=== PATIENT | male | born 1940 | race Caucasian/White ===

== ENCOUNTER → 2017-11-05 | Outpatient (CLI) | payer MEDICARE ==
--- NOTE | 2017-11-05 15:38 | US ---
EXAMINATION TYPE: US kidneys/renal and bladder DATE OF EXAM: 11/05/2017 COMPARISON: NONE CLINICAL HISTORY: R79.9Abnormal finding of blood chemistry R79.89. EXAM MEASUREMENTS: Right Kidney: 9.7 x 5.4 x 5.0 cm Left Kidney: 10.9 x 5.5 x 5.7 cm Right Kidney: cyst lower/lateral measures 1.7 x 1.6 x 1.3 cm. Left Kidney: No hydronephrosis or masses seen Bladder: not well distended Bilateral Jets seen: no There is no evidence for hydronephrosis at this point in time. No nephrolithiasis is seen. No worri some solid or cystic masses are identified. Technologist marked simple appearing 1.7 cm cyst lower p ole level right kidney. The urinary bladder is not greatly distended. Bilateral ureteral jets are no t seen. IMPRESSION: No hydronephrosis is evident bilaterally.
[2017-11-05 15:53] LABS: Potassium 4.2 mmol/L (3.5-5.1)
== END | disposition home or self-care (01) ==
LOC: RADUSWWP 15:00
PROVIDERS: ATTEND Family Medicine
DX: R79.89 Other specified abnormal findings of blood chemistry (principal); R79.9 Abnormal finding of blood chemistry, unspecified
CPT/HCPCS: 36415; 76770; 80051; 82565; 84520

== ENCOUNTER → 2018-04-08 | Outpatient (CLI) | payer OTHER | END | disposition home or self-care (01) | LOC: LABWHC1 11:25 | PROVIDERS: ATTEND Radiology Radiation Oncology | DX: C61 Malignant neoplasm of prostate (principal); F17.210 Nicotine dependence, cigarettes, uncomplicated | CPT/HCPCS: 36415; 84153 ==

== ENCOUNTER → 2018-10-08 | Outpatient (CLI) | payer MEDICARE | END | disposition home or self-care (01) | LOC: LABWHC1 14:27 | PROVIDERS: ATTEND Radiology Radiation Oncology | DX: C61 Malignant neoplasm of prostate (principal); F17.210 Nicotine dependence, cigarettes, uncomplicated; Z92.3 Personal history of irradiation | CPT/HCPCS: 36415; 84153 ==

== ENCOUNTER → 2019-04-01 | Outpatient (CLI) | payer OTHER | END | disposition home or self-care (01) | LOC: LABWHC1 13:38 | PROVIDERS: ATTEND Radiology Radiation Oncology | DX: C61 Malignant neoplasm of prostate (principal); F17.210 Nicotine dependence, cigarettes, uncomplicated; Z92.3 Personal history of irradiation | CPT/HCPCS: 36415; 84153 ==

== ENCOUNTER 2021-03-10 10:48 | Emergency (ER) | payer OTHER, MEDICARE ==
[2021-03-10 11:20] VITALS: RESP 18
[2021-03-10] MEDS ORDERED: SODIUM CHLORIDE 0.9% 50 ML IVPB ONE (12:00)
--- NOTE | 2021-03-10 12:19 | XR ---
EXAMINATION TYPE: XR chest 1V portable DATE OF EXAM: 03/10/2021 Comparison: None Clinical History: 80-year-old male covid positive x 1 wk, cough Findings: Median sternotomy wires and post-CABG clips in the mediastinum. Heart borderline in size. Mild inters titial prominence and chronic appearance. No focal infiltrate seen. No pleural effusion. Impression: Cardiomegaly. Post-CABG changes. There are chronic appearing changes. No definite focal infiltrate.
[2021-03-10] MEDS ORDERED: BAMLANIVIMAB (EUA) 700 MG, ETESEVIMAB (EUA) 1,400 MG in SODIUM CHLORIDE 0.9% 50 ML IVPB ONE (12:30)
[2021-03-10 12:59] VITALS: BP 133/76; PULSE 68; TEMP 99.4
--- NOTE | 2021-03-10 13:01 | ED ---
URI HPI - General Chief Complaint: Upper Respiratory Infection Stated Complaint: Covid +, needs antibodies Time Seen by Provider: 03/10/21 11:27 Source: patient, family, RN notes reviewed Mode of arrival: ambulatory Limitations: no limitations - History of Present Illness Initial Comments: Patient is a 80-year-old male with history of heart disease, diabetes, dementia, presenting to the emergency department requesting monoclonal antibodies. Patient tested positive for Covid about 4 days ago, symptoms began about 2 days prior to that. He has been having coughing, congestion, body aches. He said no fevers, no chest pain or shortness of breath. He does admit to some mild nausea but no vomiting, he had one day of diarrhea but that is since cleared. He still drinking fluids and eating some food. There are no further complaints at this time. Upon arrival to the ER, his vital signs are stable. - Related Data Home Medications Medication Instructions Recorded Confirmed Aspirin [Adult Low Dose Aspirin EC] 81 mg PO DAILY 02/05/18 Enalapril [Vasotec] 20 mg PO DAILY 02/05/18 Famotidine [Pepcid] 20 mg PO DAILY 02/05/18 Hydrochlorothiazide 12.5 mg PO DAILY 02/05/18 [hydroCHLOROthiazide] Levothyroxine Sodium [Synthroid] 75 mcg PO DAILY 02/05/18 Metoprolol Tartrate [Lopressor] 50 mg PO DAILY 02/05/18 Simvastatin 40 mg PO DAILY 02/05/18 amLODIPine [Norvasc] 5 mg PO DAILY 02/05/18 metFORMIN HCL [Glucophage] 1,000 mg PO BID 02/05/18 Previous Rx's Medication Instructions Recorded Dexamethasone [Decadron] 6 mg PO DAILY 5 Days #5 tablet 03/10/21 Allergies Allergy/AdvReac Type Severity Reaction Status Date / Time No Known Allergies Allergy Verified 03/10/21 11:20 Review of Systems ROS Statement: Those systems with pertinent positive or pertinent negative responses have been documented in the HPI. ROS Other: All systems not noted in ROS Statement are negative. Past Medical History Past Medical History: Coronary Artery Disease (CAD), Dementia, Diabetes Mellitus, Hyperlipidemia, Hypertension, Osteoarthritis (OA) Additional Past Medical History / Comment(s): PROSTATE CA HX History of Any Multi-Drug Resistant Organisms: None Reported Past Surgical History: Adenoidectomy, Coronary Bypass/CABG, Tonsillectomy Past Psychological History: No Psychological Hx Reported Smoking Status: Current every day smoker Past Alcohol Use History: None Reported Past Drug Use History: None Reported General Exam - General Exam Comments Initial Comments: GENERAL: Patient is well-developed and well-nourished. Patient is nontoxic and in no acute distress. HEAD: Atraumatic, normocephalic. EYES: Pupils equal round and reactive to light, extraocular movements intact, sclera anicteric, conjunctiva are normal. Eyelids were unremarkable. ENT: Oropharynx clear without exudates. Moist mucous membranes. NECK: Normal range of motion, supple without lymphadenopathy or JVD. LUNGS: Unlabored respirations. Breath sounds clear to auscultation bilaterally and equal. No wheezes rales or rhonchi. HEART: Regular rate and rhythm without murmurs, rubs or gallops. ABDOMEN: Soft, nontender, normoactive bowel sounds. No guarding, no rebound. No masses appreciated. MUSCULOSKELETAL: Normal extremities with adequate strength and normal range of motion, no pitting or edema. No clubbing or cyanosis. NEUROLOGICAL: Patient is alert and oriented x 3. SKIN: Warm, Dry, normal turgor, no rashes or lesions noted. Limitations: physical limitation Course Vital Signs 03/10/21 03/10/21 03/10/21 11:16 11:27 12:58 Temperature 98.9 F 99.4 F Pulse Rate 74 68 Respiratory 18 18 18 Rate Blood Pressure 144/75 133/76 O2 Sat by Pulse 97 97 Oximetry Medical Decision Making - Medical Decision Making Patient is a 80-year-old male here requesting monoclonal antibodies. He tested positive for Covid 4 days ago, symptoms began 2 days prior to that. His vitals are stable here, exam was no acute findings. Patient does qualify for monoclonal antibodies, received these without adverse side effects. A chest x- ray shows no acute infiltrates. His vitals remained stable. Patient will be placed on steroids for his cough. He is stable for discharge. He can follow up with his primary care. Disposition Clinical Impression: COVID-19 Disposition: HOME SELF-CARE Condition: Stable Instructions (If sedation given, give patient instructions): Coronavirus Disease 2019 (COVID-19) Additional Instructions: Please return to the Emergency Department if symptoms worsen or any other concerns. Take steroids as prescribed. Continue to increase fluids and increase diet as tolerated. Follow-up with your primary care. Prescriptions: Dexamethasone [Decadron] 6 mg PO DAILY 5 Days #5 tablet Is patient prescribed a controlled substance at d/c from ED?: No Referrals: [facility],Clinic [Primary Care Provider] - 1-2 days Time of Disposition: 14:14
== END 2021-03-10 14:37 | disposition home or self-care (01) ==
LOC: EC 10:48
DX: U07.1 COVID-19 (principal); I11.9 Hypertensive heart disease without heart failure; I25.10 Atherosclerotic heart disease of native coronary artery without angina pectoris; F03.90 Unspecified dementia, unspecified severity, without behavioral disturbance, psychotic disturbance, mood disturbance, and anxiety; E11.9 Type 2 diabetes mellitus without complications; E78.5 Hyperlipidemia, unspecified; M19.90 Unspecified osteoarthritis, unspecified site; F17.200 Nicotine dependence, unspecified, uncomplicated; Z85.46 Personal history of malignant neoplasm of prostate; Z90.89 Acquired absence of other organs; Z95.5 Presence of coronary angioplasty implant and graft
CPT/HCPCS: 99283; 96365; 71045; J3490

== ENCOUNTER 2021-10-17 08:54 | Inpatient (IN) | payer OTHER, MEDICARE ==
[2021-10-17 09:27] LABS: Basophils # (A) 0.1 k/uL (0-0.2); Basophils % (A) 1 %; Eosinophils # (A) 0.2 k/uL (0-0.7); Eosinophils % (A) 3 %; HCT 47.8 % (39.0-53.0); Lymphocytes # (A) 0.9 k/uL (1.0-4.8); Lymphocytes % (A) 13 %; MCH 32.8 pg (25.0-35.0); MCHC 33.5 g/dL (31.0-37.0); MCV 97.9 fL (80.0-100.0); Mean Platelet Volume 9.5; Monocytes # (A) 0.6 k/uL (0-1.0); Monocytes % (A) 9 %; Neutrophils # (A) 4.8 k/uL (1.3-7.7); Neutrophils % (A) 71 %; Platelet Count 151 k/uL (150-450); RBC 4.89 m/uL (4.30-5.90); RDW 14.3 % (11.5-15.5); WBC 6.8 k/uL (3.8-10.6)
[2021-10-17 09:45] LABS: Glucose,Whole Blood 138 mg/dL (70-110)
--- NOTE | 2021-10-17 09:55 | CT ---
EXAMINATION TYPE: CT brain wo con for TPA DATE OF EXAM: 10/17/2021 COMPARISON: None available HISTORY: Acute neurological deficit, stroke suspected CT DLP: 1561.9 mGycm, including the CT angiogram Automated exposure control for dose reduction was used. TECHNIQUE: CT scan of the brain is performed without IV contrast administration. FINDINGS: Brain volume loss changes, likely age-related. Left medial occipital cortical and subcortical chronic infarct. Scattered arterial atherosclerotic calcifications. No acute intracranial hemorrhage. No gross acute cortical infarct. No midline shift or herniation. Un remarkable basal cisterns, sella and CP angles. No gross space-occupying lesion, vasogenic edema or m ass effect. Thickened extraocular muscles, please correlate for thyroid orbitopathy. Mucosal thickening right max illary sinus. Opacified mastoid air cells. No gross aggressive bone lesion. IMPRESSION: No acute intracranial hemorrhage or gross acute cortical infarct. Left medial occipital chronic infar ct and other findings as described above.
--- NOTE | 2021-10-17 10:21 | CT ---
EXAMINATION TYPE: CT angio head neck DATE OF EXAM: 10/17/2021 HISTORY: Neuro deficit COMPARISON: None available CT DLP: 485.1 mGycm. Automated Exposure Control for Dose Reduction was Utilized. TECHNIQUE: CTA scan of the head and neck is performed with IV Contrast, patient injected with 65 mL of Isovue 370, axial images are obtained, coronal and sagittal reformatted images are reviewed. 3D re constructed images are created on an independent workstation and reviewed. FINDINGS: Carotid/Vascular Structures: 8 mm focal nipple-like projection is seen at the anterior aspect of the ascending aorta, possibly representing a small focal aneurysm. The ascending aorta measures 3.6 cm. R ecommend cardiovascular surgery consultation. Scattered arterial atherosclerotic calcification and to rtuosity. Moderate stenosis of the origin of the right vertebral artery. Dominant right vertebral art juan francisco. Severe stenosis of the origin of the left vertebral artery. Severe stenosis (95%) of the proxima l portion of the left internal carotid artery by a partially calcified atheromatous plaque and extend ing for about 4 mm. About 80% stenosis of the proximal portion of the right external carotid artery. Mild stenosis of the origin of the right internal carotid artery. Severe stenosis of the cavernous po rtion of the left internal carotid artery. Motion artifacts involving the intracranial arteries. [place] severe stenosis of the P2 segments of the human resources talent manager versus artifact. Patent major intracranial venous sinuses. Other: No intracranial abnormal enhancement. Slightly thickened nasopharyngeal soft tissue with opaci fied mastoid air cells, underlying lesion cannot be excluded. Further elective ENT consultation can b e considered. Small heterogeneous thyroid gland. Recommend correlation with thyroid function tests. T hickening of the extraocular muscles, recommend further workup for thyroid orbitopathy if not already known. Degenerative changes of the cervical spine. 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 Focal nipple-like projection of the anterior aspect of the ascending aorta a s described above, for cardiothoracic surgery consultation. Other arterial atherosclerotic changes an d segments of arterial stenosis as detailed above. Other incidental findings and recommendations as detailed above.
[2021-10-17] MEDS ORDERED: MORPHINE SULFATE 4 MG/ML SYRINGE IVP STA (10:37)
--- NOTE | 2021-10-17 11:02 | ED ---
Neuro HPI - General Chief Complaint: Neuro Symptoms/Deficit Stated Complaint: stroke symptoms Time Seen by Provider: 10/17/21 09:17 Source: patient, family Mode of arrival: wheelchair Limitations: no limitations - History of Present Illness Is the patient presenting with stroke symptoms?: Yes Last Known Well Date: 10/16/21 Last Known Well Time: 21:00 Initial Comments: 80-year-old male with past medical history of coronary artery disease, dementia, diabetes presents to the emergency Department with slurred speech and right upper and lower extremity weakness. Went to bed around 8:30 last night. The states that he was extremely restless and was moving around all night. The patient awoke around 6 AM and was attempting to ambulate around the bedroom. The could tell that he was having difficulty walking however she thought it was due to ambulating in the dark. The patient was dragging his right leg. The awoke around 7:30 8:00. She attempted to speak with him and he was having difficulties with his speech. This is what alerted her to bring him into the emergency department. Onset of symptoms is extremely unclear at this time. Patient is on a blood thinners. He denies any recent head trauma. No chest pain. Does complain of some right shoulder pain. No other alleviating, precipitating modifying factors - Related Data Home Medications: Home Medications Medication Instructions Recorded Confirmed Aspirin [Adult Low Dose Aspirin EC] 81 mg PO DAILY 02/05/18 10/17/21 Enalapril [Vasotec] 20 mg PO BID 02/05/18 10/17/21 Simvastatin 40 mg PO DAILY 02/05/18 10/17/21 amLODIPine [Norvasc] 5 mg PO DAILY 02/05/18 10/17/21 hydroCHLOROthiazide 12.5 mg PO DAILY 02/05/18 10/17/21 Levothyroxine Sodium [Synthroid] 125 mcg PO DAILY 10/17/21 10/17/21 Omeprazole 20 mg PO BID 10/17/21 10/17/21 Previous Rx's Medication Instructions Recorded Linagliptin [Tradjenta] 5 mg PO DAILY #30 tab 10/19/21 Metoprolol Tartrate [Lopressor] 12.5 mg PO BID #60 tab 10/19/21 Ticagrelor [Brilinta] 90 mg PO BID #60 tab 10/19/21 Allergies/Adverse Reactions: Allergies Allergy/AdvReac Type Severity Reaction Status Date / Time No Known Allergies Allergy Verified 10/17/21 11:55 Review of Systems ROS Statement: Those systems with pertinent positive or pertinent negative responses have been documented in the HPI. ROS Other: All systems not noted in ROS Statement are negative. General Exam Limitations: no limitations General appearance: alert, in no apparent distress Head exam: Present: atraumatic, normocephalic, normal inspection Eye exam: Present: normal appearance, PERRL, EOMI. Absent: scleral icterus, conjunctival injection, periorbital swelling ENT exam: Present: normal exam, mucous membranes moist Neck exam: Present: normal inspection. Absent: tenderness, meningismus, lymphadenopathy Respiratory exam: Present: normal lung sounds bilaterally. Absent: respiratory distress, wheezes, rales, rhonchi, stridor Cardiovascular Exam: Present: regular rate, normal rhythm, normal heart sounds. Absent: systolic murmur, diastolic murmur, rubs, gallop, clicks GI/Abdominal exam: Present: soft, normal bowel sounds. Absent: distended, tenderness, guarding, rebound, rigid Extremities exam: Present: normal capillary refill, other (4/5 strength right upper and right lower extremity). Absent: tenderness, pedal edema, joint swelling, calf tenderness Back exam: Present: normal inspection Neurological exam: Present: alert, oriented X3, other (moderate dysarthria with mild expressive aphasia) Psychiatric exam: Present: normal affect, normal mood Skin exam: Present: warm, dry, intact, normal color. Absent: rash Stroke MDM - Lab Data Result diagrams: 10/17/21 09:20 10/17/21 11:10 Lab Results 10/17/21 10/17/21 Range/Units 09:20 09:42 WBC 6.8 (3.8-10.6) k/uL RBC 4.89 (4.30-5.90) m/uL Hgb 16.0 (13.0-17.5) gm/dL Hct 47.8 (39.0-53.0) % MCV 97.9 (80.0-100.0) fL MCH 32.8 (25.0-35.0) pg MCHC 33.5 (31.0-37.0) g/dL RDW 14.3 (11.5-15.5) % Plt Count 151 (150-450) k/uL MPV 9.5 Neutrophils % 71 % Lymphocytes % 13 % Monocytes % 9 % Eosinophils % 3 % Basophils % 1 % Neutrophils # 4.8 (1.3-7.7) k/uL Lymphocytes # 0.9 L (1.0-4.8) k/uL Monocytes # 0.6 (0-1.0) k/uL Eosinophils # 0.2 (0-0.7) k/uL Basophils # 0.1 (0-0.2) k/uL POC Glucose (mg/dL) 138 H (70-110) mg/dL POC Glu Offal Trimmer ID Domenica Eden - Medical Decision Making Upon arrival patient was placed into room 5. A thorough history and physical exam was performed. Patient originally told triage that his symptom onset was 4 AM. He then told me that symptom onset was 6 AM. As he does arrive around 9 AM he is within the foreign half hour TPA window and therefore called alteplase as activated. Upon further discussion with the patient's the patient's woke up with these symptoms and therefore onset is pushed back to his bedtime at 8:30. Laboratory studies were conducted and the patient goes for a CT of his head as well as CT angiography. History was conveyed to Dr. Brown. As onset of timing is questionable, TPA is not indicated. CT demonstrates no acute cranial hemorrhage or gross cortical infarct. Left medial occipital chronic infarct. CT angiography demonstrates severe stenosis of the proximal in the cavernous portions of the left internal carotid artery. Focal nipple like projection of the anterior aspect of the ascending aorta. I discussed this with the patient. Will be given aspirin and statin. He will be admitted to Dr. Ding who accepts admission. Vascular, neurology and cardiothoracic surgery will be consulted. Patient agreed to this and was admitted in stable condition EKG demonstrates sinus bradycardia with a rate of 58. MO interval 178. QRS 106. QTC of 446. No acute ST segment elevations. Mild ST depression 2, 3, aVF as well as V5 and V6 10/17/21 13:01 Past Medical History Past Medical History: Coronary Artery Disease (CAD), Dementia, Diabetes Mellitus, Hyperlipidemia, Hypertension, Osteoarthritis (OA) Additional Past Medical History / Comment(s): PROSTATE CA HX History of Any Multi-Drug Resistant Organisms: None Reported Past Surgical History: Adenoidectomy, Coronary Bypass/CABG, Tonsillectomy Past Psychological History: No Psychological Hx Reported Smoking Status: Current every day smoker Past Alcohol Use History: None Reported Past Drug Use History: None Reported - Past Family History Mother Family Medical History: Unable to Obtain Father Family Medical History: Unable to Obtain Brother(s) Family Medical History: No Reported History Sister(s) Family Medical History: No Reported History Course Vital Signs 10/17/21 10/17/21 10/17/21 08:56 09:15 09:30 Temperature 98.0 F 98.1 F Pulse Rate 61 58 L 56 L Respiratory 18 16 18 Rate Blood Pressure 171/82 192/90 171/74 O2 Sat by Pulse 98 100 100 Oximetry 10/17/21 10/17/21 09:45 13:02 Temperature 98.1 F Pulse Rate 49 L Respiratory 16 18 Rate Blood Pressure 144/86 O2 Sat by Pulse 100 98 Oximetry Critical Care Time Critical Care Time: Yes Critical Care Time: 32 minutes Disposition Clinical Impression: Cerebrovascular accident (CVA), Right sided weakness, Dysarthria, Carotid disease, bilateral Disposition: ADMITTED IP TO THIS [facility] Condition: Serious Is patient prescribed a controlled substance at d/c from ED?: No Time of Disposition: 10:55 Decision to Admit Reason: Admit from EC Decision Date: 10/17/21 Decision Time: 10:55
[2021-10-17] MEDS ORDERED: ASPIRIN 325 MG TAB PO STA (11:19)
[2021-10-17] MEDS ORDERED: ATORVASTATIN 40 MG TAB PO SCH (11:30)
--- NOTE | 2021-10-17 11:32 | XR ---
EXAMINATION TYPE: XR chest 2V DATE OF EXAM: 10/17/2021 COMPARISON: NONE TECHNIQUE: PA and lateral views submitted. HISTORY: Altered mental status. FINDINGS: The lungs are clear and there is no pneumothorax, pleural effusion, or focal pneumonia. Postsurgica l changes are seen in the suggestion of an epicardial lead. Hypertrophic and degenerative change of t he spine. Heart size stable with no overt failure. Arthropathy of the shoulders. Atherosclerotic oden ge aorta. IMPRESSION: 1. No acute process.
--- NOTE | 2021-10-17 11:44 | XR ---
EXAMINATION TYPE: XR shoulder complete RT DATE OF EXAM: 10/17/2021 COMPARISON: NONE HISTORY: Pain TECHNIQUE: Three views are submitted. FINDINGS: The osseous structures are intact. There is no acute fracture or dislocation. AC joint arthropathy n oted. Postsurgical changes involving the mediastinum.. IMPRESSION: 1. AC joint arthropathy. If concern for rotator cuff disease correlate with MRI..
[2021-10-17 11:46] LABS: INR 0.9 (<1.2); Partial Thromboplastin Time 22.4 sec (22.0-30.0); Prothrombin Time 9.9 sec (9.0-12.0)
[2021-10-17 11:59] LABS: Calcium 8.9 mg/dL (8.4-10.2); Total Bilirubin 0.6 mg/dL (0.2-1.3); Total Protein 6.5 g/dL (6.3-8.2)
[2021-10-17 12:06] LABS: Potassium 4.4 mmol/L (3.5-5.1)
--- NOTE | 2021-10-17 14:09 | P.GSCN ---
History of Present Illness Consult date: 10/17/21 Reason for Consult: Carotid stenosis, CVA Requesting physician: Gabriella Bravo History of present illness: This is s a pleasant 80-year-old male with a past medical history of coronary artery disease status post CABG, hypertension, diabetes, and dementia who presented to the emergency department this morning with complaints of slurred speech and right-sided weakness. Patient also a current smoker. Most of the history is being obtained from the chart as the patient is poor historian and seems slightly confused. Apparently the patient went to bed last evening around 8:30 at night, his reportedly stated he was restless throughout the night. He got up around 6 AM and seemed as though he was having some difficulty with ambulating in the room, however the thought it was just due to the darkness. When she awoke around 7:30 8:00 the patient was dragging his leg and having difficulty with his speech. At that time patient was brought to the emergency department. Patient states he believes he had known carotid disease. 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 Lozada. He is unsure if he is on any anticoagulation. He is currently denying any abdominal pain, chest pain, shortness of breath, fevers, chills nausea or vomiting. Seems confused when asked if he is right or left handed. Also seems confused regarding if I ask if he has weakness of the upper and lower extremities. Is displaying slurred speech. Brain CT showed no acute intracranial hemorrhage or gross acute cortical artifact. Left medial occipital chronic infarct and other findings as described above. CT angiogram head and neck reports severe stenosis 95% of the proximal portion of the left internal carotid artery by partially calcified atheromatous plaque and extending about 4 mm. About 80% stenosis of the proximal portion of the right external carotid artery. Mild stenosis of the origin of the right internal carotid artery. A focal nipple-like projection of the anterior aspect of the ascending aorta, possibly representing a small focal aneurysm. Ascending aorta measures 3.6 cm. Review of Systems A 14 point review systems was completed all pertinent positives and negatives as stated in the HPI. Past Medical History Past Medical History: Coronary Artery Disease (CAD), Dementia, Diabetes Mellitus, Hyperlipidemia, Hypertension, Osteoarthritis (OA) Additional Past Medical History / Comment(s): PROSTATE CA HX History of Any Multi-Drug Resistant Organisms: None Reported Past Surgical History: Adenoidectomy, Coronary Bypass/CABG, Tonsillectomy Past Psychological History: No Psychological Hx Reported Smoking Status: Current every day smoker Past Alcohol Use History: None Reported Past Drug Use History: None Reported - Past Family History Mother Family Medical History: Unable to Obtain Father Family Medical History: Unable to Obtain Brother(s) Family Medical History: No Reported History Sister(s) Family Medical History: No Reported History Medications and Allergies Home Medications Medication Instructions Recorded Confirmed Type Aspirin [Adult Low Dose Aspirin EC] 81 mg PO DAILY 02/05/18 10/17/21 History Enalapril [Vasotec] 20 mg PO BID 02/05/18 10/17/21 History Metoprolol Tartrate [Lopressor] 50 mg PO DAILY 02/05/18 10/17/21 History Simvastatin 40 mg PO DAILY 02/05/18 10/17/21 History amLODIPine [Norvasc] 5 mg PO DAILY 02/05/18 10/17/21 History hydroCHLOROthiazide 12.5 mg PO DAILY 02/05/18 10/17/21 History Levothyroxine Sodium [Synthroid] 125 mcg PO DAILY 10/17/21 10/17/21 History Omeprazole 20 mg PO BID 10/17/21 10/17/21 History Allergies Allergy/AdvReac Type Severity Reaction Status Date / Time No Known Allergies Allergy Verified 10/17/21 11:55 Surgical - Exam Vital Signs Temp Pulse Resp BP Pulse Ox 98.0 F 61 18 171/82 98 10/17/21 08:56 10/17/21 08:56 10/17/21 08:56 10/17/21 08:56 10/17/21 08:56 General appearance: The patient is alert, oriented, appears in no acute distress. HET: Head is normocephalic and atraumatic. Pupils are equal and reactive. Neck: Supple without lymphadenopathy. Trachea midline. No audible carotid bruit. Heart: S1 S2. Regular rate and rhythm. Lungs: Clear to auscultation bilaterally. Abdomen: Soft, nontender, nondistended. Extremities: Normal skin color and turgor. No cyanosis, rash, ulceration, clubbing, or edema. Neurological: Patient seems slightly confused. He does have slurred speech. Tongue protrudes midline. Seems to answer most questions appropriately, however confused at times. Does display a right upper extremity weakness 3/5 compared to left 5/5. Right lower extremity seems not minimally weak compared to the left. Results - Labs 10/17/21 09:20 10/17/21 11:10 Abnormal Lab Results - Last 24 Hours (Table) 10/17/21 10/17/21 10/17/21 Range/Units 09:20 09:42 11:10 Lymphocytes # 0.9 L (1.0-4.8) k/uL BUN 26 H (9-20) mg/dL Glucose 132 H (74-99) mg/dL POC Glucose (mg/dL) 138 H (70-110) mg/dL Diabetes panel 10/17/21 Range/Units 11:10 Sodium 137 (137-145) mmol/L Potassium 4.4 (3.5-5.1) mmol/L Chloride 107 (98-107) mmol/L Carbon Dioxide 24 (22-30) mmol/L BUN 26 H (9-20) mg/dL Creatinine 1.03 (0.66-1.25) mg/dL Glucose 132 H (74-99) mg/dL Calcium 8.9 (8.4-10.2) mg/dL AST 21 (17-59) U/L ALT 17 (4-49) U/L Alkaline Phosphatase 47 (38-126) U/L Total Protein 6.5 (6.3-8.2) g/dL Albumin 4.0 (3.5-5.0) g/dL Calcium panel 10/17/21 Range/Units 11:10 Calcium 8.9 (8.4-10.2) mg/dL Albumin 4.0 (3.5-5.0) g/dL Pituitary panel 10/17/21 Range/Units 11:10 Sodium 137 (137-145) mmol/L Potassium 4.4 (3.5-5.1) mmol/L Chloride 107 (98-107) mmol/L Carbon Dioxide 24 (22-30) mmol/L BUN 26 H (9-20) mg/dL Creatinine 1.03 (0.66-1.25) mg/dL Glucose 132 H (74-99) mg/dL Calcium 8.9 (8.4-10.2) mg/dL Adrenal panel 10/17/21 Range/Units 11:10 Sodium 137 (137-145) mmol/L Potassium 4.4 (3.5-5.1) mmol/L Chloride 107 (98-107) mmol/L Carbon Dioxide 24 (22-30) mmol/L BUN 26 H (9-20) mg/dL Creatinine 1.03 (0.66-1.25) mg/dL Glucose 132 H (74-99) mg/dL Calcium 8.9 (8.4-10.2) mg/dL Total Bilirubin 0.6 (0.2-1.3) mg/dL AST 21 (17-59) U/L ALT 17 (4-49) U/L Alkaline Phosphatase 47 (38-126) U/L Total Protein 6.5 (6.3-8.2) g/dL Albumin 4.0 (3.5-5.0) g/dL - Imaging Comments: CT angiogram head and neck reviewed as stated previously CT brain reviewed as stated previously Assessment and Plan Assessment: 1. Left ICA stenosis, 95% per CT angiogram 2. Right-sided weakness and aphasia 3. History of coronary artery disease 4. History of dementia 5. Hypertension Plan: 1. Carotid duplex ordered 2. Await recommendations from neurology 3. Recommend aspirin, statin, Plavix if cleared by neurology 4. Further recommendations forthcoming per vascular surgeon 5. Please obtain disc of CT angiogram head and neck and put in patient's chart 6. Recommend PT/OT, speech therapy 7. Smoking cessation Thank you for this consultation, we will continue to follow. The impression and plan of care has been dictated as directed. Dr. Ruffin I performed a history and examination of this patient, discussed the same with the dictator. I agree with the dictator's note ,documented as a scribe. Any additional findings or plans will be noted.
--- NOTE | 2021-10-17 14:35 | US ---
EXAMINATION TYPE: US carotid duplex BILAT DATE OF EXAM: 10/17/2021 COMPARISON: CTA CLINICAL HISTORY: right sided weakness, CVA. Abnormal speech, CVA EXAM MEASUREMENTS: RIGHT: Peak Systolic Velocity (PSV) cm/sec ----- Right CCA: 67.7 ----- Right ICA: 123 ----- Right ECA: 511 ICA/CCA ratio: 1.8 RIGHT: End Diastole cm/sec ----- Right CCA: 14.3 ----- Right ICA: 37.5 ----- Right ECA: 43.6 LEFT: Peak Systolic Velocity (PSV) cm/sec ----- Left CCA: 95.2 ----- Left ICA: 241 ----- Left ECA: 128 ICA/CCA ratio: 2.5 LEFT: End Diastole cm/sec ----- Left CCA: 10.3 ----- Left ICA: 61.6 ----- Left ECA: 1.3 VERTEBRALS (direction of flow): Right Vertebral: Antegrade Left Vertebral: Unable to visualize Rhythm: Arrhythmia Heterogeneous plaque bilaterally with elevated velocities bilaterally/ Left vertebral artery unable to be visualized IMPRESSION: 1. Heterogeneous plaque bilaterally with findings suggestive of a 50-69% stenosis of the proximal lef t ICA. 2. Cardiac dysrhythmia. 3. Nonvisualization of the left vertebral artery could be congenital correlate clinically. Criteria for Assigning % of Stenosis / Diameter reduction (Estimation based on the indirect measurements of the internal carotid artery velocities (ICA PSV). 1. Normal (no stenosis)=ICA PSV < 125 cm/s: ratio < 2.0: ICA EDV<40 cm/s. 2. Less than 50% stenosis=ICA PSV < 125 cm/s: ratio < 2.0: ICA EDV<40 cm/s. 3. 50 to 69% stenosis=ICA PSV of 125 to 230 cm/s: ration 2.0 ? 4.0: ICA EDV 40-100 cm/s. 4. Greater than 70% stenosis to near occlusion= ICA PSV > 230 cm/s: ratio > 4.0: ICA EDV > 100 cm/s. 5. Near occlusion= ICA PSV velocities may be low or undetectable: variable ratio and ICA EDV. 6. Total occlusion=unable to detect flow.
--- NOTE | 2021-10-17 14:57 | P.HPIM ---
History of Present Illness H&P Date: 10/17/21 HISTORY OF PRESENT ILLNESS This is a 80-year-old male patient of Dr. Rojas with past medical history of coronary artery disease status post CABG many years ago, dementia, possible diabetes, hypertension, hyperlipidemia, history of prostate cancer, obstructive sleep apnea. Patient went to bed last evening at 8:30 and awoke this morning at 6 was attempting to ambulate he is having difficulty walking but he was dragging his right leg. Patient's woke at 7:30 or 8 and try to speak with them but he was having difficulty with speech. Patient was brought into [facility] emergency center for evaluation. He was found to be afebrile, heart rate 61, blood pressure 171/82, pulse ox 90% on room air. EKG sinus bradycardia with no acute ST changes. CBC was unremarkable. INR 0.9. Electrolytes normal. BUN 26 creatinine 1.03. Blood sugar 132. Liver function tests normal. Troponin negative. CT angiogram of the head and neck revealed severe stenosis of the proximal and cavernous portions of the left internal carotid artery. Focal nipple-like projections of the anterior aspect of the ascending aorta. Other arterial atherosclerotic changes and segments of arterial stenosis. CAT scan of the brain revealed no acute intracranial hemorrhage or gross acute cortical infarct. Left medial occipital chronic infarct. Chest x-ray reveals no acute process. Right shoulder x-ray revealed before meals joint arthropathy. If concern for rotator cuff disease correlate with MRI. Ultrasound carotid arteries revealed 50-69% stenosis of the proximal left ICA. Cardiac dysrhythmia. Nonvisualization of the left vertebral artery could be congenital. Patient is seen today in the emergency center waiting for a bed on the cardiac stepdown unit, vascular, neurology and cardiothoracic surgery consult in place REVIEW OF SYSTEMS Constitutional: No fever, no chills, no night sweats. No weight change. No weakness, fatigue or lethargy. No daytime sleepiness. EENT: No headache. No blurred vision or double vision, no loss of vision. No loss of Hearing, no ringing in the ears, no dizziness. No nasal drainage or congestion. No epistaxis. No sore throat. Lungs: No shortness of breath, cough, no sputum production. No wheezing. Cardiovascular: No chest pain, no lower extremity edema. No palpitations. No paroxysmal nocturnal dyspnea. No orthopnea. No lightheadedness or dizziness. No syncopal episodes. Abdominal: No abdominal pain. No nausea, vomiting. No diarrhea. No constipation. No bloody or tarry stools. No loss of appetite. Genitourinary: No dysuria, increased frequency, urgency. No urinary retention. Musculoskeletal: No myalgias. No muscle weakness, no gait dysfunction, no frequent falls. No back pain. No neck pain. Integumentary: No wounds, no lesions. No rash or pruritus. No unusual bruising. No change in hair or nails. Neurologic: Slurred speech. Right-sided facial droop. No change in mentation. No head injury. No headache. No paralysis. Right-sided weakness more so to the right upper extremity. Psychiatric: No depression. No anxiety. No mood swings. Endocrine: No abnormal blood sugars. No weight change. No excessive sweating or thirst. No cold intolerance. MEDICAL HISTORY Coronary artery disease status post CABG Dementia Diabetes mellitus type 2 Hypertension Hyperlipidemia History of prostate cancer Obstructive sleep apnea SURGICAL HISTORY CABG Adenoidectomy and tonsillectomy SOCIAL HISTORY Patient is a smoker of one pack per day since he was 18 years of age. He denies any alcohol use, marijuana or illicit drug use. He will lives at home with his . He does not use a cane or walker for ambulation. He has a CPAP at home. No oxygen and no nebulizer at home. FAMILY HISTORY Mother and father both in their late 60s and patient does not recall their medical history. Patient has 2 brothers and 2 sisters and as far as he knows no medical problems. Patient is one son and one daughter with no major medical problems. PHYSICAL EXAMINATION Gen: This is a 80-year-old male. He is resting on ER stretcher and appears to be comfortable at rest. HEENT: Head is atraumatic, normocephalic. Pupils equal, round. Sclerae is anicteric. Extraocular motion intact. NECK: Supple. No JVD. No lymphadenopathy. No thyromegaly. LUNGS: Clear to auscultation. No wheezes or rhonchi. No intercostal retractions. HEART: Regular rate and rhythm. No murmur. ABDOMEN: Soft. Bowel sounds are present. No masses. No tenderness. EXTREMITIES: No pedal edema. No calf tenderness. NEUROLOGICAL: Patient is awake, alert and oriented person and place. Slurred speech, right facial droop. Lower extremity strength 5/5 on the left, 4/5 on the right. Upper extremity strength 5/5 on the left and 3/5 on the right, 5/5. Cranial nerves II through XII grossly intact. ASSESSMENT AND PLAN 1. Acute ischemic CVA. Patient has been started on aspirin 325 mg daily, Lipitor 40 mg daily, neurology consult, continue neuro checks, PT, OT, speech therapy consults, lipid panel. 2. Left carotid artery stenosis. Vascular surgery consult appreciated. Continue as in #1. 3. Focal nipple-like projections of the anterior aspect of the ascending aorta. Other arterial atherosclerotic changes and segments of arterial stenosis. Consult with cardiothoracic surgery appreciated. No intervention at this time. 4. Hypertension. Continue amlodipine 5 mg daily, hydrochlorothiazide 12.5 mg daily, lisinopril 40 mg twice daily. Lopressor on hold for now due to bradycardia. 5. Hyperlipidemia. Continue statin. 6. Dementia. 7. Diabetes mellitus type 2. No patient is not on medication. A1c 8.0, continue NovoLog scale.. 8. Obstructive sleep apnea. Family may bring in CPAP. 9. History of prostate cancer. 10. GI prophylaxis. Protonix. 11. DVT prophylaxis. Heparin subcu. Patient will be admitted to the hospital for a minimum of 2 night stay. DISCHARGE PLAN Most likely subacute rehab. Impression and plan of care have been directed as dictated by the signing physician. Steph Garcia nurse practitioner acting as scribe for signing physician. Past Medical History Past Medical History: Coronary Artery Disease (CAD), Dementia, Diabetes Mellitus, Hyperlipidemia, Hypertension, Osteoarthritis (OA) Additional Past Medical History / Comment(s): PROSTATE CA HX History of Any Multi-Drug Resistant Organisms: None Reported Past Surgical History: Adenoidectomy, Coronary Bypass/CABG, Tonsillectomy Past Psychological History: No Psychological Hx Reported Smoking Status: Current every day smoker Past Alcohol Use History: None Reported Past Drug Use History: None Reported - Past Family History Mother Family Medical History: Unable to Obtain Father Family Medical History: Unable to Obtain Brother(s) Family Medical History: No Reported History Sister(s) Family Medical History: No Reported History Medications and Allergies Home Medications Medication Instructions Recorded Confirmed Type Aspirin [Adult Low Dose Aspirin EC] 81 mg PO DAILY 02/05/18 10/17/21 History Enalapril [Vasotec] 20 mg PO BID 02/05/18 10/17/21 History Metoprolol Tartrate [Lopressor] 50 mg PO DAILY 02/05/18 10/17/21 History Simvastatin 40 mg PO DAILY 02/05/18 10/17/21 History amLODIPine [Norvasc] 5 mg PO DAILY 02/05/18 10/17/21 History hydroCHLOROthiazide 12.5 mg PO DAILY 02/05/18 10/17/21 History Levothyroxine Sodium [Synthroid] 125 mcg PO DAILY 10/17/21 10/17/21 History Omeprazole 20 mg PO BID 10/17/21 10/17/21 History Allergies Allergy/AdvReac Type Severity Reaction Status Date / Time No Known Allergies Allergy Verified 10/17/21 11:55 Physical Exam Vitals: Vital Signs Temp Pulse Resp BP Pulse Ox 10/17/21 13:02 49 L 18 144/86 98 10/17/21 09:45 98.1 F 16 100 10/17/21 09:30 98.1 F 56 L 18 171/74 100 10/17/21 09:15 58 L 16 192/90 100 10/17/21 08:56 98.0 F 61 18 171/82 98 Intake and Output 10/16/21 10/17/21 10/17/21 22:59 06:59 14:59 Other: Weight 63.503 kg Results CBC & Chem 7: 10/17/21 09:20 10/17/21 11:10 Labs: Abnormal Lab Results - Last 24 Hours (Table) 10/17/21 10/17/21 10/17/21 Range/Units 09:20 09:42 11:10 Lymphocytes # 0.9 L (1.0-4.8) k/uL BUN 26 H (9-20) mg/dL Glucose 132 H (74-99) mg/dL POC Glucose (mg/dL) 138 H (70-110) mg/dL
[2021-10-17] MEDS ORDERED: TICAGRELOR 90 MG TAB PO STA (15:23)
--- NOTE | 2021-10-17 16:10 | P.GSCN ---
History of Present Illness Consult date: 10/17/21 Reason for Consult: Questionable aneurysm on CT Requesting physician: Gabriella Bravo History of present illness: This is a 80-year-old gentleman who follows on an outpatient basis with Dr. Rojas for primary care. He has a previous medical history of coronary artery disease status post CABG, hypertension, hyperlipidemia, diabetes mellitus, prostate cancer, obstructive sleep apnea, dementia, and current tobacco dependence. Apparently he woke up last night was having difficulty speaking as well as walking with dragging of his right leg. He was brought to [facility] emergency room for evaluation. Multiple studies were completed and patient was diagnosed with acute CVA, to be admitted for evaluation and treatment with consultations placed to neurology and vascular surgery. As part of his workup a CTA of the head and neck was completed which showed an 8 mm focal nipple-like projection at the anterior aspect of the ascending aorta, possibly representing a small focal aneurysm. Due to this finding consultation was placed to Dr. Duncan from cardiothoracic surgery for recommendations. Review of Systems Review of systems was completed and was negative except as noted. Of note, when asking the patient what brought him to the hospital he stated "my made me come". - Musculoskeletal Musculoskeleta Comment(s): Right-sided weakness - Neurological Reports as per HPI, Reports aphasia, Reports gait dysfunction, Reports lack of coordination Past Medical History Past Medical History: Coronary Artery Disease (CAD), Dementia, Diabetes Mellitus, Hyperlipidemia, Hypertension, Osteoarthritis (OA), Sleep Apnea/CPAP/BIPAP Additional Past Medical History / Comment(s): PROSTATE CA HX History of Any Multi-Drug Resistant Organisms: None Reported Past Surgical History: Adenoidectomy, Coronary Bypass/CABG, Tonsillectomy Past Psychological History: No Psychological Hx Reported Smoking Status: Current every day smoker Past Alcohol Use History: None Reported Past Drug Use History: None Reported Additional History: Admits to 1 pack per day of cigarettes for greater than 50 years - Past Family History Mother Family Medical History: Unable to Obtain Father Family Medical History: Unable to Obtain Brother(s) Family Medical History: No Reported History Sister(s) Family Medical History: No Reported History Medications and Allergies Home Medications Medication Instructions Recorded Confirmed Type Aspirin [Adult Low Dose Aspirin EC] 81 mg PO DAILY 02/05/18 10/17/21 History Enalapril [Vasotec] 20 mg PO BID 02/05/18 10/17/21 History Metoprolol Tartrate [Lopressor] 50 mg PO DAILY 02/05/18 10/17/21 History Simvastatin 40 mg PO DAILY 02/05/18 10/17/21 History amLODIPine [Norvasc] 5 mg PO DAILY 02/05/18 10/17/21 History hydroCHLOROthiazide 12.5 mg PO DAILY 02/05/18 10/17/21 History Levothyroxine Sodium [Synthroid] 125 mcg PO DAILY 10/17/21 10/17/21 History Omeprazole 20 mg PO BID 10/17/21 10/17/21 History Allergies Allergy/AdvReac Type Severity Reaction Status Date / Time No Known Allergies Allergy Verified 10/17/21 11:55 Surgical - Exam Vital Signs Temp Pulse Resp BP Pulse Ox 98.0 F 61 18 171/82 98 10/17/21 08:56 10/17/21 08:56 10/17/21 08:56 10/17/21 08:56 10/17/21 08:56 CONSTITUTIONAL: Awake and alert, appears comfortable, cooperative, well- developed, well-nourished, no pain, no acute distress EYES: Pupils equal, round, reactive to light, normal ocular movement ENT: Moist mucous membranes without oral lesions present NECK: No masses, no bruits, trachea midline RESPIRATORY: Lungs sounds clear to auscultation bilaterally. Respirations even, nonlabored. Currently on room air with oxygen saturation 97%. Strong cou gh. CARDIOVASCULAR: S1, S2 present. Regular rate and rhythm, sinus rhythm on telemetry. Palpable peripheral pulses bilaterally. No edema present. No calf pain or tenderness noted. GASTROINTESTINAL: Abdomen soft, nontender, nondistended without masses or organomegaly noted. There is no rebound or guarding present. Active bowel sounds present 4 quadrants. GENITOURINARY: Deferred INTEGUMENTARY: Skin is warm and dry with evidence of good perfusion. NEUROLOGIC: Slurred speech present, tongue protrudes midline, patient able to pop out both cheeks MUSKULOSKELETAL: Able to move all extremities, 3/5 strength to right arm, 4/5 strength to right leg, 5/5 strength to left arm and leg PSYCHIATRIC: Alert and oriented to person place and time Results - Labs 10/17/21 09:20 10/17/21 11:10 Abnormal Lab Results - Last 24 Hours (Table) 10/17/21 10/17/21 10/17/21 Range/Units 09:20 09:42 11:10 Lymphocytes # 0.9 L (1.0-4.8) k/uL BUN 26 H (9-20) mg/dL Glucose 132 H (74-99) mg/dL POC Glucose (mg/dL) 138 H (70-110) mg/dL Diabetes panel 10/17/21 Range/Units 11:10 Sodium 137 (137-145) mmol/L Potassium 4.4 (3.5-5.1) mmol/L Chloride 107 (98-107) mmol/L Carbon Dioxide 24 (22-30) mmol/L BUN 26 H (9-20) mg/dL Creatinine 1.03 (0.66-1.25) mg/dL Glucose 132 H (74-99) mg/dL Calcium 8.9 (8.4-10.2) mg/dL AST 21 (17-59) U/L ALT 17 (4-49) U/L Alkaline Phosphatase 47 (38-126) U/L Total Protein 6.5 (6.3-8.2) g/dL Albumin 4.0 (3.5-5.0) g/dL Calcium panel 10/17/21 Range/Units 11:10 Calcium 8.9 (8.4-10.2) mg/dL Albumin 4.0 (3.5-5.0) g/dL Pituitary panel 10/17/21 Range/Units 11:10 Sodium 137 (137-145) mmol/L Potassium 4.4 (3.5-5.1) mmol/L Chloride 107 (98-107) mmol/L Carbon Dioxide 24 (22-30) mmol/L BUN 26 H (9-20) mg/dL Creatinine 1.03 (0.66-1.25) mg/dL Glucose 132 H (74-99) mg/dL Calcium 8.9 (8.4-10.2) mg/dL Adrenal panel 10/17/21 Range/Units 11:10 Sodium 137 (137-145) mmol/L Potassium 4.4 (3.5-5.1) mmol/L Chloride 107 (98-107) mmol/L Carbon Dioxide 24 (22-30) mmol/L BUN 26 H (9-20) mg/dL Creatinine 1.03 (0.66-1.25) mg/dL Glucose 132 H (74-99) mg/dL Calcium 8.9 (8.4-10.2) mg/dL Total Bilirubin 0.6 (0.2-1.3) mg/dL AST 21 (17-59) U/L ALT 17 (4-49) U/L Alkaline Phosphatase 47 (38-126) U/L Total Protein 6.5 (6.3-8.2) g/dL Albumin 4.0 (3.5-5.0) g/dL - Imaging Additional studies: CTA of the head and neck reviewed Assessment and Plan Assessment: 1. 8 mm focal nipple-like projection at the anterior aspect of the ascending aorta, possibly representing small focal aneurysm with ascending aorta measuring 3.6 cm 2. Acute right-sided weakness and aphasia 3. Left internal carotid artery stenosis 95% per CTA 4. History of coronary artery disease status post CABG 5. Hypertension 6. Hyperlipidemia 7. Diabetes mellitus 8. Prostate cancer 9. Obstructive sleep apnea with home CPAP use 10. Dementia 11. Current tobacco dependence Plan: The patient was seen and examined at the bedside on the cardiac stepdown unit ambulating in his room with an unsteady gait but in no acute distress. Denies any pain or shortness of breath. Chart/diagnostics were reviewed. The case was discussed with Dr. Duncan. No surgical intervention is warranted. We recommend better blood pressure control, would prefer beta carolann therapy however given bradycardia appropriate to hold beta carolann for now. Patient was counseled regarding smoking cessation although he admits to no intention of quitting smoking. Recommend PT/OT. Appreciate neurology recommendations. Medical management for the comorbidities per primary care service. Thank you for this consult. Please call us with any further questions. I have personally seen and examined the patient, performed the documentation and the assessment and plan as written. Number of minutes spent on the visit: 30. YOGESH Barriga
[2021-10-17] MEDS: hydroCHLOROthiazide 12.5 MG CAP PO SCH (16:53)
[2021-10-17] MEDS: amLODIPine 5 MG TAB PO SCH (16:53)
--- NOTE | 2021-10-17 17:23 | CA ---
Transthoracic Echo Report Name: Arslan Valladares Age: 80 Gender: M : 1940 Exam Date: 10/17/2021 15:43 Exam Location: [facility] Ht (in): 64 Wt (lb): 140 Ordering Physician: Ruiz Man MD Attending/Referring Phys: Conference Specialist Cristina Singh RDCS Procedure CPT: Indications: acute stroke Cardiac Hx: Technical Quality: Fair Contrast 1: Agitated Saline Total Dose (mL): 2 Contrast 2: Total Dose (mL): MEASUREMENTS (Male / Female) Normal Values 2D ECHO LV Diastolic Diameter PLAX 5.5 cm 4.2 - 5.9 / 3.9 - 5.3 cm LV Systolic Diameter PLAX 3.8 cm IVS Diastolic Thickness 0.9 cm 0.6 - 1.0 / 0.6 - 0.9 cm LVPW Diastolic Thickness 1.1 cm 0.6 - 1.0 / 0.6 - 0.9 cm LV Relative Wall Thickness 0.4 RV Internal Dim ED PLAX 2.5 cm M-MODE Aortic Root Diameter MM 3.0 cm LA Systolic Diameter MM 3.5 cm LA Ao Ratio MM 1.2 MV E Point Septal Separation 2.3 cm AV Cusp Separation MM 1.4 cm DOPPLER AV Peak Velocity 137.9 cm/s AV Peak Gradient 7.6 mmHg MV Area PHT 2.5 cm??? MR Peak Velocity 104.2 cm/s MR Peak Gradient 4.3 mmHg Mitral E Point Velocity 93.3 cm/s Mitral A Point Velocity 119.2 cm/s Mitral E to A Ratio 0.8 MV Deceleration Time 309.4 ms TR Peak Velocity 131.3 cm/s TR Peak Gradient 6.9 mmHg Right Ventricular Systolic Press 11.3 mmHg FINDINGS Left Ventricle Left ventricular ejection fraction is estimated at 50-55_ %. Left ventricular cavity size normal. Normal left ventricular wall motion.left ventricular wall thickness normal. Right Ventricle The right ventricle is normal in size and function. Right Atrium The right atrium is normal in size. Negative agitated saline bubble study for right to left shunt. No PFO Left Atrium The left atrium is normal in size. Mitral Valve Structurally normal mitral valve without significant stenosis or prolapse. There is no mitral regurgitation. Aortic Valve Structurally normal aortic valve without significant sclerosis or stenosis. There is no aortic regurgitation. Tricuspid Valve Structurally normal tricuspid valve without significant stenosis. Pulmonary artery systolic pressure is normal. Pulmonic Valve Structurally normal pulmonic valve without significant stenosis. There is no pulmonic regurgitation. Pericardium Normal pericardium without effusion. Aorta Normal aortic root dimension. CONCLUSIONS Normal LV systolic function No [id number] shunt with agitated saline contrast study Previewed by: Dr. Zbigniew Bain MD (Electronically Signed) Final Date: 17 October 2021 17:22
--- NOTE | 2021-10-17 18:32 | P.CNNES ---
History of Present Illness Consult date: 10/17/21 Requesting physician: Gabriella Bravo Reason for Consult: right sided weakness, suspected stroke History of Present Illness: Patient is a 80-year-old ambidextrous male (writes with left hand), came to the hospital today at 8:44 AM for evaluation of an acute stroke. Patient apparently woke up this morning and noticed difficulty with talking. He noticed slurred speech. Denies any symptoms related to the arms or legs. Patient denies any headache, visual problems. Vital signs on arrival but pressure 171/82 pulse ra te [address] head showed left medial occipital chronic infarct. I personally reviewed CT head and agree with the findings. On my review, there is also significant opacification of the right maxillary sinus. CTA report reviewed. EKG shows sinus bradycardia, left atrial enlargement. Chest x-ray showed no acute process. Shoulder x-ray revealed before AC joint arthropathy. Patient denies any history of strokes or TIA in the past. He does have hypertension, also diabetes for a few years. He does smoke 1 pack per day for last 15 years. He did not smoke prior to that. Denies any alcohol or marijuana use. Patient says that he has been taking aspirin 81 mg daily for a very long time. Review of Systems As mentioned above in HPI. All other 14 points a few some reviewed and unremarkable. Past Medical History Past Medical History: Coronary Artery Disease (CAD), Dementia, Diabetes Mellitus, Hyperlipidemia, Hypertension, Osteoarthritis (OA) Additional Past Medical History / Comment(s): PROSTATE CA HX History of Any Multi-Drug Resistant Organisms: None Reported Past Surgical History: Adenoidectomy, Coronary Bypass/CABG, Tonsillectomy Past Psychological History: No Psychological Hx Reported Smoking Status: Current every day smoker Past Alcohol Use History: None Reported Past Drug Use History: None Reported - Past Family History Mother Family Medical History: Unable to Obtain Father Family Medical History: Unable to Obtain Brother(s) Family Medical History: No Reported History Sister(s) Family Medical History: No Reported History Medications and Allergies Home Medications Medication Instructions Recorded Confirmed Type Aspirin [Adult Low Dose Aspirin EC] 81 mg PO DAILY 02/05/18 10/17/21 History Enalapril [Vasotec] 20 mg PO BID 02/05/18 10/17/21 History Metoprolol Tartrate [Lopressor] 50 mg PO DAILY 02/05/18 10/17/21 History Simvastatin 40 mg PO DAILY 02/05/18 10/17/21 History amLODIPine [Norvasc] 5 mg PO DAILY 02/05/18 10/17/21 History hydroCHLOROthiazide 12.5 mg PO DAILY 02/05/18 10/17/21 History Levothyroxine Sodium [Synthroid] 125 mcg PO DAILY 10/17/21 10/17/21 History Omeprazole 20 mg PO BID 10/17/21 10/17/21 History Allergies Allergy/AdvReac Type Severity Reaction Status Date / Time No Known Allergies Allergy Verified 10/17/21 11:55 Physical Examination - Vital Signs Vital Signs: Vital Signs Temp Pulse Resp BP Pulse Ox 10/17/21 13:02 49 L 18 144/86 98 10/17/21 09:45 98.1 F 16 100 10/17/21 09:30 98.1 F 56 L 18 171/74 100 10/17/21 09:15 58 L 16 192/90 100 10/17/21 08:56 98.0 F 61 18 171/82 98 Intake and Output 10/16/21 10/17/21 10/17/21 22:59 06:59 14:59 Other: Weight 63.503 kg Patient is an elderly male, in no acute distress. Patient is alert awake oriented to time place and person. Speech is moderately dysarthric and language functions are normal. Patient can name and repeat very well. Attention, concentration and fund of knowledge is adequate. On cranial examination, pupils are equal, round and reacting to light, visual do are full on confrontation, with no neglect on double simultaneous stimulation. His extraocular muscles are intact with no nystagmus. Face has right-sided asymmetry, central type, tongue protrudes to the midline. Palatal elevation and sensation normal, hearing and facial sensation normal. Shoulder shrug decreased on the right side. On muscle strength testing, there is a right pronator drift, and the arm drifts down to 45. 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 Hip flexion 4-/5, ankle dorsiflexion 5/5. and the strength is normal in arms and legs distally and proximally. Deep tendon reflexes are (right/left) biceps trace/2, brachioradialis trace/2 kneel 2+/2+, ankles 1/4 and plantar is up on the right down left. Sensory to touch is equal with no neglect on double simultaneous stimulation. Cerebellar function showed moderate ataxia for [id number] testing on the right. Mild ataxia for [id number] testing on the right. No ataxia on the left side. Tone and bulk of muscles normal. Gait deferred. On general examination, there is no carotid bruit or murmur, S1-S2 audible. Abdomen is soft nontender. No organomegaly, bowel sounds present. Chest is c lear. Peripheral pulses are present. No edema. Patient's NIH stroke scale is 6 (0, 0, 0, 0, 0, 1, 0, 1, 0, 1, 2, 0, 0, 1, 0,) Results - Laboratory Findings CBC and BMP: 10/17/21 09:20 10/17/21 11:10 Abnormal Lab Findings: Abnormal Labs 10/17/21 10/17/21 10/17/21 09:20 09:42 11:10 Lymphocytes # 0.9 L BUN 26 H Glucose 132 H POC Glucose (mg/dL) 138 H Assessment and Plan Assessment: * Acute ischemic stroke, with dysarthria and right ataxic hemiparesis. Patient's NIH stroke scale is 6. * Left ICA stenosis, severe degree, per CTA report. CTA also showed involvement of severe stenosis of bilateral vertebrals. * Hypertension * Diabetes * Hyperlipidemia * Tobacco use Plan: * Patient will undergo MRI of the brain to evaluate for an acute stroke. Also to assess mechanism of the stroke (Small vessel type versus embolic) * Patient's current NIH stroke scale is 6. Patient will be loaded with Brilinta 180 mg stat, followed by 90 mg twice a day. Continue aspirin 81 mg daily. After 30 days, may switch Brilinta to Plavix. * CTA of head and neck revealed severe stenosis (95%) of the proximal and the cavernous portion of the left ICA by a partially calcified atheromatous plaque and extending for about 4 mm. Mild stenosis of the origin of right ICA.. Focal nipple like projection of the anterior aspect of the ascending aorta. Cardiothoracic surgery onboard. CTA also showed Moderate stenosis of the origin of right vertebral artery. Severe stenosis of the origin of the left vertebral artery. Severe stenosis of the P2 segment of the [employer]'s versus artifact. * 2-D echo revealed normal left-ventricular systolic function 50-55%. No [id number] shunt with agitated saline contrast study. No significant aortic or mitral valve stenosis. Left atrium normal size. * Carotid Doppler revealed heterogeneous plaque bilaterally with findings suggestive of a 50-69% stenosis of the proximal left ICA. Cardiac dysrhythmia. Nonvisualization of the left vertebral artery could be congenital. * Appreciate less neurosurgery input. * Hemoglobin A1c 8.0. Suggest optimizing control of diabetes to target A1c <7.0 * Lipid panel * PT OT, speech therapy * Permissive hypertension for 24-48 hours. Avoid hypotension. * DVT prophylaxis: Patient on pneumatic compression sleeve device. * Recommend complete tobacco cessation. * Neurology will follow. Thank you for the consult.
[2021-10-17 20:07] LABS: Glucose,Whole Blood 133 mg/dL (70-110)
[2021-10-17] MEDS: TICAGRELOR 90 MG TAB PO SCH (20:46)
[2021-10-17] MEDS: lisinopriL 20 MG TAB PO SCH (20:46)
[2021-10-17] MEDS: INSULIN ASPART (NovoLOG) 100 UNIT/ML VIAL SQ SCH (20:46)
[2021-10-18 06:01] LABS: Glucose,Whole Blood 122 mg/dL (70-110)
[2021-10-18] MEDS: INSULIN ASPART (NovoLOG) 100 UNIT/ML VIAL SQ SCH ×4 (06:07→19:59)
[2021-10-18] MEDS ORDERED: METOPROLOL TARTRATE 50 MG TAB PO SCH (09:00)
[2021-10-18] MEDS ORDERED: ATORVASTATIN 20 MG TAB PO SCH (09:00)
[2021-10-18] MEDS ORDERED: ASPIRIN 81 MG PO SCH (09:00)
[2021-10-18] MEDS ORDERED: ASPIRIN 325 MG TAB PO SCH (09:00)
[2021-10-18] MEDS: hydroCHLOROthiazide 12.5 MG CAP PO SCH (09:37)
[2021-10-18] MEDS: TICAGRELOR 90 MG TAB PO SCH ×2 (09:37→19:59)
[2021-10-18] MEDS: amLODIPine 5 MG TAB PO SCH ×2 (09:37→19:59)
[2021-10-18] MEDS: lisinopriL 20 MG TAB PO SCH ×2 (09:37→19:59)
[2021-10-18] MEDS: ASPIRIN 81 MG PO SCH (09:37)
[2021-10-18] MEDS: LEVOTHYROXINE 125 MCG TAB PO SCH (09:37)
[2021-10-18] MEDS: PANTOPRAZOLE 40 MG TABLET PO SCH (09:37)
--- NOTE | 2021-10-18 10:09 | P.PN ---
Subjective Progress Note Date: 10/18/21 Principal diagnosis: Carotid stenosis, CVA Patient seen and examined this follow-up for internal carotid artery stenosis. Patient presented to the emergency department with difficulty with walking, weakness in the right upper and lower extremity and slurred speech. Neurology h as evaluated patient started him on Brilinta, aspirin and Plavix. Patient scheduled to undergo MRI today. Carotid Doppler shows right ICA PSV 123 ICA/CCA ratio 1.8, left ICA PSV 241, ICA/CCA ratio 2.5 reporting heterogeneous plaque bilaterally with findings suggestive of 50-69% stenosis of the proximal left ICA. Cardiac dysrhythmia also noted on carotid duplex. Patient states side no acute changes through the night. He states he is left- handed. He is still having weakness in the right upper extremity and difficulty with his speech. He denies any difficulty with swallowing. No visual changes. Objective - Vital Signs Vital signs: Vital Signs Temp 97.8 F 10/18/21 03:15 Pulse 62 10/18/21 03:15 Resp 16 10/18/21 03:15 BP 156/79 10/18/21 03:15 Pulse Ox 98 10/18/21 03:15 FiO2 Intake & Output 10/17/21 10/18/21 10/18/21 18:59 06:59 18:59 Intake Total 200 240 Balance 200 240 Weight 63.503 kg Intake: Oral 200 240 Other: Voiding Method Urinal Toilet # Voids 1 - Exam General appearance: The patient is alert, oriented, appears in no acute distress. HET: Head is normocephalic and atraumatic. Pupils are equal and reactive. Neck: Supple without lymphadenopathy. Trachea midline. No audible carotid bruit. Heart: S1 S2. Regular rate and rhythm. Lungs: Clear to auscultation bilaterally. Abdomen: Soft, nontender, nondistended. Extremities: Normal skin color and turgor. No cyanosis, rash, ulceration, clubbing, or edema. Neurological: Patient alert and oriented. He does have slurred speech. Tongue protrudes midline. Does have slight right facial droop with smile. Patient is following commands and answering questions appropriately. Does display a right upper extremity weakness 3/5 compared to left 5/5. Right lower extremity seems not minimally weak compared to the left. - Labs CBC & Chem 7: 10/17/21 09:20 10/17/21 11:10 Labs: Abnormal Lab Results - Last 24 Hours (Table) 10/17/21 10/17/21 10/17/21 Range/Units 09:20 09:42 11:10 Lymphocytes # 0.9 L (1.0-4.8) k/uL BUN 26 H (9-20) mg/dL Glucose 132 H (74-99) mg/dL POC Glucose (mg/dL) 138 H (70-110) mg/dL Hemoglobin A1c (0.0-6.0) % 10/17/21 10/17/21 10/18/21 Range/Units 15:02 20:06 05:59 Lymphocytes # (1.0-4.8) k/uL BUN (9-20) mg/dL Glucose (74-99) mg/dL POC Glucose (mg/dL) 133 H 122 H (70-110) mg/dL Hemoglobin A1c 8.0 H (0.0-6.0) % Assessment and Plan Assessment: 1. Left ICA stenosis, 95% per CT angiogram 2. Right-sided weakness and aphasia 3. Cardiac arrythmia 4. History of coronary artery disease 5. History of dementia 6. Hypertension Plan: 1. Carotid duplex ordered 2. Await recommendations from neurology 3. Continue aspirin, atorvastatin, and Brilinta 4. Please obtain disc of CT angiogram head and neck and put in patient's chart 5. Recommend PT/OT, speech therapy 6. Complete tobacco abstinence 7. Cardiology consult per clearance for left trans-carotid arterial revascularization or carotid endarterectomy 8. Plan for possible T car versus carotid endarterectomy, favoring trans-car otid artery arterial revascularization in the near future Thank you for this consultation, we will continue to follow. The impression and plan of care has been dictated as directed. Dr. Ruffin I performed a history and examination of this patient, discussed the same with the dictator. I agree with the dictator's note ,documented as a scribe. Any additional findings or plans will be noted.
[2021-10-18 12:01] LABS: Glucose,Whole Blood 148 mg/dL (70-110)
--- NOTE | 2021-10-18 15:34 | P.CRDCN ---
History of Present Illness History of present illness: HISTORY OF PRESENTING ILLNESS This is a pleasant 80-year-old male past medical history significant for coronary artery disease status post 4 vessel CABG in , PCI to left cirumclex in 1998, hypertension, dyslipidemia, diabetes obstructive sleep apnea, chronic nicotine dependence, hypothyroidism. He used to see Dr. Lozada in the office, last seen in 2019. We have been asked to see in consultation for cardiac clearance. Patient presented to the ER with difficulty speaking and s lurred speech and right-sided lower extremity weakness. Patient admitted to the hospital for neurology workup. CT head showed left medial occipital chronic infarct. CT angiogram of head and neck revealed severe stenosis 95% proximal portion of the left internal carotid artery, 80% stenosis of the proximal portion of the right external carotid artery. 8 mm nipple projection is seen at the anterior aspect of the ascending aorta, possibly vasovagal small focal aneurysm. Patient seen and examined at bedside, no acute distress. He denies any chest pain, lightheadedness, dizziness, syncope or near-syncope. He denies any shortness of breath, orthopnea or PND. Prior to this patient was relatively active at home, he currently continues to smoke. He denies alcohol use. DIAGNOSTICS EKG reveals sinus bradycardia, heart rate 58, T wave inversions in inferior leads. No acute ischemia noted. Echocardiogram from arrhythmia 5055 percent, no PFO Telemetry tracings indicate sinus bradycardia, no arrhythmia noted. Lexiscan stress test in the office in 2019 revealed no evidence of reversible ischemia. Laboratory reviewed, troponin negative, TSH within normal limits, sodium 137, potassium 4.4, BUN 26, serum creatinine 1.0, hemoglobin A1c 8.0 Current home cardiac medications include hydrocodone thiazide 25 mg daily, amlodipine 5 mg daily, simvastatin 40 mg daily, metoprolol tartrate 50 mg daily, enalapril 20 mg twice a day, aspirin 80 mg daily, Synthroid REVIEW OF SYSTEMS At the time of my exam: CONSTITUTIONAL: Denies fever or chills. CARDIOVASCULAR: Denies chest pain, shortness of breath, orthopnea, PND or palpitations. RESPIRATORY: Denies cough. GASTROINTESTINAL: Denies abdominal pain, diarrhea, constipation, nausea or vomiting. MUSCULOSKELETAL: Denies myalgias. NEUROLOGIC: +slurred speech + speech changes Denies numbness, tingling, headacbe or weakness. ENDOCRINE: Denies fatigue, weight change, polydipsia or polyurina. GENITOURINARY: Denies burning, hematuria or urgency with micturation. HEMATOLOGIC: Denies history of anemia or bleeding. PHYSICAL EXAMINATION Vitals reviewed CONSTITUTIONAL: No apparent distress. HEENT: Head is normocephalic. Pupils are equal, round. Sclerae anicteric. Mucous membranes of the mouth are moist. No JVD. +carotid bruit. CHEST EXAMINATION: Lungs are clear to auscultation. No chest wall tenderness is noted on palpation or with deep breathing. HEART EXAMINATION: Regular rate and rhythm. S1, S2 heard systolic ejection murmur ABDOMEN: Soft, nontender. Positive bowel sounds. EXTREMITIES: 2+ peripheral pulses, no lower extremity edema and no calf tenderness. NEUROLOGIC EXAMINATION: Patient is awake, alert and oriented x3. ASSESSMENT Right sided weakness Dysarthria Left ICA stenosis, severe Left medial occipital chronic infarct noted on CT brain Coronary artery disease status post 4 vessel CABG in , PCI to left cirumclex in 1998 Hypertension Dyslipidemia Type 2 diabetes Obstructive sleep apnea Chronic nicotine dependence Hypothyroidism PLAN From a cardiology perspective, there is no absolute contraindicatinos to undergo surgery. Patient is at moderate risk. Prior to this patient was able to perform >4 METs levels of activity, however cannot at this time. He does not have any acute cardiac conditions. Increase atorvastatin to 40mg daily Continue aspirin Increase Hctz to 25mg daily Lisinopril 20mg BID, max dose is 40mg daily Change metoprolol tartrate to 25mg BID Nurse practitioner note has been reviewed by physician. Signing provider agrees with the documented findings, assessment, and plan of care. Past Medical History Past Medical History: Coronary Artery Disease (CAD), Dementia, Diabetes Mellitus, Hyperlipidemia, Hypertension, Osteoarthritis (OA) Additional Past Medical History / Comment(s): PROSTATE CA HX History of Any Multi-Drug Resistant Organisms: None Reported Past Surgical History: Adenoidectomy, Coronary Bypass/CABG, Tonsillectomy Past Psychological History: No Psychological Hx Reported Smoking Status: Current every day smoker Past Alcohol Use History: None Reported Past Drug Use History: None Reported - Past Family History Mother Family Medical History: Unable to Obtain Father Family Medical History: Unable to Obtain Brother(s) Family Medical History: No Reported History Sister(s) Family Medical History: No Reported History Medications and Allergies Home Medications Medication Instructions Recorded Confirmed Type Aspirin [Adult Low Dose Aspirin EC] 81 mg PO DAILY 02/05/18 10/17/21 History Enalapril [Vasotec] 20 mg PO BID 02/05/18 10/17/21 History Metoprolol Tartrate [Lopressor] 50 mg PO DAILY 02/05/18 10/17/21 History Simvastatin 40 mg PO DAILY 02/05/18 10/17/21 History amLODIPine [Norvasc] 5 mg PO DAILY 02/05/18 10/17/21 History hydroCHLOROthiazide 12.5 mg PO DAILY 02/05/18 10/17/21 History Levothyroxine Sodium [Synthroid] 125 mcg PO DAILY 10/17/21 10/17/21 History Omeprazole 20 mg PO BID 10/17/21 10/17/21 History Allergies Allergy/AdvReac Type Severity Reaction Status Date / Time No Known Allergies Allergy Verified 10/17/21 11:55 Physical Exam Vitals: Vital Signs Temp Pulse Resp BP Pulse Ox 10/18/21 12:00 98.3 F 51 L 16 150/79 96 10/18/21 09:28 98.3 F 64 16 167/70 99 10/18/21 03:15 97.8 F 62 16 156/79 98 10/17/21 23:18 97.8 F 58 L 16 165/78 99 10/17/21 20:00 97.4 F L 66 18 142/66 98 10/17/21 16:28 99 10/17/21 16:15 144/77 10/17/21 15:35 98.0 F 54 L 18 160/63 97 10/17/21 15:22 54 L 18 Intake and Output 10/17/21 10/18/21 10/18/21 22:59 06:59 14:59 Intake Total 440 600 Balance 440 600 Intake: Oral 440 600 Other: Voiding Method Toilet Toilet Urinal # Voids 1 1 Weight 63.503 kg Results 10/17/21 09:20 10/17/21 11:10 Current Medications Generic Name Dose Route Start Last Admin Trade Name Freq PRN Reason Stop Dose Admin Amlodipine Besylate 5 mg 10/17/21 13:30 10/18/21 09:37 Amlodipine 5 Mg Tab PO 5 mg DAILY BREANA Administration Aspirin 81 mg 10/18/21 09:00 10/18/21 09:37 Aspirin 81 Mg PO 81 mg DAILY BREANA Administration Aspirin 81 mg 10/18/21 09:00 10/18/21 09:37 Aspirin 81 Mg PO Not Given DAILY [facility] Atorvastatin Calcium 20 mg 10/18/21 09:00 10/18/21 09:37 Atorvastatin 20 Mg Tab PO 20 mg DAILY BREANA Administration Hydrochlorothiazide 12.5 mg 10/17/21 13:30 10/18/21 09:37 Hydrochlorothiazide 12.5 Mg Cap PO 12.5 mg DAILY BREANA Administration Insulin Aspart 0 unit 10/17/21 21:00 10/18/21 12:41 Insulin Aspart (Novolog) 100 Unit/Ml Vial SQ 1 unit ACHS [facility] Administration Protocol Levothyroxine Sodium 125 mcg 10/18/21 09:00 10/18/21 09:37 Levothyroxine 125 Mcg Tab PO 125 mcg DAILY BREANA Administration Lisinopril 40 mg 10/17/21 21:00 10/18/21 09:37 Lisinopril 20 Mg Tab PO 40 mg BID BREANA Administration Metoprolol Tartrate 50 mg 10/18/21 09:00 10/18/21 09:37 Metoprolol Tartrate 50 Mg Tab PO 50 mg DAILY BREANA Administration Pantoprazole Sodium 40 mg 10/18/21 09:00 10/18/21 09:37 Pantoprazole 40 Mg Tablet PO 40 mg DAILY BREANA Administration Ticagrelor 90 mg 10/17/21 21:00 10/18/21 09:37 Ticagrelor 90 Mg Tab PO 11/16/21 21:01 90 mg BID BREANA Administration Intake and Output 10/17/21 10/18/21 10/18/21 22:59 06:59 14:59 Intake Total 440 600 Balance 440 600 Intake: Oral 440 600 Other: Voiding Method Toilet Toilet Urinal # Voids 1 1 Weight 63.503 kg 10/17/21 09:20 10/17/21 11:10
[2021-10-18 15:42] LABS: LDL Cholesterol,Calculated 101.8 mg/dL (0.0-131.0)
[2021-10-18 16:37] LABS: Glucose,Whole Blood 93 mg/dL (70-110)
[2021-10-18 19:54] LABS: Glucose,Whole Blood 133 mg/dL (70-110)
[2021-10-18] MEDS ORDERED: METOPROLOL TARTRATE 25 MG TAB PO SCH (21:00)
[2021-10-19 06:02] LABS: Glucose,Whole Blood 109 mg/dL (70-110)
[2021-10-19] MEDS: INSULIN ASPART (NovoLOG) 100 UNIT/ML VIAL SQ SCH ×3 (06:08→17:52)
[2021-10-19] MEDS: PANTOPRAZOLE 40 MG TABLET PO SCH (08:46)
[2021-10-19] MEDS: ATORVASTATIN 40 MG TAB PO SCH (08:46)
[2021-10-19] MEDS: ASPIRIN 81 MG PO SCH (08:46)
[2021-10-19] MEDS: hydroCHLOROthiazide 25 MG TAB PO SCH (08:47)
[2021-10-19] MEDS: TICAGRELOR 90 MG TAB PO SCH ×2 (08:47→20:52)
[2021-10-19] MEDS: amLODIPine 5 MG TAB PO SCH ×2 (08:47→20:52)
[2021-10-19] MEDS: lisinopriL 20 MG TAB PO SCH ×2 (08:47→20:51)
[2021-10-19] MEDS: LEVOTHYROXINE 125 MCG TAB PO SCH (08:47)
[2021-10-19] MEDS: METOPROLOL TARTRATE 12.5 MG TAB PO SCH ×2 (08:49→20:51)
--- NOTE | 2021-10-19 10:56 | CONS ---
CONSULTATION DATE OF SERVICE: 10/17/21 I have seen, examined, and agree with the midlevel's findings. I met with this patient for 45 minutes during this consultation. EDUARDO / NOÉ: [id number] / -03
--- NOTE | 2021-10-19 11:08 | P.PN ---
Subjective This is a pleasant 80-year-old male past medical history significant for coronary artery disease status post 4 vessel CABG in , PCI to left ciru mclex in 1998, hypertension, dyslipidemia, diabetes obstructive sleep apnea, chronic nicotine dependence, hypothyroidism. He used to see Dr. Lozada in the office, last seen in 2019. We have been asked to see in consultation for cardiac clearance. Patient presented to the ER with difficulty speaking and slurred speech and right-sided lower extremity weakness. Patient admitted to the hospital for neurology workup. CT head showed left medial occipital chronic infarct. CT angiogram of head and neck revealed severe stenosis 95% proximal portion of the left internal carotid artery, 80% stenosis of the proximal portion of the right external carotid artery. 8 mm nipple projection is seen at the anterior aspect of the ascending aorta, possibly vasovagal small focal aneurysm. 10/19/2021 Patient seen and examined at bedside, no acute distress. Telemetry reviewed, sinus bradycardia with heart rate 4850s. Possible vascular surgery inpatient vs outpatient. He denies any chest pain, lightheadedness, dizziness, syncope or near-syncope. He denies any shortness of breath, orthopnea or PND. Echocardiogram revealed arrhythmia 5055 percent, no PFO PHYSICAL EXAMINATION Vitals reviewed CONSTITUTIONAL: No apparent distress. HEENT: Neck Supple. No JVD. +carotid bruit. CHEST EXAMINATION: Lungs are clear to auscultation. No chest wall tenderness is noted on palpation or with deep breathing. HEART EXAMINATION: Regular rate and rhythm. S1, S2 heard systolic ejection murmur ABDOMEN: Soft, nontender. Positive bowel sounds. EXTREMITIES: 2+ peripheral pulses, no lower extremity edema and no calf tenderness. NEUROLOGIC EXAMINATION: Patient is awake, alert and oriented x3. ASSESSMENT Right sided weakness Dysarthria Left ICA stenosis, severe Left medial occipital chronic infarct noted on CT brain Coronary artery disease status post 4 vessel CABG in , PCI to left cirumclex in 1998 Hypertension Dyslipidemia Type 2 diabetes Obstructive sleep apnea Chronic nicotine dependence Hypothyroidism Sinus bradycardia, asymptomatic PLAN Continue atorvastatin to 40mg daily Continue aspirin Decrease metoprolol to 12.5mg BID Continue Hctz to 25mg daily, Lisinopril 20mg BID Surgery date has not yet been determined Plan for MRI brain today Further recommendations based on clinical course Nurse practitioner note has been reviewed by physician. Signing provider agrees with the documented findings, assessment, and plan of care. Objective - Vital Signs Vital signs: Vital Signs Temp 98 F 10/19/21 08:39 Pulse 69 10/19/21 08:39 Resp 16 10/19/21 08:39 BP 132/79 10/19/21 08:39 Pulse Ox 100 10/19/21 08:39 FiO2 Intake & Output 10/18/21 10/19/21 10/19/21 18:59 06:59 18:59 Intake Total 860 240 280 Balance 860 240 280 Intake: IV 20 Invasive Line 1 10 Invasive Line 2 10 Oral 860 240 260 Other: Voiding Method Toilet Toilet # Voids 2 1 # Bowel Movements 1 - Labs CBC & Chem 7: 10/17/21 09:20 10/17/21 11:10 Labs: Abnormal Lab Results - Last 24 Hours (Table) 10/18/21 10/18/21 Range/Units 11:59 19:50 POC Glucose (mg/dL) 148 H 133 H (70-110) mg/dL
--- NOTE | 2021-10-19 11:10 | P.PN ---
Subjective Progress Note Date: 10/18/21 HISTORY OF PRESENT ILLNESS This is a 80-year-old male patient of Dr. Rojas with past medical history of coronary artery disease status post CABG many years ago, dementia, possible pancho betes, hypertension, hyperlipidemia, history of prostate cancer, obstructive sleep apnea. Patient went to bed last evening at 8:30 and awoke this morning at 6 was attempting to ambulate he is having difficulty walking but he was dragging his right leg. Patient's woke at 7:30 or 8 and try to speak with them but he was having difficulty with speech. Patient was brought into [facility] emergency center for evaluation. He was found to be afebrile, heart rate 61, blood pressure 171/82, pulse ox 90% on room air. EKG sinus bradycardia with no acute ST changes. CBC was unremarkable. INR 0.9. Electrolytes normal. BUN 26 creatinine 1.03. Blood sugar 132. Liver function tests normal. Troponin negative. CT angiogram of the head and neck revealed severe stenosis of the proximal and cavernous portions of the left internal carotid artery. Focal nipple-like projections of the anterior aspect of the ascending aorta. Other arterial atherosclerotic changes and segments of arterial stenosis. CAT scan of the brain revealed no acute intracranial hemorrhage or gross acute c ortical infarct. Left medial occipital chronic infarct. Chest x-ray reveals no acute process. Right shoulder x-ray revealed before meals joint arthropathy. If concern for rotator cuff disease correlate with MRI. Ultrasound carotid arteries revealed 50-69% stenosis of the proximal left ICA. Cardiac dysrhythmia. Nonvisualization of the left vertebral artery could be congenital. Patient is seen today in the emergency center waiting for a bed on the cardiac stepdown unit, vascular, neurology and cardiothoracic surgery consult in place 10/18: Patient has been seen by neurology and scheduled for MRI of the brain today. Patient has been seen by cardiothoracic surgery with no plan for surgical intervention, recommend blood pressure control. Patient has been seen by vascular surgery with plan for possible T car versus carotid endarterectomy, favoring trans-carotid artery arterial revascularization in the near future and cardiology consult was added for clearance. PT and OT to evaluate patient. manager gaming following for discharge plan. Echocardiogram reveals EF of 50-55%, no no right to left shunt with agitated saline contrast study. REVIEW OF SYSTEMS Constitutional: No fever, no chills, no night sweats. No weight change. No weakness, fatigue or lethargy. No daytime sleepiness. EENT: No headache. No blurred vision or double vision, no loss of vision. No loss of Hearing, no ringing in the ears, no dizziness. No nasal drainage or congestion. No epistaxis. No sore throat. Lungs: No shortness of breath, cough, no sputum production. No wheezing. Cardiovascular: No chest pain, no lower extremity edema. No palpitations. No paroxysmal nocturnal dyspnea. No orthopnea. No lightheadedness or dizziness. No syncopal episodes. Abdominal: No abdominal pain. No nausea, vomiting. No diarrhea. No constipation. No bloody or tarry stools. No loss of appetite. Genitourinary: No dysuria, increased frequency, urgency. No urinary retention. Musculoskeletal: No myalgias. No muscle weakness, expected gait dysfunction, no frequent falls. No back pain. No neck pain. Integumentary: No wounds, no lesions. No rash or pruritus. No unusual brui sing. Neurologic: Slurred speech. Right-sided facial droop. No change in mentation. No head injury. No headache. No paralysis. Right-sided weakness more so to the right upper extremity. Psychiatric: No depression. No anxiety. No mood swings. Endocrine: No abnormal blood sugars. No weight change. No excessive sweating or thirst. No cold intolerance. PHYSICAL EXAMINATION Gen: This is a 80-year-old male. He is resting in bed and appears to be comfortable at rest. HEENT: Head is atraumatic, normocephalic. Pupils equal, round. Sclerae is anicteric. Extraocular motion intact. NECK: Supple. No JVD. No lymphadenopathy. No thyromegaly. LUNGS: Clear to auscultation. No wheezes or rhonchi. No intercostal retractions. HEART: Regular rate and rhythm. No murmur. ABDOMEN: Soft. Bowel sounds are present. No masses. No tenderness. EXTREMITIES: No pedal edema. No calf tenderness. NEUROLOGICAL: Patient is awake, alert and oriented person and place. Slurred speech, right facial droop. Lower extremity strength 5/5 on the left, 4/5 on the right. Upper extremity strength 5/5 on the left and 3/5 on the right, 5/5. Cranial nerves II through XII grossly intact. ASSESSMENT AND PLAN 1. Acute ischemic CVA. Patient has been started on aspirin 325 mg daily, Lipitor 40 mg daily, neurology consult, continue neuro checks, PT, OT, speech therapy consults, lipid panel. Patient scheduled for MRI of the brain. 2. Left carotid artery stenosis. Vascular surgery consult appreciated. Continue as in #1. 3. Focal nipple-like projections of the anterior aspect of the ascending aorta. Other arterial atherosclerotic changes and segments of arterial stenosis. Consult with cardiothoracic surgery appreciated. No intervention at this time. 4. Hypertension. Continue amlodipine 5 mg daily, hydrochlorothiazide 12.5 mg daily, lisinopril 40 mg twice daily. Lopressor on hold for now due to bradycardia. 5. Hyperlipidemia. Continue statin. 6. Dementia. 7. Diabetes mellitus type 2. No patient is not on medication. A1c ordered. 8. Obstructive sleep apnea. Family may bring in CPAP. 9. History of prostate cancer. 10. GI prophylaxis. Protonix. 11. DVT prophylaxis. Heparin subcu. DISCHARGE PLAN Most likely subacute rehab. Impression and plan of care have been directed as dictated by the signing physician. Steph Garcia nurse practitioner acting as scribe for signing physici an. Objective - Vital Signs Vital signs: Vital Signs Temp 97.8 F 10/18/21 03:15 Pulse 62 10/18/21 03:15 Resp 16 10/18/21 03:15 BP 156/79 10/18/21 03:15 Pulse Ox 98 10/18/21 03:15 FiO2 Intake & Output 10/17/21 10/18/21 10/18/21 18:59 06:59 18:59 Intake Total 200 240 Balance 200 240 Weight 63.503 kg Intake: Oral 200 240 Other: Voiding Method Urinal Toilet # Voids 1 - Labs CBC & Chem 7: 10/17/21 09:20 10/17/21 11:10 Labs: Abnormal Lab Results - Last 24 Hours (Table) 10/17/21 10/17/21 10/17/21 Range/Units 09:20 09:42 11:10 Lymphocytes # 0.9 L (1.0-4.8) k/uL BUN 26 H (9-20) mg/dL Glucose 132 H (74-99) mg/dL POC Glucose (mg/dL) 138 H (70-110) mg/dL Hemoglobin A1c (0.0-6.0) % 10/17/21 10/17/21 10/18/21 Range/Units 15:02 20:06 05:59 Lymphocytes # (1.0-4.8) k/uL BUN (9-20) mg/dL Glucose (74-99) mg/dL POC Glucose (mg/dL) 133 H 122 H (70-110) mg/dL Hemoglobin A1c 8.0 H (0.0-6.0) %
--- NOTE | 2021-10-19 11:21 | P.DS ---
Providers Date of admission: 10/17/21 11:10 Expected date of discharge: 10/20/21 Attending physician: Rolando Ding Consults: 10/17/21 11:02 Consult Physician Urgent Consulting Provider: Ruiz Man Consult Reason/Comments: right sided weakness, suspected stroke Do you want consulting provider notified?: Yes 10/17/21 11:03 Consult Physician Urgent Consulting Provider: Bogdan Hoffman Consult Reason/Comments: carotid disease, suspected cva Do you want consulting provider notified?: Yes Consult Physician Urgent Consulting Provider: Kwaku Duncan Consult Reason/Comments: questionable anerysm on ct Do you want consulting provider notified?: Yes 10/18/21 13:11 Consult Physician Routine Consulting Provider: Gabriela Restrepo Consult Reason/Comments: cardiac clerance for TCAR/carotid endartectomy Do you want consulting provider notified?: Yes Primary care physician: Terry Rojas [facility] Course: HISTORY OF PRESENT ILLNESS This is a 80-year-old male patient of Dr. Rojas with past medical history of coronary artery disease status post CABG many years ago, dementia, possible diabetes, hypertension, hyperlipidemia, history of prostate cancer, obstructive sleep apnea. Patient went to bed last evening at 8:30 and awoke this morning at 6 was attempting to ambulate he is having difficulty walking but he was dragging his right leg. Patient's woke at 7:30 or 8 and try to speak with them but he was having difficulty with speech. Patient was brought into [facility] emergency center for evaluation. He was found to be afebrile, heart rate 61, blood pressure 171/82, pulse ox 90% on room air. EKG sinus bradycardia with no acute ST changes. CBC was unremarkable. INR 0.9. Electrolytes normal. BUN 26 creatinine 1.03. Blood sugar 132. Liver function tests normal. Troponin negative. CT angiogram of the head and neck revealed severe stenosis of the proximal and cavernous portions of the left internal carotid artery. Focal nipple-like projections of the anterior aspect of the ascending aorta. Other arterial atherosclerotic changes and segments of arterial stenosis. CAT scan of the brain revealed no acute intracranial hemorrhage or gross acute cortical infarct. Left medial occipital chronic infarct. Chest x-ray reveals no acute process. Right shoulder x-ray revealed before meals joint arthropathy. If concern for rotator cuff disease correlate with MRI. Ultrasound carotid arteries revealed 50-69% stenosis of the proximal left ICA. Cardiac dysrhythmia. Nonvisualization of the left vertebral artery could be congenital. Patient is seen today in the emergency center waiting for a bed on the cardiac stepdown unit, vascular, neurology and cardiothoracic surgery consult in place 10/18: Patient has been seen by neurology and scheduled for MRI of the brain today. Patient has been seen by cardiothoracic surgery with no plan for surgical intervention, recommend blood pressure control. Patient has been seen by vascular surgery with plan for possible T car versus carotid endarterectomy, favoring trans-carotid artery arterial revascularization in the near future and cardiology consult was added for clearance. PT and OT to evaluate patient. manager of regulatory affairs following for discharge plan. Echocardiogram reveals EF of 50-55%, no no right to left shunt with agitated saline contrast study. 10/19: Patient has been seen by cardiology and resumed on lower dose of Lopressor. MRI of the brain remains pending. Neurology is recommended Brilinta 90 mg twice daily for 30 days, aspirin 81 mg daily. After 30 days, Brilinta to be transitioned to Plavix. A1c came back at 8.0 and patient started on Tradjenta. Triglycerides 104, cholesterol 176, LDL 101, HDL 53. TSH 2.91. Regarding discharge planning, patient and his wanted him to return home. However, therapy is recommending's inpatient or subacute rehab. Consult placed to Dr. Zhu for evaluation and [place] is back up plan. MRI remains pending. 10/20: MRI of the brain revealed acute/subacute CVA involving the left stephania. Encephalomalacia of the left occipital lobe prior injury. Nonspecific white matter changes likely secondary to small vessel ischemic change. Patient has been seen by Dr. Zhu and appears to be a good candidate for inpatient rehab. Pain continues for outpatient follow-up with vascular surgery regarding carotid artery surgery. No new concerns from the patient. Patient will be discharged to inpatient rehab/subacute rehab in stable condition. DISCHARGE DIAGNOSES 1. Acute ischemic CVA. 2. Left carotid artery stenosis. 3. Focal nipple-like projections of the anterior aspect of the ascending aorta. 4. Hypertension. 5. Hyperlipidemia. 6. Dementia. 7. Diabetes mellitus type 2. 8. Obstructive sleep apnea. 9. History of prostate cancer. DISCHARGE PLAN IP rehab at [facility] Greater than 35 minutes was utilized and coordinating patient's discharge. Impression and plan of care have been directed as dictated by the signing physician. Steph Garcia nurse practitioner acting as scribe for signing physician. Patient Condition at Discharge: Serious Plan - Discharge Summary Discharge Rx Participant: No New Discharge Prescriptions: New Ticagrelor [Brilinta] 90 mg PO BID #60 tab Linagliptin [Tradjenta] 5 mg PO DAILY #30 tab Metoprolol Tartrate [Lopressor] 12.5 mg PO BID #60 tab Continue amLODIPine [Norvasc] 5 mg PO DAILY Enalapril [Vasotec] 20 mg PO BID Simvastatin 40 mg PO DAILY hydroCHLOROthiazide 12.5 mg PO DAILY Aspirin [Adult Low Dose Aspirin EC] 81 mg PO DAILY Levothyroxine Sodium [Synthroid] 125 mcg PO DAILY Omeprazole 20 mg PO BID Discontinued Metoprolol Tartrate [Lopressor] 50 mg PO DAILY Discharge Medication List Aspirin [Adult Low Dose Aspirin EC] 81 mg PO DAILY 02/05/18 [History] Enalapril [Vasotec] 20 mg PO BID 02/05/18 [History] Simvastatin 40 mg PO DAILY 02/05/18 [History] amLODIPine [Norvasc] 5 mg PO DAILY 02/05/18 [History] hydroCHLOROthiazide 12.5 mg PO DAILY 02/05/18 [History] Levothyroxine Sodium [Synthroid] 125 mcg PO DAILY 10/17/21 [History] Omeprazole 20 mg PO BID 10/17/21 [History] Linagliptin [Tradjenta] 5 mg PO DAILY #30 tab 10/19/21 [Rx] Metoprolol Tartrate [Lopressor] 12.5 mg PO BID #60 tab 10/19/21 [Rx] Ticagrelor [Brilinta] 90 mg PO BID #60 tab 10/19/21 [Rx] Follow up Appointment(s)/Referral(s): Gabriela Restrepo MD [STAFF PHYSICIAN] - 2 Weeks [facility] [NON-STAFF] - Ngoc Ruffin DO [STAFF PHYSICIAN] - 11/01/21 11:15 am Terry Rojas MD [Primary Care Provider] - 1 Week Patient Instructions/Handouts: Stroke (DC) Discharge Disposition: OTHER INSTITUTION NOT DEFINED
--- NOTE | 2021-10-19 11:22 | P.PN ---
Subjective Progress Note Date: 10/19/21 Principal diagnosis: Carotid stenosis, CVA Patient seen and examined this follow-up for internal carotid artery stenosis. Patient presented to the emergency department with difficulty with walking, weakness in the right upper and lower extremity and slurred speech. Neurology h as evaluated patient started him on Brilinta, aspirin and Plavix. Patient scheduled to undergo MRI today. Carotid Doppler shows right ICA PSV 123 ICA/CCA ratio 1.8, left ICA PSV 241, ICA/CCA ratio 2.5 reporting heterogeneous plaque bilaterally with findings suggestive of 50-69% stenosis of the proximal left ICA. Cardiac dysrhythmia also noted on carotid duplex. Patient states side no acute changes through the night. He denies any new focal deficits. Still having weakness in the right upper extremity. No difficulty with swallowing. No visual changes. Awaiting MRI of the brain. Objective - Vital Signs Vital signs: Vital Signs Temp 98 F 10/19/21 03:38 Pulse 52 L 10/19/21 03:38 Resp 16 10/19/21 03:38 BP 162/75 10/19/21 03:38 Pulse Ox 99 10/19/21 03:38 FiO2 Intake & Output 10/18/21 10/19/21 10/19/21 18:59 06:59 18:59 Intake Total 860 240 20 Balance 860 240 20 Intake: IV 20 Invasive Line 1 10 Invasive Line 2 10 Oral 860 240 Other: Voiding Method Toilet # Voids 2 1 # Bowel Movements 1 - Exam General appearance: The patient is alert, oriented, appears in no acute distress. HET: Head is normocephalic and atraumatic. Pupils are equal and reactive. Neck: Supple without lymphadenopathy. Trachea midline. No audible carotid bruit. Heart: S1 S2. Regular rate and rhythm. Lungs: Clear to auscultation bilaterally. Abdomen: Soft, nontender, nondistended. Extremities: Normal skin color and turgor. No cyanosis, rash, ulceration, clubbing, or edema. Neurological: Patient alert and oriented. He does have slurred speech. Tongue protrudes midline. Does have slight right facial droop with smile. Patient is following commands and answering questions appropriately. Does display a right upper extremity weakness 3/5 compared to left 5/5. Right lower extremity seems not minimally weak compared to the left. - Labs CBC & Chem 7: 10/17/21 09:20 10/17/21 11:10 Labs: Abnormal Lab Results - Last 24 Hours (Table) 10/18/21 10/18/21 Range/Units 11:59 19:50 POC Glucose (mg/dL) 148 H 133 H (70-110) mg/dL Assessment and Plan Assessment: 1. Left ICA stenosis, 95% per CT angiogram 2. Acute ischemic stroke, with right-sided hemiparesis and dysarthia 3. Cardiac arrythmia 4. History of coronary artery disease 5. History of dementia 6. Hypertension Plan: 1. Await recommendations from neurology 2. Continue aspirin, atorvastatin, and Brilinta 3. Continue PT/OT, speech therapy 4. Complete tobacco abstinence 5. Cardiology consult per clearance for left trans-carotid arterial revascularization or carotid endarterectomy 8. Plan for possible TCAR versus carotid endarterectomy, favoring trans-carotid artery arterial revascularization, this may be done as an outpatient within the next 2 weeks. Thank you for this consultation, the patient is cleared from vascular surgery. Follow-up within 1-[address] Ruffin. The impression and plan of care has been dictated as directed. Dr. Ruffin I performed a history and examination of this patient, discussed the same with the dictator. I agree with the dictator's note ,documented as a scribe. Any additional findings or plans will be noted.
[2021-10-19 11:29] LABS: Glucose,Whole Blood 144 mg/dL (70-110)
--- NOTE | 2021-10-19 14:42 | P.PN ---
Subjective Progress Note Date: 10/19/21 HISTORY OF PRESENT ILLNESS This is a 80-year-old male patient of Dr. Rojas with past medical history of coronary artery disease status post CABG many years ago, dementia, possible pan[place] betes, hypertension, hyperlipidemia, history of prostate cancer, obstructive sleep apnea. Patient went to bed last evening at 8:30 and awoke this morning at 6 was attempting to ambulate he is having difficulty walking but he was dragging his right leg. Patient's woke at 7:30 or 8 and try to speak with them but he was having difficulty with speech. Patient was brought into [facility] emergency center for evaluation. He was found to be afebrile, heart rate 61, blood pressure 171/82, pulse ox 90% on room air. EKG sinus bradycardia with no acute ST changes. CBC was unremarkable. INR 0.9. Electrolytes normal. BUN 26 creatinine 1.03. Blood sugar 132. Liver function tests normal. Troponin negative. CT angiogram of the head and neck revealed severe stenosis of the proximal and cavernous portions of the left internal carotid artery. Focal nipple-like projections of the anterior aspect of the ascending aorta. Other arterial atherosclerotic changes and segments of arterial stenosis. CAT scan of the brain revealed no acute intracranial hemorrhage or gross acute c ortical infarct. Left medial occipital chronic infarct. Chest x-ray reveals no acute process. Right shoulder x-ray revealed before meals joint arthropathy. If concern for rotator cuff disease correlate with MRI. Ultrasound carotid arteries revealed 50-69% stenosis of the proximal left ICA. Cardiac dysrhythmia. Nonvisualization of the left vertebral artery could be congenital. Patient is seen today in the emergency center waiting for a bed on the cardiac stepdown unit, vascular, neurology and cardiothoracic surgery consult in place 10/18: Patient has been seen by neurology and scheduled for MRI of the brain today. Patient has been seen by cardiothoracic surgery with no plan for surgical intervention, recommend blood pressure control. Patient has been seen by vascular surgery with plan for possible T car versus carotid endarterectomy, favoring trans-carotid artery arterial revascularization in the near future and cardiology consult was added for clearance. PT and OT to evaluate patient. associate account manager following for discharge plan. Echocardiogram reveals EF of 50-55%, no no right to left shunt with agitated saline contrast study. 10/19: Patient has been seen by cardiology and resumed on lower dose of Lopressor. MRI of the brain remains pending. Neurology is recommended Brilinta 90 mg twice daily for 30 days, aspirin 81 mg daily. After 30 days, Brilinta to be transitioned to Plavix. A1c came back at 8.0 and patient started on Tradjenta. Triglycerides 104, cholesterol 176, LDL 101, HDL 53. TSH 2.91. Regarding discharge planning, patient and his wanted him to return home. However, therapy is recommending's inpatient or subacute rehab. Consult placed to Dr. Zhu for evaluation and [facility] is back up plan. MRI remains pending. REVIEW OF SYSTEMS Constitutional: No fever, no chills, no night sweats. No weight change. No weakness, fatigue or lethargy. No daytime sleepiness. EENT: No headache. No blurred vision or double vision, no loss of vision. No loss of Hearing, no ringing in the ears, no dizziness. No nasal drainage or congestion. No epistaxis. No sore throat. Lungs: No shortness of breath, cough, no sputum production. No wheezing. Cardiovascular: No chest pain, no lower extremity edema. No palpitations. No paroxysmal nocturnal dyspnea. No orthopnea. No lightheadedness or dizziness. No syncopal episodes. Abdominal: No abdominal pain. No nausea, vomiting. No diarrhea. No constipation. No bloody or tarry stools. No loss of appetite. Genitourinary: No dysuria, increased frequency, urgency. No urinary retention. Musculoskeletal: No myalgias. No muscle weakness, expected gait dysfunction, no frequent falls. No back pain. No neck pain. Integumentary: No wounds, no lesions. No rash or pruritus. No unusual bruising. Neurologic: Slurred speech. Right-sided facial droop. No change in mentation. No head injury. No headache. No paralysis. Right-sided weakness more so to the right upper extremity. Psychiatric: No depression. No anxiety. No mood swings. Endocrine: No abnormal blood sugars. No weight change. No excessive sweating or thirst. No cold intolerance. PHYSICAL EXAMINATION Gen: This is a 80-year-old male. He is resting in bed and appears to be comfortable at rest. HEENT: Head is atraumatic, normocephalic. Pupils equal, round. Sclerae is anicteric. Extraocular motion intact. NECK: Supple. No JVD. No lymphadenopathy. No thyromegaly. LUNGS: Clear to auscultation. No wheezes or rhonchi. No intercostal retractions. HEART: Regular rate and rhythm. No murmur. ABDOMEN: Soft. Bowel sounds are present. No masses. No tenderness. EXTREMITIES: No pedal edema. No calf tenderness. NEUROLOGICAL: Patient is awake, alert and oriented person and place. Slurred speech, right facial droop. Lower extremity strength 5/5 on the left, 4/5 on the right. Upper extremity strength 5/5 on the left and 3/5 on the right, 5/5. Cranial nerves II through XII grossly intact. ASSESSMENT AND PLAN 1. Acute ischemic CVA. Patient has been started on aspirin 81 mg daily, Brilinta 90 mg twice daily for 30 days and then patient be transitioned to Plavix. Continue Lipitor 40 mg daily. Consult with nephrology appreciated. Continue PT, OT, speech therapies. Patient scheduled for MRI of the brain. 2. Left carotid artery stenosis. Vascular surgery consult appreciated plan for outpatient surgery. Continue as in #1. 3. Focal nipple-like projections of the anterior aspect of the ascending aorta. Other arterial atherosclerotic changes and segments of arterial stenosis. Consult with cardiothoracic surgery appreciated. No intervention at this time. 4. Hypertension. Continue amlodipine 5 mg daily, hydrochlorothiazide 12.5 mg daily, lisinopril 40 mg twice daily. Lopressor on hold for now due to bradyca rdia. 5. Hyperlipidemia. Continue statin. 6. Dementia. 7. Diabetes mellitus type 2. A1c 8.0. Patient started on Tradjenta, continue NovoLog scale. 8. Obstructive sleep apnea. Family may bring in CPAP. 9. History of prostate cancer. 10. GI prophylaxis. Protonix. 11. DVT prophylaxis. Heparin subcu. DISCHARGE PLAN Inpatient rehab or subacute rehab. Consult with Dr. Zhu.. Impression and plan of care have been directed as dictated by the signing philip jansen. Steph Garcia nurse practitioner acting as scribe for signing physician. Objective - Vital Signs Vital signs: Vital Signs Temp 98 F 10/19/21 08:39 Pulse 69 10/19/21 08:39 Resp 16 10/19/21 08:39 BP 132/79 10/19/21 08:39 Pulse Ox 100 10/19/21 08:39 FiO2 Intake & Output 10/18/21 10/19/21 10/19/21 18:59 06:59 18:59 Intake Total 860 240 280 Balance 860 240 280 Intake: IV 20 Invasive Line 1 10 Invasive Line 2 10 Oral 860 240 260 Other: Voiding Method Toilet Toilet # Voids 2 1 # Bowel Movements 1 - Labs CBC & Chem 7: 10/17/21 09:20 10/17/21 11:10 Labs: Abnormal Lab Results - Last 24 Hours (Table) 10/18/21 10/18/21 Range/Units 11:59 19:50 POC Glucose (mg/dL) 148 H 133 H (70-110) mg/dL
[2021-10-19 16:07] LABS: Glucose,Whole Blood 138 mg/dL (70-110)
--- NOTE | 2021-10-19 16:49 | MR ---
EXAMINATION TYPE: MR brain wo con DATE OF EXAM: 10/19/2021 2:46 PM COMPARISON: CT brain 10/09/2021. CTA brain 10/17/2021. CLINICAL INDICATION:Male, 80 years old with history of Acute CVA; TECHNIQUE: Multi planar, multi sequence imaging was performed through the brain including: T1, T2, In version recovery, Diffusion weighted imaging, and gradient echo imaging. No gadolinium was given. FINDINGS: Restricted diffusion is seen within the left stephania anteriorly that extends towards the center of the p ons. Encephalomalacia from prior injury of the left occipital lobe. The ventricular system, and ciste rns appear unremarkable. Scattered foci of high T2 signal intensity are seen within the periventricu lar white matter. Midline structures show no abnormality. The bone marrow signal is within normal do its. The paranasal sinuses demonstrate complete opacification with high T2 signal mucosal thickening of the right maxillary sinus. Scattered mucosal thickening of the ethmoid air cells and right frontal sinus. Bilateral aphakia IMPRESSION: 1. Acute/subacute CVA involving the left stephania. 2. Encephalomalacia Of the left occipital lobe prior injury. 3. Nonspecific white matter changes, likely secondary to small vessel ischemic disease.
[2021-10-19] MEDS: LINAGLIPTIN 5 MG TABLET PO SCH (17:52)
[2021-10-19 20:33] LABS: Glucose,Whole Blood 132 mg/dL (70-110)
--- NOTE | 2021-10-20 05:23 | P.CONS ---
History of Present Illness - Chief Complaint Gait disturbance, right hemiparesthesias - History of Present Illness I had the opportunity to see patient for inpatient rehab consultation with regard to gait disturbance. Patient admitted to [facility] October 09 acute onset right-sided weakness, to Dr. Ding. Seen by neurology, Dr. Claire Saleh diagnosis stroke. Seen by vascular surgery, Dr. Ruffin, note left ICA occlusion and recommend conservative treatment. Note thoracic aortic aneurysm 8 mm. Also seen by cardiology. Workup includes head CT which demonstrated age-related change and chronic left occipital infarct. Angiogram CT with left internal carotid stenosis. Chest x-ray negative. Right shoulder x-ray with before meals arthropathy and possible rotator cuff. Carotid Doppler done. Brain MRI done. Started therapy. PT reports total assist for bed mobility, transfer, gait total 200 feet roller walker. OT reports supervision for feeding, grooming, upper dressing, bathing, toileting. Minimal assistance for lower dressing and for functional mobility transfers. Speech therapy notes mild confusion. Diet assessing regular and thin liquids. Previous functional history as elicited from patient: 80-year-old left-handed white male who is lives in one form with . does generally the cooking laundry and driving. Patient dependent and can't drive and independent with standing shower. Denies assistive device for gait. PCP Dr. Rojas. States smokes a pack per day and denies alcohol. Review of Systems Review of systems: ENT: Denies sneezes or discharge. Eyes: Denies discharge or photophobia. Cardiac: Denies chest pain or palpitation. Pulmonary: Denies cough or shortness of breath. Gastrointestinal: Denies nausea, emesis, constipation, diarrhea. Genitourinary: Denies discharge or frequency. Musculoskeletal: Denies muscle or bone aches. Neurologic: Right-sided weakness and numbness. Endocrine: Denies shakes or sweats. Oncology: Denies cancers. Dermatologic: Denies rash, itching, pruritus. ALLERGY/immunology: Denies sneezes, rashes. Past Medical History Past Medical History: Coronary Artery Disease (CAD), Dementia, Diabetes Mellitus, Hyperlipidemia, Hypertension, Osteoarthritis (OA) Additional Past Medical History / Comment(s): PROSTATE CA HX History of Any Multi-Drug Resistant Organisms: None Reported Past Surgical History: Adenoidectomy, Coronary Bypass/CABG, Tonsillectomy Past Psychological History: No Psychological Hx Reported Smoking Status: Current every day smoker Past Alcohol Use History: None Reported Past Drug Use History: None Reported - Past Family History Mother Family Medical History: Unable to Obtain Father Family Medical History: Unable to Obtain Brother(s) Family Medical History: No Reported History Sister(s) Family Medical History: No Reported History Medications and Allergies Home Medications Medication Instructions Recorded Confirmed Type Aspirin [Adult Low Dose Aspirin EC] 81 mg PO DAILY 02/05/18 10/17/21 History Enalapril [Vasotec] 20 mg PO BID 02/05/18 10/17/21 History Simvastatin 40 mg PO DAILY 02/05/18 10/17/21 History amLODIPine [Norvasc] 5 mg PO DAILY 02/05/18 10/17/21 History hydroCHLOROthiazide 12.5 mg PO DAILY 02/05/18 10/17/21 History Levothyroxine Sodium [Synthroid] 125 mcg PO DAILY 10/17/21 10/17/21 History Omeprazole 20 mg PO BID 10/17/21 10/17/21 History Linagliptin [Tradjenta] 5 mg PO DAILY #30 tab 10/19/21 Rx Metoprolol Tartrate [Lopressor] 12.5 mg PO BID #60 tab 10/19/21 Rx Ticagrelor [Brilinta] 90 mg PO BID #60 tab 10/19/21 Rx Allergies Allergy/AdvReac Type Severity Reaction Status Date / Time No Known Allergies Allergy Verified 10/17/21 11:55 Physical Exam Vitals: Vital Signs Temp Pulse Resp BP Pulse Ox 10/20/21 04:00 97.8 F 66 16 117/68 96 10/19/21 23:28 98 F 64 16 127/68 96 10/19/21 20:00 97.9 F 64 16 145/78 98 10/19/21 15:54 98.1 F 62 16 154/51 99 10/19/21 11:57 98.3 F 53 L 16 155/71 98 10/19/21 08:39 98 F 69 16 132/79 100 Intake and Output 10/19/21 10/19/21 10/20/21 14:59 22:59 06:59 Intake Total 390 280 Balance 390 280 Intake: IV 40 20 Invasive Line 1 20 10 Invasive Line 2 20 10 Oral 350 260 Other: Voiding Method Toilet Toilet # Voids 1 3 1 Skin: Atrophic, intact. General: Medium build and comfortable appearance. Head: Normocephalic, atraumatic. Eyes: Symmetric. Pupils equal round. Ears: Symmetric. Hearing within normal limits. Mouth: Clear. Neck: Supple. Carotid without bruit. Cardiac: Regular rate and rhythm. Lungs: Clear anteriorly and posteriorly. Abdomen: Soft active nontender. Extremities: Normal tone. Thin limbs. Neurological: Mental status: Alert, cooperative, pleasant. Cranial nerves: Symmetric facial tone and trapezius. Motor: Normal strength and isolation left side. Right-sided weakness throughout but at least antigravity. Sensation: Intact left side and slightly diminished right side. DTRs: Symmetric and equal throughout. Mobility: Requires physical assist for bed mobility. Results CBC & Chem 7: 10/17/21 09:20 10/17/21 11:10 Labs: Abnormal Lab Results - Last 24 Hours (Table) 10/19/21 10/19/21 10/19/21 Range/Units 11:27 16:05 20:31 POC Glucose (mg/dL) 144 H 138 H 132 H (70-110) mg/dL Assessment and Plan (1) Carotid disease, bilateral Current Visit: Yes Status: Acute Code(s): I77.9 - DISORDER OF ARTERIES AND ARTERIOLES, UNSPECIFIED SNOMED Code(s): 620015802 (2) Cerebrovascular accident (CVA) Current Visit: Yes Status: Acute Code(s): I63.9 - CEREBRAL INFARCTION, UNSPECIFIED SNOMED Code(s): 646738835 (3) Dysarthria Current Visit: Yes Status: Acute Code(s): R47.1 - DYSARTHRIA AND ANARTHRIA SNOMED Code(s): 2654287 (4) Right sided weakness Current Visit: Yes Status: Acute Code(s): R53.1 - WEAKNESS SNOMED Code(s): 045709273 Plan: Comments and plan: At this time safety concerns noted patient is on straight ability tolerate and benefit from therapies. Patient is anticipating return home to .'s currently is safety concerns and recommend inpatient rehab pending goals.
[2021-10-20 06:04] LABS: Glucose,Whole Blood 120 mg/dL (70-110)
[2021-10-20] MEDS: INSULIN ASPART (NovoLOG) 100 UNIT/ML VIAL SQ SCH ×5 (07:06→20:57)
--- NOTE | 2021-10-20 08:07 | P.PN ---
Subjective Progress Note Date: 10/18/21 Patient was seen for a follow-up. Patient states he is feeling little better. Denies any headache. No dizziness. Still weak. No change. Objective - Vital Signs Vital signs: Vital Signs Temp 98.3 F 10/18/21 12:00 Pulse 51 L 10/18/21 12:00 Resp 16 10/18/21 12:00 BP 150/79 10/18/21 12:00 Pulse Ox 96 10/18/21 12:00 FiO2 Intake & Output 10/17/21 10/18/21 10/18/21 18:59 06:59 18:59 Intake Total 200 240 600 Balance 200 240 600 Weight 63.503 kg Intake: Oral 200 240 600 Other: Voiding Method Urinal Toilet # Voids 1 - Exam Patient is alert and awake. Speech is moderately dysarthric. No aphasia. Can name and repeat. Cranial nerves significant for right facial weakness. Visual do are full. On muscle strength testing patient has right pronator drift, and droops down 60. Overall strength is (right/left) deltoid 4/5, biceps 5-4+/5, triceps 5/5, map and chart mounter 4/5, hip flexion 3+/5, ankle dorsiflexion 5/5 Deep tendon reflexes are (right/left) assess for 1/2, brachioradialis 1/2, plantar is up on the right, downgoing left. Sensations are equal bilaterally. Patient has moderate ataxia for dhtrox-os-xmon testing on the right. Abdomen is soft and nontender. Chest is clear. - Labs CBC & Chem 7: 10/17/21 09:20 10/17/21 11:10 Labs: Abnormal Lab Results - Last 24 Hours (Table) 10/17/21 10/17/21 10/18/21 Range/Units 15:02 20:06 05:59 POC Glucose (mg/dL) 133 H 122 H (70-110) mg/dL Hemoglobin A1c 8.0 H (0.0-6.0) % 10/18/21 Range/Units 11:59 POC Glucose (mg/dL) 148 H (70-110) mg/dL Hemoglobin A1c (0.0-6.0) % Assessment and Plan Assessment: * Acute ischemic stroke, with dysarthria and right ataxic hemiparesis. Patient's NIH stroke scale is 6. * Left ICA stenosis, severe degree, per CTA report. CTA also showed involvement of severe stenosis of bilateral vertebrals. * Hypertension * Diabetes * Hyperlipidemia * Tobacco use Plan: * Await MRI of the brain to evaluate for an acute stroke. Also to assess mechanism of the stroke (Small vessel type versus embolic) * Patient's current NIH stroke scale is still at 6. Continue Brilinta [address] at, followed by 90 mg twice a day. Continue aspirin 81 mg daily. After 30 days, may switch Brilinta to Plavix. * CTA of head and neck revealed severe stenosis (95%) of the proximal and the cavernous portion of the left ICA by a partially calcified atheromatous plaque and extending for about 4 mm. Mild stenosis of the origin of right ICA.. Focal nipple like projection of the anterior aspect of the ascending aorta. Cardiothoracic surgery onboard. CTA also showed Moderate stenosis of the origin of right vertebral artery. Severe stenosis of the origin of the left vertebral artery. Severe stenosis of the P2 segment of the WEL[employer] SHIFT's versus artifact. * 2-D echo revealed normal left-ventricular systolic function 50-55%. No uwowi-lz-uwlj shunt with agitated saline contrast study. No significant aortic or mitral valve stenosis. Left atrium normal size. * Carotid Doppler revealed heterogeneous plaque bilaterally with findings suggestive of a 50-69% stenosis of the proximal left ICA. Cardiac dysrhythmia. Nonvisualization of the left vertebral artery could be congenital. * Appreciate vascular surgery input. * Hemoglobin A1c 8.0. Suggest optimizing control of diabetes to target A1c <7.0 * Lipid panel with cholesterol 176, LDL 101, HDL 53 and triglycerides 104. Continue Lipitor 40 mg daily. * PT OT, speech therapy * Permissive hypertension for 24-48 hours. Avoid hypotension. * DVT prophylaxis: Patient on pneumatic compression sleeve device. * Recommend complete tobacco cessation.
--- NOTE | 2021-10-20 08:27 | P.PN ---
Subjective Progress Note Date: 10/19/21 Patient was seen for a follow-up. Patient was asleep, but I woke him up. Patient is laying comfortably in the bed. Patient states he is feeling little better. Denies any headache. No dizziness. Still weak on the right side. Objective - Vital Signs Vital signs: Vital Signs Temp 97.9 F 10/19/21 20:00 Pulse 69 10/19/21 20:00 Resp 16 10/19/21 20:00 BP 145/78 10/19/21 20:00 Pulse Ox 98 10/19/21 20:00 FiO2 Intake & Output 10/19/21 10/19/21 10/20/21 06:59 18:59 06:59 Intake Total 240 650 Balance 240 650 Intake: IV 40 Invasive Line 1 20 Invasive Line 2 20 Oral 240 610 Other: Voiding Method Toilet Toilet # Voids 1 3 - Exam Patient is alert and awake. Speech is moderately dysarthric. No aphasia. Can name and repeat. Cranial nerves significant for right facial weakness. Visual do are full. On muscle strength testing patient has right pronator drift, and droops down 60. Overall strength is (right/left) deltoid 3+/5, biceps 4+/5, triceps 5-/5, credit historian 4-/5, hip flexion 3+4-/5, ankle dorsiflexion 5-/5 Deep tendon reflexes are (right/left) assess for 1/2, brachioradialis 1/2, plantar is up on the right, downgoing left. Sensations are equal bilaterally. Patient has moderate ataxia for finger -to-nose testing on the right. No ataxia for owfi-yh-ttux testing on the right. Abdomen is soft and nontender. Chest is clear. - Labs CBC & Chem 7: 10/17/21 09:20 10/17/21 11:10 Labs: Abnormal Lab Results - Last 24 Hours (Table) 10/19/21 10/19/21 Range/Units 11:27 16:05 POC Glucose (mg/dL) 144 H 138 H (70-110) mg/dL Assessment and Plan Assessment: * Acute left pontine ischemic stroke, with dysarthria and right ataxic hemiparesis. Patient's NIH stroke scale is 5. * Left ICA stenosis, severe degree, per CTA report. CTA also showed severe stenosis of left vertebral and moderate stenosis of the origin of right vertebral artery * Possible 8mm small nipple like focal aortic aneurysm noted on CTA. * Hypertension * Diabetes * Hyperlipidemia * Tobacco use Plan: * MRI of the brain confirmed an acute/subacute CVA involving the left stephania. I personally reviewed MRI and agree with the findings. * Patient's right side appears to be slightly weaker, but the NIH stroke continues to be at 6. Continue Brilinta 90 mg twice a day. Continue aspirin 81 mg daily. After 30 days, may switch Brilinta to Plavix. Recommend long- term management with dual antiplatelet medication, due to significant vasculopathy. * CTA of head and neck revealed severe stenosis (95%) of the proximal and the cavernous portion of the left ICA by a partially calcified atheromatous plaque and extending for about 4 mm. Mild stenosis of the origin of right ICA.. Focal nipple like projection of the anterior aspect of the ascending aorta. Cardiothoracic surgery onboard. CTA also showed Moderate stenosis of the [place] gin of right vertebral artery. Severe stenosis of the origin of the left vertebral artery. Severe stenosis of the P2 segment of the [employer]'s versus artifact. * Cardiothoracic surgeon saw the patient for possible focal aortic aneurysm, recommending better blood pressure control, tobacco cessation, no surgical intervention at this time. * 2-D echo revealed normal left-ventricular systolic function 50-55%. No wfyrt-zv-aamk shunt with agitated saline contrast study. No significant aortic or mitral valve stenosis. Left atrium normal size. * Carotid Doppler revealed heterogeneous plaque bilaterally with findings suggestive of a 50-69% stenosis of the proximal left ICA. Cardiac dysrhythmia. Nonvisualization of the left vertebral artery could be congenital. * Appreciate vascular surgery input. Agree with pursuing left CEA, although would prefer in the next 4-6 weeks, as the left ICA at present is asymptomatic, (CVA in stephania and in the posterior circulation). * Hemoglobin A1c 8.0. Suggest optimizing control of diabetes to target A1c <7.0 * Lipid panel with cholesterol 176, LDL 101, HDL 53 and triglycerides 104. Continue Lipitor 40 mg daily. * PT OT, speech therapy. Agree with rehab consultation. * DVT prophylaxis: Patient on pneumatic compression sleeve device. * Recommend complete tobacco cessation.
--- NOTE | 2021-10-20 08:57 | P.PN ---
Subjective Progress Note Date: 10/20/21 Principal diagnosis: Carotid stenosis, CVA Patient seen and examined this follow-up for internal carotid artery stenosis. Patient presented to the emergency department with difficulty with walking, weakness in the right upper and lower extremity and slurred speech. Neurology h as evaluated patient started him on Brilinta, aspirin and Plavix. Patient scheduled to undergo MRI today. Carotid Doppler shows right ICA PSV 123 ICA/CCA ratio 1.8, left ICA PSV 241, ICA/CCA ratio 2.5 reporting heterogeneous plaque bilaterally with findings suggestive of 50-69% stenosis of the proximal left ICA. Cardiac dysrhythmia also noted on carotid duplex. Yesterday he underwent MRI of the brain that showed acute to subacute CVA of the left stephania. Patient was evaluated by Dr. Zhu for inpatient rehab. No acute changes through the night. Continuing to work with PT and OT. Objective - Vital Signs Vital signs: Vital Signs Temp 97.5 F L 10/20/21 08:12 Pulse 74 10/20/21 08:12 Resp 18 10/20/21 08:12 BP 126/58 10/20/21 08:12 Pulse Ox 98 10/20/21 08:12 FiO2 Intake & Output 10/19/21 10/20/21 10/20/21 18:59 06:59 18:59 Intake Total 650 40 118 Balance 650 40 118 Intake: IV 40 40 Invasive Line 1 20 20 Invasive Line 2 20 20 Oral 610 118 Other: Voiding Method Toilet Toilet # Voids 3 1 - Exam General appearance: The patient is alert, oriented, appears in no acute distress. HET: Head is normocephalic and atraumatic. Pupils are equal and reactive. Neck: Supple without lymphadenopathy. Trachea midline. No audible carotid bruit. Heart: S1 S2. Regular rate and rhythm. Lungs: Clear to auscultation bilaterally. Abdomen: Soft, nontender, nondistended. Extremities: Normal skin color and turgor. No cyanosis, rash, ulceration, clubbing, or edema. Neurological: Patient alert and oriented. He does have slurred speech. Tongue protrudes midline. Does have slight right facial droop with smile. Patient is following commands and answering questions appropriately. Does display a right upper extremity weakness 3/5 compared to left 5/5. Right lower extremity seems not minimally weak compared to the left. - Labs CBC & Chem 7: 06/28/22 09:20 10/17/21 11:10 Labs: Abnormal Lab Results - Last 24 Hours (Table) 10/19/21 10/19/21 10/19/21 Range/Units 11:27 16:05 20:31 POC Glucose (mg/dL) 144 H 138 H 132 H (70-110) mg/dL 10/20/21 Range/Units 06:02 POC Glucose (mg/dL) 120 H (70-110) mg/dL Assessment and Plan Assessment: 1. Left ICA stenosis, 95% per CT angiogram 2. Acute/subacute stroke involving the left stephania with right-sided hemiparesis a nd dysarthia 3. Cardiac arrythmia prior carotid ultrasound 4. History of coronary artery disease 5. History of dementia 6. Hypertension Plan: 1. Continue with recommendations from neurology 2. Continue aspirin, atorvastatin, and Brilinta 3. Continue PT/OT, speech therapy 4. Complete tobacco abstinence 5. Cardiology consulted, patient is cleared with moderate risk to proceed with carotid intervention 8. Plan for possible TCAR versus carotid endarterectomy, favoring trans-carotid artery arterial revascularization, this may be done as an outpatient within the next 2 weeks. Thank you for this consultation, the patient is cleared from vascular surgery. Follow-up within 1-[address] Ruffin. We will sign off at this time. The impression and plan of care has been dictated as directed. Dr. Ruffin I performed a history and examination of this patient, discussed the same with the dictator. I agree with the dictator's note ,documented as a scribe. Any additional findings or plans will be noted.
[2021-10-20] MEDS: lisinopriL 20 MG TAB PO SCH ×2 (09:05→20:57)
[2021-10-20] MEDS: ATORVASTATIN 40 MG TAB PO SCH (09:05)
[2021-10-20] MEDS: PANTOPRAZOLE 40 MG TABLET PO SCH (09:05)
[2021-10-20] MEDS: METOPROLOL TARTRATE 12.5 MG TAB PO SCH ×2 (09:05→20:57)
[2021-10-20] MEDS: ASPIRIN 81 MG PO SCH (09:05)
[2021-10-20] MEDS: amLODIPine 5 MG TAB PO SCH ×2 (09:06→20:57)
[2021-10-20] MEDS: LEVOTHYROXINE 125 MCG TAB PO SCH (09:06)
[2021-10-20] MEDS: LINAGLIPTIN 5 MG TABLET PO SCH (09:06)
[2021-10-20] MEDS: TICAGRELOR 90 MG TAB PO SCH ×2 (09:06→20:57)
[2021-10-20] MEDS: hydroCHLOROthiazide 25 MG TAB PO SCH (09:06)
--- NOTE | 2021-10-20 10:46 | P.PN ---
Subjective Progress Note Date: 10/20/21 HISTORY OF PRESENT ILLNESS This is a 80-year-old male patient of Dr. Rojas with past medical history of coronary artery disease status post CABG many years ago, dementia, possible pancho betes, hypertension, hyperlipidemia, history of prostate cancer, obstructive sleep apnea. Patient went to bed last evening at 8:30 and awoke this morning at 6 was attempting to ambulate he is having difficulty walking but he was dragging his right leg. Patient's woke at 7:30 or 8 and try to speak with them but he was having difficulty with speech. Patient was brought into [facility] emergency center for evaluation. He was found to be afebrile, heart rate 61, blood pressure 171/82, pulse ox 90% on room air. EKG sinus bradycardia with no acute ST changes. CBC was unremarkable. INR 0.9. Electrolytes normal. BUN 26 creatinine 1.03. Blood sugar 132. Liver function tests normal. Troponin negative. CT angiogram of the head and neck revealed severe stenosis of the proximal and cavernous portions of the left internal carotid artery. Focal nipple-like projections of the anterior aspect of the ascending aorta. Other arterial atherosclerotic changes and segments of arterial stenosis. CAT scan of the brain revealed no acute intracranial hemorrhage or gross acute c ortical infarct. Left medial occipital chronic infarct. Chest x-ray reveals no acute process. Right shoulder x-ray revealed before meals joint arthropathy. If concern for rotator cuff disease correlate with MRI. Ultrasound carotid arteries revealed 50-69% stenosis of the proximal left ICA. Cardiac dysrhythmia. Nonvisualization of the left vertebral artery could be congenital. Patient is seen today in the emergency center waiting for a bed on the cardiac stepdown unit, vascular, neurology and cardiothoracic surgery consult in place 10/18: Patient has been seen by neurology and scheduled for MRI of the brain today. Patient has been seen by cardiothoracic surgery with no plan for surgical intervention, recommend blood pressure control. Patient has been seen by vascular surgery with plan for possible T car versus carotid endarterectomy, favoring trans-carotid artery arterial revascularization in the near future and cardiology consult was added for clearance. PT and OT to evaluate patient. assistant general manager following for discharge plan. Echocardiogram reveals EF of 50-55%, no no right to left shunt with agitated saline contrast study. 10/19: Patient has been seen by cardiology and resumed on lower dose of Lopressor. MRI of the brain remains pending. Neurology is recommended Brilinta 90 mg twice daily for 30 days, aspirin 81 mg daily. After 30 days, Brilinta to be transitioned to Plavix. A1c came back at 8.0 and patient started on Tradjenta. Triglycerides 104, cholesterol 176, LDL 101, HDL 53. TSH 2.91. Regarding discharge planning, patient and his wanted him to return home. However, therapy is recommending's inpatient or subacute rehab. Consult placed to Dr. Zhu for evaluation and [facility] is back up plan. MRI remains pending. 10/20: MRI of the brain revealed acute/subacute CVA involving the left stephania. Encephalomalacia of the left occipital lobe prior injury. Nonspecific white matter changes likely secondary to small vessel ischemic change. Patient has been seen by Dr. Zhu and appears to be a good candidate for inpatient rehab. Pain continues for outpatient follow-up with vascular surgery regarding carotid artery surgery. No new concerns from the patient. Patient requires insurance authorization for inpatient rehab. If this is obtained today, patient will be discharged to inpatient rehab at [facility], [place]. However, anticipate that insurance authorization will not be obtained until next week. REVIEW OF SYSTEMS Constitutional: No fever, no chills, no night sweats. No weight change. No weakness, fatigue or lethargy. No daytime sleepiness. EENT: No headache. No blurred vision or double vision, no loss of vision. No loss of Hearing, no ringing in the ears, no dizziness. No nasal drainage or congestion. No epistaxis. No sore throat. Lungs: No shortness of breath, cough, no sputum production. No wheezing. Cardiovascular: No chest pain, no lower extremity edema. No palpitations. No paroxysmal nocturnal dyspnea. No orthopnea. No lightheadedness or dizziness. No syncopal episodes. Abdominal: No abdominal pain. No nausea, vomiting. No diarrhea. No constipation. No bloody or tarry stools. No loss of appetite. Genitourinary: No dysuria, increased frequency, urgency. No urinary retention. Musculoskeletal: No myalgias. No muscle weakness, expected gait dysfunction, no frequent falls. No back pain. No neck pain. Integumentary: No wounds, no lesions. No rash or pruritus. No unusual bruising. Neurologic: Slurred speech. Right-sided facial droop. No change in mentation. No head injury. No headache. No paralysis. Right-sided weakness more so to the right upper extremity. Psychiatric: No depression. No anxiety. No mood swings. Endocrine: No abnormal blood sugars. No weight change. No excessive sweating or thirst. No cold intolerance. PHYSICAL EXAMINATION Gen: This is a 80-year-old male. He is resting in bed and appears to be comfortable at rest. HEENT: Head is atraumatic, normocephalic. Pupils equal, round. Sclerae is anicteric. Extraocular motion intact. NECK: Supple. No JVD. No lymphadenopathy. No thyromegaly. LUNGS: Clear to auscultation. No wheezes or rhonchi. No intercostal retractions. HEART: Regular rate and rhythm. No murmur. ABDOMEN: Soft. Bowel sounds are present. No masses. No tenderness. EXTREMITIES: No pedal edema. No calf tenderness. NEUROLOGICAL: Patient is awake, alert and oriented person and place. Slurred speech, right facial droop. Lower extremity strength 5/5 on the left, 4/5 on the right. Upper extremity strength 5/5 on the left and 3/5 on the right, 5/5. Cranial nerves II through XII grossly intact. ASSESSMENT AND PLAN 1. Acute ischemic CVA. Patient has been started on aspirin 81 mg daily, Brilinta 90 mg twice daily for 30 days and then patient be transitioned to Plavix. Continue Lipitor 40 mg daily. Consult with nephrology appreciated. Continue PT, OT, speech therapies. Patient scheduled for MRI of the brain. 2. Left carotid artery stenosis. Vascular surgery consult appreciated plan for outpatient surgery. Continue as in #1. 3. Focal nipple-like projections of the anterior aspect of the ascending aorta. Other arterial atherosclerotic changes and segments of arterial stenosis. Consult with cardiothoracic surgery appreciated. No intervention at this time. 4. Hypertension. Continue amlodipine 5 mg daily, hydrochlorothiazide 12.5 mg daily, lisinopril 40 mg twice daily. Lopressor on hold for now due to bradycard ia. 5. Hyperlipidemia. Continue statin. 6. Dementia. 7. Diabetes mellitus type 2. A1c 8.0. Patient started on Tradjenta, continue NovoLog scale. 8. Obstructive sleep apnea. Family may bring in CPAP. 9. History of prostate cancer. 10. GI prophylaxis. Protonix. 11. DVT prophylaxis. Heparin subcu. DISCHARGE PLAN Inpatient rehab at [facility], [place] Impression and plan of care have been directed as dictated by the signing physician. Steph Garcia nurse practitioner acting as scribe for signing physician. Objective - Vital Signs Vital signs: Vital Signs Temp 97.9 F 10/20/21 08:56 Pulse 66 10/20/21 08:58 Resp 18 10/20/21 08:58 BP 109/64 10/20/21 08:56 Pulse Ox 98 10/20/21 08:56 FiO2 Intake & Output 10/19/21 10/20/21 10/20/21 18:59 06:59 18:59 Intake Total 650 40 138 Balance 650 40 138 Intake: IV 40 40 20 Invasive Line 1 20 20 10 Invasive Line 2 20 20 10 Oral [id number] Other: Voiding Method Toilet Toilet Toilet # Voids 3 1 - Labs CBC & Chem 7: 10/17/21 09:20 10/17/21 11:10 Labs: Abnormal Lab Results - Last 24 Hours (Table) 10/19/21 10/19/21 10/19/21 Range/Units 11:27 16:05 20:31 POC Glucose (mg/dL) 144 H 138 H 132 H (70-110) mg/dL 10/20/21 Range/Units 06:02 POC Glucose (mg/dL) 120 H (70-110) mg/dL
[2021-10-20 11:32] LABS: Glucose,Whole Blood 162 mg/dL (70-110)
--- NOTE | 2021-10-20 13:23 | P.PN ---
Subjective This is a pleasant 80-year-old male past medical history significant for coronary artery disease status post 4 vessel CABG in , PCI to left ciru mclex in 1998, hypertension, dyslipidemia, diabetes obstructive sleep apnea, chronic nicotine dependence, hypothyroidism. He used to see Dr. Lozada in the office, last seen in 2019. We have been asked to see in consultation for cardiac clearance. Patient presented to the ER with difficulty speaking and slurred speech and right-sided lower extremity weakness. Patient admitted to the hospital for neurology workup. CT head showed left medial occipital chronic infarct. CT angiogram of head and neck revealed severe stenosis 95% proximal portion of the left internal carotid artery, 80% stenosis of the proximal portion of the right external carotid artery. 8 mm nipple projection is seen at the anterior aspect of the ascending aorta, possibly vasovagal small focal aneurysm. 10/20/2021 Patient seen and examined at bedside, no acute distress. Telemetry reviewed, sinus rhythm HR 50s-70s. Possible vascular surgery inpatient vs outpatient. He denies any chest pain, lightheadedness, dizziness, syncope or near-syncope. He denies any shortness of breath, orthopnea or PND. Echocardiogram revealed EF 50-55%, no PFO. MRI of the brain report revealed acute/subacute CVA involving left stephania, Salmonella CT of the left occipital lobe prior injury. Nonspecific white matter changes secondary to small vessel ischemic disease PHYSICAL EXAMINATION Vitals reviewed CONSTITUTIONAL: No apparent distress. HEENT: Neck Supple. No JVD. +carotid bruit. CHEST EXAMINATION: Lungs are clear to auscultation. No chest wall tenderness is noted on palpation or with deep breathing. HEART EXAMINATION: Regular rate and rhythm. S1, S2 heard systolic ejection murmur ABDOMEN: Soft, nontender. Positive bowel sounds. EXTREMITIES: 2+ peripheral pulses, no lower extremity edema and no calf tenderness. NEUROLOGIC EXAMINATION: Patient is awake, alert and oriented x3. ASSESSMENT Right sided weakness Dysarthria Left ICA stenosis, severe Left medial occipital chronic infarct noted on CT brain Coronary artery disease status post 4 vessel CABG in , PCI to left cirumclex in 1998 Hypertension Dyslipidemia Type 2 diabetes Obstructive sleep apnea Chronic nicotine dependence Hypothyroidism Sinus bradycardia, asymptomatic PLAN Continue atorvastatin to 40mg daily Continue aspirin Continue metoprolol 12.5mg BID Continue Hctz to 25mg daily, Lisinopril 20mg BID Surgery date has not yet been determined No further changes from a cardiology perspective, follow up outpatient with Dr. Restrepo Nurse practitioner note has been reviewed by physician. Signing provider agrees with the documented findings, assessment, and plan of care. Objective - Vital Signs Vital signs: Vital Signs Temp 97.9 F 10/20/21 08:56 Pulse 66 10/20/21 08:58 Resp 18 10/20/21 08:58 BP 109/64 10/20/21 08:56 Pulse Ox 98 10/20/21 08:56 FiO2 Intake & Output 10/19/21 10/20/21 10/20/21 18:59 06:59 18:59 Intake Total 650 40 138 Balance 650 40 138 Intake: IV 40 40 20 Invasive Line 1 20 20 10 Invasive Line 2 20 20 10 Oral [id number] Other: Voiding Method Toilet Toilet Toilet # Voids 3 1 - Labs CBC & Chem 7: 10/17/21 09:20 10/17/21 11:10 Labs: Abnormal Lab Results - Last 24 Hours (Table) 10/19/21 10/19/21 10/19/21 Range/Units 11:27 16:05 20:31 POC Glucose (mg/dL) 144 H 138 H 132 H (70-110) mg/dL 10/20/21 Range/Units 06:02 POC Glucose (mg/dL) 120 H (70-110) mg/dL
[2021-10-20 16:53] LABS: Glucose,Whole Blood 130 mg/dL (70-110)
[2021-10-20 19:28] LABS: Glucose,Whole Blood 199 mg/dL (70-110)
[2021-10-21 06:12] LABS: Glucose,Whole Blood 142 mg/dL (70-110)
[2021-10-21] MEDS: INSULIN ASPART (NovoLOG) 100 UNIT/ML VIAL SQ SCH ×4 (06:27→20:52)
[2021-10-21] MEDS: ATORVASTATIN 40 MG TAB PO SCH (09:20)
[2021-10-21] MEDS: LINAGLIPTIN 5 MG TABLET PO SCH (09:20)
[2021-10-21] MEDS: TICAGRELOR 90 MG TAB PO SCH ×2 (09:20→21:41)
[2021-10-21] MEDS: METOPROLOL TARTRATE 12.5 MG TAB PO SCH ×2 (09:20→21:02)
[2021-10-21] MEDS: lisinopriL 20 MG TAB PO SCH ×2 (09:20→21:02)
[2021-10-21] MEDS: LEVOTHYROXINE 125 MCG TAB PO SCH (09:20)
[2021-10-21] MEDS: hydroCHLOROthiazide 25 MG TAB PO SCH (09:20)
[2021-10-21] MEDS: PANTOPRAZOLE 40 MG TABLET PO SCH (09:20)
[2021-10-21] MEDS: ASPIRIN 81 MG PO SCH (09:20)
[2021-10-21] MEDS: amLODIPine 5 MG TAB PO SCH ×2 (09:20→21:02)
--- NOTE | 2021-10-21 10:21 | P.PN ---
Subjective Progress Note Date: 10/21/21 I am seeing the patient for the first time during this admission. Please refer to Dr. Man's notes for further details. It seems the patient has acute left pontine ischemic stroke. Patient has left ICA stenosis and vascular surgery team is considering CEA as outpatient within 2 weeks. Per nurse, no further events and pending insurance approval for inpatient rehab. Objective - Vital Signs Vital signs: Vital Signs Temp 97.7 F 10/21/21 08:00 Pulse 58 L 10/21/21 08:00 Resp 16 10/21/21 08:00 BP 127/77 10/21/21 08:00 Pulse Ox 100 10/21/21 08:00 FiO2 Intake & Output 10/20/21 10/21/21 10/21/21 18:59 06:59 18:59 Intake Total 546 10 Balance 546 10 Intake: IV 50 10 Invasive Line 1 20 Invasive Line 2 20 Invasive Line 3 10 10 Oral 496 Other: Voiding Method Toilet Toilet # Voids 2 1 # Bowel Movements 1 - Exam GENERAL: The patient is lying in bed and is not in acute distress. NEUROLOGICAL: Higher mental function: The patient is awake, alert, oriented to self and place. He stated the month is September. Patient is following simple commands. No aphasia and no neglect. Cranial nerves: Visual do are full to confrontation throughout. Mild to moderate right facial weakness. Has moderate dysarthria. Motor: The strength is right upper extremity is 4 to 4+ and right hand medical practitioners is 4. Left upper is 5/5. Lowers (right/left): sdeltoid 3+/5, biceps 4+/5, triceps 5-/5, medical practitioners 4-/5, hip flexion 3+4-/5, ankle dorsiflexion 5-/5 Cerebellum: Has ataxia with finger to nose on right. - Labs CBC & Chem 7: 10/17/21 09:20 10/17/21 11:10 Labs: Abnormal Lab Results - Last 24 Hours (Table) 10/20/21 10/20/21 10/20/21 Range/Units 11:29 16:47 19:26 POC Glucose (mg/dL) 162 H 130 H 199 H (70-110) mg/dL 10/21/21 Range/Units 06:10 POC Glucose (mg/dL) 142 H (70-110) mg/dL Assessment and Plan Assessment: * Acute left pontine ischemic stroke, with dysarthria and right ataxic hemiparesis. Patient's NIH stroke scale is 5. * Left ICA stenosis, severe degree, per CTA report. CTA also showed severe stenosis of left vertebral and moderate stenosis of the origin of right vertebral artery. On carotid duplex suggestive of 50-69% over proximal left ICA. * Possible 8mm small nipple like focal aortic aneurysm noted on CTA. * Hypertension * Diabetes * Hyperlipidemia * Tobacco use Plan: * MRI of the brain confirmed an acute/subacute CVA involving the left stephania. I personally reviewed MRI and agree with the findings. * PContinue Brilinta 90 mg twice a day. Continue aspirin 81 mg daily. After 30 days, may switch Brilinta to Plavix. Recommend long-term management with dual antiplatelet medication, due to significant vasculopathy. * CTA of head and neck revealed severe stenosis (95%) of the proximal and the cavernous portion of the left ICA by a partially calcified atheromatous plaque and extending for about 4 mm. Mild stenosis of the origin of right ICA.. Focal nipple like projection of the anterior aspect of the ascending aorta. Cardiothoracic surgery onboard. CTA also showed Moderate stenosis of the origin of right vertebral artery. Severe stenosis of the origin of the left vertebral artery. Severe stenosis of the P2 segment of the MEDICAL MANAGER's versus artifact. * Cardiothoracic surgeon saw the patient for possible focal aortic aneurysm, recommending better blood pressure control, tobacco cessation, no surgical intervention at this time. * 2-D echo revealed normal left-ventricular systolic function 50-55%. No [id number] shunt with agitated saline contrast study. No significant ao rtic or mitral valve stenosis. Left atrium normal size. * Carotid Doppler revealed heterogeneous plaque bilaterally with findings suggestive of a 50-69% stenosis of the proximal left ICA. Cardiac dysrhythmia. Nonvisualization of the left vertebral artery could be congenita l. * vascular surgery team in on board and they recommended possible TCAR Vs CEA within 2 weeks as outpatient. * Hemoglobin A1c 8.0. Suggest optimizing control of diabetes to target A1c <7.0 * Lipid panel with cholesterol 176, LDL 101, HDL 53 and triglycerides 104. Continue Lipitor 40 mg daily. * PT OT, speech therapy. Agree with rehab consultation. * DVT prophylaxis: I started the patient on subq heparin 5000U every 12 hours. * Recommend the patient to follow-up with neurologist within 1-2 weeks as outpatient. Pending if he qualifies for inpatient rehab which I feel he would benefit from. The plan is discussed with his nurse. Otherwise no additional neurological work-up. Please notify neurology team if any further concerns. Sonny Elam M.D. Neurology Time with Patient: Less than 30
[2021-10-21 11:41] LABS: Glucose,Whole Blood 179 mg/dL (70-110)
--- NOTE | 2021-10-21 12:58 | P.PN ---
Subjective Progress Note Date: 10/20/21 Patient was seen for a follow-up. Patient is slightly somnolent. Patient is laying comfortably in the bed. Patient states he is feeling little better. Denies any headache. No dizziness. Still moderately dysarthric and weak on the right side. Patient's telemetry monitoring showing sinus rhythm, with a heart rate in around 69. Objective - Vital Signs Vital signs: Vital Signs Temp 97.2 F L 10/20/21 16:17 Pulse 57 L 10/20/21 16:17 Resp 18 10/20/21 16:17 BP 101/59 10/20/21 16:17 Pulse Ox 97 10/20/21 16:17 FiO2 Intake & Output 10/19/21 10/20/21 10/20/21 18:59 06:59 18:59 Intake Total 650 40 546 Balance 650 40 546 Intake: IV 40 40 50 Invasive Line 1 20 20 20 Invasive Line 2 20 20 20 Invasive Line 3 10 Oral [id number] Other: Voiding Method Toilet Toilet Toilet # Voids 3 1 2 - Exam Patient is alert and awake. Speech is moderately dysarthric. No aphasia. Can name and repeat. Cranial nerves significant for right facial weakness. Visual do are full. On muscle strength testing patient has right pronator drift, and droops down 60. Overall strength is (right/left) deltoid 3-/5, biceps 4+/5, triceps 5-/5, middle school assistant principal 3+4-/5, hip flexion 3+4-/5, ankle dorsiflexion 5/5 Deep tendon reflexes are (right/left) assess for 1/2, brachioradialis 1/2, plantar is up on the right, downgoing left. Sensations are equal bilaterally. Patient has moderate ataxia for [id number] testing on the right. Also has moderate ataxia for [id number] testing on the right. Abdomen is soft and nontender. Chest is clear. - Labs CBC & Chem 7: 10/17/21 09:20 10/17/21 11:10 Labs: Abnormal Lab Results - Last 24 Hours (Table) 10/19/21 10/20/21 10/20/21 Range/Units 20:31 06:02 11:29 POC Glucose (mg/dL) 132 H 120 H 162 H (70-110) mg/dL 10/20/21 Range/Units 16:47 POC Glucose (mg/dL) 130 H (70-110) mg/dL Assessment and Plan Assessment: * Acute left pontine ischemic stroke, with dysarthria and right ataxic hemiparesis. Patient's NIH stroke scale is 6. * Left ICA stenosis, severe degree, per CTA report. CTA also showed severe stenosis of left vertebral and moderate stenosis of the origin of right vertebral artery * Possible 8mm small nipple like focal aortic aneurysm noted on CTA. * Hypertension * Diabetes * Hyperlipidemia * Tobacco use Plan: * Patient's symptoms are fluctuating. Continue current medications. * MRI of the brain confirmed an acute/subacute CVA involving the left stephania. I personally reviewed MRI and agree with the findings. * Patient's right side appears to be slightly weaker, but the NIH stroke contin ues to be at 6. Continue Brilinta 90 mg twice a day. Continue aspirin 81 mg daily. After 30 days, may switch Brilinta to Plavix. Recommend long-term management with dual antiplatelet medication, due to significant vasculopathy. * CTA of head and neck revealed severe stenosis (95%) of the proximal and the cavernous portion of the left ICA by a partially calcified atheromatous plaque and extending for about 4 mm. Mild stenosis of the origin of right ICA.. Focal nipple like projection of the anterior aspect of the ascending aorta. Cardiothoracic surgery onboard. CTA also showed Moderate stenosis of the origin of right vertebral artery. Severe stenosis of the origin of the left vertebral artery. Severe stenosis of the P2 segment of the ORIENTAL MEDICINE PRACTITIONER's versus artifact. * Cardiothoracic surgeon saw the patient for possible focal aortic aneurysm, recommending better blood pressure control, tobacco cessation, no surgical intervention at this time. * 2-D echo revealed normal left-ventricular systolic function 50-55%. No [id number] shunt with agitated saline contrast study. No significant aortic or mitral valve stenosis. Left atrium normal size. * Carotid Doppler revealed heterogeneous plaque bilaterally with findings suggestive of a 50-69% stenosis of the proximal left ICA. Cardiac dysrhythmia. Nonvisualization of the left vertebral artery could be congenital. * Appreciate vascular surgery input. Agree with pursuing left CEA, although would prefer in the next 4-6 weeks, as the left ICA at present is asymptomatic, (CVA in stephania and in the posterior circulation). * Hemoglobin A1c 8.0. Suggest optimizing control of diabetes to target A1c <7.0 * Lipid panel with cholesterol 176, LDL 101, HDL 53 and triglycerides 104. Continue Lipitor 40 mg daily. * PT OT, speech therapy. Agree with rehab consultation. * DVT prophylaxis: Patient on pneumatic compression sleeve device. * Recommend complete tobacco cessation. * Dr. Sonny Elam Will resume neurology service in the morning.
--- NOTE | 2021-10-21 15:23 | P.PN ---
Subjective Progress Note Date: 10/21/21 HISTORY OF PRESENT ILLNESS This is a 80-year-old male patient of Dr. Rojas with past medical history of coronary artery disease status post CABG many years ago, dementia, possible di abetes, hypertension, hyperlipidemia, history of prostate cancer, obstructive sleep apnea. Patient went to bed last evening at 8:30 and awoke this morning at 6 was attempting to ambulate he is having difficulty walking but he was dragging his right leg. Patient's woke at 7:30 or 8 and try to speak with them but he was having difficulty with speech. Patient was brought into [facility] emergency center for evaluation. He was found to be afebrile, heart rate 61, blood pressure 171/82, pulse ox 90% on room air. EKG sinus bradycardia with no acute ST changes. CBC was unremarkable. INR 0.9. Electrolytes normal. BUN 26 creatinine 1.03. Blood sugar 132. Liver function tests normal. Troponin negative. CT angiogram of the head and neck revealed severe stenosis of the proximal and cavernous portions of the left internal carotid artery. Focal nipple-like projections of the anterior aspect of the ascending aorta. Other arterial atherosclerotic changes and segments of arterial stenosis. CAT scan of the brain revealed no acute intracranial hemorrhage or gross acute cortical infarct. Left medial occipital chronic infarct. Chest x-ray reveals no acute process. Right shoulder x-ray revealed before meals joint arthropathy. If concern for rotator cuff disease correlate with MRI. Ultrasound carotid arteries revealed 50-69% stenosis of the proximal left ICA. Cardiac dysrhythmia. Nonvisualization of the left vertebral artery could be congenital. Patient is seen today in the emergency center waiting for a bed on the cardiac stepdown unit, vascular, neurology and cardiothoracic surgery consult in place 10/18: Patient has been seen by neurology and scheduled for MRI of the brain today. Patient has been seen by cardiothoracic surgery with no plan for surgical intervention, recommend blood pressure control. Patient has been seen by vascular surgery with plan for possible T car versus carotid endarterectomy, favoring trans-carotid artery arterial revascularization in the near future and cardiology consult was added for clearance. PT and OT to evaluate patient. manager of clinical following for discharge plan. Echocardiogram reveals EF of 50-55%, no no right to left shunt with agitated saline contrast study. 10/19: Patient has been seen by cardiology and resumed on lower dose of Lopressor. MRI of the brain remains pending. Neurology is recommended Brilinta 90 mg twice daily for 30 days, aspirin 81 mg daily. After 30 days, Brilinta to be transitioned to Plavix. A1c came back at 8.0 and patient started on Tradjenta. Triglycerides 104, cholesterol 176, LDL 101, HDL 53. TSH 2.91. Regarding discharge planning, patient and his wanted him to return home. However, therapy is recommending's inpatient or subacute rehab. Consult placed to Dr. Zhu for evaluation and [facility] is back up plan. MRI remains pending. 10/20: MRI of the brain revealed acute/subacute CVA involving the left stephania. Encephalomalacia of the left occipital lobe prior injury. Nonspecific white matter changes likely secondary to small vessel ischemic change. Patient has been seen by Dr. Zhu and appears to be a good candidate for inpatient rehab. Pain continues for outpatient follow-up with vascular surgery regarding carotid artery surgery. No new concerns from the patient. Patient requires insurance authorization for inpatient rehab. If this is obtained today, patient will be discharged to inpatient rehab at [facility]. However, anticipate that insurance authorization will not be obtained until next week. 10/21, patient is doing okay, has right upper right lower extremity weakness and upper extremity, 3+, lower extremity 3 minus, anticipating rehab at [facility], once inpatient bed is approved by insurance company no medication changes at this time vital signs, 123/70, heart rate 59, T-max 97.8, on room air 97% no new labs for review, this is day #4 of admission. Labs will be checked in 24 hours to include B12 and hemoglobin A1c B12 REVIEW OF SYSTEMS Constitutional: No fever, no chills, no night sweats. No weight change. No weakness, fatigue or lethargy. No daytime sleepiness. EENT: No headache. No blurred vision or double vision, no loss of vision. No loss of Hearing, no ringing in the ears, no dizziness. No nasal drainage or congestion. No epistaxis. No sore throat. Lungs: No shortness of breath, cough, no sputum production. No wheezing. Cardiovascular: No chest pain, no lower extremity edema. No palpitations. No paroxysmal nocturnal dyspnea. No orthopnea. No lightheadedness or dizziness. No syncopal episodes. Abdominal: No abdominal pain. No nausea, vomiting. No diarrhea. No constipation. No bloody or tarry stools. No loss of appetite. Genitourinary: No dysuria, increased frequency, urgency. No urinary retention. Musculoskeletal: No myalgias. No muscle weakness, expected gait dysfunction, no frequent falls. No back pain. No neck pain. Integumentary: No wounds, no lesions. No rash or pruritus. No unusual bruising. Neurologic: Slurred speech. Right-sided facial droop. No change in mentation. No head injury. No headache. No paralysis. Right-sided weakness more so to the right upper extremity. Psychiatric: No depression. No anxiety. No mood swings. Endocrine: No abnormal blood sugars. No weight change. No excessive sweating or thirst. No cold intolerance. PHYSICAL EXAMINATION Gen: This is a 80-year-old male. He is resting in bed and appears to be comfortable at rest. HEENT: Head is atraumatic, normocephalic. Pupils equal, round. Sclerae is anicteric. Extraocular motion intact. NECK: Supple. No JVD. No lymphadenopathy. No thyromegaly. LUNGS: Clear to auscultation. No wheezes or rhonchi. No intercostal retractions. HEART: Regular rate and rhythm. No murmur. ABDOMEN: Soft. Bowel sounds are present. No masses. No tenderness. EXTREMITIES: No pedal edema. No calf tenderness. NEUROLOGICAL: Patient is awake, alert and oriented person and place. Slurred speech, right facial droop. Lower extremity strength 5/5 on the left, 4/5 on the right. Upper extremity strength 5/5 on the left and 3/5 on the right, 5/5. Cranial nerves II through XII grossly intact. ASSESSMENT AND PLAN 1. Acute ischemic CVA. Patient has been started on aspirin 81 mg daily, Brilinta 90 mg twice daily for 30 days and then patient be transitioned to Plavix. Continue Lipitor 40 mg daily. Consult with nephrology appreciated. Continue PT, OT, speech therapies. Patient scheduled for MRI of the brain. 2. Left carotid artery stenosis. Vascular surgery consult appreciated plan for outpatient surgery. Continue as in #1. 3. Focal nipple-like projections of the anterior aspect of the ascending aorta. Other arterial atherosclerotic changes and segments of arterial stenosis. Consult with cardiothoracic surgery appreciated. No intervention at this time. 4. Hypertension. Continue amlodipine 5 mg daily, hydrochlorothiazide 12.5 mg daily, lisinopril 40 mg twice daily. Lopressor on hold for now due to bradycardia. 5. Hyperlipidemia. Continue statin. 6. Dementia. 7. Diabetes mellitus type 2. A1c 8.0. Patient started on Tradjenta, continue NovoLog scale. 8. Obstructive sleep apnea. Family may bring in CPAP. 9. History of prostate cancer. 10. GI prophylaxis. Protonix. 11. DVT prophylaxis. Heparin subcu. DISCHARGE PLAN Inpatient rehab at [facility] Vital Signs - 24 hr 10/20/21 10/20/21 10/21/21 16:17 20:00 00:00 Temperature 97.2 F L 98.8 F 98.7 F Pulse Rate [ 57 L Produce Clerk ] Pulse Rate [ 66 55 L Pulse Oximetery ] Respiratory 18 18 18 Rate Blood Pressure 101/59 124/60 140/63 [Right Arm] O2 Sat by Pulse 97 98 98 Oximetry 10/21/21 10/21/21 10/21/21 04:00 08:00 12:00 Temperature 97.8 F 97.7 F 97.2 F L Pulse Rate [ Produce Clerk ] Pulse Rate [ 59 L 58 L 55 L Pulse Oximetery ] Respiratory 18 16 16 Rate Blood Pressure 124/68 127/77 123/70 [Right Arm] O2 Sat by Pulse 97 100 97 Oximetry Laboratory Results - Last 24 Hours 10/20/21 10/20/21 10/21/21 16:47 19:26 06:10 POC Glucose (mg/dL) 130 H 199 H 142 H POC Glu Wooden Box Maker ID Kellee Grant Jasmine Garcia, Jasmine 10/21/21 11:39 POC Glucose (mg/dL) 179 H POC Glu Wooden Box Maker ID Ivette Go Active Medications Amlodipine Besylate (Amlodipine 5 Mg Tab) 5 mg PO BID [facility] Last Admin: 10/21/21 09:20 Dose: 5 mg Aspirin (Aspirin 81 Mg) 81 mg PO DAILY [facility] Last Admin: 10/21/21 09:20 Dose: 81 mg Atorvastatin Calcium (Atorvastatin 40 Mg Tab) 40 mg PO DAILY [facility] Last Admin: 10/21/21 09:20 Dose: 40 mg Heparin Sodium (Porcine) (Heparin Sodium,Porcine/Pf 5,000 Unit/0.5 Ml Syringe) 5,000 unit SQ Q12HR [facility] Hydrochlorothiazide (Hydrochlorothiazide 25 Mg Tab) 25 mg PO DAILY [facility] Last Admin: 10/21/21 09:20 Dose: 25 mg Insulin Aspart (Insulin Aspart (Novolog) 100 Unit/Ml Vial) 0 unit SQ ACHS [facility]; Protocol Last Admin: 10/21/21 12:28 Dose: 2 unit Levothyroxine Sodium (Levothyroxine 125 Mcg Tab) 125 mcg PO DAILY [facility] Last Admin: 10/21/21 09:20 Dose: 125 mcg Linagliptin (Linagliptin 5 Mg Tablet) 5 mg PO DAILY [facility] Last Admin: 10/21/21 09:20 Dose: 5 mg Lisinopril (Lisinopril 20 Mg Tab) 20 mg PO BID [facility] Last Admin: 10/21/21 09:20 Dose: 20 mg Metoprolol Tartrate (Metoprolol Tartrate 12.5 Mg Tab) 12.5 mg PO BID [facility] Last Admin: 10/21/21 09:20 Dose: 12.5 mg Pantoprazole Sodium (Pantoprazole 40 Mg Tablet) 40 mg PO DAILY [facility] Last Admin: 10/21/21 09:20 Dose: 40 mg Ticagrelor (Ticagrelor 90 Mg Tab) 90 mg PO BID [facility] Stop: 11/16/21 21:01 Last Admin: 10/21/21 09:20 Dose: 90 mg Objective - Vital Signs Vital signs: Vital Signs Temp 97.2 F L 10/21/21 12:00 Pulse 55 L 10/21/21 12:00 Resp 16 10/21/21 12:00 BP 123/70 10/21/21 12:00 Pulse Ox 97 10/21/21 12:00 FiO2 Intake & Output 10/20/21 10/21/21 10/21/21 18:59 06:59 18:59 Intake Total 546 20 Balance 546 20 Intake: IV 50 20 Invasive Line 1 20 Invasive Line 2 20 Invasive Line 3 10 20 Oral 496 Other: Voiding Method Toilet Toilet # Voids 2 1 # Bowel Movements 1 - Labs CBC & Chem 7: 10/17/21 09:20 10/17/21 11:10 Labs: Abnormal Lab Results - Last 24 Hours (Table) 10/20/21 10/20/21 10/21/21 Range/Units 16:47 19:26 06:10 POC Glucose (mg/dL) 130 H 199 H 142 H (70-110) mg/dL 10/21/21 Range/Units 11:39 POC Glucose (mg/dL) 179 H (70-110) mg/dL
[2021-10-21 16:47] LABS: Glucose,Whole Blood 134 mg/dL (70-110)
[2021-10-21 20:32] LABS: Glucose,Whole Blood 127 mg/dL (70-110)
[2021-10-21] MEDS: HEPARIN SODIUM,PORCINE/PF 5,000 UNIT/0.5 ML SYRINGE SQ SCH (21:02)
[2021-10-22 07:11] LABS: Glucose,Whole Blood 124 mg/dL (70-110)
[2021-10-22] MEDS: INSULIN ASPART (NovoLOG) 100 UNIT/ML VIAL SQ SCH ×4 (07:48→20:24)
[2021-10-22] MEDS: LEVOTHYROXINE 125 MCG TAB PO SCH (08:28)
[2021-10-22] MEDS: HEPARIN SODIUM,PORCINE/PF 5,000 UNIT/0.5 ML SYRINGE SQ SCH ×2 (08:28→20:24)
[2021-10-22] MEDS: lisinopriL 20 MG TAB PO SCH ×2 (08:29→20:24)
[2021-10-22] MEDS: ASPIRIN 81 MG PO SCH (08:29)
[2021-10-22] MEDS: LINAGLIPTIN 5 MG TABLET PO SCH (08:29)
[2021-10-22] MEDS: amLODIPine 5 MG TAB PO SCH ×2 (08:29→20:24)
[2021-10-22] MEDS: ATORVASTATIN 40 MG TAB PO SCH (08:29)
[2021-10-22] MEDS: PANTOPRAZOLE 40 MG TABLET PO SCH (08:29)
[2021-10-22] MEDS: METOPROLOL TARTRATE 12.5 MG TAB PO SCH ×2 (08:29→20:24)
[2021-10-22] MEDS: hydroCHLOROthiazide 25 MG TAB PO SCH (08:29)
[2021-10-22] MEDS: TICAGRELOR 90 MG TAB PO SCH ×2 (09:40→20:24)
--- NOTE | 2021-10-22 11:51 | P.PN ---
Subjective Progress Note Date: 10/22/21 HISTORY OF PRESENT ILLNESS This is a 80-year-old male patient of Dr. Rojas with past medical history of coronary artery disease status post CABG many years ago, dementia, possible di abetes, hypertension, hyperlipidemia, history of prostate cancer, obstructive sleep apnea. Patient went to bed last evening at 8:30 and awoke this morning at 6 was attempting to ambulate he is having difficulty walking but he was dragging his right leg. Patient's woke at 7:30 or 8 and try to speak with them but he was having difficulty with speech. Patient was brought into [facility] emergency center for evaluation. He was found to be afebrile, heart rate 61, blood pressure 171/82, pulse ox 90% on room air. EKG sinus bradycardia with no acute ST changes. CBC was unremarkable. INR 0.9. Electrolytes normal. BUN 26 creatinine 1.03. Blood sugar 132. Liver function tests normal. Troponin negative. CT angiogram of the head and neck revealed severe stenosis of the proximal and cavernous portions of the left internal carotid artery. Focal nipple-like projections of the anterior aspect of the ascending aorta. Other arterial atherosclerotic changes and segments of arterial stenosis. CAT scan of the brain revealed no acute intracranial hemorrhage or gross acute cortical infarct. Left medial occipital chronic infarct. Chest x-ray reveals no acute process. Right shoulder x-ray revealed before meals joint arthropathy. If concern for rotator cuff disease correlate with MRI. Ultrasound carotid arteries revealed 50-69% stenosis of the proximal left ICA. Cardiac dysrhythmia. Nonvisualization of the left vertebral artery could be congenital. Patient is seen today in the emergency center waiting for a bed on the cardiac stepdown unit, vascular, neurology and cardiothoracic surgery consult in place 10/18: Patient has been seen by neurology and scheduled for MRI of the brain today. Patient has been seen by cardiothoracic surgery with no plan for surgical intervention, recommend blood pressure control. Patient has been seen by vascular surgery with plan for possible T car versus carotid endarterectomy, favoring trans-carotid artery arterial revascularization in the near future and cardiology consult was added for clearance. PT and OT to evaluate patient. rehab therapy manager following for discharge plan. Echocardiogram reveals EF of 50-55%, no no right to left shunt with agitated saline contrast study. 10/19: Patient has been seen by cardiology and resumed on lower dose of Lopressor. MRI of the brain remains pending. Neurology is recommended Brilinta 90 mg twice daily for 30 days, aspirin 81 mg daily. After 30 days, Brilinta to be transitioned to Plavix. A1c came back at 8.0 and patient started on Tradjenta. Triglycerides 104, cholesterol 176, LDL 101, HDL 53. TSH 2.91. Regarding discharge planning, patient and his wanted him to return home. However, therapy is recommending's inpatient or subacute rehab. Consult placed to Dr. Zhu for evaluation and [facility] is back up plan. MRI remains pending. 10/20: MRI of the brain revealed acute/subacute CVA involving the left stephania. Encephalomalacia of the left occipital lobe prior injury. Nonspecific white matter changes likely secondary to small vessel ischemic change. Patient has been seen by Dr. Zhu and appears to be a good candidate for inpatient rehab. Pain continues for outpatient follow-up with vascular surgery regarding carotid artery surgery. No new concerns from the patient. Patient requires insurance authorization for inpatient rehab. If this is obtained today, patient will be discharged to inpatient rehab at [facility]. However, anticipate that insurance authorization will not be obtained until next week. 10/21, patient is doing okay, has right upper right lower extremity weakness and upper extremity, 3+, lower extremity 3 minus, anticipating rehab at [facility], once inpatient bed is approved by insurance company no medication changes at this time vital signs, 123/70, heart rate 59, T-max 97.8, on room air 97% no new labs for review, this is day #4 of admission. Labs will be checked in 24 hours to include B12 and hemoglobin A1c B12 10/22: Patient is doing okay, no aspirate these events, no headache, weakness and upper extremity lower extremity seems to improve somehow, there is still drift on the right upper extremity, patient can't lift the leg against gravity for at least 10 seconds, no nausea no vomiting, no aspiration, discharge planning still is in progress, for inpatient rehab at [facility]. REVIEW OF SYSTEMS Constitutional: No fever, no chills, no night sweats. No weight change. No weakness, fatigue or lethargy. No daytime sleepiness. EENT: No headache. No blurred vision or double vision, no loss of vision. No loss of Hearing, no ringing in the ears, no dizziness. No nasal drainage or congestion. No epistaxis. No sore throat. Lungs: No shortness of breath, cough, no sputum production. No wheezing. Cardiovascular: No chest pain, no lower extremity edema. No palpitations. No paroxysmal nocturnal dyspnea. No orthopnea. No lightheadedness or dizziness. No syncopal episodes. Abdominal: No abdominal pain. No nausea, vomiting. No diarrhea. No cons tipation. No bloody or tarry stools. No loss of appetite. Genitourinary: No dysuria, increased frequency, urgency. No urinary retention. Musculoskeletal: No myalgias. No muscle weakness, expected gait dysfunction, no frequent falls. No back pain. No neck pain. Integumentary: No wounds, no lesions. No rash or pruritus. No unusual bruising. Neurologic: Slurred speech. Right-sided facial droop. No change in mentation. No head injury. No headache. No paralysis. Right-sided weakness more so to the right upper extremity. Psychiatric: No depression. No anxiety. No mood swings. Endocrine: No abnormal blood sugars. No weight change. No excessive sweating or thirst. No cold intolerance. PHYSICAL EXAMINATION Gen: This is a 80-year-old male. He is resting in bed and appears to be comfortable at rest. HEENT: Head is atraumatic, normocephalic. Pupils equal, round. Sclerae is anicteric. Extraocular motion intact. NECK: Supple. No JVD. No lymphadenopathy. No thyromegaly. LUNGS: Clear to auscultation. No wheezes or rhonchi. No intercostal retr actions. HEART: Regular rate and rhythm. No murmur. ABDOMEN: Soft. Bowel sounds are present. No masses. No tenderness. EXTREMITIES: No pedal edema. No calf tenderness. NEUROLOGICAL: Patient is awake, alert and oriented person and place. Slurred speech, right facial droop. Lower extremity strength 5/5 on the left, 4/5 on the right. Upper extremity strength 5/5 on the left and 3/5 on the right, 5/5. Cranial nerves II through XII grossly intact. ASSESSMENT AND PLAN 1. Acute ischemic CVA. Patient has been started on aspirin 81 mg daily, Brilinta 90 mg twice daily for 30 days and then patient be transitioned to Plavix. Continue Lipitor 40 mg daily. Consult with nephrology appreciated. Continue PT, OT, speech therapies. Patient scheduled for MRI of the brain. 2. Left carotid artery stenosis. Vascular surgery consult appreciated plan for outpatient surgery. Continue as in #1. 3. Focal nipple-like projections of the anterior aspect of the ascending aorta. Other arterial atherosclerotic changes and segments of arterial stenosis. Consult with cardiothoracic surgery appreciated. No intervention at this time. 4. Hypertension. Continue amlodipine 5 mg daily, hydrochlorothiazide 12.5 mg daily, lisinopril 40 mg twice daily. Lopressor on hold for now due to bradycardia. 5. Hyperlipidemia. Continue statin. 6. Dementia. 7. Diabetes mellitus type 2. A1c 8.0. Patient started on Tradjenta, continue NovoLog scale. 8. Obstructive sleep apnea. Family may bring in CPAP. 9. History of prostate cancer. 10. GI prophylaxis. Protonix. 11. DVT prophylaxis. Heparin subcu. DISCHARGE PLAN Inpatient rehab at [facility] Vital Signs - 24 hr 10/21/21 10/21/21 10/21/21 12:00 17:36 19:41 Temperature 97.2 F L 98.1 F 98.1 F Pulse Rate [ 55 L 60 55 L Pulse Oximetery ] Respiratory 16 16 18 Rate Blood Pressure 123/70 141/90 138/74 [Right Arm] O2 Sat by Pulse 97 100 99 Oximetry 10/21/21 10/22/21 10/22/21 20:00 01:07 07:41 Temperature 98.3 F 97.6 F Pulse Rate [ 55 L 68 65 Pulse Oximetery ] Respiratory 18 18 20 Rate Blood Pressure 106/67 124/69 [Right Arm] O2 Sat by Pulse 99 97 Oximetry Current Medications Amlodipine Besylate (Amlodipine 5 Mg Tab) 5 mg PO BID [facility] Last Admin: 10/22/21 08:29 Dose: 5 mg Aspirin (Aspirin 81 Mg) 81 mg PO DAILY [facility] Last Admin: 10/22/21 08:29 Dose: 81 mg Atorvastatin Calcium (Atorvastatin 40 Mg Tab) 40 mg PO DAILY [facility] Last Admin: 10/22/21 08:29 Dose: 40 mg Heparin Sodium (Porcine) (Heparin Sodium,Porcine/Pf 5,000 Unit/0.5 Ml Syringe) 5,000 unit SQ Q12HR [facility] Last Admin: 10/22/21 08:28 Dose: 5,000 unit Hydrochlorothiazide (Hydrochlorothiazide 25 Mg Tab) 25 mg PO DAILY [facility] Last Admin: 10/22/21 08:29 Dose: 25 mg Insulin Aspart (Insulin Aspart (Novolog) 100 Unit/Ml Vial) 0 unit SQ ACHS [facility]; Protocol Last Admin: 10/22/21 07:48 Dose: Not Given Levothyroxine Sodium (Levothyroxine 125 Mcg Tab) 125 mcg PO DAILY [facility] Last Admin: 10/22/21 08:28 Dose: 125 mcg Linagliptin (Linagliptin 5 Mg Tablet) 5 mg PO DAILY [facility] Last Admin: 10/22/21 08:29 Dose: 5 mg Lisinopril (Lisinopril 20 Mg Tab) 20 mg PO BID [facility] Last Admin: 10/22/21 08:29 Dose: 20 mg Metoprolol Tartrate (Metoprolol Tartrate 12.5 Mg Tab) 12.5 mg PO BID [facility] Last Admin: 10/22/21 08:29 Dose: 12.5 mg Pantoprazole Sodium (Pantoprazole 40 Mg Tablet) 40 mg PO DAILY [facility] Last Admin: 10/22/21 08:29 Dose: 40 mg Ticagrelor (Ticagrelor 90 Mg Tab) 90 mg PO BID [facility] Stop: 11/16/21 21:01 Last Admin: 10/22/21 09:40 Dose: 90 mg Laboratory Results - Last 24 Hours 10/21/21 10/21/21 10/22/21 16:45 20:31 07:09 POC Glucose (mg/dL) 134 H 127 H 124 H POC Glu Grape Picker Ivette Rodriguez Heather Murdick, Paige Objective - Vital Signs Vital signs: Vital Signs Temp 97.6 F 10/22/21 07:41 Pulse 65 10/22/21 07:41 Resp 20 10/22/21 07:41 BP 124/69 10/22/21 07:41 Pulse Ox 97 10/22/21 07:41 FiO2 Intake & Output 10/21/21 10/22/21 10/22/21 18:59 06:59 18:59 Intake Total 620 Balance 620 Intake: IV 20 Invasive Line 3 20 Oral 600 Other: Voiding Method Toilet # Voids 2 3 # Bowel Movements 1 - Labs CBC & Chem 7: 10/17/21 09:20 10/17/21 11:10 Labs: Abnormal Lab Results - Last 24 Hours (Table) 10/21/21 10/21/21 10/22/21 Range/Units 16:45 20:31 07:09 POC Glucose (mg/dL) 134 H 127 H 124 H (70-110) mg/dL
[2021-10-22 11:54] LABS: Glucose,Whole Blood 161 mg/dL (70-110)
[2021-10-22 11:58] LABS: Basophils # (A) 0.05 X 10*3/uL (0.00-0.10); Basophils % (A) 0.6 %; Eosinophils % (A) 2.5 %; HGB 15.8 g/dL (13.0-17.0); Immature Grans, Automated 0.4 %; Lymphocytes # (A) 0.68 X 10*3/uL (0.90-5.00); Lymphocytes % (A) 8.5 %; MCH 30.3 pg (27.0-32.0); MCHC 32.9 g/dL (32.0-37.0); Monocytes # (A) 1.01 X 10*3/uL (0.20-1.00); Monocytes % (A) 12.6 %; NRBC Per 100 WBC 0 /100 WBCS (0.0-0.0); Neutrophils # (A) 6.04 X 10*3/uL (1.80-7.70); Neutrophils % (A) 75.4 %; Platelet Count 199 X 10*3/uL (140-440); RBC 5.22 X 10*6/uL (4.40-5.60); RDW 13.9 % (11.5-14.5); WBC 8.01 X 10*3/uL (4.50-10.00)
[2021-10-22 12:22] LABS: African American GFR (CKD) 51.4 (60.0-200.0); Albumin 4.2 g/dL (3.8-4.9); Albumin/Globulin Ratio 1.95 (1.60-3.17); BUN/Creat Ratio 28.18 Ratio (12.00-20.00); Blood Urea Nitrogen 41.7 mg/dL (9.0-27.0); Calcium 9.5 mg/dL (8.7-10.3); Carbon Dioxide 23.2 mmol/L (20.0-27.5); Globulin 2.1 g/dL (1.6-3.3); Non-African American GFR(CKD) 44.4 (60.0-200.0); Potassium 3.8 mmol/L (3.5-5.5); Total Bilirubin 0.9 mg/dL (0.30-1.20); Total Protein 6.3 g/dL (6.2-8.2)
[2021-10-22 16:35] LABS: Glucose,Whole Blood 121 mg/dL (70-110)
[2021-10-22 20:17] LABS: Glucose,Whole Blood 198 mg/dL (70-110)
[2021-10-23] MEDS: TICAGRELOR 90 MG TAB PO SCH (05:22)
[2021-10-23 06:53] LABS: Glucose,Whole Blood 119 mg/dL (70-110)
[2021-10-23] MEDS: INSULIN ASPART (NovoLOG) 100 UNIT/ML VIAL SQ SCH ×4 (07:07→20:30)
[2021-10-23] MEDS: HEPARIN SODIUM,PORCINE/PF 5,000 UNIT/0.5 ML SYRINGE SQ SCH ×2 (07:17→20:48)
[2021-10-23] MEDS: ATORVASTATIN 40 MG TAB PO SCH (07:28)
[2021-10-23] MEDS: PANTOPRAZOLE 40 MG TABLET PO SCH (07:28)
[2021-10-23] MEDS: METOPROLOL TARTRATE 12.5 MG TAB PO SCH ×2 (07:28→20:48)
[2021-10-23] MEDS: amLODIPine 5 MG TAB PO SCH ×2 (07:28→20:47)
[2021-10-23] MEDS: LEVOTHYROXINE 125 MCG TAB PO SCH (07:28)
[2021-10-23] MEDS: LINAGLIPTIN 5 MG TABLET PO SCH (07:28)
[2021-10-23] MEDS: lisinopriL 20 MG TAB PO SCH ×2 (07:28→20:47)
[2021-10-23] MEDS: hydroCHLOROthiazide 25 MG TAB PO SCH (07:28)
[2021-10-23 08:00] LABS: Basophils # (A) 0.1 k/uL (0-0.2); Basophils % (A) 1 %; Eosinophils # (A) 0.2 k/uL (0-0.7); Eosinophils % (A) 2 %; HGB 16.8 gm/dL (13.0-17.5); Lymphocytes # (A) 0.9 k/uL (1.0-4.8); Lymphocytes % (A) 9 %; MCH 32.2 pg (25.0-35.0); MCHC 33.5 g/dL (31.0-37.0); Mean Platelet Volume 9.3; Monocytes # (A) 1.1 k/uL (0-1.0); Monocytes % (A) 11 %; Neutrophils # (A) 7.5 k/uL (1.3-7.7); Neutrophils % (A) 75 %; Platelet Count 202 k/uL (150-450); RBC 5.21 m/uL (4.30-5.90); RDW 13.7 % (11.5-15.5)
[2021-10-23 10:31] LABS: Glucose,Whole Blood 161 mg/dL (70-110)
[2021-10-23 12:04] LABS: Basophils # (A) 0.1 k/uL (0-0.2); Basophils % (A) 1 %; Eosinophils # (A) 0.2 k/uL (0-0.7); Eosinophils % (A) 2 %; HCT 49.7 % (39.0-53.0); HGB 16.7 gm/dL (13.0-17.5); Lymphocytes # (A) 0.6 k/uL (1.0-4.8); Lymphocytes % (A) 8 %; MCH 32.9 pg (25.0-35.0); MCHC 33.7 g/dL (31.0-37.0); MCV 97.5 fL (80.0-100.0); Mean Platelet Volume 9.6; Monocytes # (A) 0.7 k/uL (0-1.0); Monocytes % (A) 10 %; Neutrophils # (A) 5.8 k/uL (1.3-7.7); Neutrophils % (A) 76 %; Platelet Count 203 k/uL (150-450); RDW 14.2 % (11.5-15.5); WBC 7.6 k/uL (3.8-10.6)
[2021-10-23 12:08] LABS: Prothrombin Time 10.8 sec (9.0-12.0)
[2021-10-23 12:17] LABS: Calcium 9.3 mg/dL (8.4-10.2); Potassium 3.9 mmol/L (3.5-5.1)
--- NOTE | 2021-10-23 13:12 | P.CNPUL ---
History of Present Illness Consult date: 10/23/21 History of present illness: This is a 80-year-old male patient of Dr. Rojas with past medical history of coronary artery disease status post CABG many years ago, dementia, possible diabetes, hypertension, hyperlipidemia, history of prostate cancer, obstructive sleep apnea. Patient went to bed last evening at 8:30 and awoke this morning at 6 was attempting to ambulate he is having difficulty walking but he was dragging his right leg. Patient's woke at 7:30 or 8 and try to speak with them but he was having difficulty with speech. Patient was brought into [facility] emergency center for evaluation. Further evaluation revealed that the patient sustained acute left pontine ischemic stroke, with dysarthria and right ataxic hemiparesis. Patient's NIH stroke scale is 5. Left ICA stenosis, severe degree, per CTA report. CTA also showed severe stenosis of left vertebral and moderate stenosis of the origin of right vertebral artery. On carotid duplex suggestive of 50-69% over proximal left ICA. Possible 8mm small nipple like focal aortic aneurysm noted on CTA. Echocardiogram reveals EF of 50-55%, no no right to left shunt with agitated saline contrast study. Patient has been seen by cardiology and resumed on lower dose of Lopressor. MRI of the brain remains pending. Neurology is recommended Brilinta 90 mg twice daily for 30 days, aspirin 81 mg daily. After 30 days, Brilinta to be transitioned to Plavix. A1c came back at 8.0 and patient started on Tradjenta. MRI of the brain revealed acute/subacute CVA involving the left stephania. Encephalomalacia of the left occipital lobe prior injury. Nonspecific white matter changes likely secondary to small vessel ischemic change. Patient has been seen by Dr. Zhu and appears to be a good candidate for inpatient rehab. The patient was doing well on the medical floor and this morning the patient had 2 episodes of bright red blood per rectum along with clots. No abdominal pain. No nausea or emesis. Note that the patient was taken a combination of aspirin and Brilinta. No other anticoagulants. The patient accordingly to chest with an intensive care unit. No dizziness. No significant drop in hemoglobin and most recent hemoglobin level is at 16.7. No previous history of GI bleed. A much of the patient has undergone previous EGD or colonoscopy. The patient has underlying dementia and is a poor historian. He is known to have CAD with previous bypass surgery, diabetes mellitus, hypertension, hyperlipidemia and a previous smoker. Review of Systems Constitutional: No fever, no chills, no night sweats. No weight change. No wea kness, fatigue or lethargy. No daytime sleepiness. EENT: No headache. No blurred vision or double vision, no loss of vision. No loss of Hearing, no ringing in the ears, no dizziness. No nasal drainage or congestion. No epistaxis. No sore throat. Lungs: No shortness of breath, cough, no sputum production. No wheezing. Cardiovascular: No chest pain, no lower extremity edema. No palpitations. No paroxysmal nocturnal dyspnea. No orthopnea. No lightheadedness or dizziness. No syncopal episodes. Abdominal: No abdominal pain. No nausea, vomiting. No diarrhea. No constipation. The patient is currently having bright red blood per rectum Genitourinary: No dysuria, increased frequency, urgency. No urinary retention. Musculoskeletal: No myalgias. No muscle weakness, expected gait dysfunction, no frequent falls. No back pain. No neck pain. Integumentary: No wounds, no lesions. No rash or pruritus. No unusual bruising. Neurologic: Slurred speech. Right-sided facial droop. No change in mentation. No head injury. No headache. No paralysis. Right-sided weakness more so to the right upper extremity. Neurologic function improved since the patient got admitted to the hospital Psychiatric: No depression. No anxiety. No mood swings. Endocrine: No abnormal blood sugars. No weight change. No excessive sweating or thirst. No cold intolerance. Past Medical History Past Medical History: Coronary Artery Disease (CAD), Dementia, Diabetes Mellitus, Hyperlipidemia, Hypertension, Osteoarthritis (OA) Additional Past Medical History / Comment(s): PROSTATE CA HX History of Any Multi-Drug Resistant Organisms: None Reported Past Surgical History: Adenoidectomy, Coronary Bypass/CABG, Tonsillectomy Past Psychological History: No Psychological Hx Reported Smoking Status: Current every day smoker Past Alcohol Use History: None Reported Past Drug Use History: None Reported - Past Family History Mother Family Medical History: Unable to Obtain Father Family Medical History: Unable to Obtain Brother(s) Family Medical History: No Reported History Sister(s) Family Medical History: No Reported History Medications and Allergies Home Medications Medication Instructions Recorded Confirmed Type Aspirin [Adult Low Dose Aspirin EC] 81 mg PO DAILY 02/05/18 10/17/21 History Enalapril [Vasotec] 20 mg PO BID 02/05/18 10/17/21 History Simvastatin 40 mg PO DAILY 02/05/18 10/17/21 History amLODIPine [Norvasc] 5 mg PO DAILY 02/05/18 10/17/21 History hydroCHLOROthiazide 12.5 mg PO DAILY 02/05/18 10/17/21 History Levothyroxine Sodium [Synthroid] 125 mcg PO DAILY 10/17/21 10/17/21 History Omeprazole 20 mg PO BID 10/17/21 10/17/21 History Linagliptin [Tradjenta] 5 mg PO DAILY #30 tab 10/19/21 Rx Metoprolol Tartrate [Lopressor] 12.5 mg PO BID #60 tab 10/19/21 Rx Ticagrelor [Brilinta] 90 mg PO BID #60 tab 10/19/21 Rx Allergies Allergy/AdvReac Type Severity Reaction Status Date / Time No Known Allergies Allergy Verified 10/17/21 11:55 Physical Exam Vitals: Vital Signs Temp Pulse Resp BP Pulse Ox 10/23/21 08:00 97.8 F 55 L 117/72 98 10/23/21 05:06 63 16 111/63 99 10/23/21 02:00 97.4 F L 62 18 110/55 98 10/22/21 19:00 97.6 F 58 L 16 137/71 99 10/22/21 14:00 97.5 F L 61 20 119/76 99 Intake and Output 10/22/21 10/23/21 10/23/21 22:59 06:59 14:59 Other: Voiding Method Toilet # Voids 2 2 # Bowel Movements 1 Gen: This is a 80-year-old male. He is resting in bed and appears to be comfortable at rest. Breathing is nonlabored and the patient is currently calm and comfortable on room air oxygen Head exam was generally normal. There was no scleral icterus or corneal arcus. Mucous membranes were moist. HEENT: Head is atraumatic, normocephalic. Pupils equal, round. Sclerae is anicteric. Extraocular motion intact. NECK: Supple. No JVD. No lymphadenopathy. No thyromegaly. LUNGS: Clear to auscultation. No wheezes or rhonchi. No intercostal retractions. Cardiac exam revealed the PMI to be normally situated and sized. The rhythm was regular and no extrasystoles were noted during several minutes of auscultation. The first and second heart sounds were normal and physiologic splitting of the second heart sound was noted. There were no murmurs, rubs, clicks, or gallops. Abdominal exam revealed normal bowel sounds. The abdomen was soft, non-tender, and without masses, organomegaly, or appreciable enlargement of the abdominal aorta. EXTREMITIES: No pedal edema. No calf tenderness. NEUROLOGICAL: Patient is awake, alert and oriented person and place. Slurred speech, right facial droop. Lower extremity strength 5/5 on the left, 4/5 on the right. Upper extremity strength 5/5 on the left and 3/5 on the right, 5/5. Cranial nerves II through XII grossly intact. Examination of the skin revealed no evidence of significant rashes, suspicious appearing nevi or other concerning lesions. Results - Laboratory Findings CBC and BMP: 10/23/21 11:15 10/23/21 11:15 PT/INR, D-dimer PT 9.9 sec (9.0-12.0) 10/17/21 11:10 INR 0.9 (<1.2) 10/17/21 11:10 Abnormal lab findings: Abnormal Labs 10/17/21 10/17/21 10/17/21 09:20 09:42 11:10 Lymphocytes # 0.9 L Monocytes # BUN 26 H Est GFR (CKD-EPI)AfAm Est GFR (CKD-EPI)NonAf BUN/Creatinine Ratio Glucose 132 H POC Glucose (mg/dL) 138 H Hemoglobin A1c 10/17/21 10/17/21 10/18/21 15:02 20:06 05:59 Lymphocytes # Monocytes # BUN Est GFR (CKD-EPI)AfAm Est GFR (CKD-EPI)NonAf BUN/Creatinine Ratio Glucose POC Glucose (mg/dL) 133 H 122 H Hemoglobin A1c 8.0 H 10/18/21 10/18/21 10/19/21 11:59 19:50 11:27 Lymphocytes # Monocytes # BUN Est GFR (CKD-EPI)AfAm Est GFR (CKD-EPI)NonAf BUN/Creatinine Ratio Glucose POC Glucose (mg/dL) 148 H 133 H 144 H Hemoglobin A1c 10/19/21 10/19/21 10/20/21 16:05 20:31 06:02 Lymphocytes # Monocytes # BUN Est GFR (CKD-EPI)AfAm Est GFR (CKD-EPI)NonAf BUN/Creatinine Ratio Glucose POC Glucose (mg/dL) 138 H 132 H 120 H Hemoglobin A1c 10/20/21 10/20/21 10/20/21 11:29 16:47 19:26 Lymphocytes # Monocytes # BUN Est GFR (CKD-EPI)AfAm Est GFR (CKD-EPI)NonAf BUN/Creatinine Ratio Glucose POC Glucose (mg/dL) 162 H 130 H 199 H Hemoglobin A1c 10/21/21 10/21/21 10/21/21 06:10 11:39 16:45 Lymphocytes # Monocytes # BUN Est GFR (CKD-EPI)AfAm Est GFR (CKD-EPI)NonAf BUN/Creatinine Ratio Glucose POC Glucose (mg/dL) 142 H 179 H 134 H Hemoglobin A1c 10/21/21 10/22/21 10/22/21 20:31 07:09 07:21 Lymphocytes # Monocytes # BUN Est GFR (CKD-EPI)AfAm Est GFR (CKD-EPI)NonAf BUN/Creatinine Ratio Glucose POC Glucose (mg/dL) 127 H 124 H Hemoglobin A1c 7.7 H 10/22/21 10/22/21 10/22/21 07:21 07:21 11:53 Lymphocytes # 0.68 L Monocytes # 1.01 H BUN 41.7 H Est GFR (CKD-EPI)AfAm 51.4 L Est GFR (CKD-EPI)NonAf 44.4 L BUN/Creatinine Ratio 28.18 H Glucose 135 H POC Glucose (mg/dL) 161 H Hemoglobin A1c 10/22/21 10/22/21 10/23/21 16:33 20:15 06:51 Lymphocytes # Monocytes # BUN Est GFR (CKD-EPI)AfAm Est GFR (CKD-EPI)NonAf BUN/Creatinine Ratio Glucose POC Glucose (mg/dL) 121 H 198 H 119 H Hemoglobin A1c 10/23/21 10/23/21 07:39 10:28 Lymphocytes # 0.9 L Monocytes # 1.1 H BUN Est GFR (CKD-EPI)AfAm Est GFR (CKD-EPI)NonAf BUN/Creatinine Ratio Glucose POC Glucose (mg/dL) 161 H Hemoglobin A1c - Diagnostic Findings Chest x-ray: image reviewed Assessment and Plan Plan: Acute GIB, likely lower, patient is currently in the intensive care unit for monitoring. Note that the patient was taken a combination of aspirin and Brilinta regarding his recent CVA. No evidence of any hemodynamic instability and the patient is currently stable for now. Patient was started on IV Protonix. Surgical consultation was obtained. Acute ischemic CVA. Patient has been started on aspirin 81 mg daily, Brilinta 90 mg twice daily for 30 days and then patient be transitioned to Plavix. Left carotid artery stenosis. Vascular surgery consult appreciated plan for outpatient surgery. . Focal nipple-like projections of the anterior aspect of the ascending aorta. Other arterial atherosclerotic changes and segments of arterial stenosis. CAD and a previous CABG Hypertension. Hyperlipidemia Hypothyroid Dementia. Diabetes mellitus type 2. A1c 8.0. Patient started on Tradjenta, continue NovoLog scale. Obstructive sleep apnea. Family may bring in CPAP. History of prostate cancer. Plan Keep the patient nothing by mouth for now No gastroenterology services to cover this weekend. We'll consult general surgery We'll put the patient IV Protonix Stop aspirin and Brilinta for now We'll need an EGD We'll keep the patient ICU, monitor hemoglobin, monitor hemodynamics IV fluids with normal saline at the rate of 75 to now we'll continue following up this patient along with aggressive the consultants.
--- NOTE | 2021-10-23 13:28 | P.PN ---
Subjective Progress Note Date: 10/23/21 HISTORY OF PRESENT ILLNESS This is a 80-year-old male patient of Dr. Rojas with past medical history of coronary artery disease status post CABG many years ago, dementia, possible di abetes, hypertension, hyperlipidemia, history of prostate cancer, obstructive sleep apnea. Patient went to bed last evening at 8:30 and awoke this morning at 6 was attempting to ambulate he is having difficulty walking but he was dragging his right leg. Patient's woke at 7:30 or 8 and try to speak with them but he was having difficulty with speech. Patient was brought into [facility] emergency center for evaluation. He was found to be afebrile, heart rate 61, blood pressure 171/82, pulse ox 90% on room air. EKG sinus bradycardia with no acute ST changes. CBC was unremarkable. INR 0.9. Electrolytes normal. BUN 26 creatinine 1.03. Blood sugar 132. Liver function tests normal. Troponin negative. CT angiogram of the head and neck revealed severe stenosis of the proximal and cavernous portions of the left internal carotid artery. Focal nipple-like projections of the anterior aspect of the ascending aorta. Other arterial atherosclerotic changes and segments of arterial stenosis. CAT scan of the brain revealed no acute intracranial hemorrhage or gross acute cortical infarct. Left medial occipital chronic infarct. Chest x-ray reveals no acute process. Right shoulder x-ray revealed before meals joint arthropathy. If concern for rotator cuff disease correlate with MRI. Ultrasound carotid arteries revealed 50-69% stenosis of the proximal left ICA. Cardiac dysrhythmia. Nonvisualization of the left vertebral artery could be congenital. Patient is seen today in the emergency center waiting for a bed on the cardiac stepdown unit, vascular, neurology and cardiothoracic surgery consult in place 10/18: Patient has been seen by neurology and scheduled for MRI of the brain today. Patient has been seen by cardiothoracic surgery with no plan for surgical intervention, recommend blood pressure control. Patient has been seen by vascular surgery with plan for possible T car versus carotid endarterectomy, favoring trans-carotid artery arterial revascularization in the near future and cardiology consult was added for clearance. PT and OT to evaluate patient. ocean export account manager following for discharge plan. Echocardiogram reveals EF of 50-55%, no no right to left shunt with agitated saline contrast study. 10/19: Patient has been seen by cardiology and resumed on lower dose of Lopressor. MRI of the brain remains pending. Neurology is recommended Brilinta 90 mg twice daily for 30 days, aspirin 81 mg daily. After 30 days, Brilinta to be transitioned to Plavix. A1c came back at 8.0 and patient started on Tradjenta. Triglycerides 104, cholesterol 176, LDL 101, HDL 53. TSH 2.91. Regarding discharge planning, patient and his wanted him to return home. However, therapy is recommending's inpatient or subacute rehab. Consult placed to Dr. Zhu for evaluation and [facility] is back up plan. MRI remains pending. 10/20: MRI of the brain revealed acute/subacute CVA involving the left stephania. Encephalomalacia of the left occipital lobe prior injury. Nonspecific white matter changes likely secondary to small vessel ischemic change. Patient has been seen by Dr. Zhu and appears to be a good candidate for inpatient rehab. Pain continues for outpatient follow-up with vascular surgery regarding carotid artery surgery. No new concerns from the patient. Patient requires insurance authorization for inpatient rehab. If this is obtained today, patient will be discharged to inpatient rehab at [facility]. However, anticipate that insurance authorization will not be obtained until next week. 10/21, patient is doing okay, has right upper right lower extremity weakness and upper extremity, 3+, lower extremity 3 minus, anticipating rehab at [facility], once inpatient bed is approved by insurance company no medication changes at this time vital signs, 123/70, heart rate 59, T-max 97.8, on room air 97% no new labs for review, this is day #4 of admission. Labs will be checked in 24 hours to include B12 and hemoglobin A1c B12 10/22: Patient is doing okay, no aspirate these events, no headache, weakness and upper extremity lower extremity seems to improve somehow, there is still drift on the right upper extremity, patient can't lift the leg against gravity for at least 10 seconds, no nausea no vomiting, no aspiration, discharge planning still is in progress, for inpatient rehab at [facility]. 10/23, I was notified by the nurse last night, as the patient has one bloody bowel movement, without any abdominal pain, again on this morning, another bloody stools,the entire and aspirin has been held, secondary to GI bleed,I requested the nurse to notify neurology care regarding this change in treatment plan, we transferred him to ICU, would consult with Dr. Meraz critical care medicine, with monitoring of H&H, hemoglobin of 16.8, consult with Dr. Muhammad, general surgery, for the gross lower GI bleeding. Discussed with the , and his son, patient might need to be transferred to a tertiary facility, [facility], or [place] REVIEW OF SYSTEMS Constitutional: No fever, no chills, no night sweats. No weight change. No weakness, fatigue or lethargy. No daytime sleepiness. EENT: No headache. No blurred vision or double vision, no loss of vision. No loss of Hearing, no ringing in the ears, no dizziness. No nasal drainage or congestion. No epistaxis. No sore throat. Lungs: No shortness of breath, cough, no sputum production. No wheezing. Cardiovascular: No chest pain, no lower extremity edema. No palpitations. No paroxysmal nocturnal dyspnea. No orthopnea. No lightheadedness or dizziness. No syncopal episodes. Abdominal: No abdominal pain. No nausea, vomiting. No diarrhea. No constipation. No bloody or tarry stools. No loss of appetite. Genitourinary: No dysuria, increased frequency, urgency. No urinary retention. Musculoskeletal: No myalgias. No muscle weakness, expected gait dysfunction, no frequent falls. No back pain. No neck pain. Integumentary: No wounds, no lesions. No rash or pruritus. No unusual bruising. Neurologic: Slurred speech. Right-sided facial droop. No change in mentation. No head injury. No headache. No paralysis. Right-sided weakness more so to the right upper extremity. Psychiatric: No depression. No anxiety. No mood swings. Endocrine: No abnormal blood sugars. No weight change. No excessive sweating or thirst. No cold intolerance. PHYSICAL EXAMINATION Gen: This is a 80-year-old male. He is resting in bed and appears to be comfortable at rest. HEENT: Head is atraumatic, normocephalic. Pupils equal, round. Sclerae is anicteric. Extraocular motion intact. NECK: Supple. No JVD. No lymphadenopathy. No thyromegaly. LUNGS: Clear to auscultation. No wheezes or rhonchi. No intercostal retractions. HEART: Regular rate and rhythm. No murmur. ABDOMEN: Soft. Bowel sounds are present. No masses. No tenderness. EXTREMITIES: No pedal edema. No calf tenderness. NEUROLOGICAL: Patient is awake, alert and oriented person and place. Slurred speech, right facial droop. Lower extremity strength 5/5 on the left, 4/5 on the right. Upper extremity strength 5/5 on the left and 3/5 on the right, 5/5. Cranial nerves II through XII grossly intact. ASSESSMENT AND PLAN 1. Acute ischemic CVA. Patient has been started on aspirin 81 mg daily, Brilinta 90 mg twice daily for 30 days and then patient be transitioned to Plavix. Continue Lipitor 40 mg daily. Consult with nephrology appreciated. Continue PT, OT, speech therapies. Patient scheduled for MRI of the brain. 2. Acute lower GI bleed, 2 episodes since October 22 midnight, with cross clots, aspirin and bilirubin to has been held, with notification to general surgery, the family has agreed on blood transfusion as needed, hemoglobin is 16.8 currently, we'll transfuse under 8 2. Left carotid artery stenosis. Vascular surgery consult appreciated plan for outpatient surgery4-6 weeks, from the event of stroke per recommendation. Continue as in #1. 3. Focal nipple-like projections of the anterior aspect of the ascending aorta. Other arterial atherosclerotic changes and segments of arterial stenosis. Consult with cardiothoracic surgery appreciated. No intervention at this time. 4. Hypertension. Continue amlodipine 5 mg daily, hydrochlorothiazide 12.5 mg daily, lisinopril 40 mg twice daily. Lopressor on hold for now due to bradycardia. 5. Hyperlipidemia. Continue statin. 6. Dementia. 7. Diabetes mellitus type 2. A1c 8.0. Patient started on Tradjenta, continue NovoLog scale. 8. Obstructive sleep apnea. Family may bring in CPAP. 9. History of prostate cancer. 10. GI prophylaxis. Protonix. 11. DVT prophylaxis. Heparin subcu. DISCHARGE PLAN Inpatient rehab at [facility] . need to be cleared, regarding the lower GI bleed that was noted as a complication, Current Medications Amlodipine Besylate (Amlodipine 5 Mg Tab) 5 mg PO BID [facility] Last Admin: 10/23/21 07:28 Dose: 5 mg Atorvastatin Calcium (Atorvastatin 40 Mg Tab) 40 mg PO DAILY [facility] Last Admin: 10/23/21 07:28 Dose: 40 mg Heparin Sodium (Porcine) (Heparin Sodium,Porcine/Pf 5,000 Unit/0.5 Ml Syringe) 5,000 unit SQ Q12HR [facility] Last Admin: 10/23/21 07:17 Dose: Not Given Hydrochlorothiazide (Hydrochlorothiazide 25 Mg Tab) 25 mg PO DAILY [facility] Last Admin: 10/23/21 07:28 Dose: 25 mg Insulin Aspart (Insulin Aspart (Novolog) 100 Unit/Ml Vial) 0 unit SQ [facility]; Protocol Last Admin: 10/23/21 07:07 Dose: Not Given Levothyroxine Sodium (Levothyroxine 125 Mcg Tab) 125 mcg PO DAILY [facility] Last Admin: 10/23/21 07:28 Dose: 125 mcg Linagliptin (Linagliptin 5 Mg Tablet) 5 mg PO DAILY [facility] Last Admin: 10/23/21 07:28 Dose: 5 mg Lisinopril (Lisinopril 20 Mg Tab) 20 mg PO BID [facility] Last Admin: 10/23/21 07:28 Dose: 20 mg Metoprolol Tartrate (Metoprolol Tartrate 12.5 Mg Tab) 12.5 mg PO BID [facility] Last Admin: 10/23/21 07:28 Dose: 12.5 mg Pantoprazole Sodium (Pantoprazole 40 Mg Tablet) 40 mg PO DAILY [facility] Last Admin: 10/23/21 07:28 Dose: 40 mg Ticagrelor (Ticagrelor 90 Mg Tab) 90 mg PO BID [facility] Stop: 11/16/21 21:01 Last Admin: 10/23/21 05:22 Dose: Not Given Laboratory Results - Last 24 Hours 10/22/21 10/22/21 10/23/21 16:33 20:15 06:51 WBC RBC Hgb Hct MCV MCH MCHC RDW Plt Count MPV Neutrophils % Lymphocytes % Monocytes % Eosinophils % Basophils % Neutrophils # Lymphocytes # Monocytes # Eosinophils # Basophils # PT INR Sodium Potassium Chloride Carbon Dioxide Anion Gap BUN Creatinine Est GFR (CKD-EPI)AfAm Est GFR (CKD-EPI)NonAf Glucose POC Glucose (mg/dL) 121 H 198 H 119 H POC Glu [employer] Phoebe Blum Heather Laritz, Joanne Calcium 10/23/21 10/23/21 10/23/21 07:39 10:28 11:15 WBC 10.0 RBC 5.21 Hgb 16.8 Hct 50.0 MCV 96.0 MCH 32.2 MCHC 33.5 RDW 13.7 Plt Count 202 MPV 9.3 Neutrophils % 75 Lymphocytes % 9 Monocytes % 11 Eosinophils % 2 Basophils % 1 Neutrophils # 7.5 Lymphocytes # 0.9 L Monocytes # 1.1 H Eosinophils # 0.2 Basophils # 0.1 PT 10.8 INR 1.0 Sodium Potassium Chloride Carbon Dioxide Anion Gap BUN Creatinine Est GFR (CKD-EPI)AfAm Est GFR (CKD-EPI)NonAf Glucose POC Glucose (mg/dL) 161 H POC Glu [employer] ID Teresa Duffy T Calcium 10/23/21 10/23/21 11:15 11:15 WBC 7.6 RBC 5.10 Hgb 16.7 Hct 49.7 MCV 97.5 MCH 32.9 MCHC 33.7 RDW 14.2 Plt Count 203 MPV 9.6 Neutrophils % 76 Lymphocytes % 8 Monocytes % 10 Eosinophils % 2 Basophils % 1 Neutrophils # 5.8 Lymphocytes # 0.6 L Monocytes # 0.7 Eosinophils # 0.2 Basophils # 0.1 PT INR Sodium 137 Potassium 3.9 Chloride 101 Carbon Dioxide 25 Anion Gap 11 BUN 51 H Creatinine 1.67 H Est GFR (CKD-EPI)AfAm 44 Est GFR (CKD-EPI)NonAf 38 Glucose 168 H POC Glucose (mg/dL) POC Glu [employer] ID Calcium 9.3 10/22/21 10/22/21 10/22/21 11:53 16:33 20:15 WBC RBC Hgb Hct MCV MCH MCHC RDW Plt Count MPV Immature Gran % (Auto) Absolute Nucleated RBC Neutrophils % Lymphocytes % Monocytes % Eosinophils % Basophils % Immature Gran # Neutrophils # Lymphocytes # Monocytes # Eosinophils # Basophils # NRBC/100 WBC Diff Sodium Potassium Chloride Carbon Dioxide Anion Gap BUN Creatinine Est GFR (CKD-EPI)AfAm Est GFR (CKD-EPI)NonAf BUN/Creatinine Ratio Glucose POC Glucose (mg/dL) 161 H 121 H 198 H POC Glu [employer] ID Phoebe Moreno Paige Travis, Heather Estimated Ave Glu mg/dL Hemoglobin A1c Calcium Total Bilirubin AST ALT Alkaline Phosphatase Total Protein Albumin Globulin Albumin/Globulin Ratio Vitamin B12 10/23/21 10/23/21 10/23/21 06:51 07:39 10:28 WBC 10.0 RBC 5.21 Hgb 16.8 Hct 50.0 MCV 96.0 MCH 32.2 MCHC 33.5 RDW 13.7 Plt Count 202 MPV 9.3 Immature Gran % (Auto) Absolute Nucleated RBC Neutrophils % 75 Lymphocytes % 9 Monocytes % 11 Eosinophils % 2 Basophils % 1 Immature Gran # Neutrophils # 7.5 Lymphocytes # 0.9 L Monocytes # 1.1 H Eosinophils # 0.2 Basophils # 0.1 NRBC/100 WBC Diff Sodium Potassium Chloride Carbon Dioxide Anion Gap BUN Creatinine Est GFR (CKD-EPI)AfAm Est GFR (CKD-EPI)NonAf BUN/Creatinine Ratio Glucose POC Glucose (mg/dL) 119 H 161 H POC Glu [employer] ID Maris Faust Viola, T [address]imated [address] Glu mg/dL Hemoglobin A1c Calcium Total Bilirubin AST ALT Alkaline Phosphatase Total Protein Albumin Globulin Albumin/Globulin Ratio Vitamin B12 Vital Signs - 24 hr 10/22/21 10/22/21 10/23/21 14:00 19:00 02:00 Temperature 97.5 F L 97.6 F 97.4 F L Pulse Rate [ 61 58 L 62 Pulse Oximetery ] Respiratory 20 16 18 Rate Blood Pressure 119/76 137/71 110/55 [Right Arm] O2 Sat by Pulse 99 99 98 Oximetry 10/23/21 10/23/21 05:06 08:00 Temperature 97.8 F Pulse Rate [ 63 55 L Pulse Oximetery ] Respiratory 16 Rate Blood Pressure 111/63 117/72 [Right Arm] O2 Sat by Pulse 99 98 Oximetry Objective - Vital Signs Vital signs: Vital Signs Temp 97.8 F 10/23/21 08:00 Pulse 55 L 10/23/21 08:00 Resp 16 10/23/21 05:06 BP 117/72 10/23/21 08:00 Pulse Ox 98 10/23/21 08:00 FiO2 Intake & Output 10/22/21 10/23/21 10/23/21 18:59 06:59 18:59 Other: Voiding Method Toilet Toilet # Voids 2 2 # Bowel Movements 1 - Labs CBC & Chem 7: 10/23/21 11:15 10/23/21 11:15 Labs: Abnormal Lab Results - Last 24 Hours (Table) 10/22/21 10/22/21 10/22/21 Range/Units 07:21 07:21 07:21 Lymphocytes # 0.68 L (0.90-5.00) X 10*3/uL Monocytes # 1.01 H (0.20-1.00) X 10*3/uL BUN 41.7 H (9.0-27.0) mg/dL Est GFR (CKD-EPI)AfAm 51.4 L (60.0-200.0) Est GFR (CKD-EPI)NonAf 44.4 L (60.0-200.0) BUN/Creatinine Ratio 28.18 H (12.00-20.00) Ratio Glucose 135 H (70-110) mg/dL POC Glucose (mg/dL) (70-110) mg/dL Hemoglobin A1c 7.7 H (0.0-6.0) % 10/22/21 10/22/21 10/22/21 Range/Units 11:53 16:33 20:15 Lymphocytes # (0.90-5.00) X 10*3/uL Monocytes # (0.20-1.00) X 10*3/uL BUN (9.0-27.0) mg/dL Est GFR (CKD-EPI)AfAm (60.0-200.0) Est GFR (CKD-EPI)NonAf (60.0-200.0) BUN/Creatinine Ratio (12.00-20.00) Ratio Glucose (70-110) mg/dL POC Glucose (mg/dL) 161 H 121 H 198 H (70-110) mg/dL Hemoglobin A1c (0.0-6.0) % 10/23/21 10/23/21 10/23/21 Range/Units 06:51 07:39 10:28 Lymphocytes # 0.9 L (0.90-5.00) X 10*3/uL Monocytes # 1.1 H (0.20-1.00) X 10*3/uL BUN (9.0-27.0) mg/dL Est GFR (CKD-EPI)AfAm (60.0-200.0) Est GFR (CKD-EPI)NonAf (60.0-200.0) BUN/Creatinine Ratio (12.00-20.00) Ratio Glucose (70-110) mg/dL POC Glucose (mg/dL) 119 H 161 H (70-110) mg/dL Hemoglobin A1c (0.0-6.0) %
[2021-10-23 16:34] LABS: Glucose,Whole Blood 116 mg/dL (70-110)
[2021-10-23 18:36] LABS: Basophils # (A) 0.1 k/uL (0-0.2); Basophils % (A) 1 %; Eosinophils # (A) 0.2 k/uL (0-0.7); Eosinophils % (A) 2 %; HCT 46.6 % (39.0-53.0); HGB 15.5 gm/dL (13.0-17.5); Lymphocytes # (A) 1.1 k/uL (1.0-4.8); Lymphocytes % (A) 12 %; MCHC 33.3 g/dL (31.0-37.0); MCV 96.1 fL (80.0-100.0); Mean Platelet Volume 9.3; Monocytes % (A) 12 %; Neutrophils % (A) 70 %; Platelet Count 191 k/uL (150-450); RBC 4.85 m/uL (4.30-5.90); RDW 13.7 % (11.5-15.5); WBC 8.6 k/uL (3.8-10.6)
[2021-10-23 20:31] LABS: Glucose,Whole Blood 123 mg/dL (70-110)
[2021-10-24 00:20] LABS: Basophils # (A) 0.1 k/uL (0-0.2); Basophils % (A) 1 %; Eosinophils # (A) 0.2 k/uL (0-0.7); Eosinophils % (A) 2 %; HCT 48.7 % (39.0-53.0); HGB 16.1 gm/dL (13.0-17.5); Lymphocytes % (A) 13 %; MCH 32.3 pg (25.0-35.0); MCHC 33.1 g/dL (31.0-37.0); MCV 97.6 fL (80.0-100.0); Mean Platelet Volume 9.4; Monocytes # (A) 0.9 k/uL (0-1.0); Monocytes % (A) 11 %; Neutrophils # (A) 5.3 k/uL (1.3-7.7); Neutrophils % (A) 69 %; Platelet Count 188 k/uL (150-450); RBC 4.99 m/uL (4.30-5.90); RDW 14.2 % (11.5-15.5); WBC 7.7 k/uL (3.8-10.6)
[2021-10-24 06:39] LABS: Glucose,Whole Blood 111 mg/dL (70-110)
[2021-10-24] MEDS: INSULIN ASPART (NovoLOG) 100 UNIT/ML VIAL SQ SCH ×4 (06:51→22:08)
[2021-10-24 06:52] LABS: Glucose,Whole Blood 109 mg/dL (70-110)
[2021-10-24 07:48] LABS: Basophils # (A) 0.1 k/uL (0-0.2); Basophils % (A) 1 %; Eosinophils # (A) 0.2 k/uL (0-0.7); Eosinophils % (A) 2 %; HCT 49.3 % (39.0-53.0); HGB 16.4 gm/dL (13.0-17.5); Lymphocytes # (A) 0.8 k/uL (1.0-4.8); Lymphocytes % (A) 10 %; MCH 32.2 pg (25.0-35.0); MCHC 33.4 g/dL (31.0-37.0); MCV 96.6 fL (80.0-100.0); Mean Platelet Volume 8.9; Monocytes # (A) 0.9 k/uL (0-1.0); Monocytes % (A) 11 %; Neutrophils # (A) 6.2 k/uL (1.3-7.7); Neutrophils % (A) 74 %; Platelet Count 195 k/uL (150-450); RDW 13.7 % (11.5-15.5); WBC 8.4 k/uL (3.8-10.6)
[2021-10-24 08:14] LABS: Calcium 9.1 mg/dL (8.4-10.2); Potassium 3.9 mmol/L (3.5-5.1)
[2021-10-24] MEDS: hydroCHLOROthiazide 25 MG TAB PO SCH (09:03)
[2021-10-24] MEDS: METOPROLOL TARTRATE 12.5 MG TAB PO SCH ×2 (09:03→21:19)
[2021-10-24] MEDS: LEVOTHYROXINE 125 MCG TAB PO SCH (09:03)
[2021-10-24] MEDS: HEPARIN SODIUM,PORCINE/PF 5,000 UNIT/0.5 ML SYRINGE SQ SCH ×2 (09:03→21:19)
[2021-10-24] MEDS: amLODIPine 5 MG TAB PO SCH ×2 (09:03→21:19)
[2021-10-24] MEDS: lisinopriL 20 MG TAB PO SCH ×2 (09:03→21:19)
[2021-10-24] MEDS: LINAGLIPTIN 5 MG TABLET PO SCH (09:03)
[2021-10-24] MEDS: PANTOPRAZOLE 40 MG TABLET PO SCH (09:03)
[2021-10-24] MEDS: ATORVASTATIN 40 MG TAB PO SCH (09:03)
--- NOTE | 2021-10-24 09:24 | P.DS ---
Providers Date of admission: 10/17/21 11:10 Expected date of discharge: 10/24/21 Attending physician: Rolando Ding Consults: 10/17/21 11:02 Consult Physician Urgent Consulting Provider: Ruiz Man Consult Reason/Comments: right sided weakness, suspected stroke Do you want consulting provider notified?: Yes 10/17/21 11:03 Consult Physician Urgent Consulting Provider: Kwaku Duncan Consult Reason/Comments: questionable anerysm on ct Do you want consulting provider notified?: Yes 10/18/21 13:11 Consult Physician Routine Consulting Provider: Gabriela Restrepo Consult Reason/Comments: cardiac clerance for TCAR/carotid endartectomy Do you want consulting provider notified?: Yes 10/19/21 13:07 Consult Physician Routine Consulting Provider: Kurt Zhu Consult Reason/Comments: eval for ipr Do you want consulting provider notified?: Yes 10/23/21 05:14 Consult Physician Routine Consulting Provider: Ivette Muhammad Consult Reason/Comments: Bloody stool Do you want consulting provider notified?: Yes, Notify in am 10/23/21 10:32 Consult Physician Stat Consulting Provider: Juan Meraz Consult Reason/Comments: icu management Do you want consulting provider notified?: Yes Primary care physician: Terry Rojas [facility] Course: HISTORY OF PRESENT ILLNESS This is a 80-year-old male patient of Dr. Rojas with past medical history of coronary artery disease status post CABG many years ago, dementia, possible diabetes, hypertension, hyperlipidemia, history of prostate cancer, obstructive sleep apnea. Patient went to bed last evening at 8:30 and awoke this morning at 6 was attempting to ambulate he is having difficulty walking but he was dragging his right leg. Patient's woke at 7:30 or 8 and try to speak with them but he was having difficulty with speech. Patient was brought into [facility] emergency center for evaluation. He was found to be afebrile, heart rate 61, blood pressure 171/82, pulse ox 90% on room air. EKG sinus bradycardia with no acute ST changes. CBC was unremarkable. INR 0.9. Electrolytes normal. BUN 26 creatinine 1.03. Blood sugar 132. Liver function tests normal. Troponin negative. CT angiogram of the head and neck revealed severe stenosis of the proximal and cavernous portions of the left internal carotid artery. Focal nipple-like projections of the anterior aspect of the ascending aorta. Other arterial atherosclerotic changes and segments of arterial stenosis. CAT scan of the brain revealed no acute intracranial hemorrhage or gross acute cortical infarct. Left medial occipital chronic infarct. Chest x-ray reveals no acute process. Right shoulder x-ray revealed before meals joint arthropathy. If concern for rotator cuff disease correlate with MRI. Ultrasound carotid arteries revealed 50-69% stenosis of the proximal left ICA. Cardiac dysrhythmia. Nonvisualization of the left vertebral artery could be congenital. Patient is seen today in the emergency center waiting for a bed on the cardiac stepdown unit, vascular, neurology and cardiothoracic surgery consult in place 10/18: Patient has been seen by neurology and scheduled for MRI of the brain today. Patient has been seen by cardiothoracic surgery with no plan for surgical intervention, recommend blood pressure control. Patient has been seen by vascular surgery with plan for possible T car versus carotid endarterectomy, favoring trans-carotid artery arterial revascularization in the near future and cardiology consult was added for clearance. PT and OT to evaluate patient. gas well drilling manager following for discharge plan. Echocardiogram reveals EF of 50-55%, no no right to left shunt with agitated saline contrast study. 10/19: Patient has been seen by cardiology and resumed on lower dose of Lopressor. MRI of the brain remains pending. Neurology is recommended Brilinta 90 mg twice daily for 30 days, aspirin 81 mg daily. After 30 days, Brilinta to be transitioned to Plavix. A1c came back at 8.0 and patient started on Tradjenta. Triglycerides 104, cholesterol 176, LDL 101, HDL 53. TSH 2.91. Regarding discharge planning, patient and his wanted him to return home. However, therapy is recommending's inpatient or subacute rehab. Consult placed to Dr. Zhu for evaluation and [facility] is back up plan. MRI remains pending. 10/20: MRI of the brain revealed acute/subacute CVA involving the left stephania. Encephalomalacia of the left occipital lobe prior injury. Nonspecific white matter changes likely secondary to small vessel ischemic change. Patient has been seen by Dr. Zhu and appears to be a good candidate for inpatient rehab. Pain continues for outpatient follow-up with vascular surgery regarding carotid artery surgery. No new concerns from the patient. Patient requires insurance authorization for inpatient rehab. If this is obtained today, patient will be discharged to inpatient rehab at [facility]. However, anticipate that insurance authorization will not be obtained until next week. 10/21, patient is doing okay, has right upper right lower extremity weakness and upper extremity, 3+, lower extremity 3 minus, anticipating rehab at [facility], once inpatient bed is approved by insurance company no medication changes at this time vital signs, 123/70, heart rate 59, T-max 97.8, on room air 97% no new labs for review, this is day #4 of admission. Labs will be checked in 24 hours to include B12 and hemoglobin A1c B12 10/22: Patient is doing okay, no aspirate these events, no headache, weakness and upper extremity lower extremity seems to improve somehow, there is still drift on the right upper extremity, patient can't lift the leg against gravity for at least 10 seconds, no nausea no vomiting, no aspiration, discharge planning still is in progress, for inpatient rehab at [facility]. 10/23, I was notified by the nurse last night, as the patient has one bloody bowel movement, without any abdominal pain, again on this morning, another bloody stools,the entire and aspirin has been held, secondary to GI bleed,I requested the nurse to notify neurology care regarding this change in treatment plan, we transferred him to ICU, would consult with Dr. Meraz critical care medicine, with monitoring of H&H, hemoglobin of 16.8, consult with Dr. Muhammad, general surgery, for the gross lower GI bleeding. Discussed with the , and his son, patient might need to be transferred to a tertiary facility, [facility], or [place] 10/24: She is seen today in the intensive care unit. Patient was transferred into the intensive care unit apparently due to bloody bowel movement. Patient has since had a soft brown stool while in the intensive care unit. No signs of bleeding. Rectal exam was performed and no blood noted. Normal stool brown c olor. No bleeding hemorrhoids noted. Hemoglobin is at 16.4. BUN 49 creatinine 1.43. Patient will be transferred to [facility] for now until discharge plan can be confirmed. Insurance company has denied inpatient rehab and back up plan is [facility] for subacute rehab. Patient will be discharged today in stable condition. DISCHARGE DIAGOSES 1. Acute ischemic CVA. 2. Left carotid artery stenosis. 3. Focal nipple-like projections of the anterior aspect of the ascending aorta. Consult with cardiothoracic surgery appreciated. No intervention at this time. 4. Hypertension. 5. Hyperlipidemia. 6. Dementia. 7. Diabetes mellitus type 2. A1c 8.0. 8. Obstructive sleep apnea. 9. History of prostate cancer. 10. Minimal rectal bleeding, resolved DISCHARGE PLAN Subacute rehab at [facility] Greater than 35 minutes was utilized and coordinating patient's discharge. Impression and plan of care have been directed as dictated by the signing physician. Steph Garcia nurse practitioner acting as scribe for signing physician. Patient Condition at Discharge: Good Plan - Discharge Summary Discharge Rx Participant: No New Discharge Prescriptions: New Ticagrelor [Brilinta] 90 mg PO BID #60 tab Linagliptin [Tradjenta] 5 mg PO DAILY #30 tab Metoprolol Tartrate [Lopressor] 12.5 mg PO BID #60 tab hydroCHLOROthiazide [Hydrodiuril] 25 mg PO DAILY #30 tab amLODIPine [Norvasc] 5 mg PO BID #60 tab Continue Enalapril [Vasotec] 20 mg PO BID Simvastatin 40 mg PO DAILY hydroCHLOROthiazide 12.5 mg PO DAILY Aspirin [Adult Low Dose Aspirin EC] 81 mg PO DAILY Levothyroxine Sodium [Synthroid] 125 mcg PO DAILY Omeprazole 20 mg PO BID Discontinued amLODIPine [Norvasc] 5 mg PO DAILY Metoprolol Tartrate [Lopressor] 50 mg PO DAILY Discharge Medication List Aspirin [Adult Low Dose Aspirin EC] 81 mg PO DAILY 02/05/18 [History] Enalapril [Vasotec] 20 mg PO BID 02/05/18 [History] Simvastatin 40 mg PO DAILY 02/05/18 [History] hydroCHLOROthiazide 12.5 mg PO DAILY 02/05/18 [History] Levothyroxine Sodium [Synthroid] 125 mcg PO DAILY 10/17/21 [History] Omeprazole 20 mg PO BID 10/17/21 [History] Linagliptin [Tradjenta] 5 mg PO DAILY #30 tab 10/19/21 [Rx] Metoprolol Tartrate [Lopressor] 12.5 mg PO BID #60 tab 10/19/21 [Rx] Ticagrelor [Brilinta] 90 mg PO BID #60 tab 10/19/21 [Rx] amLODIPine [Norvasc] 5 mg PO BID #60 tab 10/24/21 [Rx] hydroCHLOROthiazide [Hydrodiuril] 25 mg PO DAILY #30 tab 10/24/21 [Rx] Follow up Appointment(s)/Referral(s): Gabriela Restrepo MD [STAFF PHYSICIAN] - 2 Weeks [facility] [NON-STAFF] - Ngoc Ruffin DO [STAFF PHYSICIAN] - 11/01/21 11:15 am Terry Rojas MD [Primary Care Provider] - 1 Week (After discharge from rehab) Patient Instructions/Handouts: Stroke (DC) Activity/Diet/Wound Care/Special Instructions: Continue Brilinta 90 mg twice daily and aspirin 81 mg daily. After 30 days, switch Brilinta to Plavix. Plan on long-term dual antiplatelet medication. Discharge Disposition: OTHER INSTITUTION NOT DEFINED
[2021-10-24] MEDS ORDERED: TICAGRELOR 90 MG TAB PO ONE (09:45)
[2021-10-24 11:02] VITALS: BMI 25.8
--- NOTE | 2021-10-24 11:52 | P.PN ---
Subjective Progress Note Date: 10/24/21 HISTORY OF PRESENT ILLNESS This is a 80-year-old male patient of Dr. Rojas with past medical history of coronary artery disease status post CABG many years ago, dementia, possible di abetes, hypertension, hyperlipidemia, history of prostate cancer, obstructive sleep apnea. Patient went to bed last evening at 8:30 and awoke this morning at 6 was attempting to ambulate he is having difficulty walking but he was dragging his right leg. Patient's woke at 7:30 or 8 and try to speak with them but he was having difficulty with speech. Patient was brought into [facility] emergency center for evaluation. He was found to be afebrile, heart rate 61, blood pressure 171/82, pulse ox 90% on room air. EKG sinus bradycardia with no acute ST changes. CBC was unremarkable. INR 0.9. Electrolytes normal. BUN 26 creatinine 1.03. Blood sugar 132. Liver function tests normal. Troponin negative. CT angiogram of the head and neck revealed severe stenosis of the proximal and cavernous portions of the left internal carotid artery. Focal nipple-like projections of the anterior aspect of the ascending aorta. Other arterial atherosclerotic changes and segments of arterial stenosis. CAT scan of the brain revealed no acute intracranial hemorrhage or gross acute cortical infarct. Left medial occipital chronic infarct. Chest x-ray reveals no acute process. Right shoulder x-ray revealed before meals joint arthropathy. If concern for rotator cuff disease correlate with MRI. Ultrasound carotid arteries revealed 50-69% stenosis of the proximal left ICA. Cardiac dysrhythmia. Nonvisualization of the left vertebral artery could be congenital. Patient is seen today in the emergency center waiting for a bed on the cardiac stepdown unit, vascular, neurology and cardiothoracic surgery consult in place 10/18: Patient has been seen by neurology and scheduled for MRI of the brain today. Patient has been seen by cardiothoracic surgery with no plan for surgical intervention, recommend blood pressure control. Patient has been seen by vascular surgery with plan for possible T car versus carotid endarterectomy, favoring trans-carotid artery arterial revascularization in the near future and cardiology consult was added for clearance. PT and OT to evaluate patient. manager wound following for discharge plan. Echocardiogram reveals EF of 50-55%, no no right to left shunt with agitated saline contrast study. 10/19: Patient has been seen by cardiology and resumed on lower dose of Lopressor. MRI of the brain remains pending. Neurology is recommended Brilinta 90 mg twice daily for 30 days, aspirin 81 mg daily. After 30 days, Brilinta to be transitioned to Plavix. A1c came back at 8.0 and patient started on Tradjenta. Triglycerides 104, cholesterol 176, LDL 101, HDL 53. TSH 2.91. Regarding discharge planning, patient and his wanted him to return home. However, therapy is recommending's inpatient or subacute rehab. Consult placed to Dr. Zhu for evaluation and [facility] is back up plan. MRI remains pending. 10/20: MRI of the brain revealed acute/subacute CVA involving the left stephania. Encephalomalacia of the left occipital lobe prior injury. Nonspecific white matter changes likely secondary to small vessel ischemic change. Patient has been seen by Dr. Zhu and appears to be a good candidate for inpatient rehab. Pain continues for outpatient follow-up with vascular surgery regarding carotid artery surgery. No new concerns from the patient. Patient requires insurance authorization for inpatient rehab. If this is obtained today, patient will be discharged to inpatient rehab at [facility]. However, anticipate that insurance authorization will not be obtained until next week. 10/21, patient is doing okay, has right upper right lower extremity weakness and upper extremity, 3+, lower extremity 3 minus, anticipating rehab at [facility], once inpatient bed is approved by insurance company no medication changes at this time vital signs, 123/70, heart rate 59, T-max 97.8, on room air 97% no new labs for review, this is day #4 of admission. Labs will be checked in 24 hours to include B12 and hemoglobin A1c B12 10/22: Patient is doing okay, no aspirate these events, no headache, weakness and upper extremity lower extremity seems to improve somehow, there is still drift on the right upper extremity, patient can't lift the leg against gravity for at least 10 seconds, no nausea no vomiting, no aspiration, discharge planning still is in progress, for inpatient rehab at [facility]. 10/23, I was notified by the nurse last night, as the patient has one bloody bowel movement, without any abdominal pain, again on this morning, another bloody stools,the entire and aspirin has been held, secondary to GI bleed,I requested the nurse to notify neurology care regarding this change in treatment plan, we transferred him to ICU, would consult with Dr. Meraz critical care medicine, with monitoring of H&H, hemoglobin of 16.8, consult with Dr. Muhammad, general surgery, for the gross lower GI bleeding. Discussed with the , and his son, patient might need to be transferred to a tertiary facility, [facility] 10/24: She is seen today in the intensive care unit. Patient was transferred into the intensive care unit apparently due to bloody bowel movement. Patient has since had a soft brown stool while in the intensive care unit. No signs of bleeding. Rectal exam was performed and no blood noted. Normal stool brown color. No bleeding hemorrhoids noted. Hemoglobin is at 16.4. BUN 49 creatinine 1.43. Patient will be transferred to [facility] for now until discharge plan can be confirmed. Insurance [email or web address] has denied inpatient rehab and back up plan is [facility] for subacute rehab but [facility] is out of network. [facility] is evaluating patient for possible acceptance for rehab. REVIEW OF SYSTEMS Constitutional: No fever, no chills, no night sweats. No weight change. No weakness, fatigue or lethargy. No daytime sleepiness. EENT: No headache. No blurred vision or double vision, no loss of vision. No loss of Hearing, no ringing in the ears, no dizziness. No nasal drainage or congestion. No epistaxis. No sore throat. Lungs: No shortness of breath, cough, no sputum production. No wheezing. Cardiovascular: No chest pain, no lower extremity edema. No palpitations. No paroxysmal nocturnal dyspnea. No orthopnea. No lightheadedness or dizziness. No syncopal episodes. Abdominal: No abdominal pain. No nausea, vomiting. No diarrhea. No constipation. No bloody or tarry stools. No loss of appetite. Genitourinary: No dysuria, increased frequency, urgency. No urinary retention. Musculoskeletal: No myalgias. No muscle weakness, expected gait dysfunction, no frequent falls. No back pain. No neck pain. Integumentary: No wounds, no lesions. No rash or pruritus. No unusual bruising. Neurologic: Slurred speech. Right-sided facial droop. No change in mentation. No head injury. No headache. No paralysis. Right-sided weakness more so to the right upper extremityall symptoms improved. Psychiatric: No depression. No anxiety. No mood swings. Endocrine: No abnormal blood sugars. No weight change. No excessive sweating or thirst. No cold intolerance. PHYSICAL EXAMINATION Gen: This is a 80-year-old male. He is resting in ICU bed and appears to be comfortable at rest. HEENT: Head is atraumatic, normocephalic. Pupils equal, round. Sclerae is anicteric. Extraocular motion intact. NECK: Supple. No JVD. No lymphadenopathy. No thyromegaly. LUNGS: Clear to auscultation. No wheezes or rhonchi. No intercostal retractions. HEART: Regular rate and rhythm. No murmur. ABDOMEN: Soft. Bowel sounds are present. No masses. No tenderness. EXTREMITIES: No pedal edema. No calf tenderness. NEUROLOGICAL: Patient is awake, alert and oriented person and place. Slurred s peech, right facial droop. Lower extremity strength 5/5 on the left, 4/5 on the right. Upper extremity strength 5/5 on the left and 3/5 on the right, 5/5. Cranial nerves II through XII grossly intact. ASSESSMENT AND PLAN 1. Acute ischemic CVA. Patient has been started on aspirin 81 mg daily, Brilinta 90 mg twice daily for 30 days and then patient be transitioned to Plavix, plan to continue dual antiplatelet therapy. Continue Lipitor 40 mg daily. Consult with nephrology appreciated. Continue PT, OT, speech therapies. 2. Acute lower GI bleed, 2 episodes since October 3 midnight, with cross clots, aspirin and bilirubin to has been held, with notification to general surgery, the family has agreed on blood transfusion as needed, hemoglobin is 16.8 currently, we'll transfuse under 8 2. Left carotid artery stenosis. Vascular surgery consult appreciated plan for outpatient surgery4-6 weeks, from the event of stroke per recommendation. Continue as in #1. 3. Focal nipple-like projections of the anterior aspect of the ascending aorta. Other arterial atherosclerotic changes and segments of arterial stenosis. Consult with cardiothoracic surgery appreciated. No intervention at this time. 4. Hypertension. Continue amlodipine 5 mg daily, hydrochlorothiazide 12.5 mg daily, lisinopril 40 mg twice daily. Lopressor on hold for now due to bradycardia. 5. Hyperlipidemia. Continue statin. 6. Dementia. 7. Diabetes mellitus type 2. A1c 8.0. Patient started on Tradjenta, continue NovoLog scale. 8. Obstructive sleep apnea. Family may bring in CPAP. 9. History of prostate cancer. 10. GI prophylaxis. Protonix. 11. DVT prophylaxis. Heparin subcu. DISCHARGE PLAN Subacute rehab. Possibly [facility]. Impression and plan of care have been directed as dictated by the signing physician. Steph Garcia nurse practitioner acting as scribe for signing physician. Objective - Vital Signs Vital signs: Vital Signs Temp 98 F 10/24/21 08:00 Pulse 56 L 10/24/21 09:00 Resp 12 10/24/21 09:00 BP 119/65 10/24/21 09:00 Pulse Ox 98 10/24/21 09:00 FiO2 Intake & Output 10/23/21 10/24/21 10/24/21 18:59 06:59 18:59 Intake Total 150 330 90 Output Total 500 250 200 Balance -350 80 -110 Weight 68.2 kg 68.2 kg Intake: IV 150 330 90 NS 150 330 90 Output: Urine 500 250 200 Other: Voiding Method Toilet Toilet Toilet # Voids 1 # Bowel Movements 1 - Labs CBC & Chem 7: 10/24/21 07:24 10/24/21 07:24 Labs: Abnormal Lab Results - Last 24 Hours (Table) 10/23/21 10/23/21 10/23/21 Range/Units 11:15 11:15 16:33 Lymphocytes # 0.6 L (1.0-4.8) k/uL BUN 51 H (9-20) mg/dL Creatinine 1.67 H (0.66-1.25) mg/dL Glucose 168 H (74-99) mg/dL POC Glucose (mg/dL) 116 H (70-110) mg/dL 10/23/21 10/24/21 10/24/21 Range/Units 20:29 06:37 07:24 Lymphocytes # (1.0-4.8) k/uL BUN 49 H (9-20) mg/dL Creatinine 1.43 H (0.66-1.25) mg/dL Glucose 121 H (74-99) mg/dL POC Glucose (mg/dL) 123 H 111 H (70-110) mg/dL 10/24/21 Range/Units 07:24 Lymphocytes # 0.8 L (1.0-4.8) k/uL BUN (9-20) mg/dL Creatinine (0.66-1.25) mg/dL Glucose (74-99) mg/dL POC Glucose (mg/dL) (70-110) mg/dL
[2021-10-24 11:54] LABS: Glucose,Whole Blood 141 mg/dL (70-110)
--- NOTE | 2021-10-24 13:04 | P.PN ---
Subjective Progress Note Date: 10/24/21 Principal diagnosis: Acute GI bleed This is a 80-year-old male patient of Dr. Rojas with past medical history of coronary artery disease status post CABG many years ago, dementia, possible diabetes, hypertension, hyperlipidemia, history of prostate cancer, obstructive sleep apnea. Patient went to bed last evening at 8:30 and awoke this morning at 6 was attempting to ambulate he is having difficulty walking but he was dragging his right leg. Patient's woke at 7:30 or 8 and try to speak with them but he was having difficulty with speech. Patient was brought into [facility] emergency center for evaluation. Further evaluation revealed that the patient sustained acute left pontine ischemic stroke, with dysarthria and right ataxic hemiparesis. Patient's NIH stroke scale is 5. Left ICA stenosis, severe degree, per CTA report. CTA also showed severe stenosis of left vertebral and moderate stenosis of the origin of right vertebral artery. On carotid duplex suggestive of 50-69% over proximal left ICA. Possible 8mm small nipple like focal aortic aneurysm noted on CTA. Echocardiogram reveals EF of 50-55%, no no right to left shunt with agitated saline contrast study. Patient has been seen by cardiology and resumed on lower dose of Lopressor. MRI of the brain remains pending. Neurology is recommended Brilinta 90 mg twice daily for 30 days, aspirin 81 mg daily. After 30 days, Brilinta to be transitioned to Plavix. A1c came back at 8.0 and patient started on Tradjenta. MRI of the brain revealed acute/subacute CVA involving the left stephania. Encephalomalacia of the left occipital lobe prior injury. Nonspecific white matter changes likely secondary to small vessel ischemic change. Patient has been seen by Dr. Zhu and appears to be a good candidate for inpatient rehab. The patient was doing well on the medical floor and this morning the patient had 2 episodes of bright red blood per rectum along with clots. No abdominal pain. No nausea or emesis. Note that the patient was taken a combination of aspirin and Brilinta. No other anticoagulants. The patient accordingly to chest with an intensive care unit. No dizziness. No significant drop in hemoglobin and most recent hemoglobin level is at 16.7. No previous history of GI bleed. A much of the patient has undergone previous EGD or colonoscopy. The patient has underlying dementia and is a poor historian. He is known to have CAD with previous bypass surgery, diabetes mellitus, hypertension, hyperlipidemia and a previous smoker. On 10/24/2021 patient seen in follow-up in intensive care unit. He is awake and alert, in no acute distress, denies any specific complaints, no difficulty breathing, no chest pain, no abdominal pain, denies any blood in the stool. Vital signs have been stable, room air pulse ox is 99%, blood pressure stable, he is in sinus mechanism, he is afebrile. Breathing is nonlabored. Patient has had no signs of active bleeding. Today's labs have been reviewed, hemoglobin is 16.4, white blood cell count is 8.4, electrolytes are unremarkable, renal profile is improving and BUN is down to 49 and creatinine is 1.43. Patient is able to answer basic questions, and he is oriented to self, place and time. Patient has some mild weakness in the right upper and lower extremity. Patient has underlying history of dementia, he has intermittent periods of confusion, but able to reorient easily. Objective - Vital Signs Vital signs: Vital Signs Temp 97.9 F 10/24/21 11:35 Pulse 56 L 10/24/21 11:35 Resp 14 10/24/21 11:35 BP 132/65 10/24/21 11:35 Pulse Ox 99 10/24/21 11:35 FiO2 Intake & Output 10/23/21 10/24/21 10/24/21 18:59 06:59 18:59 Intake Total 150 330 90 Output Total 500 250 200 Balance -350 80 -110 Weight 68.2 kg 68.2 kg Intake: IV 150 330 90 NS 150 330 90 Output: Urine 500 250 200 Other: Voiding Method Toilet Toilet Toilet # Voids 1 # Bowel Movements 1 - Exam GENERAL EXAM: Alert, very pleasant, cooperative, 80-year-old white male, on room air with pulse ox of 99%, comfortable in no apparent distress. HEAD: Normocephalic/atraumatic. EYES: Normal reaction of pupils, equal size. Conjunctiva pink, sclera white. NOSE: Clear with pink turbinates. THROAT: No erythema or exudates. NECK: No masses, no JVD, no thyroid enlargement, no adenopathy. CHEST: No chest wall deformity. Symmetrical expansion. LUNGS: Equal air entry with no crackles, wheeze, rhonchi or dullness. CVS: Regular rate and rhythm, normal S1 and S2, no gallops, no murmurs, no rubs ABDOMEN: Soft, nontender. No hepatosplenomegaly, normal bowel sounds, no guarding or rigidity. EXTREMITIES: No clubbing, no edema, no cyanosis, 2+ pulses and upper and lower extremities. MUSCULOSKELETAL: Muscle strength and tone normal. SPINE: No scoliosis or deformity SKIN: No rashes CENTRAL NERVOUS SYSTEM: Alert and oriented -3. Slight weakness in the right upper and lower extremity PSYCHIATRIC: Alert and oriented -3. Appropriate affect. Intact judgment and insight. - Labs CBC & Chem 7: 10/24/21 07:24 10/24/21 07:24 Labs: Abnormal Lab Results - Last 24 Hours (Table) 10/23/21 10/23/21 10/24/21 Range/Units 16:33 20:29 06:37 Lymphocytes # (1.0-4.8) k/uL BUN (9-20) mg/dL Creatinine (0.66-1.25) mg/dL Glucose (74-99) mg/dL POC Glucose (mg/dL) 116 H 123 H 111 H (70-110) mg/dL 10/24/21 10/24/21 10/24/21 Range/Units 07:24 07:24 11:52 Lymphocytes # 0.8 L (1.0-4.8) k/uL BUN 49 H (9-20) mg/dL Creatinine 1.43 H (0.66-1.25) mg/dL Glucose 121 H (74-99) mg/dL POC Glucose (mg/dL) 141 H (70-110) mg/dL Assessment and Plan Plan: Acute GIB, likely lower, patient is currently in the intensive care unit for monitoring. Note that the patient was taken a combination of aspirin and Brilinta regarding his recent CVA. No evidence of any hemodynamic instability and the patient is currently stable for now. Patient was started on IV Protonix. Surgical consultation was obtained. Acute ischemic CVA. Patient has been started on aspirin 81 mg daily, Brilinta 90 mg twice daily for 30 days and then patient be transitioned to Plavix. Left carotid artery stenosis. Vascular surgery consult appreciated plan for outpatient surgery. . Focal nipple-like projections of the anterior aspect of the ascending aorta. Other arterial atherosclerotic changes and segments of arterial stenosis. CAD and a previous CABG Hypertension. Hyperlipidemia Hypothyroid Dementia. Diabetes mellitus type 2. A1c 8.0. Patient started on Tradjenta, continue NovoLog scale. Obstructive sleep apnea. Family may bring in CPAP. History of prostate cancer. Plan: Hemodynamically stable Vital signs have been stable No signs of any active bleeding Patient can be considered for transfer out of intensive care unit today Continue Protonix Blood pressure medications and antiplatelet medications per cardiology and neurology Continue to follow I have personally seen and examined the patient, performed the documentation and the assessment and plan as written. Number of minutes spent on the visit: [10] Time with Patient: Less than 30
--- NOTE | 2021-10-24 13:25 | P.GSCN ---
History of Present Illness Consult date: 10/24/21 History of present illness: This is a 80-year-old male who is in the hospital with multiple comorbidities and recent CVA with cardiovascular disease. Patient was on anticoagulation and it was reported he had a large bloody bowel movement. There's been no active bleeding reported bloody bowel movement since. He remained hemodynamically stable hemoglobin remained normal. Past Medical History Past Medical History: Coronary Artery Disease (CAD), Dementia, Diabetes Mellitus, Hyperlipidemia, Hypertension, Osteoarthritis (OA) Additional Past Medical History / Comment(s): PROSTATE CA HX History of Any Multi-Drug Resistant Organisms: None Reported Past Surgical History: Adenoidectomy, Coronary Bypass/CABG, Tonsillectomy Past Psychological History: No Psychological Hx Reported Smoking Status: Current every day smoker Past Alcohol Use History: None Reported Past Drug Use History: None Reported - Past Family History Mother Family Medical History: Unable to Obtain Father Family Medical History: Unable to Obtain Brother(s) Family Medical History: No Reported History Sister(s) Family Medical History: No Reported History Medications and Allergies Home Medications Medication Instructions Recorded Confirmed Type Aspirin [Adult Low Dose Aspirin EC] 81 mg PO DAILY 02/05/18 10/17/21 History Enalapril [Vasotec] 20 mg PO BID 02/05/18 10/17/21 History Simvastatin 40 mg PO DAILY 02/05/18 10/17/21 History hydroCHLOROthiazide 12.5 mg PO DAILY 02/05/18 10/17/21 History Levothyroxine Sodium [Synthroid] 125 mcg PO DAILY 10/17/21 10/17/21 History Omeprazole 20 mg PO BID 10/17/21 10/17/21 History Linagliptin [Tradjenta] 5 mg PO DAILY #30 tab 10/19/21 Rx Metoprolol Tartrate [Lopressor] 12.5 mg PO BID #60 tab 10/19/21 Rx Ticagrelor [Brilinta] 90 mg PO BID #60 tab 10/19/21 Rx amLODIPine [Norvasc] 5 mg PO BID #60 tab 10/24/21 Rx hydroCHLOROthiazide [Hydrodiuril] 25 mg PO DAILY #30 tab 10/24/21 Rx Allergies Allergy/AdvReac Type Severity Reaction Status Date / Time No Known Allergies Allergy Verified 10/17/21 11:55 Surgical - Exam Osteopathic Statement: *. No significant issues noted on an osteopathic structural exam other than those noted in the History and Physical/Consult. Vital Signs Temp Pulse Resp BP Pulse Ox 98.0 F 61 18 171/82 98 10/17/21 08:56 10/17/21 08:56 10/17/21 08:56 10/17/21 08:56 10/17/21 08:56 - General no distress, chronically ill - Respiratory normal respiratory effort - Abdomen Abdomen: soft, non tender Results - Labs 10/24/21 07:24 10/24/21 07:24 Abnormal Lab Results - Last 24 Hours (Table) 10/23/21 10/23/21 10/24/21 Range/Units 16:33 20:29 06:37 Lymphocytes # (1.0-4.8) k/uL BUN (9-20) mg/dL Creatinine (0.66-1.25) mg/dL Glucose (74-99) mg/dL POC Glucose (mg/dL) 116 H 123 H 111 H (70-110) mg/dL 10/24/21 10/24/21 10/24/21 Range/Units 07:24 07:24 11:52 Lymphocytes # 0.8 L (1.0-4.8) k/uL BUN 49 H (9-20) mg/dL Creatinine 1.43 H (0.66-1.25) mg/dL Glucose 121 H (74-99) mg/dL POC Glucose (mg/dL) 141 H (70-110) mg/dL Diabetes panel 10/24/21 Range/Units 07:24 Sodium 139 (137-145) mmol/L Potassium 3.9 (3.5-5.1) mmol/L Chloride 105 (98-107) mmol/L Carbon Dioxide 23 (22-30) mmol/L BUN 49 H (9-20) mg/dL Creatinine 1.43 H (0.66-1.25) mg/dL Glucose 121 H (74-99) mg/dL Calcium 9.1 (8.4-10.2) mg/dL Calcium panel 10/24/21 Range/Units 07:24 Calcium 9.1 (8.4-10.2) mg/dL Pituitary panel 10/24/21 Range/Units 07:24 Sodium 139 (137-145) mmol/L Potassium 3.9 (3.5-5.1) mmol/L Chloride 105 (98-107) mmol/L Carbon Dioxide 23 (22-30) mmol/L BUN 49 H (9-20) mg/dL Creatinine 1.43 H (0.66-1.25) mg/dL Glucose 121 H (74-99) mg/dL Calcium 9.1 (8.4-10.2) mg/dL Adrenal panel 10/24/21 Range/Units 07:24 Sodium 139 (137-145) mmol/L Potassium 3.9 (3.5-5.1) mmol/L Chloride 105 (98-107) mmol/L Carbon Dioxide 23 (22-30) mmol/L BUN 49 H (9-20) mg/dL Creatinine 1.43 H (0.66-1.25) mg/dL Glucose 121 H (74-99) mg/dL Calcium 9.1 (8.4-10.2) mg/dL Assessment and Plan Assessment: Report of GI bleed Plan: Patient does not appear to be acutely bleeding. If he does continue to bleed I would recommend GI consultation evaluation and treatment prior to any surgical consideration.. No plans for any surgical intervention. Patient can follow-up with Dr. Muhammad as an outpatient.
--- NOTE | 2021-10-24 16:57 | P.PN ---
Subjective Progress Note Date: 10/24/21 The patient is seen at bedside and it seems yesterday patient had two large bowel movement and result his ASA 81mg and Brilinta were held and he was transferred to ICU. His vitals were stable and then he was transferred to floor since was stable. He denies of any new neurological issues. Objective - Vital Signs Vital signs: Vital Signs Temp 97.9 F 10/24/21 11:35 Pulse 56 L 10/24/21 11:35 Resp 14 10/24/21 11:35 BP 132/65 10/24/21 11:35 Pulse Ox 99 10/24/21 11:35 FiO2 Intake & Output 10/23/21 10/24/21 10/24/21 18:59 06:59 18:59 Intake Total 150 330 90 Output Total 500 250 200 Balance -350 80 -110 Weight 68.2 kg 68.2 kg Intake: IV 150 330 90 NS 150 330 90 Output: Urine 500 250 200 Other: Voiding Method Toilet Toilet Toilet # Voids 1 # Bowel Movements 1 - Exam GENERAL: The patient is lying in bed and is not in acute distress. NEUROLOGICAL: Higher mental function: The patient is awake, alert, oriented to self and place. He stated the month is September. Patient is following simple commands. No aphasia and no neglect. Cranial nerves: Visual do are full to confrontation throughout. Mild to moderate right facial weakness. Has moderate dysarthria. Motor: The strength is right upper extremity is 4 to 4+ and right hand anvil worker is 4. Left upper is 5/5. Lowers (right/left): sdeltoid 3+/5, biceps 4+/5, triceps 5-/5, anvil worker 4-/5, hip flexion 3+4-/5, ankle dorsiflexion 5-/5 Cerebellum: Has ataxia with finger to nose on right. - Labs CBC & Chem 7: 10/24/21 07:24 10/24/21 07:24 Labs: Abnormal Lab Results - Last 24 Hours (Table) 10/23/21 10/24/21 10/24/21 Range/Units 20:29 06:37 07:24 Lymphocytes # (1.0-4.8) k/uL BUN 49 H (9-20) mg/dL Creatinine 1.43 H (0.66-1.25) mg/dL Glucose 121 H (74-99) mg/dL POC Glucose (mg/dL) 123 H 111 H (70-110) mg/dL 10/24/21 10/24/21 Range/Units 07:24 11:52 Lymphocytes # 0.8 L (1.0-4.8) k/uL BUN (9-20) mg/dL Creatinine (0.66-1.25) mg/dL Glucose (74-99) mg/dL POC Glucose (mg/dL) 141 H (70-110) mg/dL Assessment and Plan Assessment: * Acute GI Bleed (was on ASA and Brilinta) * Acute left pontine ischemic stroke, with dysarthria and right ataxic hemiparesis. Patient's NIH stroke scale is 5. * Left ICA stenosis, severe degree, per CTA report. CTA also showed severe stenosis of left vertebral and moderate stenosis of the origin of right vertebral artery. On carotid duplex suggestive of 50-69% over proximal left ICA. * Possible 8mm small nipple like focal aortic aneurysm noted on CTA. * Hypertension * Diabetes * Hyperlipidemia * Tobacco use Plan: * Because of his acute GI Bleed. ASA 81mg daily and Brilinita 60mg bid were held. Recommend once safe then can be on ASA 81mg or Brilinta but not dual because of risk of bleed (patient and his do not want to proceed with dual antiplatelets because of bleeding issues). * Currenly he is on Protonix 40mg and surgical team is consulted for GI bleed. * MRI of the brain confirmed an acute/subacute CVA involving the left stephania. I personally reviewed MRI and agree with the findings. * CTA of head and neck revealed severe stenosis (95%) of the proximal and the cavernous portion of the left ICA by a partially calcified atheromatous plaque and extending for about 4 mm. Mild stenosis of the origin of right ICA.. Focal nipple like projection of the anterior aspect of the ascending aorta. Cardiothoracic surgery onboard. CTA also showed Moderate stenosis of the origin of right vertebral artery. Severe stenosis of the origin of the left vertebral artery. Severe stenosis of the P2 segment of the PEWTER CASTER's versus artifact. * Cardiothoracic surgeon saw the patient for possible focal aortic aneurysm, recommending better blood pressure control, tobacco cessation, no surgical intervention at this time. * 2-D echo revealed normal left-ventricular systolic function 50-55%. No [id number] shunt with agitated saline contrast study. No significant aortic or mitral valve stenosis. Left atrium normal size. * Carotid Doppler revealed heterogeneous plaque bilaterally with findings suggestive of a 50-69% stenosis of the proximal left ICA. Cardiac dysrhythmia. Nonvisualization of the left vertebral artery could be congen ital. * vascular surgery team in on board and they recommended possible TCAR Vs CEA within 2 weeks as outpatient. * Hemoglobin A1c 8.0. Suggest optimizing control of diabetes to target A1c <7.0 * Lipid panel with cholesterol 176, LDL 101, HDL 53 and triglycerides 104. Continue Lipitor 40 mg daily. * PT OT, speech therapy. Agree with rehab consultation. * DVT prophylaxis: On subq heparin 5000U every 12 hours. * Recommend the patient to follow-up with neurologist within 1-2 weeks as outpatient. The plan is discussed with patient and his (who is at bedside). Sonny Elam M.D. Neurology Time with Patient: Less than 30
[2021-10-24 16:59] LABS: Glucose,Whole Blood 176 mg/dL (70-110)
[2021-10-24 20:26] LABS: Glucose,Whole Blood 98 mg/dL (70-110)
[2021-10-24] MEDS: TICAGRELOR 90 MG TAB PO SCH (21:19)
[2021-10-25 06:55] LABS: Glucose,Whole Blood 109 mg/dL (70-110)
[2021-10-25] MEDS: INSULIN ASPART (NovoLOG) 100 UNIT/ML VIAL SQ SCH ×4 (07:20→21:46)
[2021-10-25] MEDS: PANTOPRAZOLE 40 MG TABLET PO SCH (08:17)
[2021-10-25] MEDS: hydroCHLOROthiazide 25 MG TAB PO SCH (08:17)
[2021-10-25] MEDS: METOPROLOL TARTRATE 12.5 MG TAB PO SCH ×2 (08:17→21:46)
[2021-10-25] MEDS: amLODIPine 5 MG TAB PO SCH ×2 (08:17→21:46)
[2021-10-25] MEDS: ATORVASTATIN 40 MG TAB PO SCH (08:17)
[2021-10-25] MEDS: lisinopriL 20 MG TAB PO SCH ×2 (08:17→21:46)
[2021-10-25] MEDS: TICAGRELOR 90 MG TAB PO SCH ×2 (08:17→21:46)
[2021-10-25] MEDS: HEPARIN SODIUM,PORCINE/PF 5,000 UNIT/0.5 ML SYRINGE SQ SCH ×2 (08:17→21:46)
[2021-10-25] MEDS: LINAGLIPTIN 5 MG TABLET PO SCH (08:17)
[2021-10-25] MEDS: LEVOTHYROXINE 125 MCG TAB PO SCH (08:17)
[2021-10-25 11:33] LABS: Glucose,Whole Blood 122 mg/dL (70-110)
--- NOTE | 2021-10-25 14:19 | P.PN ---
Subjective Progress Note Date: 10/25/21 The patient is seen at bedside and feels about the same. Denies of any new neurological issues. Objective - Vital Signs Vital signs: Vital Signs Temp 98 F 10/25/21 05:35 Pulse 61 10/25/21 08:18 Resp 16 10/25/21 08:15 BP 146/70 10/25/21 08:18 Pulse Ox 98 10/25/21 05:35 FiO2 Intake & Output 10/24/21 10/25/21 10/25/21 18:59 06:59 18:59 Intake Total 90 Output Total 200 Balance -110 Weight 68.2 kg Intake: IV 90 NS 90 Output: Urine 200 Other: Voiding Method Toilet Toilet # Voids 2 2 # Bowel Movements 1 1 - Exam GENERAL: The patient is lying in bed and is not in acute distress. NEUROLOGICAL: Higher mental function: The patient is awake, alert, oriented to self and place. He stated the month is September. Patient is following simple commands. No aphasia and no neglect. Cranial nerves: Visual do are full to confrontation throughout. Mild to moderate right facial weakness. Has moderate dysarthria. Motor: The strength is right upper extremity is 4 to 4+ and right hand production painter is 4. Left upper is 5/5. Lowers (right/left): sdeltoid 3+/5, biceps 4+/5, triceps 5-/5, production painter 4-/5, hip flexion 3+4-/5, ankle dorsiflexion 5-/5 Cerebellum: Has ataxia with finger to nose on right. - Labs CBC & Chem 7: 10/24/21 07:24 10/24/21 07:24 Labs: Abnormal Lab Results - Last 24 Hours (Table) 10/24/21 10/25/21 Range/Units 16:58 11:23 POC Glucose (mg/dL) 176 H 122 H (70-110) mg/dL Assessment and Plan Assessment: * Acute GI Bleed (was on ASA and Brilinta)--stable * Acute left pontine ischemic stroke, with dysarthria and right ataxic hemiparesis. Patient's NIH stroke scale is 5. * Left ICA stenosis, severe degree, per CTA report. CTA also showed severe stenosis of left vertebral and moderate stenosis of the origin of right vertebral artery. On carotid duplex suggestive of 50-69% over proximal left ICA. * Possible 8mm small nipple like focal aortic aneurysm noted on CTA. * Hypertension * Diabetes * Hyperlipidemia * Tobacco use Plan: * Because of his acute GI Bleed. ASA 81mg daily and Brilinita 90mg bid were held. Recommend once safe then can be on ASA 81mg or Brilinta but not dual because of risk of bleed (patient and his do not want to proceed with dual antiplatelets because of bleeding issues). It seems he will continue to be on Brilinta. * Currenly he is on Protonix 40mg and surgical team is consulted for GI bleed. * MRI of the brain confirmed an acute/subacute CVA involving the left stephania. I personally reviewed MRI and agree with the findings. * CTA of head and neck revealed severe stenosis (95%) of the proximal and the cavernous portion of the left ICA by a partially calcified atheromatous plaque and extending for about 4 mm. Mild stenosis of the origin of right ICA.. Focal nipple like projection of the anterior aspect of the ascending aorta. Cardiothoracic surgery onboard. CTA also showed Moderate stenosis of the origin of right vertebral artery. Severe stenosis of the origin of the left vertebral artery. Severe stenosis of the P2 segment of the METAL TREATER's versus artifact. * Cardiothoracic surgeon saw the patient for possible focal aortic aneurysm, recommending better blood pressure control, tobacco cessation, no surgical intervention at this time. * 2-D echo revealed normal left-ventricular systolic function 50-55%. No [id number] shunt with agitated saline contrast study. No significant aortic or mitral valve stenosis. Left atrium normal size. * Carotid Doppler revealed heterogeneous plaque bilaterally with findings suggestive of a 50-69% stenosis of the proximal left ICA. Cardiac dysrhythmia. Nonvisualization of the left vertebral artery could be congenital. * vascular surgery team in on board and they recommended possible TCAR Vs CEA within 2 weeks as outpatient. * Hemoglobin A1c 8.0. Suggest optimizing control of diabetes to target A1c <7.0 * Lipid panel with cholesterol 176, LDL 101, HDL 53 and triglycerides 104. Continue Lipitor 40 mg daily. * PT OT, speech therapy. Agree with rehab consultation. * DVT prophylaxis: On subq heparin 5000U every 12 hours. * Recommend the patient to follow-up with neurologist within 1-2 weeks as outpatient. The plan is discussed with patient and his nurse. Otherwise, no additional work-up. Patient is pending authorization for discharge to rehab. Neurology will sign off. Please reconsult if needed. Sonny Elam M.D. Neurology Time with Patient: Less than 30
[2021-10-25 17:04] LABS: Glucose,Whole Blood 129 mg/dL (70-110)
[2021-10-25 20:38] LABS: Glucose,Whole Blood 123 mg/dL (70-110)
[2021-10-26 07:20] LABS: Glucose,Whole Blood 124 mg/dL (70-110)
--- NOTE | 2021-10-26 07:27 | P.PN ---
Subjective Progress Note Date: 10/25/21 HISTORY OF PRESENT ILLNESS This is a 80-year-old male patient of Dr. Rojas with past medical history of coronary artery disease status post CABG many years ago, dementia, possible di abetes, hypertension, hyperlipidemia, history of prostate cancer, obstructive sleep apnea. Patient went to bed last evening at 8:30 and awoke this morning at 6 was attempting to ambulate he is having difficulty walking but he was dragging his right leg. Patient's woke at 7:30 or 8 and try to speak with them but he was having difficulty with speech. Patient was brought into [facility] emergency center for evaluation. He was found to be afebrile, heart rate 61, blood pressure 171/82, pulse ox 90% on room air. EKG sinus bradycardia with no acute ST changes. CBC was unremarkable. INR 0.9. Electrolytes normal. BUN 26 creatinine 1.03. Blood sugar 132. Liver function tests normal. Troponin negative. CT angiogram of the head and neck revealed severe stenosis of the proximal and cavernous portions of the left internal carotid artery. Focal nipple-like projections of the anterior aspect of the ascending aorta. Other arterial atherosclerotic changes and segments of arterial stenosis. CAT scan of the brain revealed no acute intracranial hemorrhage or gross acute cortical infarct. Left medial occipital chronic infarct. Chest x-ray reveals no acute process. Right shoulder x-ray revealed before meals joint arthropathy. If concern for rotator cuff disease correlate with MRI. Ultrasound carotid arteries revealed 50-69% stenosis of the proximal left ICA. Cardiac dysrhythmia. Nonvisualization of the left vertebral artery could be congenital. Patient is seen today in the emergency center waiting for a bed on the cardiac stepdown unit, vascular, neurology and cardiothoracic surgery consult in place 10/18: Patient has been seen by neurology and scheduled for MRI of the brain today. Patient has been seen by cardiothoracic surgery with no plan for surgical intervention, recommend blood pressure control. Patient has been seen by vascular surgery with plan for possible T car versus carotid endarterectomy, favoring trans-carotid artery arterial revascularization in the near future and cardiology consult was added for clearance. PT and OT to evaluate patient. hims manager following for discharge plan. Echocardiogram reveals EF of 50-55%, no no right to left shunt with agitated saline contrast study. 10/19: Patient has been seen by cardiology and resumed on lower dose of Lopressor. MRI of the brain remains pending. Neurology is recommended Brilinta 90 mg twice daily for 30 days, aspirin 81 mg daily. After 30 days, Brilinta to be transitioned to Plavix. A1c came back at 8.0 and patient started on Tradjenta. Triglycerides 104, cholesterol 176, LDL 101, HDL 53. TSH 2.91. Regarding discharge planning, patient and his wanted him to return home. However, therapy is recommending's inpatient or subacute rehab. Consult placed to Dr. Zhu for evaluation and [facility] is back up plan. MRI remains pending. 10/20: MRI of the brain revealed acute/subacute CVA involving the left stephania. Encephalomalacia of the left occipital lobe prior injury. Nonspecific white matter changes likely secondary to small vessel ischemic change. Patient has been seen by Dr. Zhu and appears to be a good candidate for inpatient rehab. Pain continues for outpatient follow-up with vascular surgery regarding carotid artery surgery. No new concerns from the patient. Patient requires insurance authorization for inpatient rehab. If this is obtained today, patient will be discharged to inpatient rehab at [facility]. However, anticipate that insurance authorization will not be obtained until next week. 10/21, patient is doing okay, has right upper right lower extremity weakness and upper extremity, 3+, lower extremity 3 minus, anticipating rehab at [facility], once inpatient bed is approved by insurance company no medication changes at this time vital signs, 123/70, heart rate 59, T-max 97.8, on room air 97% no new labs for review, this is day #4 of admission. Labs will be checked in 24 hours to include B12 and hemoglobin A1c B12 10/22: Patient is doing okay, no aspirate these events, no headache, weakness and upper extremity lower extremity seems to improve somehow, there is still drift on the right upper extremity, patient can't lift the leg against gravity for at least 10 seconds, no nausea no vomiting, no aspiration, discharge planning still is in progress, for inpatient rehab at [facility]. 10/23, I was notified by the nurse last night, as the patient has one bloody bowel movement, without any abdominal pain, again on this morning, another bloody stools,the entire and aspirin has been held, secondary to GI bleed,I requested the nurse to notify neurology care regarding this change in treatment plan, we transferred him to ICU, would consult with Dr. Meraz critical care medicine, with monitoring of H&H, hemoglobin of 16.8, consult with Dr. Muhammad, general surgery, for the gross lower GI bleeding. Discussed with the , and his son, patient might need to be transferred to a tertiary facility, [facility], or [place] 10/24: Patient is seen today in the intensive care unit. Patient was transferred into the intensive care unit apparently due to bloody bowel movement. Patient has since had a soft brown stool while in the intensive care unit. No signs of bleeding. Rectal exam was performed and no blood noted. Normal stool brown color. No bleeding hemorrhoids noted. Hemoglobin is at 16.4. BUN 49 creatinine 1.43. Patient will be transferred to [facility] for now until [facility] can be confirmed. [facility] has denied inpatient rehab and back up plan is [facility] for subacute rehab but [facility] is out of network. [facility] is evaluating patient for possible acceptance for rehab. 10/25: The patient's discharge was delayed as we're waiting for insurance autho rization. No changes to his medication reconciliation. No new concerns from the patient or nurse. Patient was seen by general surgery for bloody stool which we know had resolved and hemoglobin was stable. No plan for surgical intervention. Patient will be discharged to [facility] once insurance au thorization is obtained and arrangements are completed. Due to concerns for GI bleeding, neurology recommends only Brilinta. REVIEW OF SYSTEMS Constitutional: No fever, no chills, no night sweats. No weight change. No weakness, fatigue or lethargy. No daytime sleepiness. EENT: No headache. No blurred vision or double vision, no loss of vision. No loss of Hearing, no ringing in the ears, no dizziness. No nasal drainage or congestion. No epistaxis. No sore throat. Lungs: No shortness of breath, cough, no sputum production. No wheezing. Cardiovascular: No chest pain, no lower extremity edema. No palpitations. No paroxysmal nocturnal dyspnea. No orthopnea. No lightheadedness or dizziness. No syncopal episodes. Abdominal: No abdominal pain. No nausea, vomiting. No diarrhea. No constipation. No bloody or tarry stools. No loss of appetite. Genitourinary: No dysuria, increased frequency, urgency. No urinary retention. Musculoskeletal: No myalgias. No muscle weakness, expected gait dysfunction, no frequent falls. No back pain. No neck pain. Integumentary: No wounds, no lesions. No rash or pruritus. No unusual bruising. Neurologic: Slurred speech. Right-sided facial droop. No change in mentation. No head injury. No headache. No paralysis. Right-sided weakness more so to the right upper extremityall symptoms improved. Psychiatric: No depression. No anxiety. No mood swings. Endocrine: No abnormal blood sugars. No weight change. No excessive sweating or thirst. No cold intolerance. PHYSICAL EXAMINATION Gen: This is a 80-year-old male. He is resting in ICU bed and appears to be comfortable at rest. HEENT: Head is atraumatic, normocephalic. Pupils equal, round. Sclerae is anicteric. Extraocular motion intact. NECK: Supple. No JVD. No lymphadenopathy. No thyromegaly. LUNGS: Clear to auscultation. No wheezes or rhonchi. No intercostal retractions. HEART: Regular rate and rhythm. No murmur. ABDOMEN: Soft. Bowel sounds are present. No masses. No tenderness. EXTREMITIES: No pedal edema. No calf tenderness. NEUROLOGICAL: Patient is awake, alert and oriented person and place. Slurred speech, right facial droop. Lower extremity strength 5/5 on the left, 4/5 on the right. Upper extremity strength 5/5 on the left and 3/5 on the right, 5/5. Cranial nerves II through XII grossly intact. ASSESSMENT AND PLAN 1. Acute ischemic CVA. Patient has been started on Brilinta 90 mg twice daily. Continue Lipitor 40 mg daily. Consult with nephrology appreciated. Continue PT, OT, speech therapies. 2. Acute lower GI bleed, 2 episodes since October 22 midnight, with cross clots, aspirin and bilirubin to has been held, with notification to general surgery, the family has agreed on blood transfusion as needed, hemoglobin is 16.8 currently, we'll transfuse under 8 2. Left carotid artery stenosis. Vascular surgery consult appreciated plan for outpatient surgery4-6 weeks, from the event of stroke per recommendation. Continue as in #1. 3. Focal nipple-like projections of the anterior aspect of the ascending aorta. Other arterial atherosclerotic changes and segments of arterial stenosis. Consult with cardiothoracic surgery appreciated. No intervention at this time. 4. Hypertension. Continue amlodipine 5 mg daily, hydrochlorothiazide 12.5 mg daily, lisinopril 40 mg twice daily. Lopressor on hold for now due to bradycardia. 5. Hyperlipidemia. Continue statin. 6. Dementia. 7. Diabetes mellitus type 2. A1c 8.0. Patient started on Tradjenta, continue NovoLog scale. 8. Obstructive sleep apnea. Family may bring in CPAP. 9. History of prostate cancer. 10. GI prophylaxis. Protonix. 11. DVT prophylaxis. Heparin subcu. DISCHARGE PLAN Subacute rehab. Possibly [facility]. Impression and plan of care have been directed as dictated by the signing physician. Steph Garcia nurse practitioner acting as scribe for signing physician. Objective - Vital Signs Vital signs: Vital Signs Temp 97.9 F 10/26/21 06:17 Pulse 64 10/26/21 06:17 Resp 16 10/26/21 06:17 BP 114/65 10/26/21 06:17 Pulse Ox 99 10/26/21 06:17 FiO2 Intake & Output 10/25/21 10/26/21 10/26/21 18:59 06:59 18:59 Intake Total 360 Balance 360 Intake: Oral 360 Other: Voiding Method Toilet Incontinent # Voids 3 3 # Bowel Movements 1 - Labs CBC & Chem 7: 10/24/21 07:24 10/24/21 07:24 Labs: Abnormal Lab Results - Last 24 Hours (Table) 10/25/21 10/25/21 10/25/21 Range/Units 11:23 17:03 20:37 POC Glucose (mg/dL) 122 H 129 H 123 H (70-110) mg/dL 10/26/21 Range/Units 07:18 POC Glucose (mg/dL) 124 H (70-110) mg/dL
[2021-10-26] MEDS: METOPROLOL TARTRATE 12.5 MG TAB PO SCH ×2 (08:05→20:51)
[2021-10-26] MEDS: amLODIPine 5 MG TAB PO SCH ×2 (08:05→20:51)
[2021-10-26] MEDS: LEVOTHYROXINE 125 MCG TAB PO SCH (08:06)
[2021-10-26] MEDS: LINAGLIPTIN 5 MG TABLET PO SCH (08:06)
[2021-10-26] MEDS: ATORVASTATIN 40 MG TAB PO SCH (08:06)
[2021-10-26] MEDS: HEPARIN SODIUM,PORCINE/PF 5,000 UNIT/0.5 ML SYRINGE SQ SCH ×2 (08:06→20:51)
[2021-10-26] MEDS: PANTOPRAZOLE 40 MG TABLET PO SCH (08:06)
[2021-10-26] MEDS: hydroCHLOROthiazide 25 MG TAB PO SCH (08:06)
[2021-10-26] MEDS: lisinopriL 20 MG TAB PO SCH ×2 (08:06→20:51)
[2021-10-26] MEDS: TICAGRELOR 90 MG TAB PO SCH ×2 (08:06→22:03)
[2021-10-26] MEDS: INSULIN ASPART (NovoLOG) 100 UNIT/ML VIAL SQ SCH ×4 (08:07→20:51)
[2021-10-26 11:22] LABS: Glucose,Whole Blood 138 mg/dL (70-110)
--- NOTE | 2021-10-26 12:20 | P.DS ---
Providers Date of admission: 10/17/21 11:10 Expected date of discharge: 10/26/21 Attending physician: Rolanod Ding Consults: 10/17/21 11:02 Consult Physician Urgent Consulting Provider: Ruiz Man Consult Reason/Comments: right sided weakness, suspected stroke Do you want consulting provider notified?: Yes 10/17/21 11:03 Consult Physician Urgent Consulting Provider: Kwaku Duncan Consult Reason/Comments: questionable anerysm on ct Do you want consulting provider notified?: Yes 10/18/21 13:11 Consult Physician Routine Consulting Provider: Gabriela Restrepo Consult Reason/Comments: cardiac clerance for TCAR/carotid endartectomy Do you want consulting provider notified?: Yes 10/19/21 13:07 Consult Physician Routine Consulting Provider: Kurt Zhu Consult Reason/Comments: eval for ipr Do you want consulting provider notified?: Yes 10/23/21 05:14 Consult Physician Routine Consulting Provider: Ivette Muhammad Consult Reason/Comments: Bloody stool Do you want consulting provider notified?: Yes, Notify in am 10/23/21 10:32 Consult Physician Stat Consulting Provider: Juan Meraz Consult Reason/Comments: icu management Do you want consulting provider notified?: Yes Primary care physician: Terry Rojas [facility] Course: HISTORY OF PRESENT ILLNESS This is a 80-year-old male patient of Dr. Rojas with past medical history of coronary artery disease status post CABG many years ago, dementia, possible diabetes, hypertension, hyperlipidemia, history of prostate cancer, obstructive sleep apnea. Patient went to bed last evening at 8:30 and awoke this morning at 6 was attempting to ambulate he is having difficulty walking but he was dragging his right leg. Patient's woke at 7:30 or 8 and try to speak with them but he was having difficulty with speech. Patient was brought into [facility] emergency center for evaluation. He was found to be afebrile, heart rate 61, blood pressure 171/82, pulse ox 90% on room air. EKG sinus bradycardia with no acute ST changes. CBC was unremarkable. INR 0.9. Electrolytes normal. BUN 26 creatinine 1.03. Blood sugar 132. Liver function tests normal. Troponin negative. CT angiogram of the head and neck revealed severe stenosis of the proximal and cavernous portions of the left internal carotid artery. Focal nipple-like projections of the anterior aspect of the ascending aorta. Other arterial atherosclerotic changes and segments of arterial stenosis. CAT scan of the brain revealed no acute intracranial hemorrhage or gross acute cortical infarct. Left medial occipital chronic infarct. Chest x-ray reveals no acute process. Right shoulder x-ray revealed before meals joint arthropathy. If concern for rotator cuff disease correlate with MRI. Ultrasound carotid arteries revealed 50-69% stenosis of the proximal left ICA. Cardiac dysrhythmia. Nonvisualization of the left vertebral artery could be congenital. Patient is seen today in the emergency center waiting for a bed on the cardiac stepdown unit, vascular, neurology and cardiothoracic surgery consult in place 10/18: Patient has been seen by neurology and scheduled for MRI of the brain to day. Patient has been seen by cardiothoracic surgery with no plan for surgical intervention, recommend blood pressure control. Patient has been seen by vascular surgery with plan for possible T car versus carotid endarterectomy, favoring trans-carotid artery arterial revascularization in the near future and cardiology consult was added for clearance. PT and OT to evaluate patient. hall manager following for discharge plan. Echocardiogram reveals EF of 50-55%, no no right to left shunt with agitated saline contrast study. 10/19: Patient has been seen by cardiology and resumed on lower dose of Lopressor. MRI of the brain remains pending. Neurology is recommended Brilinta 90 mg twice daily for 30 days, aspirin 81 mg daily. After 30 days, Brilinta to be transitioned to Plavix. A1c came back at 8.0 and patient started on Tradjenta. Triglycerides 104, cholesterol 176, LDL 101, HDL 53. TSH 2.91. Regarding discharge planning, patient and his wanted him to return home. However, therapy is recommending's inpatient or subacute rehab. Consult placed to Dr. Zhu for evaluation and [facility] is back up plan. MRI remains pending. 10/20: MRI of the brain revealed acute/subacute CVA involving the left stephania. Encephalomalacia of the left occipital lobe prior injury. Nonspecific white matter changes likely secondary to small vessel ischemic change. Patient has been seen by Dr. Zhu and appears to be a good candidate for inpatient rehab. Pain continues for outpatient follow-up with vascular surgery regarding carotid artery surgery. No new concerns from the patient. Patient requires insurance authorization for inpatient rehab. If this is obtained today, patient will be discharged to inpatient rehab at [facility]. However, anticipate that insurance authorization will not be obtained until next week. 10/21, patient is doing okay, has right upper right lower extremity weakness and upper extremity, 3+, lower extremity 3 minus, anticipating rehab at [facility], once inpatient bed is approved by insurance company no medication changes at this time vital signs, 123/70, heart rate 59, T-max 97.8, on room air 97% no new labs for review, this is day #4 of admission. Labs will be checked in 24 hours to include B12 and hemoglobin A1c B12 10/22: Patient is doing okay, no aspirate these events, no headache, weakness and upper extremity lower extremity seems to improve somehow, there is still drift on the right upper extremity, patient can't lift the leg against gravity for at least 10 seconds, no nausea no vomiting, no aspiration, discharge planning still is in progress, for inpatient rehab at [facility]. 10/23, I was notified by the nurse last night, as the patient has one bloody bowel movement, without any abdominal pain, again on this morning, another bloody stools,the entire and aspirin has been held, secondary to GI bleed,I requested the nurse to notify neurology care regarding this change in treatment plan, we transferred him to ICU, would consult with Dr. Meraz critical care medicine, with monitoring of H&H, hemoglobin of 16.8, consult with Dr. Muhammad, general surgery, for the gross lower GI bleeding. Discussed with the , and his son, patient might need to be transferred to a tertiary facility, [facility], or [facility] 10/24: Patient is seen today in the intensive care unit. Patient was transferred into the intensive care unit apparently due to bloody bowel movement. Patient has since had a soft brown stool while in the intensive care unit. No signs of bleeding. Rectal exam was performed and no blood noted. Normal stool brown color. No bleeding hemorrhoids noted. Hemoglobin is at 16.4. BUN 49 creatinine 1.43. Patient will be transferred to [facility] floor for now until discharge plan can be confirmed. Insurance company has denied inpatient rehab and back up plan is [facility] for subacute rehab but [facility] is out of network. [facility] is evaluating patient for possible acceptance for rehab. 10/25: The patient's discharge was delayed as we're waiting for insurance authorization. No changes to his medication reconciliation. No new concerns from the patient or nurse. Patient was seen by general surgery for bloody stool which we know had resolved and hemoglobin was stable. No plan for surgical intervention. Patient will be discharged to [facility] once insurance authorization is obtained and arrangements are completed. Due to concerns for GI bleeding, neurology recommends only Brilinta. 10/26: The patient denies any new concerns. Patient's is at the bedside and very upset that insurance authorization has not been obtained. Multiple phone calls have been made today to take care of this issue. If this is resolved today, we will plan to discharge patient to [facility] in stable condition. Patient remains afebrile, heart rate in the 60s, blood pressure 122/70, pulse ox 99% on room air. Capillary blood glucose running between 123 and 138. No new concerns from the patient or his nurse. REVIEW OF SYSTEMS Constitutional: No fever, no chills, no night sweats. No weight change. No weakness, fatigue or lethargy. No daytime sleepiness. EENT: No headache. No blurred vision or double vision, no loss of vision. No loss of Hearing, no ringing in the ears, no dizziness. No nasal drainage or congestion. No epistaxis. No sore throat. Lungs: No shortness of breath, cough, no sputum production. No wheezing. Cardiovascular: No chest pain, no lower extremity edema. No palpitations. No paroxysmal nocturnal dyspnea. No orthopnea. No lightheadedness or dizziness. No syncopal episodes. Abdominal: No abdominal pain. No nausea, vomiting. No diarrhea. No constipation. No bloody or tarry stools. No loss of appetite. Genitourinary: No dysuria, increased frequency, urgency. No urinary retention. Musculoskeletal: No myalgias. No muscle weakness, expected gait dysfunction, no frequent falls. No back pain. No neck pain. Integumentary: No wounds, no lesions. No rash or pruritus. No unusual bruising. Neurologic: Slurred speech. Right-sided facial droop. No change in mentation. No head injury. No headache. No paralysis. Right-sided weakness more so to the right upper extremityall symptoms improved. Psychiatric: No depression. No anxiety. No mood swings. Endocrine: No abnormal blood sugars. No weight change. No excessive sweating or thirst. PHYSICAL EXAMINATION Gen: This is a 80-year-old male. He is resting on the edge of his bed bed and appears to be comfortable at rest. HEENT: Head is atraumatic, normocephalic. Pupils equal, round. Sclerae is anicteric. Extraocular motion intact. NECK: Supple. No JVD. No lymphadenopathy. No thyromegaly. LUNGS: Clear to auscultation. No wheezes or rhonchi. No intercostal retractions. HEART: Regular rate and rhythm. No murmur. ABDOMEN: Soft. Bowel sounds are present. No masses. No tenderness. EXTREMITIES: No pedal edema. No calf tenderness. NEUROLOGICAL: Patient is awake, alert and oriented person and place. Slurred speech, right facial droop. Lower extremity strength 5/5 on the left, 4/5 on the right. Upper extremity strength 5/5 on the left and 3/5 on the right, 5/5. Cranial nerves II through XII grossly intact. ASSESSMENT AND PLAN 1. Acute ischemic CVA. 2. Acute lower GI bleed, 2 mild episodes since October 22 and no drop in hgb, possibly minor hemorrhoid bleeding. 2. Left carotid artery stenosis. Vascular surgery consult appreciated plan for outpatient surgery4-6 weeks. 3. Focal nipple-like projections of the anterior aspect of the ascending aorta. Other arterial atherosclerotic changes and segments of arterial stenosis. Consult with cardiothoracic surgery appreciated. No intervention at this time. 4. Hypertension. 5. Hyperlipidemia. 6. Dementia. 7. Diabetes mellitus type 2. A1c 8.0. 8. Obstructive sleep apnea. 9. History of prostate cancer. DISCHARGE PLAN Subacute rehab at [facility] once insurance authorization has been obtained. Greater than 35 minutes was utilized and coordinating patient's discharge. Impression and plan of care have been directed as dictated by the signing physician. Steph Garcia nurse practitioner acting as scribe for signing physician. Patient Condition at Discharge: Good Plan - Discharge Summary Discharge Rx Participant: No New Discharge Prescriptions: New Ticagrelor [Brilinta] 90 mg PO BID #60 tab Linagliptin [Tradjenta] 5 mg PO DAILY #30 tab Metoprolol Tartrate [Lopressor] 12.5 mg PO BID #60 tab hydroCHLOROthiazide [Hydrodiuril] 25 mg PO DAILY #30 tab amLODIPine [Norvasc] 5 mg PO BID #60 tab Continue Enalapril [Vasotec] 20 mg PO BID Simvastatin 40 mg PO DAILY hydroCHLOROthiazide 12.5 mg PO DAILY Aspirin [Adult Low Dose Aspirin EC] 81 mg PO DAILY Levothyroxine Sodium [Synthroid] 125 mcg PO DAILY Omeprazole 20 mg PO BID Discontinued amLODIPine [Norvasc] 5 mg PO DAILY Metoprolol Tartrate [Lopressor] 50 mg PO DAILY Discharge Medication List Aspirin [Adult Low Dose Aspirin EC] 81 mg PO DAILY 02/05/18 [History] Enalapril [Vasotec] 20 mg PO BID 02/05/18 [History] Simvastatin 40 mg PO DAILY 02/05/18 [History] hydroCHLOROthiazide 12.5 mg PO DAILY 02/05/18 [History] Levothyroxine Sodium [Synthroid] 125 mcg PO DAILY 10/17/21 [History] Omeprazole 20 mg PO BID 10/17/21 [History] Linagliptin [Tradjenta] 5 mg PO DAILY #30 tab 10/19/21 [Rx] Metoprolol Tartrate [Lopressor] 12.5 mg PO BID #60 tab 10/19/21 [Rx] Ticagrelor [Brilinta] 90 mg PO BID #60 tab 10/19/21 [Rx] amLODIPine [Norvasc] 5 mg PO BID #60 tab 10/24/21 [Rx] hydroCHLOROthiazide [Hydrodiuril] 25 mg PO DAILY #30 tab 10/24/21 [Rx] Follow up Appointment(s)/Referral(s): Gabriela Restrepo MD [STAFF PHYSICIAN] [facility] - Ngoc Ruffin DO [STAFF PHYSICIAN] - 11/01/21 11:15 am Terry Rojas MD [Primary Care Provider] - 1 Week (After discharge from rehab) Patient Instructions/Handouts: Stroke (DC) Discharge Disposition: TRANSFER TO SNF/ECF
[2021-10-26 17:29] LABS: Glucose,Whole Blood 108 mg/dL (70-110)
[2021-10-26 20:11] LABS: Glucose,Whole Blood 153 mg/dL (70-110)
[2021-10-27 07:16] LABS: Glucose,Whole Blood 108 mg/dL (70-110)
[2021-10-27] MEDS: INSULIN ASPART (NovoLOG) 100 UNIT/ML VIAL SQ SCH ×4 (07:22→21:05)
[2021-10-27] MEDS: ATORVASTATIN 40 MG TAB PO SCH (09:20)
[2021-10-27] MEDS: METOPROLOL TARTRATE 12.5 MG TAB PO SCH ×2 (09:20→19:57)
[2021-10-27] MEDS: PANTOPRAZOLE 40 MG TABLET PO SCH (09:20)
[2021-10-27] MEDS: lisinopriL 20 MG TAB PO SCH ×2 (09:21→19:57)
[2021-10-27] MEDS: amLODIPine 5 MG TAB PO SCH ×2 (09:21→19:57)
[2021-10-27] MEDS: HEPARIN SODIUM,PORCINE/PF 5,000 UNIT/0.5 ML SYRINGE SQ SCH ×2 (09:21→19:57)
[2021-10-27] MEDS: hydroCHLOROthiazide 25 MG TAB PO SCH (09:21)
[2021-10-27] MEDS: LEVOTHYROXINE 125 MCG TAB PO SCH (09:30)
[2021-10-27] MEDS: LINAGLIPTIN 5 MG TABLET PO SCH (09:30)
[2021-10-27] MEDS: TICAGRELOR 90 MG TAB PO SCH ×2 (09:30→19:58)
[2021-10-27 11:29] LABS: Glucose,Whole Blood 119 mg/dL (70-110)
--- NOTE | 2021-10-27 15:43 | P.PN ---
Subjective Progress Note Date: 10/27/21 HISTORY OF PRESENT ILLNESS This is a 80-year-old male patient of Dr. Rojas with past medical history of coronary artery disease status post CABG many years ago, dementia, possible di abetes, hypertension, hyperlipidemia, history of prostate cancer, obstructive sleep apnea. Patient went to bed last evening at 8:30 and awoke this morning at 6 was attempting to ambulate he is having difficulty walking but he was dragging his right leg. Patient's woke at 7:30 or 8 and try to speak with them but he was having difficulty with speech. Patient was brought into [facility] emergency center for evaluation. He was found to be afebrile, heart rate 61, blood pressure 171/82, pulse ox 90% on room air. EKG sinus bradycardia with no acute ST changes. CBC was unremarkable. INR 0.9. Electrolytes normal. BUN 26 creatinine 1.03. Blood sugar 132. Liver function tests normal. Troponin negative. CT angiogram of the head and neck revealed severe stenosis of the proximal and cavernous portions of the left internal carotid artery. Focal nipple-like projections of the anterior aspect of the ascending aorta. Other arterial atherosclerotic changes and segments of arterial stenosis. CAT scan of the brain revealed no acute intracranial hemorrhage or gross acute cortical infarct. Left medial occipital chronic infarct. Chest x-ray reveals no acute process. Right shoulder x-ray revealed before meals joint arthropathy. If concern for rotator cuff disease correlate with MRI. Ultrasound carotid arteries revealed 50-69% stenosis of the proximal left ICA. Cardiac dysrhythmia. Nonvisualization of the left vertebral artery could be congenital. Patient is seen today in the emergency center waiting for a bed on the cardiac stepdown unit, vascular, neurology and cardiothoracic surgery consult in place 10/18: Patient has been seen by neurology and scheduled for MRI of the brain today. Patient has been seen by cardiothoracic surgery with no plan for surgical intervention, recommend blood pressure control. Patient has been seen by vascular surgery with plan for possible T car versus carotid endarterectomy, favoring trans-carotid artery arterial revascularization in the near future and cardiology consult was added for clearance. PT and OT to evaluate patient. market research senior project manager following for discharge plan. Echocardiogram reveals EF of 50-55%, no no right to left shunt with agitated saline contrast study. 10/19: Patient has been seen by cardiology and resumed on lower dose of Lopressor. MRI of the brain remains pending. Neurology is recommended Brilinta 90 mg twice daily for 30 days, aspirin 81 mg daily. After 30 days, Brilinta to be transitioned to Plavix. A1c came back at 8.0 and patient started on Tradjenta. Triglycerides 104, cholesterol 176, LDL 101, HDL 53. TSH 2.91. Regarding discharge planning, patient and his wanted him to return home. However, therapy is recommending's inpatient or subacute rehab. Consult placed to Dr. Zhu for evaluation and [facility] is back up plan. MRI remains pending. 10/20: MRI of the brain revealed acute/subacute CVA involving the left stephania. Encephalomalacia of the left occipital lobe prior injury. Nonspecific white matter changes likely secondary to small vessel ischemic change. Patient has been seen by Dr. Zhu and appears to be a good candidate for inpatient rehab. Pain continues for outpatient follow-up with vascular surgery regarding carotid artery surgery. No new concerns from the patient. Patient requires insurance authorization for inpatient rehab. If this is obtained today, patient will be discharged to inpatient rehab at [facility]. However, anticipate that insurance authorization will not be obtained until next week. 10/21, patient is doing okay, has right upper right lower extremity weakness and upper extremity, 3+, lower extremity 3 minus, anticipating rehab at [facility], once inpatient bed is approved by insurance company no medication changes at this time vital signs, 123/70, heart rate 59, T-max 97.8, on room air 97% no new labs for review, this is day #4 of admission. Labs will be checked in 24 hours to include B12 and hemoglobin A1c B12 10/22: Patient is doing okay, no aspirate these events, no headache, weakness and upper extremity lower extremity seems to improve somehow, there is still drift on the right upper extremity, patient can't lift the leg against gravity for at least 10 seconds, no nausea no vomiting, no aspiration, discharge planning still is in progress, for inpatient rehab at [facility]. 10/23, I was notified by the nurse last night, as the patient has one bloody bowel movement, without any abdominal pain, again on this morning, another bloody stools,the entire and aspirin has been held, secondary to GI bleed,I requested the nurse to notify neurology care regarding this change in treatment plan, we transferred him to ICU, would consult with Dr. Meraz critical care medicine, with monitoring of H&H, hemoglobin of 16.8, consult with Dr. Muhammad, general surgery, for the gross lower GI bleeding. Discussed with the , and his son, patient might need to be transferred to a tertiary facility, [facility] or [facility] 10/24: Patient is seen today in the intensive care unit. Patient was transferred into the intensive care unit apparently due to bloody bowel movement. Patient has since had a soft brown stool while in the intensive care unit. No signs of bleeding. Rectal exam was performed and no blood noted. Normal stool brown color. No bleeding hemorrhoids noted. Hemoglobin is at 16.4. BUN 49 creatinine 1.43. Patient will be transferred to [facility] for now until [facility] can be confirmed. [facility] has denied inpatient rehab and back up plan is [facility] for subacute rehab but [facility] is out of network. [facility] is evaluating patient for possible acceptance for rehab. 10/25: The patient's discharge was delayed as we're waiting for insurance autho rization. No changes to his medication reconciliation. No new concerns from the patient or nurse. Patient was seen by general surgery for bloody stool which we know had resolved and hemoglobin was stable. No plan for surgical intervention. Patient will be discharged to [facility] once insurance au thorization is obtained and arrangements are completed. Due to concerns for GI bleeding, neurology recommends only Brilinta. 10/26: The patient denies any new concerns. Patient's is at the bedside and very upset that insurance authorization has not been obtained. Multiple phone calls have been made today to take care of this issue. If this is resolved today, we will plan to discharge patient to [facility] in stable condition. Patient remains afebrile, heart rate in the 60s, blood pressure 122/70, pulse ox 99% on room air. Capillary blood glucose running between 123 and 138. No new concerns from the patient or his nurse. 10/27: The patient is resting in bed and appears to be comfortable. We are delayed on discharge due to insurance authorization. Social work has been in contact with him this morning and has updated patient's . There are no changes in patient's condition and no change in medication reconciliation. Review of systems EENT: No headache. No blurred vision or double vision, no loss of vision. No loss of Hearing, no ringing in the ears, no dizziness. No nasal drainage or congestion. No epistaxis. No sore throat. Lungs: No shortness of breath, cough, no sputum production. No wheezing. Cardiovascular: No chest pain, no lower extremity edema. No palpitations. No paroxysmal nocturnal dyspnea. No orthopnea. No lightheadedness or dizziness. No syncopal episodes. Abdominal: No abdominal pain. No nausea, vomiting. No diarrhea. No constipation. No bloody or tarry stools. No loss of appetite. Genitourinary: No dysuria, increased frequency, urgency. No urinary retention. Musculoskeletal: No myalgias. No muscle weakness, expected gait dysfunction, no frequent falls. No back pain. No neck pain. Integumentary: No wounds, no lesions. No rash or pruritus. No unusual bruising. Neurologic: Slurred speech. Right-sided facial droop. No change in mentation. No head injury. No headache. No paralysis. Right-sided weakness more so to the right upper extremityall symptoms improved. Psychiatric: No depression. No anxiety. No mood swings. Endocrine: No abnormal blood sugars. No weight change. No excessive sweating or thirst. PHYSICAL EXAMINATION Gen: This is a 80-year-old male. He is resting on the edge of his bed bed and appears to be comfortable at rest. HEENT: Head is atraumatic, normocephalic. Pupils equal, round. Sclerae is anicteric. Extraocular motion intact. NECK: Supple. No JVD. No lymphadenopathy. No thyromegaly. LUNGS: Clear to auscultation. No wheezes or rhonchi. No intercostal retractions. HEART: Regular rate and rhythm. No murmur. ABDOMEN: Soft. Bowel sounds are present. No masses. No tenderness. EXTREMITIES: No pedal edema. No calf tenderness. NEUROLOGICAL: Patient is awake, alert and oriented person and place. Slurred speech, right facial droop. Lower extremity strength 5/5 on the left, 4/5 on the right. Upper extremity strength 5/5 on the left and 3/5 on the right, 5/5. Cranial nerves II through XII grossly intact. ASSESSMENT AND PLAN 1. Acute ischemic CVA. Continue patient 90 mg twice daily only. Continue Lipitor 40 mg daily. Consult with nephrology appreciated. Continue PT, OT, speech therapies. 2. Acute lower GI bleed, 2 episodes since October 3 midnight, possibly hemorrhoid bleeding. 2. Left carotid artery stenosis. Vascular surgery consult appreciated plan for outpatient surgery4-6 weeks, from the event of stroke per recommendation. Continue as in #1. 3. Focal nipple-like projections of the anterior aspect of the ascending aorta. Other arterial atherosclerotic changes and segments of arterial stenosis. Consult with cardiothoracic surgery appreciated. No intervention at this time. 4. Hypertension. Continue amlodipine 5 mg daily, hydrochlorothiazide 12.5 mg daily, lisinopril 40 mg twice daily. Lopressor on hold for now due to bradycardia. 5. Hyperlipidemia. Continue statin. 6. Dementia. 7. Diabetes mellitus type 2. A1c 8.0. Patient started on Tradjenta, continue NovoLog scale. 8. Obstructive sleep apnea. Family may bring in CPAP. 9. History of prostate cancer. 10. GI prophylaxis. Protonix. 11. DVT prophylaxis. Heparin subcu. DISCHARGE PLAN Subacute rehab at [facility] once insurance authorization has been obtained. Impression and plan of care have been directed as dictated by the signing physician. Steph Garcia nurse practitioner acting as scribe for signing physician. Objective - Vital Signs Vital signs: Vital Signs Temp 97.9 F 10/27/21 12:19 Pulse 53 L 10/27/21 12:19 Resp 16 10/27/21 12:19 BP 108/67 10/27/21 12:19 Pulse Ox 99 10/27/21 12:19 FiO2 Intake & Output 10/26/21 10/27/21 10/27/21 18:59 06:59 18:59 Intake Total 360 Balance 360 Intake: Oral 360 Other: Voiding Method Incontinent Incontinent # Voids 4 1 # Bowel Movements 1 - Labs CBC & Chem 7: 10/24/21 07:24 10/24/21 07:24 Labs: Abnormal Lab Results - Last 24 Hours (Table) 10/26/21 10/27/21 Range/Units 20:08 11:28 POC Glucose (mg/dL) 153 H 119 H (70-110) mg/dL
[2021-10-27 16:47] LABS: Glucose,Whole Blood 144 mg/dL (70-110)
[2021-10-27 20:12] LABS: Glucose,Whole Blood 123 mg/dL (70-110)
[2021-10-28 05:34] VITALS: RESP 16
[2021-10-28 06:57] LABS: Glucose,Whole Blood 110 mg/dL (70-110)
[2021-10-28] MEDS: INSULIN ASPART (NovoLOG) 100 UNIT/ML VIAL SQ SCH ×2 (07:51→11:52)
[2021-10-28] MEDS: amLODIPine 5 MG TAB PO SCH (07:54)
[2021-10-28] MEDS: PANTOPRAZOLE 40 MG TABLET PO SCH (07:54)
[2021-10-28] MEDS: hydroCHLOROthiazide 25 MG TAB PO SCH (07:54)
[2021-10-28] MEDS: lisinopriL 20 MG TAB PO SCH (07:54)
[2021-10-28] MEDS: METOPROLOL TARTRATE 12.5 MG TAB PO SCH (07:54)
[2021-10-28] MEDS: LINAGLIPTIN 5 MG TABLET PO SCH (07:56)
[2021-10-28] MEDS: HEPARIN SODIUM,PORCINE/PF 5,000 UNIT/0.5 ML SYRINGE SQ SCH (07:56)
[2021-10-28] MEDS: LEVOTHYROXINE 125 MCG TAB PO SCH (07:57)
[2021-10-28] MEDS: ATORVASTATIN 40 MG TAB PO SCH (07:57)
[2021-10-28] MEDS: TICAGRELOR 90 MG TAB PO SCH (07:57)
--- NOTE | 2021-10-28 09:34 | P.DS ---
Providers Date of admission: 10/17/21 11:10 Attending physician: Rolando Ding Consults: 10/17/21 11:02 Consult Physician Urgent Consulting Provider: Ruiz Man Consult Reason/Comments: right sided weakness, suspected stroke Do you want consulting provider notified?: Yes 10/17/21 11:03 Consult Physician Urgent Consulting Provider: Kwaku Duncan Consult Reason/Comments: questionable anerysm on ct Do you want consulting provider notified?: Yes 10/18/21 13:11 Consult Physician Routine Consulting Provider: Gabriela Restrepo Consult Reason/Comments: cardiac clerance for TCAR/carotid endartectomy Do you want consulting provider notified?: Yes 10/19/21 13:07 Consult Physician Routine Consulting Provider: Kurt Zhu Consult Reason/Comments: eval for ipr Do you want consulting provider notified?: Yes 10/23/21 05:14 Consult Physician Routine Consulting Provider: Ivette Muhammad Consult Reason/Comments: Bloody stool Do you want consulting provider notified?: Yes, Notify in am 10/23/21 10:32 Consult Physician Stat Consulting Provider: Juan Meraz Consult Reason/Comments: icu management Do you want consulting provider notified?: Yes Primary care physician: Terry Rojas [facility] Course: HISTORY OF PRESENT ILLNESS This is a 80-year-old male patient of Dr. Rojas with past medical history of coronary artery disease status post CABG many years ago, dementia, possible diabetes, hypertension, hyperlipidemia, history of prostate cancer, obstructive sleep apnea. Patient went to bed last evening at 8:30 and awoke this morning at 6 was attempting to ambulate he is having difficulty walking but he was dragging his right leg. Patient's woke at 7:30 or 8 and try to speak with them but he was having difficulty with speech. Patient was brought into [facility] emergency center for evaluation. He was found to be afebrile, heart rate 61, blood pressure 171/82, pulse ox 90% on room air. EKG sinus bradycardia with no acute ST changes. CBC was unremarkable. INR 0.9. Electrolytes normal. BUN 26 creatinine 1.03. Blood sugar 132. Liver function tests normal. Troponin negative. CT angiogram of the head and neck revealed severe stenosis of the proximal and cavernous portions of the left internal carotid artery. Focal nipple-like projections of the anterior aspect of the ascending aorta. Other arterial atherosclerotic changes and segments of arterial stenosis. CAT scan of the brain revealed no acute intracranial hemorrhage or gross acute cortical infarct. Left medial occipital chronic infarct. Chest x-ray reveals no acute process. Right shoulder x-ray revealed before meals joint arthropathy. If concern for rotator cuff disease correlate with MRI. Ultrasound carotid arteries revealed 50-69% stenosis of the proximal left ICA. Cardiac dysrhythmia. Nonvisualization of the left vertebral artery could be congenital. Patient is seen today in the emergency center waiting for a bed on the cardiac stepdown unit, vascular, neurology and cardiothoracic surgery consult in place 10/18: Patient has been seen by neurology and scheduled for MRI of the brain today. Patient has been seen by cardiothoracic surgery with no plan for surgical intervention, recommend blood pressure control. Patient has been seen by vascular surgery with plan for possible T car versus carotid endarterectomy, favoring trans-carotid artery arterial revascularization in the near future and cardiology consult was added for clearance. PT and OT to evaluate patient. population health manager following for discharge plan. Echocardiogram reveals EF of 50-55%, no no right to left shunt with agitated saline contrast study. 10/19: Patient has been seen by cardiology and resumed on lower dose of Lopressor. MRI of the brain remains pending. Neurology is recommended Brilinta 90 mg twice daily for 30 days, aspirin 81 mg daily. After 30 days, Brilinta to be transitioned to Plavix. A1c came back at 8.0 and patient started on Tradjenta. Triglycerides 104, cholesterol 176, LDL 101, HDL 53. TSH 2.91. Regarding discharge planning, patient and his wanted him to return home. However, therapy is recommending's inpatient or subacute rehab. Consult placed to Dr. Zhu for evaluation and [facility] is back up plan. MRI remains pending. 10/20: MRI of the brain revealed acute/subacute CVA involving the left stephania. Encephalomalacia of the left occipital lobe prior injury. Nonspecific white matter changes likely secondary to small vessel ischemic change. Patient has been seen by Dr. Zhu and appears to be a good candidate for inpatient rehab. Pain continues for outpatient follow-up with vascular surgery regarding carotid artery surgery. No new concerns from the patient. Patient requires insurance authorization for inpatient rehab. If this is obtained today, patient will be discharged to inpatient rehab at [facility]. However, anticipate that insurance authorization will not be obtained until next week. 10/21, patient is doing okay, has right upper right lower extremity weakness and upper extremity, 3+, lower extremity 3 minus, anticipating rehab at [facility], once inpatient bed is approved by insurance company no medication changes at this time vital signs, 123/70, heart rate 59, T-max 97.8, on room air 97% no new labs for review, this is day #4 of admission. Labs will be checked in 24 hours to include B12 and hemoglobin A1c B12 10/22: Patient is doing okay, no aspirate these events, no headache, weakness and upper extremity lower extremity seems to improve somehow, there is still drift o n the right upper extremity, patient can't lift the leg against gravity for at least 10 seconds, no nausea no vomiting, no aspiration, discharge planning still is in progress, for inpatient rehab at [facility]. 10/23, I was notified by the nurse last night, as the patient has one bloody bowel movement, without any abdominal pain, again on this morning, another bloody stools,the entire and aspirin has been held, secondary to GI bleed,I requested the nurse to notify neurology care regarding this change in treatment plan, we transferred him to ICU, would consult with Dr. Meraz critical care medicine, with monitoring of H&H, hemoglobin of 16.8, consult with Dr. Muhammad, general surgery, for the gross lower GI bleeding. Discussed with the , and his son, patient might need to be transferred to a tertiary facility, [facility], or [facility] 10/24: Patient is seen today in the intensive care unit. Patient was transferred into the intensive care unit apparently due to bloody bowel movement. Patient has since had a soft brown stool while in the intensive care unit. No signs of bleeding. Rectal exam was performed and no blood noted. Normal stool brown color. No bleeding hemorrhoids noted. Hemoglobin is at 16.4. BUN 49 creatinine 1.43. Patient will be transferred to [facility] floor for now until discharge plan can be confirmed. Insurance company has denied inpatient rehab and back up plan is [facility] for subacute rehab but [facility] is out of network. [facility] is evaluating patient for possible acceptance for rehab. 10/25: The patient's discharge was delayed as we're waiting for insurance authorization. No changes to his medication reconciliation. No new concerns from the patient or nurse. Patient was seen by general surgery for bloody stool which we know had resolved and hemoglobin was stable. No plan for surgical intervention. Patient will be discharged to [facility] once insurance authorization is obtained and arrangements are completed. Due to concerns for GI bleeding, neurology recommends only Brilinta. 10/26: The patient denies any new concerns. Patient's is at the bedside and very upset that insurance authorization has not been obtained. Multiple phone calls have been made today to take care of this issue. If this is resolved today, we will plan to discharge patient to [facility] in stable condition. Patient remains afebrile, heart rate in the 60s, blood pressure 122/70, pulse ox 99% on room air. Capillary blood glucose running between 123 and 138. No new concerns from the patient or his nurse. 10/27: The patient is resting in bed and appears to be comfortable. We are delayed on discharge due to insurance authorization. Social work has been in contact with him this morning and has updated patient's . There are no changes in patient's condition and no change in medication reconciliation. 10/28: Patient is resting in bed comfortably he was accepted to go to SNF at [facility] today for rehab, medication will be finalized today patient is very stable medically. Review of systems EENT: No headache. No blurred vision or double vision, no loss of vision. No loss of Hearing, no ringing in the ears, no dizziness. No nasal drainage or congestion. No epistaxis. No sore throat. Lungs: No shortness of breath, cough, no sputum production. No wheezing. Cardiovascular: No chest pain, no lower extremity edema. No palpitations. No p aroxysmal nocturnal dyspnea. No orthopnea. No lightheadedness or dizziness. No syncopal episodes. Abdominal: No abdominal pain. No nausea, vomiting. No diarrhea. No constipation. No bloody or tarry stools. No loss of appetite. Genitourinary: No dysuria, increased frequency, urgency. No urinary retention. Musculoskeletal: No myalgias. No muscle weakness, expected gait dysfunction, no frequent falls. No back pain. No neck pain. Integumentary: No wounds, no lesions. No rash or pruritus. No unusual bruising. Neurologic: Slurred speech. Right-sided facial droop. No change in mentation. No head injury. No headache. No paralysis. Right-sided weakness more so to the right upper extremityall symptoms improved. Psychiatric: No depression. No anxiety. No mood swings. Endocrine: No abnormal blood sugars. No weight change. No excessive sweating or thirst. PHYSICAL EXAMINATION Gen: This is a 80-year-old male. He is resting on the edge of his bed bed and appears to be comfortable at rest. HEENT: Head is atraumatic, normocephalic. Pupils equal, round. Sclerae is anicteric. Extraocular motion intact. NECK: Supple. No JVD. No lymphadenopathy. No thyromegaly. LUNGS: Clear to auscultation. No wheezes or rhonchi. No intercostal retractions. HEART: Regular rate and rhythm. No murmur. ABDOMEN: Soft. Bowel sounds are present. No masses. No tenderness. EXTREMITIES: No pedal edema. No calf tenderness. NEUROLOGICAL: Patient is awake, alert and oriented person and place. Slurred speech, right facial droop. Lower extremity strength 5/5 on the left, 4/5 on the right. Upper extremity strength 5/5 on the left and 3/5 on the right, 5/5. Cranial nerves II through XII grossly intact. ASSESSMENT AND PLAN 1. Acute ischemic CVA. Continue patient 90 mg twice daily only. Continue Lipitor 40 mg daily. Consult with nephrology appreciated. Continue PT, OT, speech therapies. 2. Acute lower GI bleed, 2 episodes since October 3 midnight, possibly hemorrhoid bleeding. 2. Left carotid artery stenosis. Vascular surgery consult appreciated plan for outpatient surgery4-6 weeks, from the event of stroke per recommendation. Continue as in #1. 3. Focal nipple-like projections of the anterior aspect of the ascending aorta. Other arterial atherosclerotic changes and segments of arterial stenosis. Cons ult with cardiothoracic surgery appreciated. No intervention at this time. 4. Hypertension. Continue amlodipine 5 mg daily, hydrochlorothiazide 12.5 mg daily, lisinopril 40 mg twice daily. Lopressor on hold for now due to bradycardia. 5. Hyperlipidemia. Continue statin. 6. Dementia. Has been slightly bit worse since his stroke continue current management. 7. Diabetes mellitus type 2. A1c 8.0. Patient started on Tradjenta, continue NovoLog scale. He with advanced Tradjenta his A1c will improve significantly. 8. Obstructive sleep apnea. Family may bring in CPAP. 9. History of prostate cancer. Has been stable lately. DISCHARGE PLAN Subacute rehab at [facility]. Patient Condition at Discharge: Good Plan - Discharge Summary Discharge Rx Participant: No New Discharge Prescriptions: New Ticagrelor [Brilinta] 90 mg PO BID #60 tab Linagliptin [Tradjenta] 5 mg PO DAILY #30 tab Metoprolol Tartrate [Lopressor] 12.5 mg PO BID #60 tab hydroCHLOROthiazide [Hydrodiuril] 25 mg PO DAILY #30 tab amLODIPine [Norvasc] 5 mg PO BID #60 tab Continue Enalapril [Vasotec] 20 mg PO BID Simvastatin 40 mg PO DAILY hydroCHLOROthiazide 12.5 mg PO DAILY Aspirin [Adult Low Dose Aspirin EC] 81 mg PO DAILY Levothyroxine Sodium [Synthroid] 125 mcg PO DAILY Omeprazole 20 mg PO BID Discontinued amLODIPine [Norvasc] 5 mg PO DAILY Metoprolol Tartrate [Lopressor] 50 mg PO DAILY Discharge Medication List Aspirin [Adult Low Dose Aspirin EC] 81 mg PO DAILY 02/05/18 [History] Enalapril [Vasotec] 20 mg PO BID 02/05/18 [History] Simvastatin 40 mg PO DAILY 02/05/18 [History] hydroCHLOROthiazide 12.5 mg PO DAILY 02/05/18 [History] Levothyroxine Sodium [Synthroid] 125 mcg PO DAILY 10/17/21 [History] Omeprazole 20 mg PO BID 10/17/21 [History] Linagliptin [Tradjenta] 5 mg PO DAILY #30 tab 10/19/21 [Rx] Metoprolol Tartrate [Lopressor] 12.5 mg PO BID #60 tab 10/19/21 [Rx] Ticagrelor [Brilinta] 90 mg PO BID #60 tab 10/19/21 [Rx] amLODIPine [Norvasc] 5 mg PO BID #60 tab 10/24/21 [Rx] hydroCHLOROthiazide [Hydrodiuril] 25 mg PO DAILY #30 tab 10/24/21 [Rx] Follow up Appointment(s)/Referral(s): Gabriela Restrepo MD [STAFF PHYSICIAN] - 2 Weeks [facility] [NON-STAFF] - Ngoc Ruffin DO [STAFF PHYSICIAN] - 11/01/21 11:15 am Terry Rojas MD [Primary Care Provider] - 1 Week (After discharge from rehab) Patient Instructions/Handouts: Stroke (DC) Discharge Disposition: TRANSFER TO SNF/ECF
[2021-10-28 11:16] LABS: Glucose,Whole Blood 117 mg/dL (70-110)
[2021-10-28 11:55] VITALS: BP 118/60; PULSE 50; TEMP 97.6
== END 2021-10-28 15:02 | DRG 65 ==
LOC: EC 08:54 → 3SCARD 11:10 → 4SSUR 10-21 17:26 → 2SICU 10-23 10:18 → 5NMEDONC 10-24 11:40
PROVIDERS: ADMIT Internal Medicine Geriatric Medicine; ATTEND Internal Medicine Geriatric Medicine
DX: I63.232 Cerebral infarction due to unspecified occlusion or stenosis of left carotid arteries (principal); G81.91 Hemiplegia, unspecified affecting right dominant side; Q28.1 Other malformations of precerebral vessels; K92.1 Melena; F03.90 Unspecified dementia, unspecified severity, without behavioral disturbance, psychotic disturbance, mood disturbance, and anxiety; G93.89 Other specified disorders of brain; I71.2 Thoracic aortic aneurysm, without rupture; I77.1 Stricture of artery; E11.9 Type 2 diabetes mellitus without complications; I10 Essential (primary) hypertension; E03.9 Hypothyroidism, unspecified; R47.01 Aphasia; M12.811 Other specific arthropathies, not elsewhere classified, right shoulder; G47.33 Obstructive sleep apnea (adult) (pediatric); R26.2 Difficulty in walking, not elsewhere classified; R47.1 Dysarthria and anarthria; R29.810 Facial weakness; E78.5 Hyperlipidemia, unspecified; F17.210 Nicotine dependence, cigarettes, uncomplicated; R29.706 NIHSS score 6; R29.705 NIHSS score 5; R09.89 Other specified symptoms and signs involving the circulatory and respiratory systems; R01.1 Cardiac murmur, unspecified; I49.9 Cardiac arrhythmia, unspecified; Z95.1 Presence of aortocoronary bypass graft; Z85.46 Personal history of malignant neoplasm of prostate; Z90.89 Acquired absence of other organs; Z79.82 Long term (current) use of aspirin; Z79.890 Hormone replacement therapy; Z79.899 Other long term (current) drug therapy; Z79.84 Long term (current) use of oral hypoglycemic drugs; Z79.02 Long term (current) use of antithrombotics/antiplatelets; Z75.1 Person awaiting admission to adequate facility elsewhere
CPT/HCPCS: 36415; 70450; 70496; 70498; 70551; 71046; 80048; 80053; 80061; 82607; 83036; 84443; 84484; 85025; 85610; 85730; 86850; 86900; 86901; 93005; 93306; 93880; 96374; 99291

== ENCOUNTER 2022-01-24 13:39 | Emergency (ER) | payer OTHER, MEDICARE ==
[2022-01-24 13:45] VITALS: RESP 18; TEMP 97.6
--- NOTE | 2022-01-24 14:57 | ED ---
Fall HPI - General Chief Complaint: Fall Stated Complaint: fall Time Seen by Provider: 01/24/22 14:29 Source: patient, RN notes reviewed Mode of arrival: ambulatory Limitations: no limitations, physical limitation - History of Present Illness Initial Comments: 81-year-old female presents emergency Department chief complaint of fall, head injury. Patient states he felt last week under his right shoulder struck his head patient was seen in urgent care secondary ongoing shoulder pain was referred to emergency Department for CT of the brain in fact is on brilinta. Patient denies any significant headache dizziness blurred vision he has had a prior CVA. Denies any nausea vomiting no fevers or chills. - Related Data Home Medications Medication Instructions Recorded Confirmed Aspirin [Adult Low Dose Aspirin EC] 81 mg PO DAILY 02/05/18 12/05/21 Enalapril [Vasotec] 20 mg PO BID PRN 02/05/18 12/05/21 Simvastatin 40 mg PO HS 02/05/18 12/05/21 hydroCHLOROthiazide 12.5 mg PO DAILY PRN 02/05/18 12/05/21 Levothyroxine Sodium [Synthroid] 125 mcg PO DAILY 10/17/21 12/05/21 Acetylcholine 1 dose PO DAILY 12/05/21 Bismuth Subsalicylate 30 mg PO TID PRN 12/05/21 12/05/21 [Pepto-Bismol] [place]-3 Fatty Acids [[place]-3] 1,000 mg PO DAILY 12/05/21 12/05/21 amLODIPine [Norvasc] 5 mg PO QAM PRN 12/05/21 12/05/21 Previous Rx's Medication Instructions Recorded Linagliptin [Tradjenta] 5 mg PO DAILY #30 tab 10/19/21 Metoprolol Tartrate [Lopressor] 12.5 mg PO BID #60 tab 10/19/21 Ticagrelor [Brilinta] 90 mg PO BID #60 tab 10/19/21 Allergies Allergy/AdvReac Type Severity Reaction Status Date / Time No Known Allergies Allergy Verified 01/24/22 13:45 Review of Systems ROS Statement: Those systems with pertinent positive or pertinent negative responses have been documented in the HPI. ROS Other: All systems not noted in ROS Statement are negative. Past Medical History Past Medical History: Coronary Artery Disease (CAD), Cancer, CVA/TIA, Dementia, Diabetes Mellitus, GERD/Reflux, Hearing Disorder / Deafness, Hyperlipidemia, Hypertension, Osteoarthritis (OA), Sleep Apnea/CPAP/BIPAP, Thyroid Disorder Additional Past Medical History / Comment(s): CVA SEPTEMBER 2021 WITH RIGHT ARM AND LEG WEAKNESS, HX OF FALLS., SPEECH IMPROVED., RECEIVING PHYSICAL THERAPY AT HOME WEEKLY., PROSTATE CANCER WITH RADIATION [place] (2016)., OCCASIONAL BLOOD IN STOOL- STATES THEY THINK IT IS HEMORRHOIDS., STATES DIARRHEA SINCE HE WAS IN REHAB-TAKING PEPTO-BISMOL PER DRS INSTRUCTIONS., ITCHY RASH ON BACK ., HX GRAVES DISEASE., SLEEP APNEA-USES C-PAP MACHINE., DOUBLE VISION-WEARS GLASSES WITH PRISMS, [place] HEARING AIDS. History of Any Multi-Drug Resistant Organisms: None Reported Past Surgical History: Adenoidectomy, Coronary Bypass/CABG, Heart Catheterization With Stent, Tonsillectomy Additional Past Surgical History / Comment(s): CABG (DR PAGAN), SEVERAL EYE SURGERIES. Past Anesthesia/Blood Transfusion Reactions: No Reported Reaction Date of Last Stent Placement:: UNKNOWN Past Psychological History: Depression Smoking Status: Current every day smoker Past Alcohol Use History: Rare Past Drug Use History: None Reported - Past Family History Mother Family Medical History: No Reported History Father Family Medical History: No Reported History Brother(s) Family Medical History: Cancer Additional Family Medical History / Comment(s): PROSTATE CANCER Sister(s) Family Medical History: No Reported History General Exam Limitations: no limitations General appearance: alert, in no apparent distress Head exam: Present: atraumatic, normocephalic, normal inspection Eye exam: Present: normal appearance, PERRL, EOMI. Absent: scleral icterus, conjunctival injection, periorbital swelling ENT exam: Present: normal exam, mucous membranes moist Neck exam: Present: normal inspection, full ROM. Absent: tenderness, meningismus, lymphadenopathy Respiratory exam: Present: normal lung sounds bilaterally. Absent: respiratory distress, wheezes, rales, rhonchi, stridor Cardiovascular Exam: Present: regular rate, normal rhythm, normal heart sounds. Absent: systolic murmur, diastolic murmur, rubs, gallop, clicks Neurological exam: Present: alert, oriented X3, CN II-XII intact, reflexes normal. Absent: motor sensory deficit Skin exam: Present: warm, dry, intact, normal color. Absent: rash Course Vital Signs 01/24/22 13:40 Temperature 97.6 F Pulse Rate 64 Respiratory 18 Rate Blood Pressure 148/73 O2 Sat by Pulse 98 Oximetry Medical Decision Making - Medical Decision Making 9-year-old presents for head injury CT of the brain and C-spine were obtained does not show any acute fracture or intracranial process patient may have signs of sinusitis so patient is asymptomatic. Patient discharged in stable. Return parameters were discussed. Disposition Clinical Impression: Fall, Head contusion, Arm pain Disposition: HOME SELF-CARE Condition: Stable Instructions (If sedation given, give patient instructions): Head Injury (ED) Additional Instructions: Please return to the Emergency Department if symptoms worsen or any other concerns. Is patient prescribed a controlled substance at d/c from ED?: No Referrals: Terry Rojas MD [Primary Care Provider] - 1-2 days Time of Disposition: 15:13
--- NOTE | 2022-01-24 15:11 | CT ---
EXAMINATION TYPE: CT brain wanda corcoran con DATE OF EXAM: 01/24/2022 COMPARISON: 10/17/2021 HISTORY: fall, confusion CT DLP: 1247.1 mGycm, Automated exposure control for dose reduction was used. CONTRAST: Patient injected with 0 mL of Isovue 300. CT of the brain is performed utilizing 3 mm thick sections through the posterior fossa and 3 mm thick sections through the remaining calvarium. Study is performed within 24 hours of arrival to the hospital. No abnormal hyperdensity is present to suggest an acute intracranial hemorrhage. No mass lesion is evident. No acute infarcts are evident. There is a normal medial left occipital lobe infarct. There is hypode nsity within the left brainstem may be an old infarct. Ventricles and sulci are appropriate for the patient age. There is an air-fluid level within the right maxillary sinus. Mucosal thickening is within the inferi or right frontal sinus. Frontal sinuses sphenoid sinuses and ethmoid air cells and left maxillary sin us are intact. IMPRESSIONS: 1. No acute intracranial process. 2. Old left occipital lobe infarct. 3. Air-fluid level within the right maxillary sinus and some mucosal thickening within the frontal si nus. Consider acute sinusitis. CT cervical spine. COMPARISON: None CT of the cervical spine is performed in the axial plane at 2 mm thick sections. Reconstructed image s in the coronal, and sagittal plane are reviewed on the computer. No acute fractures are evident. Vertebral body alignment is normal. There is diffuse disc space narrowing throughout the cervical spine. Greater loss of disc height is n oted C6-7. Small anterior vertebral body spurs are present C4-C7. Vertebral body heights are preserved. Small posterior endplate spurring is present superior endplate of C3 with mild anterior thecal sac co mpression. No stenosis is present Uncovertebral joint hypertrophy is present C6-7 with moderate bilateral foraminal stenosis. IMPRESSIONS: 1. Degenerative disc changes through the cervical spine. 2. Some foraminal narrowing is present due to uncovertebral joint opportunity C6-7.
[2022-01-24 15:26] VITALS: BP 108/85; PULSE 71
== END 2022-01-24 15:26 | disposition home or self-care (01) ==
LOC: EC 13:39
DX: S00.93XA Contusion of unspecified part of head, initial encounter (principal); M25.511 Pain in right shoulder; I25.10 Atherosclerotic heart disease of native coronary artery without angina pectoris; E11.9 Type 2 diabetes mellitus without complications; E78.5 Hyperlipidemia, unspecified; I10 Essential (primary) hypertension; M19.90 Unspecified osteoarthritis, unspecified site; E07.9 Disorder of thyroid, unspecified; Z86.73 Personal history of transient ischemic attack (TIA), and cerebral infarction without residual deficits; F17.200 Nicotine dependence, unspecified, uncomplicated; Z79.82 Long term (current) use of aspirin; Z79.890 Hormone replacement therapy; Z79.899 Other long term (current) drug therapy; W19.XXXA Unspecified fall, initial encounter
CPT/HCPCS: 70450; 72125; 99283

== ENCOUNTER 2022-02-15 07:40 | Inpatient (IN) | payer MEDICARE, OTHER ==
[~2022-02-15 07:40] MED LIST: ALPRAZolam 0.25 MG TAB PO PRN; ALPRAZolam 0.5 MG TAB PO PRN; ASPIRIN 325 MG TAB PO PRN; CEFAZOLIN IRRIGATION PRN; LACTATED RINGERS 1,000 ML IV SCH; NITROGLYCERIN SL TABS 0.4 MG TAB SUBLINGUAL PRN; SODIUM CHLORIDE 0.9% 1,000 ML in EMPTY BAG 1 BAG IV ONE; SODIUM CHLORIDE IRRIG IRRIGATION PRN; TICAGRELOR 90 MG TAB PO PRN
[2022-02-15] MEDS ORDERED: TICAGRELOR 90 MG TAB PO STA (08:01)
[2022-02-15 08:20] LABS: Glucose,Whole Blood 99 mg/dL (70-110)
[2022-02-15 08:38] LABS: African American GFR (CKD) >90 (>60 ml/min/1.73 sqM); Anion Gap 10 mmol/L; Blood Urea Nitrogen 24 mg/dL (9-20); Calcium 9.2 mg/dL (8.4-10.2); Carbon Dioxide 24 mmol/L (22-30); Chloride 106 mmol/L (98-107); Glucose 116 mg/dL (74-99); Non-African American GFR(CKD) 79 (>60 ml/min/1.73 sqM); Potassium 4.2 mmol/L (3.5-5.1); Sodium 140 mmol/L (137-145)
[2022-02-15] MEDS ORDERED: ASPIRIN 81 MG ONE (08:53)
[2022-02-15] MEDS ORDERED: SUGAMMADEX SODIUM 200 MG/2 ML SDV IV ONE (08:55)
[2022-02-15] MEDS ORDERED: GLYCOPYRROLATE 0.2 MG/ML 2 ML VIAL ONE (08:55)
[2022-02-15] MEDS ORDERED: ROCURONIUM 10 MG/ML (5 ML VIAL) IV ONE (08:55)
[2022-02-15] MEDS ORDERED: HEPARIN SODIUM,PORCINE 5,000 UNIT/ML 1 ML VIAL ONE (08:55)
[2022-02-15] MEDS ORDERED: MIDAZOLAM 2 MG/2 ML VIAL ONE (08:55)
[2022-02-15] MEDS ORDERED: ceFAZolin 1,000 MG VIAL ONE (08:55)
[2022-02-15] MEDS ORDERED: PROTAMINE SULFATE 10 MG/ML 5 ML VIAL IV ONE (08:55)
[2022-02-15] MEDS ORDERED: SODIUM CHLORIDE 0.9% 100 ML BAG ONE (08:55)
[2022-02-15] MEDS ORDERED: LIDOCAINE 4% LTA KIT (4 ML) TOPICAL ONE (08:55)
[2022-02-15] MEDS ORDERED: SUCCINYLCHOLINE CHLORIDE 200 MG/10 ML VIAL IV ONE (08:55)
[2022-02-15] MEDS ORDERED: PROPOFOL 10 MG/ML 20 ML VIAL IV ONE (08:55)
[2022-02-15] MEDS ORDERED: fentaNYL (PF) 50 MCG/ML 2 ML AMP ONE (08:55)
[2022-02-15] MEDS ORDERED: PHENYLEPHRINE-0.9% NACL SYG 1,000 MCG/10 ML SYRINGE ONE (08:55)
[2022-02-15] MEDS ORDERED: ePHEDrine 50 MG/ML 1 ML VIAL ONE (08:55)
[2022-02-15] MEDS ORDERED: LIDOCAINE 2% INJ 20 MG/ML (2 ML VIAL) ONE (08:55)
[2022-02-15] MEDS ORDERED: ETOMIDATE 2 MG/ML 10 ML VIAL ONE (08:55)
[2022-02-15] MEDS ORDERED: RX INFO: IV CONTRAST WAS GIVEN 1 EACH MISC MISCELLANE PRN (09:00)
--- NOTE | 2022-02-15 09:11 | P.HPIHPCON ---
History of Present Illness H&P Date: 02/15/22 Arslan is an 81-year-old male who was diagnosed with CVA and left-sided stroke with right-sided deficits, he also has a history of dementia which his continues to think his worsening. He was seen in the summer with these issues and subsequently was delayed for surgical intervention due to his primary care concern of possible blood in his stool and wanted a GI workup prior to full cl earance. He has been cleared and has been taking his Brilinta and aspirin daily. Consent for Procedure: I have explained the operation/procedure to the patient, including the risks, benefits, side effects, alternative therapies (including not receiving the proposed treatment or service), the likelihood of the patient achieving his/her goals, and potential recuperation problems for the procedure/sedation/analgesia, as well as any blood products, if indicated. I also explained to the patient the risks, benefits and side effects of the alternatives, as well as the risks related to not receiving the proposed procedure, care, treatment, or services. Past Medical History Past Medical History: Coronary Artery Disease (CAD), Cancer, CVA/TIA, Dementia, Diabetes Mellitus, GERD/Reflux, Hearing Disorder / Deafness, Hyperlipidemia, Hypertension, Myocardial Infarction ([place]), Osteoarthritis (OA), Sleep Apnea/CPAP/BIPAP, Thyroid Disorder Additional Past Medical History / Comment(s): CVA SEPTEMBER 2021 WITH RIGHT ARM AND LEG WEAKNESS, HX OF FALLS., SPEECH IMPROVED., completed PHYSICAL THERAPY AT HOME ., PROSTATE CANCER WITH RADIATION [place] (2016)., OCCASIONAL BLOOD IN STOOL- STATES THEY THINK IT IS HEMORRHOIDS diverticulosis per colonoscopy., STATES DIARRHEA SINCE HE WAS IN REHAB-TAKING PEPTO-BISMOL PER DRS INSTRUCTIONS now off and taking immodium as needed. incontinence of stool and urin at times..,hx ITCHY RASH ON BACK ., HX GRAVES DISEASE., SLEEP APNEA-USES C-PAP MACHINE., DOUBLE VISION-WEARS GLASSES WITH PRISMS, [place] HEARING AIDS. diet control for NIDDM at this time. Last Myocardial Infarction Date:: 1999 History of Any Multi-Drug Resistant Organisms: None Reported Past Surgical History: Adenoidectomy, Coronary Bypass/CABG, Heart Catheterization With Stent, Tonsillectomy Additional Past Surgical History / Comment(s): CABG (DR PAGAN), SEVERAL EYE SURGERIES. Past Anesthesia/Blood Transfusion Reactions: No Reported Reaction Additional Past Anesthesia/Blood Transfusion Reaction / Comment(s): no blood transfusions Date of Last Stent Placement:: 1999 Smoking Status: Former smoker - Past Family History Mother Family Medical History: No Reported History Father Family Medical History: Coronary Artery Disease (CAD), Hypertension Additional Family Medical History / Comment(s): open heart Brother(s) Family Medical History: Cancer Additional Family Medical History / Comment(s): PROSTATE CANCER Sister(s) Family Medical History: No Reported History Additional Family Medical History / Comment(s): open heart surgery Medications and Allergies Home Medications Medication Instructions Recorded Confirmed Type Aspirin [Adult Low Dose Aspirin EC] 81 mg PO DAILY 02/05/18 02/15/22 History Enalapril [Vasotec] 20 mg PO BID 02/05/18 02/15/22 History Simvastatin 40 mg PO HS 02/05/18 02/15/22 History Levothyroxine Sodium [Synthroid] 125 mcg PO DAILY 10/17/21 02/15/22 History Ticagrelor [Brilinta] 90 mg PO BID #60 tab 10/19/21 02/15/22 Rx Acetylcholine 1 dose PO DAILY 12/05/21 02/15/22 History Unk Immodium 1 tab PO DIRECTED PRN 02/13/22 02/15/22 History Metoprolol Tartrate [Lopressor] 12.5 mg PO DAILY 02/15/22 02/15/22 History Allergies Allergy/AdvReac Type Severity Reaction Status Date / Time No Known Allergies Allergy Verified 02/13/22 10:15 Surgical - Exam Vital Signs Temp Pulse Resp BP Pulse Ox 98.1 F 65 18 179/84 98 02/15/22 08:22 02/15/22 08:22 02/15/22 08:22 02/15/22 08:22 02/15/22 08:22 Gen. is a pleasant cooperative male in no acute distress. HEENT is normocephalic, atraumatic, extraocular motion intact. Heart of hearing. Heart appears regular in rate and rhythm. Lungs are clear bilaterally. Abdomen is soft. Extremity show no clubbing, cyanosis or edema. Cranial nerves II through XII grossly intact, he is notably weaker on the right and has some drift of his lower extremity on the right. Results - Labs 02/15/22 08:10 Abnormal Lab Results - Last 24 Hours (Table) 02/15/22 Range/Units 08:10 BUN 24 H (9-20) mg/dL Glucose 116 H (74-99) mg/dL Diabetes panel 02/15/22 Range/Units 08:10 Sodium 140 (137-145) mmol/L Potassium 4.2 (3.5-5.1) mmol/L Chloride 106 (98-107) mmol/L Carbon Dioxide 24 (22-30) mmol/L BUN 24 H (9-20) mg/dL Creatinine 0.91 (0.66-1.25) mg/dL Glucose 116 H (74-99) mg/dL Calcium 9.2 (8.4-10.2) mg/dL Calcium panel 02/15/22 Range/Units 08:10 Calcium 9.2 (8.4-10.2) mg/dL Pituitary panel 02/15/22 Range/Units 08:10 Sodium 140 (137-145) mmol/L Potassium 4.2 (3.5-5.1) mmol/L Chloride 106 (98-107) mmol/L Carbon Dioxide 24 (22-30) mmol/L BUN 24 H (9-20) mg/dL Creatinine 0.91 (0.66-1.25) mg/dL Glucose 116 H (74-99) mg/dL Calcium 9.2 (8.4-10.2) mg/dL Adrenal panel 02/15/22 Range/Units 08:10 Sodium 140 (137-145) mmol/L Potassium 4.2 (3.5-5.1) mmol/L Chloride 106 (98-107) mmol/L Carbon Dioxide 24 (22-30) mmol/L BUN 24 H (9-20) mg/dL Creatinine 0.91 (0.66-1.25) mg/dL Glucose 116 H (74-99) mg/dL Calcium 9.2 (8.4-10.2) mg/dL Assessment and Plan Assessment: Symptomatic left ICA stenosis Asymptomatic right ICA stenosis Atherosclerotic carotid artery disease without angina Type 2 diabetes Dementia History of CVA Plan: We'll plan to go forward with left trans-carotid artery revascularization and stent. We'll continue his dual antiplatelet following surgery
[2022-02-15] MEDS ORDERED: IOPAMIDOL-250 100ML BTL INTRAARTER ONE ×2 (10:56)
[2022-02-15] MEDS ORDERED: IV FLUID CONTINUATION 1,000 ML IV ONE (11:05)
--- NOTE | 2022-02-15 11:43 | IR ---
Fluoroscopy HISTORY: Left carotid stenosis 3.4 minutes fluoroscopy time supplied to the referring clinician. 37 intraoperative C-arm images doc ument the procedure. See dictated report from vascular surgery.
--- NOTE | 2022-02-15 11:50 | P.OP ---
Date of Procedure: 02/15/22 Description of Procedure: Preoperative diagnosis: Symptomatic left internal carotid artery stenosis Postoperative diagnosis: Same Procedure: LeftTranscarotid artery revascularization with stenting. Right common femoral vein central venous catheter placement under ultrasound guidance Surgeon: Ngoc Ruffin DO Machinery Erector: Arlette Joshua Anesthesia: Gen. endotracheal Complications: None Condition: Stable Flow reversal time: 7 minutes Lesion length: 1.5 cm Indication for procedure: The patient is an 81-year-old male who previously had a left-sided CVA causing right-sided weakness and found to have high-grade left internal carotid artery stenosis initially measured 50-69% however on today's procedure stenosis measures approximately 80%. Risks and benefits of going forward with intervention in the form of a trans-carotid artery revascularization were discussed with the patient and family. They seemingly understood and wished to proceed. He has been on dual antiplatelet therapies. Operative narrative: After written and informed consent was obtained the patient all risks benefits and competitions were described the patient was brought to the Driver Helper and laid in a supine position. The area of the neck and groins were prepped and draped in usual sterile fashion after appropriate anesthetic was performed per the anesthesiologist. A timeout was performed in normal fashion and antibiotics were administered prior to incision. Utilizing ultrasound the left common carotid artery was located and a transverse incision was created overlying this area after proper anesthetization. Dissection was carried between the sternocleidomastoid musculature down to the carotid sheath. The sheath was then incised and the common carotid artery was located and dissected free in a circumferential manner and controlled with umbilical tape. Once controlled, attention was placed down to the common femoral vein and utilizing ultrasound the vein was cannulated and the 8-Portuguese sheath was placed in normal fashion. Attention was then placed back to the carotid artery and the patient was administered heparin and followed with ACTs and redosed as needed for ACT above 250. A pursestring suture was then placed at the common carotid artery with 5-0 Prolene and utilizing a micropuncture needle the common carotid artery was accessed and wire was placed followed by a 4-Portuguese sheath. Carotid angiogram was then obtained demonstrating significant stenosis in the internal carotid artery. Stiff wire was then placed followed by the 8 Portuguese [place] sheath. Flow reversal was then established with the enroute BOAT CARPENTER system after patient's blood pressure was increased to above 160, heart rate above 60 and ACT above 250. 014 wire was then placed across the lesion followed by a 5 x 30 mm [place] balloon and balloon angioplasty was performed followed by an 8 x 30 mm [place] stent. Postdilatation was not performed and final angiogram was obtained demonstrating complete resolution of the stenosis. All guidewires and catheters were removed and the sheath was removed and the arteriotomy was secured with the previously placed pursestring suture. Hemostasis was assured with Gelfoam and thrombin. The area was irrigated and closed. The platysma was closed with 3-0 Vicryl. The skin was closed with running 4-0 Monocryl in subcuticular fashionThe femoral sheath was also removed and pressure was held for hemostasis. The patient all procedure well and was moving all extremities and following commands. The patient was then sent to PACU for recovery.
[2022-02-15] MEDS ORDERED: ATROPINE SULFATE 0.1 MG/ML 10ML SYRINGE IV PRN (11:51)
[2022-02-15] MEDS ORDERED: MAG HYDROX/AL HYDROX/SIMETH 30 ML CUP PO PRN (11:51)
[2022-02-15] MEDS ORDERED: diphenhydrAMINE 50 MG/ML 1 ML VIAL IVP ONE (12:50)
[2022-02-15] MEDS ORDERED: HYDROmorphone 0.5 MG/0.5 ML SYRINGE IVP ONE (16:18)
[2022-02-15 17:11] LABS: Glucose,Whole Blood 115 mg/dL (70-110)
[2022-02-15 20:01] LABS: Glucose,Whole Blood 115 mg/dL (70-110)
[2022-02-15] MEDS ORDERED: ATORVASTATIN 40 MG TAB PO SCH (21:00)
[2022-02-15] MEDS: TICAGRELOR 90 MG TAB PO SCH ×2 (21:26→21:29)
[2022-02-16 04:36] VITALS: PULSE 73
[2022-02-16 06:03] LABS: Glucose,Whole Blood 104 mg/dL (70-110)
[2022-02-16] MEDS: TICAGRELOR 90 MG TAB PO SCH (08:32)
[2022-02-16 08:35] VITALS: BP 136/69; RESP 16; TEMP 97.7
[2022-02-16] MEDS ORDERED: ASPIRIN 81 MG PO SCH (09:00)
--- NOTE | 2022-02-16 09:58 | P.DS ---
Providers Date of admission: 02/15/22 07:40 Attending physician: Ngoc Ruffin DO Consults: 02/15/22 11:51 Consult Physician Routine Consulting Provider: Ирина Valdez Consult Reason/Comments: med management, post carotid Do you want consulting provider notified?: Yes Primary care physician: Terry [facility] Course: The patient is an 81-year-old male with a history of left symptomatic carotid stenosis. He was brought in for elective repair and underwent a left trans- carotid artery revascularization and stenting on 02/15/2022 without issue. He has been recovering well. He is motor sensory intact without any significant changes in his minimal right-sided deficits. He will have his Ruffin catheter removed and as long as he is able to urinate spontaneously, he will be able to be discharged home. Discharge instructions are given. He may shower starting tomorrow, he can remove the dressing if he would like. No heavy lifting for 2 weeks. Resume home medications as ordered previously Patient Condition at Discharge: Fair Plan - Discharge Summary Discharge Rx Participant: No New Discharge Prescriptions: No Action Enalapril [Vasotec] 20 mg PO BID Simvastatin 40 mg PO HS Aspirin [Adult Low Dose Aspirin EC] 81 mg PO DAILY Levothyroxine Sodium [Synthroid] 125 mcg PO DAILY Ticagrelor [Brilinta] 90 mg PO BID #60 tab Acetylcholine 1 dose PO DAILY Unk Immodium 1 tab PO DIRECTED PRN PRN Reason: Diarrhea Metoprolol Tartrate [Lopressor] 12.5 mg PO DAILY Discharge Medication List Aspirin [Adult Low Dose Aspirin EC] 81 mg PO DAILY 02/05/18 [History] Enalapril [Vasotec] 20 mg PO BID 02/05/18 [History] Simvastatin 40 mg PO HS 02/05/18 [History] Levothyroxine Sodium [Synthroid] 125 mcg PO DAILY 10/17/21 [History] Ticagrelor [Brilinta] 90 mg PO BID #60 tab 10/19/21 [Rx] Acetylcholine 1 dose PO DAILY 12/05/21 [History] Unk Immodium 1 tab PO DIRECTED PRN 02/13/22 [History] Metoprolol Tartrate [Lopressor] 12.5 mg PO DAILY 02/15/22 [History]
[2022-02-16 12:05] LABS: Glucose,Whole Blood 126 mg/dL (70-110)
[2022-02-16 12:48] LABS: Basophils % (A) 0 %; Eosinophils # (A) 0.1 k/uL (0-0.7); Eosinophils % (A) 1 %; HCT 37.2 % (39.0-53.0); HGB 12.2 gm/dL (13.0-17.5); Hypochromasia Slight; Lymphocytes # (A) 0.6 k/uL (1.0-4.8); Lymphocytes % (A) 5 %; MCH 31.9 pg (25.0-35.0); MCHC 32.9 g/dL (31.0-37.0); MCV 96.8 fL (80.0-100.0); Mean Platelet Volume 8.9; Monocytes # (A) 1.2 k/uL (0-1.0); Monocytes % (A) 10 %; Neutrophils # (A) 9.6 k/uL (1.3-7.7); Neutrophils % (A) 82 %; Platelet Count 198 k/uL (150-450); RBC 3.84 m/uL (4.30-5.90); RDW 13.8 % (11.5-15.5); WBC 11.8 k/uL (3.8-10.6)
[2022-02-16 13:02] LABS: African American GFR (CKD) >90 (>60 ml/min/1.73 sqM); Anion Gap 8 mmol/L; Blood Urea Nitrogen 21 mg/dL (9-20); Calcium 8.4 mg/dL (8.4-10.2); Carbon Dioxide 18 mmol/L (22-30); Chloride 110 mmol/L (98-107); Glucose 108 mg/dL (74-99); Non-African American GFR(CKD) 82 (>60 ml/min/1.73 sqM); Potassium 3.9 mmol/L (3.5-5.1); Sodium 136 mmol/L (137-145)
--- NOTE | 2022-02-16 14:33 | P.CONS ---
History of Present Illness - Reason for Consult Consult date: 02/16/22 - History of Present Illness This is an 81-year-old male with medical history significant for coronary artery disease status post coronary artery bypass grafting, cardiac stenting, stroke with residual right arm and leg weakness, prostate cancer with radiation, sleep apnea with CPAP use, Graves' disease, diabetes, GERD, hypertension, lipidemia. Patient is brought into the hospital for elective surgical intervention for left trans carotid artery revascularization with stent. This is secondary to the stroke patient had in September of this year left-sided stroke, with right deficits. There is history of underlying dementa at baseline. Carotid artery procedure was delayed due to possible blood in the stool and underwent a full GI workup for clearance and begin relenting aspirin therapy. Patient is a former smoker, quit about 3 months ago. He does complain of congested non productive cough. He is postoperative day #1 and is being monitored on the stepdown unit. Most recent labs yesterday showing a BUN 24, creatinine 0.91, blood glucose in the 100s. He is currently afebrile, heart rate 73, with blood pressure 136/64, 97% on room air. We are asked to see patient for medical management and current labs and medications have been reviewed. PT/OT has been consulted for evaluation. Patient is currently denying and dizziness, lightheadedness, no chest pain, no palpitations. He is tearful and is anticipating discharge home with his . Neurological he is intact, no focal deficits noted. He has dementa at baseline. REVIEW OF SYSTEMS: CONSTITUTIONAL: No fever, no malaise, no fatigue. HEENT: No recent visual problems or hearing problems. Denied any sore throat. CARDIOVASCULAR: No chest pain, orthopnea, PND, no palpitations, no syncope. PULMONARY: No shortness of breath, Reports non productive congested cough, no hemoptysis. GASTROINTESTINAL: No diarrhea, no nausea, no vomiting, no abdominal pain. NEUROLOGICAL: No headaches, no weakness, no numbness. HEMATOLOGICAL: Denies any bleeding or petechiae. GENITOURINARY: Denies any burning micturition, frequency, or urgency. MUSCULOSKELETAL/RHEUMATOLOGICAL: Denies any joint pain, swelling, or any muscle pain. ENDOCRINE: Denies any polyuria or polydipsia. The rest of the 14-point review of systems is negative. PHYSICAL EXAMINATION: GENERAL: The patient is alert and oriented x3, not in any acute distress. Well developed, well nourished. HEENT: Pupils are round and equally reacting to light. EOMI. No scleral icterus. No conjunctival pallor. Normocephalic, atraumatic. No pharyngeal erythema. No thyromegaly. CARDIOVASCULAR: S1 and S2 present. No murmurs, rubs, or gallops. PULMONARY: Lung sounds are coarse, no wheezing or crackles noted. ABDOMEN: Soft, nontender, nondistended, normoactive bowel sounds. No palpable organomegaly. MUSCULOSKELETAL: No joint swelling or deformity. EXTREMITIES: No cyanosis, clubbing, or pedal edema. NEUROLOGICAL: Gross neurological examination did not reveal any focal deficits. SKIN: No rashes. Assessment and Assessment Left internal carotid artery stenosis symptomatic postoperative day #1 left t ranscarotid artery revascularization with stenting with Dr. Ruffin History stroke in September of this year with right sided residual weakness 4/5 noted on exam patient has been maintained on dual antiplatelet therapy which will be continued Luekocytosis, reactive Diabetes Mellitus type 2 diet controlled Hypertension currently normotensive can resume blood pressure medications on discharge he is maintained on enalapril 20 mg twice a day, lopressor 12.5 mg twice a day Hyperlipidemia Coronary artery disease status post CABG and stenting in the past Sleep apnea with CPAP use History prostate cancer with radiation back in 2016 Graves Disease history Anxiety/depression Former smoker quit 3 months ago GI prophylaxis pepcid DVT prophylaxis as per primary Full Code Thank you for this consultation Medically patient is stable for discharge. Recommend following up with Primary care in 1 to 2 days. Patient is recommended to see Dr. Ruffin in 10 days. He will resume all home medications. Pepcid has been added for GI prophylaxis. Patient is on dual antiplatelet therapy. The impression and plan of care has been dictated by Yulissa Kelly Nurse Practitioner as directed. Dr. Nate MD I have performed a history and physical examination and medical decision making of this patient, discussed the same with the dictator, and agree with the dictators assessment and plan as written, documented as a scribe. Based on total visit time, I have performed more than 50% of this visit. Past Medical History Past Medical History: Coronary Artery Disease (CAD), Cancer, CVA/TIA, Dementia, Diabetes Mellitus, GERD/Reflux, Hearing Disorder / Deafness, Hyperlipidemia, Hypertension, Myocardial Infarction ([place]), Osteoarthritis (OA), Sleep Apnea/CPAP/BIPAP, Thyroid Disorder Additional Past Medical History / Comment(s): CVA SEPTEMBER 2021 WITH RIGHT ARM AND LEG WEAKNESS, HX OF FALLS., SPEECH IMPROVED., completed PHYSICAL THERAPY AT HOME ., PROSTATE CANCER WITH RADIATION TX (2016)., OCCASIONAL BLOOD IN STOOL- STATES THEY THINK IT IS HEMORRHOIDS diverticulosis per colonoscopy., STATES DIARRHEA SINCE HE WAS IN REHAB-TAKING PEPTO-BISMOL PER DRS INSTRUCTIONS now off and taking immodium as needed. incontinence of stool and urin at times..,hx ITCHY RASH ON BACK ., HX GRAVES DISEASE., SLEEP APNEA-USES C-PAP MACHINE., DOUBLE VISION-WEARS GLASSES WITH PRISMS, [place] HEARING AIDS. diet control for NIDDM at this time. Last Myocardial Infarction Date:: 1999 History of Any Multi-Drug Resistant Organisms: None Reported Past Surgical History: Adenoidectomy, Coronary Bypass/CABG, Heart Catheterization With Stent, Tonsillectomy Additional Past Surgical History / Comment(s): CABG (DR PAGAN), SEVERAL EYE SURGERIES. Past Anesthesia/Blood Transfusion Reactions: No Reported Reaction Additional Past Anesthesia/Blood Transfusion Reaction / Comm: no blood t ransfusions Date of Last Stent Placement:: 1999 Smoking Status: Former smoker - Past Family History Mother Family Medical History: No Reported History Father Family Medical History: Coronary Artery Disease (CAD), Hypertension Additional Family Medical History / Comment(s): open heart Brother(s) Family Medical History: Cancer Additional Family Medical History / Comment(s): PROSTATE CANCER Sister(s) Family Medical History: No Reported History Additional Family Medical History / Comment(s): open heart surgery Medications and Allergies Home Medications Medication Instructions Recorded Confirmed Type Aspirin [Adult Low Dose Aspirin EC] 81 mg PO DAILY 02/05/18 02/15/22 History Enalapril [Vasotec] 20 mg PO BID 02/05/18 02/15/22 History Simvastatin 40 mg PO HS 02/05/18 02/15/22 History Levothyroxine Sodium [Synthroid] 125 mcg PO DAILY 10/17/21 02/15/22 History Ticagrelor [Brilinta] 90 mg PO BID #60 tab 10/19/21 02/15/22 Rx Acetylcholine 1 dose PO DAILY 12/05/21 02/15/22 History Unk Immodium 1 tab PO DIRECTED PRN 02/13/22 02/15/22 History Metoprolol Tartrate [Lopressor] 12.5 mg PO DAILY 02/15/22 02/15/22 History Famotidine [Pepcid] 20 mg PO DAILY #30 tablet 02/16/22 Rx Allergies Allergy/AdvReac Type Severity Reaction Status Date / Time No Known Allergies Allergy Verified 02/13/22 10:15 Physical Exam Vitals: Vital Signs Temp Pulse Pulse Resp BP BP Pulse Ox 02/16/22 08:00 97.7 F 73 16 136/69 97 02/16/22 04:00 98.9 F 73 18 136/64 99 02/16/22 00:00 61 16 135/67 98 02/15/22 21:31 135/74 02/15/22 20:00 98.1 F 74 18 137/74 99 02/15/22 18:40 98.0 F 69 18 138/71 98 02/15/22 17:55 98.1 F 67 16 139/67 99 02/15/22 16:40 70 17 154/68 100 02/15/22 16:00 69 16 172/74 174/77 100 02/15/22 15:15 68 16 169/66 158/68 100 02/15/22 14:45 64 16 164/69 100 02/15/22 14:15 63 16 167/68 100 02/15/22 13:45 64 16 160/64 100 02/15/22 13:30 66 16 158/64 100 02/15/22 13:15 66 16 155/62 100 02/15/22 13:00 70 16 144/59 98 02/15/22 12:45 70 18 152/66 98 02/15/22 12:30 77 16 156/66 100 02/15/22 12:15 76 18 157/70 98 02/15/22 11:55 81 14 151/68 100 02/15/22 11:37 98 F 92 16 167/99 168/99 100 Intake and Output 02/15/22 02/16/22 02/16/22 22:59 06:59 14:59 Intake Total 0 Output Total 200 300 300 Balance -200 -300 -300 Intake: Oral 0 Output: Urine 200 300 300 Other: Voiding Method Indwelling Catheter Indwelling Catheter Weight 63.9 kg Results CBC & Chem 7: 02/16/22 12:05 02/16/22 12:05 Labs: Abnormal Lab Results - Last 24 Hours (Table) 02/15/22 02/15/22 Range/Units 17:09 19:59 POC Glucose (mg/dL) 115 H 115 H (70-110) mg/dL Assessment and Plan Time with Patient: Less than 30
[2022-02-17] MEDS ORDERED: LEVOTHYROXINE 125 MCG TAB PO SCH (06:30)
[2022-02-17] MEDS ORDERED: METOPROLOL TARTRATE 12.5 MG TAB PO SCH (09:00)
== END 2022-02-16 13:30 | disposition home health service (06) | DRG 35 ==
LOC: 2ORMAIN 07:40 → 3SCARD 15:35
PROVIDERS: ADMIT Surgery; ATTEND Surgery
PROC: 037L3DZ Dilation of Left Internal Carotid Artery with Intraluminal Device, Percutaneous Approach (ICD-10-PCS; principal; 2022-02-15 09:00)
DX: I65.22 Occlusion and stenosis of left carotid artery (principal); F03.93 Unspecified dementia, unspecified severity, with mood disturbance; I69.351 Hemiplegia and hemiparesis following cerebral infarction affecting right dominant side; E11.9 Type 2 diabetes mellitus without complications; I10 Essential (primary) hypertension; I25.10 Atherosclerotic heart disease of native coronary artery without angina pectoris; K21.9 Gastro-esophageal reflux disease without esophagitis; G47.30 Sleep apnea, unspecified; E05.00 Thyrotoxicosis with diffuse goiter without thyrotoxic crisis or storm; E78.5 Hyperlipidemia, unspecified; I25.2 Old myocardial infarction; H91.93 Unspecified hearing loss, bilateral; K64.9 Unspecified hemorrhoids; K57.90 Diverticulosis of intestine, part unspecified, without perforation or abscess without bleeding; M19.90 Unspecified osteoarthritis, unspecified site; Z79.82 Long term (current) use of aspirin; Z79.890 Hormone replacement therapy; Z79.02 Long term (current) use of antithrombotics/antiplatelets; Z79.899 Other long term (current) drug therapy; Z95.1 Presence of aortocoronary bypass graft; Z95.5 Presence of coronary angioplasty implant and graft; Z85.46 Personal history of malignant neoplasm of prostate; Z92.3 Personal history of irradiation; Z87.891 Personal history of nicotine dependence; Z91.81 History of falling; Z82.49 Family history of ischemic heart disease and other diseases of the circulatory system
CPT/HCPCS: 37215; 80048; 85025

== ENCOUNTER 2022-09-27 02:34 | Observation (INO) | payer OTHER, MEDICARE ==
[2022-09-27 03:21] LABS: Basophils % (A) 1 %; Eosinophils # (A) 0.3 k/uL (0-0.7); Eosinophils % (A) 5 %; HCT 38.9 % (39.0-53.0); HGB 12.8 gm/dL (13.0-17.5); Lymphocytes % (A) 16 %; MCH 31.1 pg (25.0-35.0); MCV 94.3 fL (80.0-100.0); Mean Platelet Volume 9.3; Monocytes # (A) 0.6 k/uL (0-1.0); Monocytes % (A) 9 %; Neutrophils % (A) 66 %; Platelet Count 133 k/uL (150-450); RBC 4.13 m/uL (4.30-5.90)
[2022-09-27 03:29] LABS: Partial Thromboplastin Time 23.7 sec (22.0-30.0); Prothrombin Time 10.3 sec (9.0-12.0)
[2022-09-27 03:30] LABS: ALT 20 U/L (4-49); AST 19 U/L (17-59); African American GFR (CKD) 79 (>60 ml/min/1.73 sqM); Albumin 3.6 g/dL (3.5-5.0); Alkaline Phosphatase 128 U/L (38-126); Anion Gap 9 mmol/L; Blood Urea Nitrogen 32 mg/dL (9-20); Calcium 8.7 mg/dL (8.4-10.2); Carbon Dioxide 23 mmol/L (22-30); Chloride 104 mmol/L (98-107); Glucose 153 mg/dL (74-99); Magnesium 2.1 mg/dL (1.6-2.3); Non-African American GFR(CKD) 69 (>60 ml/min/1.73 sqM); Potassium 4.1 mmol/L (3.5-5.1); Sodium 136 mmol/L (137-145); Total Bilirubin 0.4 mg/dL (0.2-1.3); Total Protein 6.1 g/dL (6.3-8.2)
[2022-09-27] MEDS ORDERED: NALOXONE 0.4 MG/ML 1 ML VIAL IV PRN (04:18)
--- NOTE | 2022-09-27 04:20 | ED ---
General Adult HPI - General Chief complaint: Chest Pain Stated complaint: Chest Pain Time Seen by Provider: 09/27/22 02:58 Source: patient, family, RN notes reviewed, old records reviewed Mode of arrival: EMS Limitations: no limitations - History of Present Illness Initial comments: Patient is a 81-year-old male with past medical history remarkable for prior cardiac stent, prior stroke, on aspirin and Plavix who presents emergency Department complaining of chest pain. Was going on yesterday evening but resolved. Woke up this evening again complaining of the pain which prompted patient's family and patient, emergency department for further evaluation. States it was substernal. Currently has no pain. Was given 324 mg of aspirin by EMS. Denies any shortness of breath, fevers, chills, cough. Denies any abdominal pain, nausea, vomiting. Last had the pain just prior to arrival. His no other acute complaints at this time. Unknown palliative or provocative factors. Denies any associated symptoms including shortness of breath, diaphoresis, nausea. Presents for further evaluation at this time. - Related Data Home Medications Medication Instructions Recorded Confirmed Aspirin [Adult Low Dose Aspirin EC] 81 mg PO DAILY 02/05/18 02/15/22 Enalapril [Vasotec] 20 mg PO BID 02/05/18 02/15/22 Simvastatin 40 mg PO HS 02/05/18 02/15/22 Levothyroxine Sodium [Synthroid] 125 mcg PO DAILY 10/17/21 02/15/22 Acetylcholine 1 dose PO DAILY 12/05/21 02/15/22 Unk Immodium 1 tab PO DIRECTED PRN 02/13/22 02/15/22 Metoprolol Tartrate [Lopressor] 12.5 mg PO DAILY 02/15/22 02/15/22 Previous Rx's Medication Instructions Recorded Ticagrelor [Brilinta] 90 mg PO BID #60 tab 10/19/21 Famotidine [Pepcid] 20 mg PO DAILY #30 tablet 02/16/22 Allergies Allergy/AdvReac Type Severity Reaction Status Date / Time No Known Allergies Allergy Verified 02/13/22 10:15 Review of Systems ROS Statement: Those systems with pertinent positive or pertinent negative responses have been documented in the HPI. Review of Systems: CONST: Denies fever EYES: Denies blurry vision ENT: Denies nasal congestion C/V: Endorses resolved chest pain RESP: Denies shortness of breath GI: Denies abdominal pain : Denies dysuria SKIN: Denies rash. MSK: Denies joint pain. NEURO: Denies headache ROS Other: All systems not noted in ROS Statement are negative. 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 incontinence of stool and urin at times..,hx ITCHY RASH ON BACK ., HX GRAVES DISEASE., SLEEP APNEA-USES C-PAP MACHINE., DOUBLE VISION-WEARS GLASSES WITH PRISMS, [place] HEARING AIDS. diet control for NIDDM at this time. Last Myocardial Infarction Date:: 1999 History of Any Multi-Drug Resistant Organisms: None Reported Past Surgical History: Adenoidectomy, Coronary Bypass/CABG, Heart Catheterization With Stent, Tonsillectomy Additional Past Surgical History / Comment(s): CABG (DR PAGAN), SEVERAL EYE SURGERIES. Past Anesthesia/Blood Transfusion Reactions: No Reported Reaction Additional Past Anesthesia/Blood Transfusion Reaction / Comment(s): no blood transfusions Date of Last Stent Placement:: 1999 Past Psychological History: Anxiety, Depression Smoking Status: Former smoker Past Alcohol Use History: None Reported Past Drug Use History: None Reported - Past Family History Mother Family Medical History: No Reported History Father Family Medical History: Coronary Artery Disease (CAD), Hypertension Additional Family Medical History / Comment(s): open heart Brother(s) Family Medical History: Cancer Additional Family Medical History / Comment(s): PROSTATE CANCER Sister(s) Family Medical History: No Reported History Additional Family Medical History / Comment(s): open heart surgery General Exam - General Exam Comments Initial Comments: General: Appears in no acute distress. HEAD: Normal with no signs of head trauma. EYES: PERRLA, EOMI, conjunctiva normal, no discharge. ENT: Hearing grossly intact, normal oropharynx. RESPIRATORY: Clear breath sounds bilaterally. No wheezes, rales, or rhonchi. C/V: Regular rate and rhythm. S1 and S2 auscultated, no edema, peripheral pulses 2+ and intact throughout ABD: Abd is soft, nontender, nondistended EXT: Normal range of motion, no obvious deformity SKIN: No rashes or lesions observed on exposed skin. NEURO: Alert and oriented 4. Limitations: no limitations Course Vital Signs 09/27/22 09/27/22 09/27/22 02:41 02:58 03:00 Temperature 98.0 F Pulse Rate 61 60 Pulse Rate [ 62 [employer] [employer] Supervisor] Respiratory 16 16 Rate Blood Pressure 180/91 180/90 O2 Sat by Pulse 97 98 Oximetry 09/27/22 09/27/22 09/27/22 03:30 04:00 05:00 Temperature Pulse Rate 55 L 56 L 57 L Pulse Rate [ [place] [employer]] Respiratory 16 16 16 Rate Blood Pressure 162/79 161/76 152/71 O2 Sat by Pulse 98 97 96 Oximetry 09/27/22 05:15 Temperature Pulse Rate 56 L Pulse Rate [ [place] [employer] Supervisor] Respiratory 16 Rate Blood Pressure 139/57 O2 Sat by Pulse 99 Oximetry Medical Decision Making - Medical Decision Making Was pt. sent in by a medical professional or institution (, PA, RUG CLEANER, urgent care, hospital, or prison...) When possible be specific @ -No Did you speak to anyone other than the patient for history (EMS, parent, family, police, friend...)? What history was obtained from this source @ -I spoke with patient's who helps with the history including his past medical history. Did you review nursing and triage notes (agree or disagree)? Why? @ -I reviewed and agree with nursing and triage notes Were old charts reviewed (outside hosp., previous admission, EMS record, old EKG, old radiological studies, urgent care reports/EKG's, prison records)? Report findings @ -Old EKGs reviewed from September 2021 Differential Diagnosis (chest pain, altered mental status, abdominal pain women, abdominal pain men, vaginal bleeding, weakness, fever, dyspnea, syncope, he adache, dizziness, GI bleed, back pain, seizure, CVA, palpatations, mental health, musculoskeletal)? @ -Differential Chest Pain: Stable Angina, Unstable Angina, STEMI, NSTEMI Aortic Dissection, Pneumothorax, Musculoskeletal, Esophageal Spasm GERD, Cholecystitis, Pancreatitis, Zoster, this is not meant to be an all-inclusive list. EKG interpreted by me (3pts min.). @ -As above X-rays interpreted by me (1pt min.). @ -Chest x-ray reveals no obvious significant cardiopulmonary process. Possible mild CHF. CT interpreted by me (1pt min.). @ -None done U/S interpreted by me (1pt. min.). @ -None done What testing was considered but not performed or refused? (CT, X-rays, U/S, labs)? Why? @ -None What meds were considered but not given or refused? Why? @ -Considered giving 324 mg of aspirin, however patient is already received t hat from EMS prior to arrival. Did you discuss the management of the patient with other professionals (professionals i.e. , PA, RUG CLEANER, lab, RT, psych nurse, social work case manager, floor waxer, te acher, police patrol officer, case managers)? Give summary @ -Discussed with JOSE Magana of [facility] who accepted the patient. Was smoking cessation discussed for >3mins.? @ -No Was critical care preformed (if so, how long)? @ -No Were there social determinants of health that impacted care today? How? (Homelessness, low income, unemployed, alcoholism, drug addiction, transportation, low edu. Level, literacy, decrease access to med. care, usp, rehab)? @ -No Was there de-escalation of care discussed even if they declined (Discuss DNR or withdrawal of care, Hospice)? DNR status @ -No What co-morbidities impacted this encounter? (DM, HTN, Smoking, COPD, CAD, Cancer, CVA, ARF, Chemo, Hep., AIDS, mental health diagnosis, sleep apnea, morbid obesity)? @ -CAD Was patient admitted / discharged? Hospital course, mention meds given and route, prescriptions, significant lab abnormalities, going to OR and other pertinent info. @ -Basement patient's presentation and physical exam, I'm concerned for cardiopulmonary etiology for the patient's current symptoms. We will obtain cardiac labs. Vital signs within acceptable limits. Vital signs are within acceptable limits. Patient has already received 324 mg of aspirin from EMS. Chest x-ray shows no significant acute cardio pulmonary process, possible mild CHF. Labs are remarkable for chronic mild anemia with a hemoglobin of 12.8 and stable. Troponin is undetectable. Remainder the labs with except for limits. EKG shows no evidence of acute ischemia. On reevaluation, patient remains asymptomatic. Lasted chest pain just prior to arrival. Patient's heart scores moderate at 4-5. We discuss that with his risk factors, did recommend cardiac observation for monitoring troponins as well as his symptoms. He was in agreement this plan. We'll trend the troponin. Cardiology consulted. I did speak with the admitting team, JOSE Magana of the [facility] accepted the patient. Undiagnosed new problem with uncertain prognosis? @ -No Drug Therapy requiring intensive monitoring for toxicity (Heparin, Nitro, Insulin, Cardizem)? @ -No Were any procedures done? @ -No Diagnosis/symptom? @ -Chest pain Acute, or Chronic, or Acute on Chronic? @ -Acute Uncomplicated (without systemic symptoms) or Complicated (systemic symptoms)? @ -Uncomplicated Side effects of treatment? @ -No Exacerbation, Progression, or Severe Exacerbation? @ -No Poses a threat to life or bodily function? How? (Chest pain, [place], [place], pneumonia, PE, COPD, DKA, ARF, appy, cholecystitis, CVA, Diverticulitis, Homicidal, Suicidal, threat to staff... and all critical care pts) @ -yes - Lab Data Result diagrams: 09/27/22 03:00 09/27/22 03:00 Lab Results 09/27/22 09/27/22 09/27/22 Range/Units 03:00 03:00 03:00 WBC 6.0 (3.8-10.6) k/uL RBC 4.13 L (4.30-5.90) m/uL Hgb 12.8 L (13.0-17.5) gm/dL Hct 38.9 L (39.0-53.0) % MCV 94.3 (80.0-100.0) fL MCH 31.1 (25.0-35.0) pg MCHC 33.0 (31.0-37.0) g/dL RDW 15.0 (11.5-15.5) % Plt Count 133 L (150-450) k/uL MPV 9.3 Neutrophils % 66 % Lymphocytes % 16 % Monocytes % 9 % Eosinophils % 5 % Basophils % 1 % Neutrophils # 4.0 (1.3-7.7) k/uL Lymphocytes # 1.0 (1.0-4.8) k/uL Monocytes # 0.6 (0-1.0) k/uL Eosinophils # 0.3 (0-0.7) k/uL Basophils # 0.0 (0-0.2) k/uL PT 10.3 (9.0-12.0) sec INR 1.0 (<1.2) APTT 23.7 (22.0-30.0) sec Sodium 136 L (137-145) mmol/L Potassium 4.1 (3.5-5.1) mmol/L Chloride 104 (98-107) mmol/L Carbon Dioxide 23 (22-30) mmol/L Anion Gap 9 mmol/L BUN 32 H (9-20) mg/dL Creatinine 1.03 (0.66-1.25) mg/dL Est GFR (CKD-EPI)AfAm 79 (>60 ml/min/1.73 sqM) Est GFR (CKD-EPI)NonAf 69 (>60 ml/min/1.73 sqM) Glucose 153 H (74-99) mg/dL Calcium 8.7 (8.4-10.2) mg/dL Magnesium 2.1 (1.6-2.3) mg/dL Total Bilirubin 0.4 (0.2-1.3) mg/dL AST 19 (17-59) U/L ALT 20 (4-49) U/L Alkaline Phosphatase 128 H (38-126) U/L Troponin I (0.000-0.034) ng/mL Total Protein 6.1 L (6.3-8.2) g/dL Albumin 3.6 (3.5-5.0) g/dL 09/27/22 Range/Units 03:00 WBC (3.8-10.6) k/uL RBC (4.30-5.90) m/uL Hgb (13.0-17.5) gm/dL Hct (39.0-53.0) % MCV (80.0-100.0) fL MCH (25.0-35.0) pg MCHC (31.0-37.0) g/dL RDW (11.5-15.5) % Plt Count (150-450) k/uL MPV Neutrophils % % Lymphocytes % % Monocytes % % Eosinophils % % Basophils % % Neutrophils # (1.3-7.7) k/uL Lymphocytes # (1.0-4.8) k/uL Monocytes # (0-1.0) k/uL Eosinophils # (0-0.7) k/uL Basophils # (0-0.2) k/uL PT (9.0-12.0) sec INR (<1.2) APTT (22.0-30.0) sec Sodium (137-145) mmol/L Potassium (3.5-5.1) mmol/L Chloride (98-107) mmol/L Carbon Dioxide (22-30) mmol/L Anion Gap mmol/L BUN (9-20) mg/dL Creatinine (0.66-1.25) mg/dL Est GFR (CKD-EPI)AfAm (>60 ml/min/1.73 sqM) Est GFR (CKD-EPI)NonAf (>60 ml/min/1.73 sqM) Glucose (74-99) mg/dL Calcium (8.4-10.2) mg/dL Magnesium (1.6-2.3) mg/dL Total Bilirubin (0.2-1.3) mg/dL AST (17-59) U/L ALT (4-49) U/L Alkaline Phosphatase (38-126) U/L Troponin I <0.012 (0.000-0.034) ng/mL Total Protein (6.3-8.2) g/dL Albumin (3.5-5.0) g/dL - EKG Data -: EKG Interpreted by Me EKG Comments: 12-lead Electrocardiogram Interpretation Note EKG was reviewed and interpreted by myself. 12-lead ECG performed at 0242 is interpreted by me as revealing normal sinus rhythm at a rate of 63 beats per minute. [place] is normal. UT interval is 202 ms, QRS durations 100 ms, QTc is 434 ms. Chronic T-wave inversions in leads III, aVF seen on prior EKG. There were no acute ST or T wave abnormalities to suggest myocardial ischemia or injury. R wave progression across the precordium was satisfactory. By my interpretation this EKG is non-diagnostic for acute ischemia. Compared with Prior EKG from September 2021 with no significant change. Disposition Clinical Impression: Chest pain Disposition: ADMITTED IP TO THIS HOSP Condition: Stable Time of Disposition: 04:09
--- NOTE | 2022-09-27 05:34 | XR ---
EXAMINATION TYPE: XR chest 2V DATE OF EXAM: 09/27/2022 COMPARISON: Chest x-ray October 17, 2021 HISTORY: Chest pain. TECHNIQUE: Frontal and lateral views of the chest are obtained. FINDINGS: There is no suspicious peripheral focal air space opacity, pleural effusion, or pneumothor ax seen. Cardiomegaly is redemonstrated. Mild central vascular congestion is felt present. Overlying sternal wires are redemonstrated. The osseous structures are intact. IMPRESSION: Cardiomegaly with suggestion of mild central vascular congestion. Correlate for CHF exac erbation.
[2022-09-27] MEDS ORDERED: ISOSORBIDE MONONITRATE ER 30 MG TAB.ER.24H PO SCH (09:00)
[2022-09-27] MEDS ORDERED: amLODIPine 5 MG TAB PO SCH ×2 (09:00→10:00)
[2022-09-27] MEDS: HEPARIN SODIUM,PORCINE/PF 5,000 UNIT/0.5 ML SYRINGE SQ SCH ×2 (09:16→20:14)
[2022-09-27] MEDS: CITALOPRAM HYDROBROMIDE 10 MG TAB PO SCH (10:28)
[2022-09-27] MEDS: lisinopriL 20 MG TAB PO SCH ×2 (10:28→20:14)
[2022-09-27] MEDS: CLOPIDOGREL 75 MG TAB PO SCH (10:28)
[2022-09-27] MEDS: METOPROLOL TARTRATE 12.5 MG TAB PO SCH ×2 (10:28→20:13)
[2022-09-27] MEDS: LEVOTHYROXINE 125 MCG TAB PO SCH (10:29)
[2022-09-27] MEDS: ATORVASTATIN 40 MG TAB PO SCH (10:29)
[2022-09-27] MEDS: ACETYL CARNITINE PO SCH (10:32)
--- NOTE | 2022-09-27 11:07 | P.CRDCN ---
History of Present Illness History of present illness: HISTORY OF PRESENT ILLNESS: This is a 81-year-old male with a past medical history significant for coronary artery disease with previous stenting and 4 vessel CABG in 2004, hypertension, hyperlipidemia, peripheral vascular disease, diabetes, dementia, and former gunnar otine dependence. Patient follows in the office with Dr. Restrepo. We have been asked to see the patient in consultation for chest pain. Patient examined at the bedside. She has a history of dementia and HPI is limited from the patient. His is at the bedside and providing additional history. The patient states he started having chest pain yesterday in the middle of his chest. He denied any radiation of the pain. He came to the hospital for further evaluation. The patient was found to be hypertensive. The states that the patient's blood pressures have been running around 150 at home. She states that when they were in [place] he was recently started on Norvasc for better blood pressure control. Patient's blood pressures have been running between 274956 systolic during the hospital. * EKG reveals sinus mechanism with T-wave inversions in inferior leads, similar to previous EKG * Chest xray cardiomegaly with suggestion of mild central vascular congestion * Laboratory data: WBC 6.0. Hemoglobin 12.8. Platelet count 133. Sodium 136. Potassium 4.1. BUN 32. Creatinine 1.03. Magnesium 2.1. Troponin negative 3. ProBNP 1190. * Current home cardiac medications include aspirin 81 mg daily, Lipitor 40 mg daily, Plavix 75 mg daily, Norvasc 5 mg daily, metoprolol tartrate 12.5 mg twice a day, and enalapril 20 mg twice a day * Most recent echocardiogram obtained in September 2021 revealed ejection fraction 50-55% REVIEW OF SYSTEMS: At the time of my exam: CONSTITUTIONAL: Denies fever or chills. HEENT: Denies blurred vision, vision changes, or eye pain. Denies hemoptysis CARDIOVASCULAR: Denies chest pain. Denies orthopnea. Denies PND. Denies palpitations RESPIRATORY: Denies shortness of breath. GASTROINTESTINAL: Denies abdominal pain. Denies nausea or vomiting. HEMATOLOGIC: Denies bleeding disorders. GENITOURINARY: Denies any blood in urine. SKIN: Denies pruitis. Denies rash. PHYSICAL EXAM: VITAL SIGNS: Reviewed. GENERAL: Well-developed in no acute distress. HEENT: Head is normocephalic. Pupils are equal, round. Sclerae anicteric. Mucous membranes of the mouth are moist. Neck supple. No JVD or thyromegaly LUNGS: Respirations even and unlabored. Lungs essentially clear to auscultation bilaterally. HEART: Regular rate and rhythm. S1 and S2 heard. ABDOMEN: Soft. Nondistended. Nontender. EXTREMITIES: Normal range of motion. No clubbing or cyanosis. Peripheral pulses intact. No lower extremity edema NEUROLOGIC: Awake and alert. Oriented x 3. ASSESSMENT: Hypertensive urgency, improving Chest pain, may be secondary to uncontrolled blood pressures Coronary artery disease with previous stenting and 4 vessel CABG in 2004 Peripheral vascular disease Hyperlipidemia Diabetes Dementia Former nicotine dependence PLAN: Resume home cardiac medications Add Imdur 30 mg daily Continue to monitor blood pressure Obtain 2-D echo to assess cardiac structure and function Continue to monitor patient for an additional 24 hours. If his blood pressures are improved and he has no further episodes of chest pain, he may be discharged home Nurse practitioner note has been reviewed by physician. Signing provider agrees with the documented findings, assessment, and plan of care. 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 incontinence of stool and urin at times..,hx ITCHY RASH ON BACK ., HX GRAVES DISEASE., SLEEP APNEA-USES C-PAP MACHINE., DOUBLE VISION-WEARS GLASSES WITH PRISMS, [place]. diet control for NIDDM at this time. Last Myocardial Infarction Date:: 1999 History of Any Multi-Drug Resistant Organisms: None Reported Past Surgical History: Adenoidectomy, Coronary Bypass/CABG, Heart Catheterization With Stent, Tonsillectomy Additional Past Surgical History / Comment(s): CABG (DR PAGAN), SEVERAL EYE SURGERIES. Past Anesthesia/Blood Transfusion Reactions: No Reported Reaction Additional Past Anesthesia/Blood Transfusion Reaction / Comment(s): no blood transfusions Date of Last Stent Placement:: 1999 Past Psychological History: Anxiety, Depression Smoking Status: Former smoker Past Alcohol Use History: None Reported Past Drug Use History: None Reported - Past Family History Mother Family Medical History: No Reported History Father Family Medical History: Coronary Artery Disease (CAD), Hypertension Additional Family Medical History / Comment(s): open heart Brother(s) Family Medical History: Cancer Additional Family Medical History / Comment(s): PROSTATE CANCER Sister(s) Family Medical History: No Reported History Additional Family Medical History / Comment(s): open heart surgery Medications and Allergies Home Medications Medication Instructions Recorded Confirmed Type Aspirin [Adult Low Dose Aspirin EC] 81 mg PO DAILY 02/05/18 09/27/22 History Enalapril [Vasotec] 20 mg PO BID 02/05/18 09/27/22 History Levothyroxine Sodium [Synthroid] 125 mcg PO DAILY 10/17/21 09/27/22 History Hpugvp-O-Reubyixkc 500mg 1 tab PO DAILY 09/27/22 09/27/22 History Atorvastatin [Lipitor] 40 mg PO DAILY 09/27/22 09/27/22 History Citalopram Hydrobromide [CeleXA] 10 mg PO DAILY 09/27/22 09/27/22 History Clopidogrel [Plavix] 75 mg PO DAILY 09/27/22 09/27/22 History Divalproex ER [Depakote ER] 250 mg PO HS 09/27/22 09/27/22 History Melatonin 5 mg PO HS 09/27/22 09/27/22 History Metoprolol Tartrate [Lopressor] 12.5 mg PO BID 09/27/22 09/27/22 History amLODIPine [Norvasc] 5 mg PO DAILY 09/27/22 09/27/22 History traZODone HCL [Desyrel] 25 mg PO HS 09/27/22 09/27/22 History Allergies Allergy/AdvReac Type Severity Reaction Status Date / Time No Known Allergies Allergy Verified 09/27/22 09:41 Physical Exam Vitals: Vital Signs Temp Pulse Pulse Pulse Resp BP BP 09/27/22 07:00 98.3 F 62 16 150/71 09/27/22 06:12 16 09/27/22 05:50 97.7 F 58 L 16 09/27/22 05:15 56 L 16 139/57 09/27/22 05:00 57 L 16 152/71 09/27/22 04:00 56 L 16 161/76 09/27/22 03:30 55 L 16 162/79 09/27/22 03:00 60 16 180/90 09/27/22 02:58 62 09/27/22 02:41 98.0 F 61 16 180/91 BP Pulse Ox 09/27/22 07:00 96 09/27/22 06:12 09/27/22 05:50 187/80 97 09/27/22 05:15 99 09/27/22 05:00 96 09/27/22 04:00 97 09/27/22 03:30 98 09/27/22 03:00 98 09/27/22 02:58 09/27/22 02:41 97 Intake and Output 09/26/22 09/27/22 09/27/22 22:59 06:59 14:59 Other: Voiding Method Toilet # Voids 1 # Bowel Movements 1 Weight 61.235 kg Results 09/27/22 03:00 09/27/22 03:00 Cardiac Enzymes 09/27/22 09/27/22 09/27/22 Range/Units 03:00 03:00 06:13 AST 19 (17-59) U/L Troponin I <0.012 <0.012 (0.000-0.034) ng/mL 09/27/22 Range/Units 08:23 AST (17-59) U/L Troponin I <0.012 (0.000-0.034) ng/mL Coagulation 09/27/22 Range/Units 03:00 PT 10.3 (9.0-12.0) sec APTT 23.7 (22.0-30.0) sec CBC 09/27/22 Range/Units 03:00 WBC 6.0 (3.8-10.6) k/uL RBC 4.13 L (4.30-5.90) m/uL Hgb 12.8 L (13.0-17.5) gm/dL Hct 38.9 L (39.0-53.0) % Plt Count 133 L (150-450) k/uL Comprehensive Metabolic Panel 09/27/22 Range/Units 03:00 Sodium 136 L (137-145) mmol/L Potassium 4.1 (3.5-5.1) mmol/L Chloride 104 (98-107) mmol/L Carbon Dioxide 23 (22-30) mmol/L BUN 32 H (9-20) mg/dL Creatinine 1.03 (0.66-1.25) mg/dL Glucose 153 H (74-99) mg/dL Calcium 8.7 (8.4-10.2) mg/dL AST 19 (17-59) U/L ALT 20 (4-49) U/L Alkaline Phosphatase 128 H (38-126) U/L Total Protein 6.1 L (6.3-8.2) g/dL Albumin 3.6 (3.5-5.0) g/dL Current Medications Generic Name Dose Route Start Last Admin Trade Name Freq PRN Reason Stop Dose Admin Acetaminophen 650 mg 09/27/22 09:58 Acetaminophen Tab 325 Mg Tab PO Q6HR PRN Fever and/ or Pain Amlodipine Besylate 5 mg 09/27/22 09:00 09/27/22 09:16 Amlodipine 5 Mg Tab PO 5 mg DAILY BREANA Administration Aspirin 81 mg 09/28/22 09:00 Aspirin 81 Mg PO DAILY [facility] Atorvastatin Calcium 40 mg 09/27/22 10:00 09/27/22 10:29 Atorvastatin 40 Mg Tab PO 40 mg DAILY BREANA Administration Citalopram Hydrobromide 10 mg 09/27/22 10:00 09/27/22 10:28 Citalopram Hydrobromide 10 Mg Tab PO 10 mg DAILY BREANA Administration Clopidogrel Bisulfate 75 mg 09/27/22 10:00 09/27/22 10:28 Clopidogrel 75 Mg Tab PO 75 mg DAILY BREANA Administration Divalproex Sodium 250 mg 09/27/22 21:00 Divalproex Er 250 Mg Tab.Er.24h PO HS BREANA Heparin Sodium (Porcine) 5,000 unit 09/27/22 09:00 09/27/22 09:16 Heparin Sodium,Porcine/Pf 5,000 Unit/0.5 Ml Syringe SQ 5,000 unit Q12HR BREANA Administration Isosorbide Mononitrate 30 mg 09/27/22 09:00 09/27/22 09:16 Isosorbide Mononitrate Er 30 Mg Tab.Er.24h PO 30 mg DAILY BREANA Administration Levothyroxine Sodium 125 mcg 09/27/22 10:00 09/27/22 10:29 Levothyroxine 125 Mcg Tab PO 125 mcg 0630 BREANA Administration Lisinopril 40 mg 09/27/22 10:00 09/27/22 10:28 Lisinopril 20 Mg Tab PO 40 mg BID BREANA Administration Melatonin 5 mg 09/27/22 21:00 Melatonin 5 Mg Tablet PO HS BREANA Metoprolol Tartrate 12.5 mg 09/27/22 10:00 09/27/22 10:28 Metoprolol Tartrate 12.5 Mg Tab PO 12.5 mg BID BREANA Administration Naloxone HCl 0.2 mg 09/27/22 04:18 Naloxone 0.4 Mg/Ml 1 Ml Vial IV Q2M PRN Opioid Reversal Non-Formulary Medication 1 tab 09/27/22 10:00 09/27/22 10:32 Mrnqld-Z-Dvescvkrk 500mg PO Not Given DAILY BREANA Trazodone HCl 25 mg 09/27/22 21:00 Trazodone Hcl 50 Mg Tab PO HS BREANA Intake and Output 09/26/22 09/27/22 09/27/22 22:59 06:59 14:59 Other: Voiding Method Toilet # Voids 1 # Bowel Movements 1 Weight 61.235 kg 09/27/22 03:00 09/27/22 03:00
--- NOTE | 2022-09-27 11:26 | HP ---
HISTORY AND PHYSICAL CHIEF COMPLAINT: Chest pain. HISTORY OF PRESENT ILLNESS: This is an 81-year-old gentleman with a past medical history of CAD, history of dementia, diabetes mellitus type 2, and multiple other medical problems chest pain which was felt in the anterior part of chest. The patient also complains of back pain. The troponins are negative. EKG shows no acute abnormality. Cardiology saw the patient and Dr. Miller recommended a 2D echo. There is no history of any fever, rigors, or chills. PAST MEDICAL HISTORY: Reviewed include CAD and diabetes mellitus. The rest of the history and rest of the chart are also reviewed. HOME MEDICATIONS: Reviewed, melatonin, dose and rest of medications reviewed. ALLERGIES: None. FAMILY HISTORY: History of CABG. SOCIAL HISTORY: Previous history of smoking. REVIEW OF SYSTEMS: A 14-point review of systems is negative except as mentioned earlier. PHYSICAL EXAMINATION: VITAL SIGNS: Pulse is 62, blood pressure 150/71, respirations 16. HEENT: Conjunctivae normal. NECK: No JVD. CARDIOVASCULAR: S1, S2. RESPIRATORY: Clear to auscultation. ABDOMEN: Soft, nontender. LEGS: No edema. NERVOUS SYSTEM: No focal deficits. SKIN: No ulcer, rash, bleeding. JOINTS: No active deforming arthropathy. LABORATORY DATA: Labs are reviewed. ASSESSMENT: 1. Chest pain, rule out unstable angina, rule out coronary artery disease. 2. History of coronary artery disease. 3. Diabetes mellitus, type 2. 4. Hypertension. 5. Hyperlipidemia. 6. Multiple medical issues. RECOMMENDATIONS: This is an 81-year-old gentleman, who presented with multiple complex medical issues, we will monitor the patient closely. I will recommend to follow the unstable angina protocol. Follow closely Cardiology. 2D echo with Doppler. Troponins are negative so far. As mentioned, symptomatic treatment of pain, also recommended D-dimer. So, recommend CT scan of the chest with contrast to rule out abnormalities. Prognosis guarded. Discuss with family. Further recommendations to follow. MMODL / IJN: [id number] / MTDD
[2022-09-27] MEDS: ACETAMINOPHEN TAB 325 MG TAB PO PRN ×2 (16:31→23:22)
[2022-09-27] MEDS: MELATONIN 5 MG TABLET PO SCH (20:13)
[2022-09-27] MEDS: traZODone HCL 50 MG TAB PO SCH (20:13)
[2022-09-27] MEDS: DIVALPROEX ER 250 MG TAB.ER.24H PO SCH (20:14)
[2022-09-28] MEDS: LEVOTHYROXINE 125 MCG TAB PO SCH (06:46)
[2022-09-28] MEDS: ACETAMINOPHEN TAB 325 MG TAB PO PRN ×3 (06:53→20:14)
[2022-09-28 06:55] LABS: Basophils % (A) 0 %; Eosinophils # (A) 0.2 k/uL (0-0.7); Eosinophils % (A) 3 %; HCT 40.8 % (39.0-53.0); HGB 13.5 gm/dL (13.0-17.5); Lymphocytes # (A) 1.1 k/uL (1.0-4.8); Lymphocytes % (A) 16 %; MCH 31.3 pg (25.0-35.0); MCHC 33.2 g/dL (31.0-37.0); MCV 94.3 fL (80.0-100.0); Mean Platelet Volume 9.4; Monocytes # (A) 0.6 k/uL (0-1.0); Monocytes % (A) 9 %; Neutrophils # (A) 4.7 k/uL (1.3-7.7); Neutrophils % (A) 70 %; Platelet Count 145 k/uL (150-450); RBC 4.32 m/uL (4.30-5.90); WBC 6.7 k/uL (3.8-10.6)
[2022-09-28 07:04] LABS: African American GFR (CKD) 77 (>60 ml/min/1.73 sqM); Anion Gap 10 mmol/L; Blood Urea Nitrogen 30 mg/dL (9-20); Calcium 8.6 mg/dL (8.4-10.2); Carbon Dioxide 23 mmol/L (22-30); Chloride 105 mmol/L (98-107); Glucose 146 mg/dL (74-99); Non-African American GFR(CKD) 66 (>60 ml/min/1.73 sqM); Potassium 4.4 mmol/L (3.5-5.1); Sodium 138 mmol/L (137-145)
[2022-09-28 08:29] VITALS: RESP 16
[2022-09-28] MEDS: ATORVASTATIN 40 MG TAB PO SCH (08:55)
[2022-09-28] MEDS: lisinopriL 20 MG TAB PO SCH ×2 (08:55→20:16)
[2022-09-28] MEDS: HEPARIN SODIUM,PORCINE/PF 5,000 UNIT/0.5 ML SYRINGE SQ SCH ×2 (08:55→20:16)
[2022-09-28] MEDS: CITALOPRAM HYDROBROMIDE 10 MG TAB PO SCH (08:55)
[2022-09-28] MEDS: CLOPIDOGREL 75 MG TAB PO SCH (08:56)
[2022-09-28] MEDS: ASPIRIN 81 MG PO SCH (08:56)
[2022-09-28] MEDS: METOPROLOL TARTRATE 12.5 MG TAB PO SCH ×2 (08:56→20:17)
[2022-09-28] MEDS: ACETYL CARNITINE PO SCH (09:02)
[2022-09-28] MEDS: ISOSORBIDE MONONITRATE ER 60 MG TAB.ER.24H PO SCH (09:17)
[2022-09-28] MEDS: amLODIPine 10 MG TAB PO SCH (09:17)
--- NOTE | 2022-09-28 11:40 | P.PN ---
Subjective HISTORY OF PRESENT ILLNESS: This is a 81-year-old male with a past medical history significant for coronary artery disease with previous stenting and 4 vessel CABG in 2004, hypertension, hyperlipidemia, peripheral vascular disease, diabetes, dementia, and former nicotine dependence. Patient follows in the office with Dr. Restrepo. We have been asked to see the patient in consultation for chest pain. Patient examined at the bedside. She has a history of dementia and HPI is limited from the patient. His is at the bedside and providing additional history. The patient states he started having chest pain yesterday in the middle of his chest. He denied any radiation of the pain. He came to the hospital for further evaluation. The patient was found to be hypertensive. The states that the patient's blood pressures have been running around 150 at home. She states that when they were in [place] he was recently started on Norvasc for better blood pressure control. Patient's blood pressures have been running between 666631 systolic during the hospital. * EKG reveals sinus mechanism with T-wave inversions in inferior leads, similar to previous EKG * Chest xray cardiomegaly with suggestion of mild central vascular congestion * Laboratory data: WBC 6.0. Hemoglobin 12.8. Platelet count 133. Sodium 136. Potassium 4.1. BUN 32. Creatinine 1.03. Magnesium 2.1. Troponin negative 3. ProBNP 1190. * Current home cardiac medications include aspirin 81 mg daily, Lipitor 40 mg daily, Plavix 75 mg daily, Norvasc 5 mg daily, metoprolol tartrate 12.5 mg twice a day, and enalapril 20 mg twice a day * Most recent echocardiogram obtained in September 2021 revealed ejection fraction 50-55% 09/28/2022 Patient examined this morning at the bedside. Patient reports having 2 episodes of chest discomfort overnight. His is at the bedside. Upon further questioning, the patient states he is having chest pain but when he describes the pain in the location he points to his epigastric region and his upper abdomen. His is at the bedside and states yesterday he was tender with palpation of his abdomen. She also reports that he appears more distended than normal. She reports that he had a very small bowel movement this morning. PHYSICAL EXAM: VITAL SIGNS: Reviewed. GENERAL: Well-developed in no acute distress. HEENT: Head is normocephalic. Pupils are equal, round. Sclerae anicteric. Mucous membranes of the mouth are moist. Neck supple. No JVD or thyromegaly LUNGS: Respirations even and unlabored. Lungs essentially clear to auscultation bilaterally. HEART: Regular rate and rhythm. S1 and S2 heard. ABDOMEN: Soft. Nondistended. Nontender. EXTREMITIES: Normal range of motion. No clubbing or cyanosis. Peripheral pulses intact. No lower extremity edema NEUROLOGIC: Awake and alert. Oriented x 3. ASSESSMENT: Hypertensive urgency, improving Chest pain, may be secondary to uncontrolled blood pressures Coronary artery disease with previous stenting and 4 vessel CABG in 2004 Peripheral vascular disease Hyperlipidemia Diabetes Dementia Former nicotine dependence PLAN: Continue current cardiac medications Increase Imdur to 60 mg daily. Patient reporting chest pain however when he describes his pain he is pointing to his epigastric region and abdomen. reporting more abdominal distention than normal. Recommend workup of abdominal pain. Will defer to primary medicine Further recommendations pending patient's course Nurse practitioner note has been reviewed by physician. Signing provider agrees with the documented findings, assessment, and plan of care. Objective - Vital Signs Vital signs: Vital Signs Temp 98.4 F 09/28/22 07:55 Pulse 62 09/28/22 08:00 Resp 16 09/28/22 08:00 BP 160/77 09/28/22 07:55 Pulse Ox 95 09/28/22 09:05 FiO2 Intake & Output 09/27/22 09/28/22 09/28/22 18:59 06:59 18:59 Other: Voiding Method Toilet Toilet Toilet Diaper Diaper Diaper # Voids 3 1 2 # Bowel Movements 1 1 - Labs CBC & Chem 7: 09/28/22 06:35 09/28/22 06:35 Labs: Abnormal Lab Results - Last 24 Hours (Table) 09/28/22 09/28/22 Range/Units 06:35 06:35 Plt Count 145 L (150-450) k/uL BUN 30 H (9-20) mg/dL Glucose 146 H (74-99) mg/dL
--- NOTE | 2022-09-28 12:33 | CA ---
Transthoracic Echo Report Name: Arslan Valladares Age: 81 Gender: M : 1940 Exam Date: 09/27/2022 08:48 Exam Location: [facility] Ht (in): 65 Wt (lb): 140 Ordering Physician: Mariah Tobar Attending/Referring Phys: Gregory Gilmore PAC Resistance Brazer Kristin Helm RDCS Procedure CPT: Indications: LV function Cardiac Hx: Technical Quality: Fair Contrast 1: Total Dose (mL): Contrast 2: Total Dose (mL): MEASUREMENTS (Male / Female) Normal Values 2D ECHO LV Diastolic Diameter PLAX 4.9 cm 4.2 - 5.9 / 3.9 - 5.3 cm LV Systolic Diameter PLAX 3.3 cm IVS Diastolic Thickness 1.1 cm 0.6 - 1.0 / 0.6 - 0.9 cm LVPW Diastolic Thickness 1.2 cm 0.6 - 1.0 / 0.6 - 0.9 cm LV Relative Wall Thickness 0.5 RV Internal Dim ED PLAX 3.1 cm LA Volume 73.2 cm??? 18 - 58 / 22 - 52 cm??? M-MODE Aortic Root Diameter MM 2.7 cm LA Systolic Diameter MM 4.7 cm LA Ao Ratio MM 1.8 AV Cusp Separation MM 1.4 cm DOPPLER AV Peak Velocity 197.0 cm/s AV Peak Gradient 15.5 mmHg AV Mean Velocity 148.1 cm/s AV Mean Gradient 9.4 mmHg AV Velocity Time Integral 51.3 cm LVOT Peak Velocity 106.4 cm/s LVOT Peak Gradient 4.5 mmHg MV Area PHT 2.6 cm??? Mitral E Point Velocity 102.7 cm/s Mitral A Point Velocity 170.8 cm/s Mitral E to A Ratio 0.6 MV Deceleration Time 291.0 ms MV E' Velocity 3.2 cm/s Mitral E to MV E' Ratio 32.1 FINDINGS Left Ventricle Mildly increased left ventricular wall thickness. Reduced global left ventricular systolic function. Left ventricular ejection fraction is estimated at 40-45 %. Right Ventricle Normal right ventricular size and function. Right ventricular systolic pressure within normal limits. Right Atrium Normal right atrial size. Left Atrium Moderately increased left atrial volume. Mildly increased left atrial area. Probable patent foramen ovale. Mitral Valve Structurally normal mitral valve. Mitral valve thickened. Mild mitral annular calcification. [id number] mitral regurgitation. Aortic Valve Trileaflet aortic valve. No aortic stenosis. Thickened aortic valve without stenosis. Trace aortic regurgitation. Tricuspid Valve Structurally normal tricuspid valve. Mild tricuspid regurgitation. Pulmonic Valve Trace pulmonic regurgitation. Pericardium No pericardial effusion. Aorta Normal size aortic root and proximal ascending aorta. CONCLUSIONS Impaired LV function. The EF 40-45% Aortic sclerosis with no stenosis or regurgitation Moderate mitral regurgitation Previewed by: Dr. Dennis Miller MD (Electronically Signed) Final Date: 28 September 2022 12:32
[2022-09-28 12:41] LABS: Albumin 3.9 g/dL (3.5-5.0); Albumin/Globulin Ratio 1.3; Bilirubin,Unconjugated 0.5 mg/dL (0.0-1.1); Total Bilirubin 0.7 mg/dL (0.2-1.3); Total Protein 6.9 g/dL (6.3-8.2)
--- NOTE | 2022-09-28 13:37 | CT ---
EXAMINATION TYPE: CT abdomen pelvis w con DATE OF EXAM: 09/28/2022 COMPARISON: None HISTORY: abdominal pain CT DLP: 654.8 mGycm Automated exposure control for dose reduction was used. TECHNIQUE: Helical acquisition of images was performed from the lung bases through the pelvis. CONTRAST: Performed without Oral Contrast and with IV Contrast, patient injected with 100 mL of Isovue 300. FINDINGS: The lung bases are clear. The gallbladder is normal without distention, wall thickening, pericholecystic fluid or gallstones. T here is no biliary ductal dilatation. There is no focal mass or organomegaly involving the solid visceral organs of the upper abdomen. There is a moderate hiatal hernia. Kidneys enhance symmetrically and there is no solid renal mass or hydronephrosis. There are a few sca ttered small simple cortical cysts. Caliber the abdominal aorta is normal and there is no retroperitoneal adenopathy or hemorrhage. The bowel loops are normal in caliber and there is no dilatation or obstruction. No inflammatory oden ges are identified in the bowel wall or mesentery. There is moderate diverticulosis of the descending and sigmoid colon but there is no CT evidence of diverticulitis. There is no pelvic mass, free fluid, abscess or adenopathy. There is mild prostatic hypertrophy. There are no focal lytic or blastic osseous abnormalities IMPRESSION: 1. Moderate hiatal hernia. 2. No acute changes within the abdomen or pelvis. 3. Moderate diverticulosis of the colon without CT evidence of diverticulitis.
--- NOTE | 2022-09-28 18:36 | P.PN ---
Subjective Progress Note Date: 09/28/22 81-year-old male with a past medical history significant for coronary artery disease with previous stenting and 4 vessel CABG in 2004, hypertension, hyperlipidemia, peripheral vascular disease, diabetes, dementia, and former nicotine dependence. Patient follows in the office with Dr. Restrepo. We have been asked to see the patient in consultation for chest pain. Patient examined at the bedside. She has a history of dementia and HPI is limited from the patient. His is at the bedside and providing additional history. The patient states he started having chest pain yesterday in the middle of his chest. He denied any radiation of the pain. He came to the hospital for further evaluation. The patient was found to be hypertensive. The states that the patient's blood pressures have been running around 150 at home. She states that when they were in [place] he was recently started on Norvasc for better blood pressure control. Patient's blood pressures have been running between [id number] systolic during the hospital. EKG reveals sinus mechanism with T-wave inversions in inferior leads, similar to previous EKG Chest xray cardiomegaly with suggestion of mild central vascular congestion Laboratory data: WBC 6.0. Hemoglobin 12.8. Platelet count 133. Sodium 136. Potassium 4.1. BUN 32. Creatinine 1.03. Magnesium 2.1. Troponin negative 3. ProBNP 1190. Objective - Vital Signs Vital signs: Vital Signs Temp 98.4 F 09/28/22 07:55 Pulse 62 09/28/22 08:00 Resp 16 09/28/22 08:00 BP 160/77 09/28/22 07:55 Pulse Ox 95 09/28/22 09:05 FiO2 Intake & Output 09/27/22 09/28/22 09/28/22 18:59 06:59 18:59 Intake Total 360 Balance 360 Intake: Oral 360 Other: Voiding Method Toilet Toilet Toilet Diaper Diaper Diaper # Voids 3 1 2 # Bowel Movements 1 1 - Exam GENERAL: Well-developed in no acute distress. HEENT: Head is normocephalic. Pupils are equal, round. Sclerae anicteric. Mucous membranes of the mouth are moist. Neck supple. No JVD or thyromegaly LUNGS: Respirations even and unlabored. Lungs essentially clear to auscultation bilaterally. HEART: Regular rate and rhythm. S1 and S2 heard. ABDOMEN: Soft. Nondistended. Nontender. EXTREMITIES: Normal range of motion. No clubbing or cyanosis. Peripheral pulses intact. No lower extremity edema NEUROLOGIC: Awake and alert. Oriented x 3. - Labs CBC & Chem 7: 09/28/22 06:35 09/28/22 06:35 Labs: Abnormal Lab Results - Last 24 Hours (Table) 09/28/22 09/28/22 09/28/22 Range/Units 06:35 06:35 06:35 Plt Count 145 L (150-450) k/uL BUN 30 H (9-20) mg/dL Glucose 146 H (74-99) mg/dL Alkaline Phosphatase 172 H (38-126) U/L Assessment and Plan Assessment: Hypertensive urgency, improving Chest pain, may be secondary to uncontrolled blood pressures Epigastric/abdominal pain and distention Coronary artery disease with previous stenting and 4 vessel CABG in 2004 Peripheral vascular disease Hyperlipidemia Diabetes Dementia Former nicotine dependence Resume home cardiac medications Add Imdur 30 mg daily Continue to monitor blood pressure Obtain 2-D echo to assess cardiac structure and function - Stat amylase and lipase is within normal limit; liver enzymes are unremarkable - CT of the abdomen completed does not reveal any bowel obstruction or intra- abdominal pathology - Patient has been placed on Protonix 40 mg IV every 12 hours
[2022-09-28] MEDS: PANTOPRAZOLE 40 MG/10 ML VIAL IVP SCH ×2 (18:56→20:15)
[2022-09-28] MEDS: traZODone HCL 50 MG TAB PO SCH (20:15)
[2022-09-28] MEDS: DIVALPROEX ER 250 MG TAB.ER.24H PO SCH (20:16)
[2022-09-28] MEDS: MELATONIN 5 MG TABLET PO SCH (20:16)
[2022-09-29] MEDS: LEVOTHYROXINE 125 MCG TAB PO SCH (06:09)
[2022-09-29] MEDS: ACETAMINOPHEN TAB 325 MG TAB PO PRN (06:09)
[2022-09-29 06:34] LABS: Basophils % (A) 0 %; Eosinophils # (A) 0.1 k/uL (0-0.7); Eosinophils % (A) 2 %; HCT 39.5 % (39.0-53.0); HGB 12.9 gm/dL (13.0-17.5); Lymphocytes % (A) 14 %; MCH 31.2 pg (25.0-35.0); MCHC 32.6 g/dL (31.0-37.0); MCV 95.7 fL (80.0-100.0); Mean Platelet Volume 9.2; Monocytes # (A) 0.7 k/uL (0-1.0); Monocytes % (A) 10 %; Neutrophils # (A) 4.7 k/uL (1.3-7.7); Neutrophils % (A) 70 %; Platelet Count 134 k/uL (150-450); RBC 4.13 m/uL (4.30-5.90); WBC 6.6 k/uL (3.8-10.6)
[2022-09-29 07:07] LABS: African American GFR (CKD) 72 (>60 ml/min/1.73 sqM); Anion Gap 11 mmol/L; Blood Urea Nitrogen 28 mg/dL (9-20); Calcium 8.3 mg/dL (8.4-10.2); Carbon Dioxide 22 mmol/L (22-30); Chloride 105 mmol/L (98-107); Glucose 139 mg/dL (74-99); Non-African American GFR(CKD) 62 (>60 ml/min/1.73 sqM); Potassium 4.1 mmol/L (3.5-5.1); Sodium 138 mmol/L (137-145)
[2022-09-29] MEDS: ISOSORBIDE MONONITRATE ER 60 MG TAB.ER.24H PO SCH (09:13)
[2022-09-29] MEDS: PANTOPRAZOLE 40 MG/10 ML VIAL IVP SCH (09:13)
[2022-09-29] MEDS: ASPIRIN 81 MG PO SCH (09:13)
[2022-09-29] MEDS: CITALOPRAM HYDROBROMIDE 10 MG TAB PO SCH (09:13)
[2022-09-29] MEDS: ATORVASTATIN 40 MG TAB PO SCH (09:13)
[2022-09-29] MEDS: amLODIPine 10 MG TAB PO SCH (09:13)
[2022-09-29] MEDS: CLOPIDOGREL 75 MG TAB PO SCH (09:13)
[2022-09-29] MEDS: HEPARIN SODIUM,PORCINE/PF 5,000 UNIT/0.5 ML SYRINGE SQ SCH (09:14)
[2022-09-29] MEDS: ACETYL CARNITINE PO SCH (09:21)
[2022-09-29] MEDS: METOPROLOL TARTRATE 12.5 MG TAB PO SCH (09:47)
[2022-09-29] MEDS: lisinopriL 20 MG TAB PO SCH (09:47)
--- NOTE | 2022-09-29 10:45 | P.PN ---
Subjective HISTORY OF PRESENT ILLNESS: This is a 81-year-old male with a past medical history significant for coronary artery disease with previous stenting and 4 vessel CABG in 2004, hypertension, hyperlipidemia, peripheral vascular disease, diabetes, dementia, and former nicotine dependence. Patient follows in the office with Dr. Restrepo. We have been asked to see the patient in consultation for chest pain. Patient examined at the bedside. She has a history of dementia and HPI is limited from the patient. His is at the bedside and providing additional history. The patient states he started having chest pain yesterday in the middle of his chest. He denied any radiation of the pain. He came to the hospital for further evaluation. The patient was found to be hypertensive. The states that the patient's blood pressures have been running around 150 at home. She states that when they were in [place] he was recently started on Norvasc for better blood pressure control. Patient's blood pressures have been running between [id number] systolic during the hospital. * EKG reveals sinus mechanism with T-wave inversions in inferior leads, similar to previous EKG * Chest xray cardiomegaly with suggestion of mild central vascular congestion * Laboratory data: WBC 6.0. Hemoglobin 12.8. Platelet count 133. Sodium 136. Potassium 4.1. BUN 32. Creatinine 1.03. Magnesium 2.1. Troponin negative 3. ProBNP 1190. * Current home cardiac medications include aspirin 81 mg daily, Lipitor 40 mg daily, Plavix 75 mg daily, Norvasc 5 mg daily, metoprolol tartrate 12.5 mg twice a day, and enalapril 20 mg twice a day * Most recent echocardiogram obtained in September 2021 revealed ejection fraction 50-55% 09/28/2022 Patient examined this morning at the bedside. Patient reports having 2 episodes of chest discomfort overnight. His is at the bedside. Upon further questioning, the patient states he is having chest pain but when he describes the pain in the location he points to his epigastric region and his upper abdomen. His is at the bedside and states yesterday he was tender with palpation of his abdomen. She also reports that he appears more distended than normal. She reports that he had a very small bowel movement this morning. 09/29 Patient seen and examined. Patient denies any further pain. It is more epigastric pain and CAT scan had shown moderate hiatal hernia however no other significant acute process. Blood pressures fairly well-controlled on current regimen. PHYSICAL EXAM: VITAL SIGNS: Reviewed. GENERAL: Well-developed in no acute distress. HEENT: Head is normocephalic. Pupils are equal, round. Sclerae anicteric. Mucous membranes of the mouth are moist. Neck supple. No JVD or thyromegaly LUNGS: Respirations even and unlabored. Lungs essentially clear to auscultation bilaterally. HEART: Regular rate and rhythm. S1 and S2 heard. ABDOMEN: Soft. Nondistended. Nontender. EXTREMITIES: Normal range of motion. No clubbing or cyanosis. Peripheral pulses intact. No lower extremity edema NEUROLOGIC: Awake and alert. Oriented x 3. ASSESSMENT: Hypertensive urgency, improving Chest pain, may be secondary to uncontrolled blood pressures Coronary artery disease with previous stenting and 4 vessel CABG in 2004 Peripheral vascular disease Hyperlipidemia Diabetes Dementia Former nicotine dependence PLAN: Imdur was increased and continue with the remainder of current medications. His presentation does not appear consistent with a cardiac etiology and likely more GI related. Stable for discharge from a cardiology standpoint. Follow-up outpatient in 1-2 weeks. Objective - Vital Signs Vital signs: Vital Signs Temp 98.0 F 09/29/22 07:45 Pulse 68 09/29/22 07:45 Resp 16 09/29/22 07:45 BP 149/81 09/29/22 07:45 Pulse Ox 92 L 09/29/22 07:45 FiO2 Intake & Output 09/28/22 09/29/22 09/29/22 18:59 06:59 18:59 Intake Total 478 360 Balance 478 360 Intake: Oral 478 360 Other: Voiding Method Toilet Toilet Diaper Diaper # Voids 2 1 # Bowel Movements 2 - Labs CBC & Chem 7: 09/29/22 05:35 09/29/22 05:35 Labs: Abnormal Lab Results - Last 24 Hours (Table) 09/28/22 09/29/22 09/29/22 Range/Units 06:35 05:35 05:35 RBC 4.13 L (4.30-5.90) m/uL Hgb 12.9 L (13.0-17.5) gm/dL Plt Count 134 L (150-450) k/uL BUN 28 H (9-20) mg/dL Glucose 139 H (74-99) mg/dL Calcium 8.3 L (8.4-10.2) mg/dL Alkaline Phosphatase 172 H (38-126) U/L
[2022-09-29 15:14] VITALS: BP 107/52; PULSE 61; TEMP 98.2
== END 2022-09-29 19:41 | disposition home or self-care (01) ==
LOC: EC 02:34 → 6NMEDSUR 04:19
PROVIDERS: ADMIT Hospitalist; ATTEND Hospitalist
DX: I16.0 Hypertensive urgency (principal); R10.13 Epigastric pain; R14.0 Abdominal distension (gaseous); I25.10 Atherosclerotic heart disease of native coronary artery without angina pectoris; F03.90 Unspecified dementia, unspecified severity, without behavioral disturbance, psychotic disturbance, mood disturbance, and anxiety; E11.51 Type 2 diabetes mellitus with diabetic peripheral angiopathy without gangrene; K21.9 Gastro-esophageal reflux disease without esophagitis; E78.5 Hyperlipidemia, unspecified; I10 Essential (primary) hypertension; G47.30 Sleep apnea, unspecified; F32.A Depression, unspecified; F41.9 Anxiety disorder, unspecified; I25.2 Old myocardial infarction; Z85.46 Personal history of malignant neoplasm of prostate; Z92.3 Personal history of irradiation; Z86.73 Personal history of transient ischemic attack (TIA), and cerebral infarction without residual deficits; Z87.891 Personal history of nicotine dependence; Z95.5 Presence of coronary angioplasty implant and graft; Z79.82 Long term (current) use of aspirin; Z79.02 Long term (current) use of antithrombotics/antiplatelets; Z79.890 Hormone replacement therapy; Z79.899 Other long term (current) drug therapy
CPT/HCPCS: 96372 ×3; 96374; 96376; 99285; 36415; 94760; 93005; 93306; 85379; 83880; 80053; 80048 ×2; 80076; 82150; 83690; 83735; 84484; 85025 ×3; 85610; 85730; 71046; 74177; G0378 ×4; C9113 ×2; Q9967; J1644 ×3

== ENCOUNTER 2022-10-11 18:22 | Observation (INO) | payer OTHER, MEDICARE ==
--- NOTE | 2022-10-11 20:30 | ED ---
Abdominal Pain HPI - General Chief Complaint: Abdominal Pain Stated Complaint: Back Pain Time Seen by Provider: 10/11/22 20:05 Source: patient, family Mode of arrival: wheelchair Limitations: physical limitation - History of Present Illness Initial Comments: This patient is an 81-year-old man with some underlying dementia who presents in the company of his , to have evaluation for abdominal pain. The patient's believes it is greatest in the left upper quadrant. She notes that it has been intermittently present for about a month. She states it will come on and lasts for hours. She states that it brings him to tears. This episode is been going on since 5 PM. There has not been any associated vomiting. No change in bowel movements or urination noted. No component of chest pain noted. No dyspnea or diaphoresis. MD Complaint: abdominal pain Onset/Timin -: month(s) Location: diffuse, LUQ Radiation: back Migration to: no migration Severity: severe Consistency: constant Improves With: nothing Worsens With: nothing - Related Data Home Medications Medication Instructions Recorded Confirmed Aspirin [Adult Low Dose Aspirin EC] 81 mg PO DAILY 02/05/18 10/11/22 Enalapril [Vasotec] 20 mg PO BID 02/05/18 10/11/22 Levothyroxine Sodium [Synthroid] 125 mcg PO DAILY 10/17/21 10/11/22 Znjykp-A-Ohebzvhkb 500mg 1 tab PO DAILY 09/27/22 10/11/22 Atorvastatin [Lipitor] 40 mg PO DAILY 09/27/22 10/11/22 Citalopram Hydrobromide [CeleXA] 10 mg PO DAILY 09/27/22 10/11/22 Clopidogrel [Plavix] 75 mg PO DAILY 09/27/22 10/11/22 Divalproex ER [Depakote ER] 250 mg PO HS 09/27/22 10/11/22 Melatonin 5 mg PO HS 09/27/22 10/11/22 Metoprolol Tartrate [Lopressor] 12.5 mg PO BID 09/27/22 10/11/22 traZODone HCL [Desyrel] 25 mg PO HS 09/27/22 10/11/22 Previous Rx's Medication Instructions Recorded Acetaminophen Tab [Tylenol] 650 mg PO Q6HR PRN tab 09/29/22 Isosorbide Mononitrate ER [Imdur] 60 mg PO DAILY #30 tab 09/29/22 Pantoprazole Sodium [Protonix] 40 mg PO DAILY #30 tab 09/29/22 amLODIPine [Norvasc] 10 mg PO DAILY #30 tab 09/29/22 Allergies Allergy/AdvReac Type Severity Reaction Status Date / Time No Known Allergies Allergy Verified 10/11/22 22:26 Review of Systems ROS Statement: Those systems with pertinent positive or pertinent negative responses have been documented in the HPI. ROS Other: All systems not noted in ROS Statement are negative. Constitutional: Denies: fever, chills Respiratory: Denies: cough, dyspnea Cardiovascular: Denies: chest pain, palpitations Gastrointestinal: Reports: abdominal pain. Denies: vomiting, diarrhea, constipation Genitourinary: Denies: dysuria, hematuria, testicular pain, testicular mass Musculoskeletal: Denies: back pain Skin: Denies: rash Neurological: Denies: headache, weakness Past Medical History Past Medical History: Coronary Artery Disease (CAD), Cancer, CVA/TIA, Dementia, Diabetes Mellitus, GERD/Reflux, Hearing Disorder / Deafness, Hyperlipidemia, Hypertension, Myocardial Infarction ([place]), Osteoarthritis (OA), Sleep Apnea/CPAP/BIPAP, Thyroid Disorder Additional Past Medical History / Comment(s): CVA SEPTEMBER 2021 WITH RIGHT ARM AND LEG WEAKNESS, HX OF FALLS., SPEECH IMPROVED., completed PHYSICAL THERAPY AT HOME ., PROSTATE CANCER WITH RADIATION [place] (2016)., OCCASIONAL BLOOD IN STOOL- STATES THEY THINK IT IS HEMORRHOIDS diverticulosis per colonoscopy., STATES DIARRHEA SINCE HE WAS IN REHAB-TAKING PEPTO-BISMOL PER DRS INSTRUCTIONS now off and taking immodium as needed. incontinence of stool and urin at times..,hx ITCHY RASH ON BACK ., HX GRAVES DISEASE., SLEEP APNEA-USES C-PAP MACHINE., DOUBLE VISION-WEARS GLASSES WITH PRISMS, [place] HEARING AIDS. diet control for NIDDM at this time. Last Myocardial Infarction Date:: 1999 History of Any Multi-Drug Resistant Organisms: None Reported Past Surgical History: Adenoidectomy, Coronary Bypass/CABG, Heart Catheterization With Stent, Tonsillectomy Additional Past Surgical History / Comment(s): CABG (DR PAGAN), SEVERAL EYE SURGERIES. Past Anesthesia/Blood Transfusion Reactions: No Reported Reaction Additional Past Anesthesia/Blood Transfusion Reaction / Comment(s): no blood transfusions Date of Last Stent Placement:: 1999 Past Psychological History: Anxiety, Depression Smoking Status: Former smoker Past Alcohol Use History: None Reported Past Drug Use History: None Reported - Past Family History Mother Family Medical History: No Reported History Father Family Medical History: Coronary Artery Disease (CAD), Hypertension Additional Family Medical History / Comment(s): open heart Brother(s) Family Medical History: Cancer Additional Family Medical History / Comment(s): PROSTATE CANCER Sister(s) Family Medical History: No Reported History Additional Family Medical History / Comment(s): open heart surgery General Exam Limitations: physical limitation General appearance: alert, in distress Head exam: Present: atraumatic, normocephalic Eye exam: Present: normal appearance. Absent: scleral icterus, conjunctival injection Neck exam: Present: normal inspection Respiratory exam: Present: normal lung sounds bilaterally. Absent: respiratory distress, wheezes, rales, rhonchi, stridor Cardiovascular Exam: Present: regular rate, normal rhythm, normal heart sounds. Absent: systolic murmur, diastolic murmur, rubs, gallop GI/Abdominal exam: Present: soft, tenderness. Absent: distended, guarding, rebound, rigid, mass, pulsatile mass Extremities exam: Present: normal inspection, normal capillary refill. Absent: pedal edema, calf tenderness Back exam: Present: normal inspection. Absent: CVA tenderness (R), CVA tenderness (L) Neurological exam: Present: alert Skin exam: Present: warm, dry, intact, normal color. Absent: rash Course Vital Signs 10/11/22 10/11/22 10/11/22 19:11 20:15 21:14 Temperature 98.6 F 97.9 F Pulse Rate 69 64 68 Pulse Rate [ Pulse Oximetery ] Respiratory 26 H 18 18 Rate Blood Pressure 163/80 110/91 123/69 Blood Pressure [Right Arm] O2 Sat by Pulse 99 99 98 Oximetry 10/11/22 10/11/22 10/12/22 22:05 22:59 00:07 Temperature Pulse Rate 62 68 68 Pulse Rate [ Pulse Oximetery ] Respiratory 18 22 18 Rate Blood Pressure 156/77 128/60 118/71 Blood Pressure [Right Arm] O2 Sat by Pulse 96 98 96 Oximetry 10/12/22 10/12/22 10/12/22 00:46 01:33 02:00 Temperature 97.8 F Pulse Rate 68 67 Pulse Rate [ 74 Pulse Oximetery ] Respiratory 18 19 Rate Blood Pressure 137/73 Blood Pressure 168/85 [Right Arm] O2 Sat by Pulse 96 95 95 Oximetry Medical Decision Making - Medical Decision Making Patient is an 81-year-old man here for intractable abdominal pain that does seem to be episodic in nature. He does have tenderness greatest in the left upper quadrant but also to some extent throughout the entire abdomen. Workup not revealing etiology. Patient pending urine. Given the degree of pain that he has been having, and duration of symptoms I will admit patient here to have surgical consultation - Lab Data Result diagrams: 10/11/22 20:37 10/11/22 20:37 Lab Results 10/11/22 10/11/22 10/11/22 Range/Units 20:37 20:37 20:37 WBC 5.7 (3.8-10.6) k/uL RBC 4.02 L (4.30-5.90) m/uL Hgb 12.8 L (13.0-17.5) gm/dL Hct 38.0 L (39.0-53.0) % MCV 94.6 (80.0-100.0) fL MCH 31.8 (25.0-35.0) pg MCHC 33.6 (31.0-37.0) g/dL RDW 14.3 (11.5-15.5) % Plt Count 164 (150-450) k/uL MPV 9.0 Neutrophils % 64 % Lymphocytes % 16 % Monocytes % 13 % Eosinophils % 2 % Basophils % 1 % Neutrophils # 3.7 (1.3-7.7) k/uL Lymphocytes # 0.9 L (1.0-4.8) k/uL Monocytes # 0.7 (0-1.0) k/uL Eosinophils # 0.1 (0-0.7) k/uL Basophils # 0.1 (0-0.2) k/uL Sodium 136 L (137-145) mmol/L Potassium 4.0 (3.5-5.1) mmol/L Chloride 103 (98-107) mmol/L Carbon Dioxide 23 (22-30) mmol/L Anion Gap 10 mmol/L BUN 27 H (9-20) mg/dL Creatinine 1.06 (0.66-1.25) mg/dL Est GFR (CKD-EPI)AfAm 77 (>60 ml/min/1.73 sqM) Est GFR (CKD-EPI)NonAf 66 (>60 ml/min/1.73 sqM) Glucose 187 H (74-99) mg/dL Plasma Lactic Acid Santos 1.4 (0.7-2.0) mmol/L Calcium 8.7 (8.4-10.2) mg/dL Total Bilirubin 0.4 (0.2-1.3) mg/dL AST 23 (17-59) U/L ALT 25 (4-49) U/L Alkaline Phosphatase 257 H (38-126) U/L Total Protein 6.7 (6.3-8.2) g/dL Albumin 3.7 (3.5-5.0) g/dL Amylase 44 (30-110) U/L Lipase 40 (23-300) U/L - EKG Data -: EKG Interpreted by Me EKG shows normal: sinus rhythm, axis (Normal), QRS complexes (Old septal infarct.) Rate: normal (Rate 64 bpm) Disposition Clinical Impression: Abdominal pain Disposition: ADMITTED IP TO THIS HOSP Condition: Good Is patient prescribed a controlled substance at d/c from ED?: No
[2022-10-11] MEDS ORDERED: HYDROmorphone 0.5 MG/0.5 ML SYRINGE IVP STA ×2 (20:51→23:42)
[2022-10-11] MEDS ORDERED: SODIUM CHLORIDE 0.9% 500 ML 500 ML IV STA (20:51)
[2022-10-11 21:11] LABS: Basophils # (A) 0.1 k/uL (0-0.2); Basophils % (A) 1 %; Eosinophils # (A) 0.1 k/uL (0-0.7); Eosinophils % (A) 2 %; HGB 12.8 gm/dL (13.0-17.5); Lymphocytes # (A) 0.9 k/uL (1.0-4.8); Lymphocytes % (A) 16 %; MCH 31.8 pg (25.0-35.0); MCHC 33.6 g/dL (31.0-37.0); MCV 94.6 fL (80.0-100.0); Monocytes # (A) 0.7 k/uL (0-1.0); Monocytes % (A) 13 %; Neutrophils # (A) 3.7 k/uL (1.3-7.7); Neutrophils % (A) 64 %; Platelet Count 164 k/uL (150-450); RBC 4.02 m/uL (4.30-5.90); RDW 14.3 % (11.5-15.5); WBC 5.7 k/uL (3.8-10.6)
[2022-10-11 21:16] LABS: ALT 25 U/L (4-49); AST 23 U/L (17-59); African American GFR (CKD) 77 (>60 ml/min/1.73 sqM); Albumin 3.7 g/dL (3.5-5.0); Alkaline Phosphatase 257 U/L (38-126); Amylase 44 U/L (30-110); Anion Gap 10 mmol/L; Blood Urea Nitrogen 27 mg/dL (9-20); Calcium 8.7 mg/dL (8.4-10.2); Carbon Dioxide 23 mmol/L (22-30); Chloride 103 mmol/L (98-107); Glucose 187 mg/dL (74-99); Lipase 40 U/L (23-300); Non-African American GFR(CKD) 66 (>60 ml/min/1.73 sqM); Sodium 136 mmol/L (137-145); Total Bilirubin 0.4 mg/dL (0.2-1.3); Total Protein 6.7 g/dL (6.3-8.2)
--- NOTE | 2022-10-11 22:19 | CT ---
EXAMINATION TYPE: CT abdomen pelvis wo con DATE OF EXAM: 10/11/2022 HISTORY: flank pain CT DLP: 570.2 mGycm. Automated Exposure Control for Dose Reduction was Utilized. TECHNIQUE: CT scan of the abdomen and pelvis is performed without oral or IV contrast. COMPARISON: 09/28/2022 FINDINGS: VISUALIZED LOWER CHEST: No acute process. Moderate cardiomegaly with biventricular dilation and promi nent coronary calcifications and aortic valve calcifications. The proximal third of the stomach is in trathoracic in position. LIVER/GB: No significant abnormality is appreciated. PANCREAS: No significant abnormality is seen. SPLEEN: No significant abnormality is seen. ADRENALS: No significant abnormality is seen. KIDNEYS, URETERS, URINARY BLADDER: There is no hydronephrosis or hydroureter. No calcifications in th e kidneys, ureters or bladder. BOWEL: No significant abnormality is seen. PELVIC VISCERA: No gross abnormality seen. LYMPH NODES: No greater than 1cm abdominal or pelvic lymph nodes are appreciated. OSSEOUS STRUCTURES: No significant abnormality is seen. Limitation of the study: Without IV contrast, there is limited CT sensitivity for focal visceral lesi ons, intraluminal filling defects, and vascular pathology. IMPRESSION: No acute process.
[2022-10-12] MEDS ORDERED: ACETAMINOPHEN TAB 325 MG TAB PO PRN (01:20)
[2022-10-12] MEDS ORDERED: MAG HYDROX/AL HYDROX/SIMETH 30 ML CUP PO PRN (01:20)
[2022-10-12] MEDS ORDERED: NALOXONE 0.4 MG/ML 1 ML VIAL IV PRN (01:20)
[2022-10-12] MEDS: SODIUM CHLORIDE 0.9% 1,000 ML IV SCH (02:05)
[2022-10-12] MEDS: HYDROmorphone 0.5 MG/0.5 ML SYRINGE IVP PRN ×5 (02:32→20:23)
[2022-10-12] MEDS: MORPHINE SULFATE 4 MG/ML SYRINGE IV PRN ×2 (04:41→12:27)
[2022-10-12 07:39] LABS: Appearance,Urine Clear (Clear); Bilirubin,Urine Negative (Negative); Blood,Urine Large (Negative); Color,Urine Yellow; Glucose,Urine (UA) Trace (Negative); Ketones,Urine Negative (Negative); Leukocyte Esterase,Urine Small (Negative); Mucus,Urine Occasional /hpf; Nitrite,Urine Negative (Negative); PH, Urine 5.5 (5.0-8.0); Protein,Urine 1+ (Negative); RBC,Urine >182 /hpf (0-5); Specific Gravity,Urine 1.029 (1.001-1.035); Squamous Epithelial Cell,Urine <1 /hpf (0-4); Urobilinogen,Urine <2.0 mg/dL (<2.0); WBC,Urine 8 /hpf (0-5)
[2022-10-12] MEDS: FAMOTIDINE 20 MG TAB PO SCH ×2 (08:25→20:15)
[2022-10-12 10:30] VITALS: BMI 24.4
--- NOTE | 2022-10-12 11:14 | P.GSCN ---
History of Present Illness Consult date: 10/12/22 History of present illness: CHIEF COMPLAINT: Abdominal pain HISTORY OF PRESENT ILLNESS: This is a 81-year-old male with history of dementia who presents to the hospital for complaints of abdominal pain. History is obtained from at the bedside. She reports that the patient complains of left sided abdominal pain, epigastric pain and back pain intermittently for the last month. Patient had recent hospitalization earlier this month initially for complaints of chest pain and was evaluated by cardiology at that time and chest pain may have been related to uncontrolled blood pressure. But also they were thinking more GI related. Patient's reports that an EGD outpatient was recommended outpatient. She is in the process of getting that scheduled through the [place]. Patient had decrease appetite this morning but she reports that the appetite is been mostly normal at home. Denies any nausea or vomiting. She denies any blood in the stools or black stools. Patient has never had any previous EGD done. Colonoscopy was last year and she reports that it had shown hemorrhoids and diverticulosis but there is no signs of active bleeding. She reports that her has intermittent didn't blood in the stools. But it has been over a week since they have last seen any bleeding. Patient does take Plavix. Last dose of Plavix on 10/11/22. He does have a known history of coronary artery disease with cardiac stents and CABG. Patient had a computed t omography scan abdomen and pelvis which was unremarkable. PAST MEDICAL HISTORY: See list. PAST SURGICAL HISTORY: See list. MEDICATIONS: See list. ALLERGIES: See list. SOCIAL HISTORY: No illicit drug use. REVIEW OF SYSTEMS: CONSTITUTIONAL: Denies fever or chills. HEENT: Denies blurred vision, vision changes, or eye pain. Denies hemoptysis ENDOCRINE: Denies heat or cold intolerance. CARDIOVASCULAR: Denies chest pain or pressure. RESPIRATORY: No shortness of breath. GASTROINTESTINAL: Please refer to HPI NEURO: Denies history of seizures. PSYCH: No depression or suicidal ideation HEMATOLOGIC: Denies bleeding disorders. LYMPHATIC: The patient denies any lumps and bumps around the neck. GENITOURINARY: Denies any blood in urine or increased urinary frequency. MUSCULOSKELETAL: Denies myalgias. Denies joint swelling. Denies decreased range of motion beyond patients baseline. SKIN: Denies pruitis. Denies rash. PHYSICAL EXAM: VITAL SIGNS: Reviewed GENERAL: Well-developed in no acute distress. HEENT: No sclera icterus. Extraocular movements grossly intact. Moist buccal mucosa. Head is atraumatic, normocephalic. Hears conversational speech. No nasal drainage. NECK: Supple without lymphadenopathy. CHEST: Non-labored respirations and equal bilateral excursions. CARDIOVASCULAR: Palpable 2+ radial pulses. ABDOMEN: distended. Minimal tenderness to palpation epigastric area patient did just receive pain meds. No CVA tenderness noted. MUSCULOSKELETAL: No clubbing or cyanosis. NEUROLOGIC: No focal or lateralizing signs. Cranial nerves II through XII grossly intact. PSYCH: awake and alert SKIN: Well perfused. Good skin turgor. LABORATORY DATA: WBC 5.7 HGB 12.8 plt 164 Na 136 k 4.0 cr 1.06 Lactic acid 1.4 Total bili 0.4 AST 23 ALT 25 alk phos 257 Lipase 40 Urinalysis small leukocyte esterase large blood IMAGING: Computed tomography scan abdomen and pelvis no acute process ASSESSMENT: 1. Epigastric and left-sided abdominal pain 2. Intermittent blood in stools. HGB stable 3. History of hemorrhoids and diverticulosis 4. History of coronary artery disease with cardiac stent and CABG on Plavix at home 5. History of CVA 6. History of dementia 7. History of prostate cancer 8. History diabetes PLAN: -Further recommendations forthcoming per surgeon -Continue supportive care -Continue clear liquid diet -Keep Plavix on hold -Check stool for occult blood Physician Sales Order Clerk note has been reviewed by physician. Signing provider agrees with the documented findings, assessment, and plan of care. Past Medical History Past Medical History: Coronary Artery Disease (CAD), Cancer, CVA/TIA, Dementia, Diabetes Mellitus, GERD/Reflux, Hearing Disorder / Deafness, Hyperlipidemia, Hypertension, Myocardial Infarction ([place]), Osteoarthritis (OA), Sleep Apnea/CPAP/BIPAP, Thyroid Disorder Additional Past Medical History / Comment(s): CVA SEPTEMBER 2021 WITH RIGHT ARM AND LEG WEAKNESS, HX OF FALLS., SPEECH IMPROVED., completed PHYSICAL THERAPY AT HOME ., PROSTATE CANCER WITH RADIATION [place] (2016)., OCCASIONAL BLOOD IN STOOL- STATES THEY THINK IT IS HEMORRHOIDS diverticulosis per colonoscopy., STATES DIARRHEA SINCE HE WAS IN REHAB-TAKING PEPTO-BISMOL PER DRS INSTRUCTIONS now off and taking immodium as needed. incontinence of stool and urin at times..,hx ITCHY RASH ON BACK ., HX GRAVES DISEASE., SLEEP APNEA-USES C-PAP MACHINE., DOUBLE VISION-WEARS GLASSES WITH PRISMS, [place] HEARING AIDS. diet control for NIDDM at this time. Last Myocardial Infarction Date:: 1999 History of Any Multi-Drug Resistant Organisms: None Reported Past Surgical History: Adenoidectomy, Coronary Bypass/CABG, Heart Aida terization With Stent, Tonsillectomy Additional Past Surgical History / Comment(s): CABG (DR PAGAN), SEVERAL EYE SURGERIES. Past Anesthesia/Blood Transfusion Reactions: No Reported Reaction Additional Past Anesthesia/Blood Transfusion Reaction / Comm: no blood transfusions Date of Last Stent Placement:: 1999 Past Psychological History: Anxiety, Depression Additional Psychological History / Comment(s): THINKS DEPRESSION SINCE CVA Smoking Status: Former smoker Past Alcohol Use History: None Reported Additional Past Alcohol Use History / Comment(s): hxSMOKES APPROX 4 CIGARETTES/DAY quit in 11/10 Past Drug Use History: None Reported - Past Family History Mother Family Medical History: No Reported History Father Family Medical History: Coronary Artery Disease (CAD), Hypertension Additional Family Medical History / Comment(s): open heart Brother(s) Family Medical History: Cancer Additional Family Medical History / Comment(s): PROSTATE CANCER Sister(s) Family Medical History: No Reported History Additional Family Medical History / Comment(s): open heart surgery Medications and Allergies Home Medications Medication Instructions Recorded Confirmed Type Aspirin [Adult Low Dose Aspirin EC] 81 mg PO DAILY 02/05/18 10/11/22 History Enalapril [Vasotec] 20 mg PO BID 02/05/18 10/11/22 History Levothyroxine Sodium [Synthroid] 125 mcg PO DAILY 10/17/21 10/11/22 History Cfeblw-H-Zneusnxwf 500mg 1 tab PO DAILY 09/27/22 10/11/22 History Atorvastatin [Lipitor] 40 mg PO DAILY 09/27/22 10/11/22 History Citalopram Hydrobromide [CeleXA] 10 mg PO DAILY 09/27/22 10/11/22 History Clopidogrel [Plavix] 75 mg PO DAILY 09/27/22 10/11/22 History Divalproex ER [Depakote ER] 250 mg PO HS 09/27/22 10/11/22 History Melatonin 5 mg PO HS 09/27/22 10/11/22 History Metoprolol Tartrate [Lopressor] 12.5 mg PO BID 09/27/22 10/11/22 History traZODone HCL [Desyrel] 25 mg PO HS 09/27/22 10/11/22 History Acetaminophen Tab [Tylenol] 650 mg PO Q6HR PRN tab 09/29/22 10/11/22 Rx Isosorbide Mononitrate ER [Imdur] 60 mg PO DAILY #30 tab 09/29/22 10/11/22 Rx Pantoprazole Sodium [Protonix] 40 mg PO DAILY #30 tab 09/29/22 10/11/22 Rx amLODIPine [Norvasc] 10 mg PO DAILY #30 tab 09/29/22 10/11/22 Rx Allergies Allergy/AdvReac Type Severity Reaction Status Date / Time No Known Allergies Allergy Verified 10/11/22 22:26 Surgical - Exam Vital Signs Temp Pulse Resp BP Pulse Ox 98.6 F 69 26 H 163/80 99 10/11/22 19:11 10/11/22 19:11 10/11/22 19:11 10/11/22 19:11 10/11/22 19:11 Results - Labs 10/11/22 20:37 10/11/22 20:37 Abnormal Lab Results - Last 24 Hours (Table) 10/11/22 10/11/22 10/12/22 Range/Units 20:37 20:37 07:23 RBC 4.02 L (4.30-5.90) m/uL Hgb 12.8 L (13.0-17.5) gm/dL Hct 38.0 L (39.0-53.0) % Lymphocytes # 0.9 L (1.0-4.8) k/uL Sodium 136 L (137-145) mmol/L BUN 27 H (9-20) mg/dL Glucose 187 H (74-99) mg/dL Alkaline Phosphatase 257 H (38-126) U/L Urine Protein 1+ H (Negative) Urine Glucose (UA) Trace H (Negative) Urine Blood Large H (Negative) Ur Leukocyte Esterase Small H (Negative) Urine RBC >182 H (0-5) /hpf Urine WBC 8 H (0-5) /hpf Urine Mucus Occasional H (None) /hpf Diabetes panel 10/11/22 Range/Units 20:37 Sodium 136 L (137-145) mmol/L Potassium 4.0 (3.5-5.1) mmol/L Chloride 103 (98-107) mmol/L Carbon Dioxide 23 (22-30) mmol/L BUN 27 H (9-20) mg/dL Creatinine 1.06 (0.66-1.25) mg/dL Glucose 187 H (74-99) mg/dL Calcium 8.7 (8.4-10.2) mg/dL AST 23 (17-59) U/L ALT 25 (4-49) U/L Alkaline Phosphatase 257 H (38-126) U/L Total Protein 6.7 (6.3-8.2) g/dL Albumin 3.7 (3.5-5.0) g/dL Calcium panel 10/11/22 Range/Units 20:37 Calcium 8.7 (8.4-10.2) mg/dL Albumin 3.7 (3.5-5.0) g/dL Pituitary panel 10/11/22 Range/Units 20:37 Sodium 136 L (137-145) mmol/L Potassium 4.0 (3.5-5.1) mmol/L Chloride 103 (98-107) mmol/L Carbon Dioxide 23 (22-30) mmol/L BUN 27 H (9-20) mg/dL Creatinine 1.06 (0.66-1.25) mg/dL Glucose 187 H (74-99) mg/dL Calcium 8.7 (8.4-10.2) mg/dL Adrenal panel 10/11/22 Range/Units 20:37 Sodium 136 L (137-145) mmol/L Potassium 4.0 (3.5-5.1) mmol/L Chloride 103 (98-107) mmol/L Carbon Dioxide 23 (22-30) mmol/L BUN 27 H (9-20) mg/dL Creatinine 1.06 (0.66-1.25) mg/dL Glucose 187 H (74-99) mg/dL Calcium 8.7 (8.4-10.2) mg/dL Total Bilirubin 0.4 (0.2-1.3) mg/dL AST 23 (17-59) U/L ALT 25 (4-49) U/L Alkaline Phosphatase 257 H (38-126) U/L Total Protein 6.7 (6.3-8.2) g/dL Albumin 3.7 (3.5-5.0) g/dL
--- NOTE | 2022-10-12 16:36 | P.HPIM ---
History of Present Illness H&P Date: 10/12/22 81 year old M with PMH of advanced dementia, CAD, CVA with R sided residual weakness, diabetes mellitus, hypertension, dyslipidemia, hypothyroidism, anxiety and depression. The patient is unable to provide much history and majority of the history is provided by the . Patient was recently admitted on 09/27 and discharged on 09/29 after being treated for hypertensive urgency, epigastric pain and chest pain. At that time, he was advised to follow-up with his PCP to obtain referrals for EGD and colonoscopy. reports patient complains of excruciating left sided back pain over the past week. He reports the pain to be spastic in nature. also reports epigastric pain that has been ongoing since his discharge on 09/29. She has found it difficult to take care of him due to the pain. She reports bladder and bowel incontinence which has been chronic since his CVA 1 year ago. In the ED, his vital signs appear to be stable. CBC showed hemoglobin of 12.8 with MCV of 94.6. CMP showed sodium 136, BUN of 27, glucose 187, alkaline phosphatase of 257. Amylase and lipase was within normal limits. Lactic acid within normal limits. Urinalysis showed large blood and small leukocyte esterase. CTAP was done which showed no acute process. EKG showed sinus rhythm with PVCs along with Q waves in V1 and V2. Patient is admitted for intractable pain. Pertinent positives and negatives as discussed in HPI, a complete review of systems was performed and all other systems are negative. General: non toxic, moderate distress, appears at stated age, flat affect Derm: warm, dry Head: atraumatic, normocephalic, symmetric Eyes: EOMI, no lid lag, anicteric sclera Mouth: no lip lesion, mucus membranes moist Cardiovascular: S1S2 reg, no murmur Lungs: CTA bilateral, no rhonchi, no rales , no accessory muscle use Abdominal: soft, epigastric tenderness to palpation without rebound, + guarding, no appreciable organomegaly Ext: no gross muscle atrophy, no edema, no contractures, tenderness to palpation left paraspinal muscles Neuro: no focal neuro deficits Epigastric pain Acute lower back pain Normocytic anemia Prerenal azotemia Chronic conditions: Advanced dementia, CAD, CVA with R sided residual weakness, diabetes mellitus, hypertension, dyslipidemia, hypothyroidism, anxiety and depression Based on my assessment of this patient, this patient meets a high complexity level of care. Patient has a new diagnosis of acute lower back pain and epigastric pain with uncertain prognosis. He has advanced dementia which makes obtaining a history and physical exam difficult. Majority of the history is provided by his . CT AP is negative. Amylase and Lipase is negative. UA shows large blood and small blood with 8 WBCs. Hematuria is likely traumatic due to straight cath. Start pain control with Percocet 7.5 mg PO Q4H and Dilaudid 0.5 mg IV Q3H PRN for severe pain. Add Flexeril 5 mg PO TID PRN for muscle spasms. reports that patient takes Depakote for sundowning and agitation at bedtime. We will try Seroquel instead. Fall precautions will be ordered. PT and OT consulted. Surgery consulted for epigastric pain. Patient would benefit from EGD. Continue Protonix. SCDS for DVT prophylaxis. is the decision maker. NO CODE. I have reviewed the following consultant rn notes: I have reviewed the results of the following tests: CBC showed hemoglobin of 12.8 with MCV of 94.6. CMP showed sodium 136, BUN of 27, glucose 187, alkaline phosphatase of 257. Amylase and lipase was within normal limits. Lactic acid within normal limits. Urinalysis showed large blood and small leukocyte esterase. CTAP was done which showed no acute process. I have ordered the following tests: CPK, TSH, B12, Folate. I have discussed the care of this patient with the following independent historian: Case discussed extensively with the at bedside. I have independently interpreted the following test below: EKG showed sinus rhythm with PVCs along with Q waves in V1 and V2. 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 incontinence of stool and urin at times..,hx ITCHY RASH ON BACK ., HX GRAVES DISEASE., SLEEP APNEA-USES C-PAP MACHINE., DOUBLE VISION-WEARS GLASSES WITH PRISMS, TETLIN-GRAHAM HEARING AIDS. diet control for NIDDM at this time. Last Myocardial Infarction Date:: 1999 History of Any Multi-Drug Resistant Organisms: None Reported Past Surgical History: Adenoidectomy, Coronary Bypass/CABG, Heart Catheterization With Stent, Tonsillectomy Additional Past Surgical History / Comment(s): CABG (DR PAGAN), SEVERAL EYE SURGERIES. Past Anesthesia/Blood Transfusion Reactions: No Reported Reaction Additional Past Anesthesia/Blood Transfusion Reaction / Comment(s): no blood transfusions Date of Last Stent Placement:: 1999 Past Psychological History: Anxiety, Depression Additional Psychological History / Comment(s): THINKS DEPRESSION SINCE CVA Smoking Status: Former smoker Past Alcohol Use History: None Reported Additional Past Alcohol Use History / Comment(s): hxSMOKES APPROX 4 CIGARETTES/DAY quit in 11/10 Past Drug Use History: None Reported - Past Family History Mother Family Medical History: No Reported History Father Family Medical History: Coronary Artery Disease (CAD), Hypertension Additional Family Medical History / Comment(s): open heart Brother(s) Family Medical History: Cancer Additional Family Medical History / Comment(s): PROSTATE CANCER Sister(s) Family Medical History: No Reported History Additional Family Medical History / Comment(s): open heart surgery Medications and Allergies Home Medications Medication Instructions Recorded Confirmed Type Aspirin [Adult Low Dose Aspirin EC] 81 mg PO DAILY 02/05/18 10/11/22 History Enalapril [Vasotec] 20 mg PO BID 02/05/18 10/11/22 History Levothyroxine Sodium [Synthroid] 125 mcg PO DAILY 10/17/21 10/11/22 History Ozlnyq-V-Nyoefpfmr 500mg 1 tab PO DAILY 09/27/22 10/11/22 History Atorvastatin [Lipitor] 40 mg PO DAILY 09/27/22 10/11/22 History Citalopram Hydrobromide [CeleXA] 10 mg PO DAILY 09/27/22 10/11/22 History Clopidogrel [Plavix] 75 mg PO DAILY 09/27/22 10/11/22 History Divalproex ER [Depakote ER] 250 mg PO HS 09/27/22 10/11/22 History Melatonin 5 mg PO HS 09/27/22 10/11/22 History Metoprolol Tartrate [Lopressor] 12.5 mg PO BID 09/27/22 10/11/22 History traZODone HCL [Desyrel] 25 mg PO HS 09/27/22 10/11/22 History Acetaminophen Tab [Tylenol] 650 mg PO Q6HR PRN tab 09/29/22 10/11/22 Rx Isosorbide Mononitrate ER [Imdur] 60 mg PO DAILY #30 tab 09/29/22 10/11/22 Rx Pantoprazole Sodium [Protonix] 40 mg PO DAILY #30 tab 09/29/22 10/11/22 Rx amLODIPine [Norvasc] 10 mg PO DAILY #30 tab 09/29/22 10/11/22 Rx Allergies Allergy/AdvReac Type Severity Reaction Status Date / Time No Known Allergies Allergy Verified 10/11/22 22:26 Physical Exam Vitals: Vital Signs Temp Pulse Pulse Resp BP BP Pulse Ox 10/12/22 11:04 98.3 F 77 18 148/74 97 10/12/22 07:17 98.4 F 91 18 146/80 93 L 10/12/22 02:00 97.8 F 74 19 168/85 95 10/12/22 01:33 67 18 137/73 95 10/12/22 00:46 68 96 10/12/22 00:07 68 18 118/71 96 10/11/22 22:59 68 22 128/60 98 10/11/22 22:05 62 18 156/77 96 10/11/22 21:14 97.9 F 68 18 123/69 98 10/11/22 20:15 64 18 110/91 99 10/11/22 19:11 98.6 F 69 26 H 163/80 99 Intake and Output 10/12/22 10/12/22 10/12/22 06:59 14:59 22:59 Other: Voiding Method External Catheter Urinal # Voids 1 Weight 66.678 kg 66.678 kg Results CBC & Chem 7: 10/11/22 20:37 10/11/22 20:37 Labs: Abnormal Lab Results - Last 24 Hours (Table) 10/11/22 10/11/22 10/11/22 Range/Units 20:37 20:37 20:37 RBC 4.02 L (4.30-5.90) m/uL Hgb 12.8 L (13.0-17.5) gm/dL Hct 38.0 L (39.0-53.0) % Lymphocytes # 0.9 L (1.0-4.8) k/uL Sodium 136 L (137-145) mmol/L BUN 27 H (9-20) mg/dL Glucose 187 H (74-99) mg/dL Alkaline Phosphatase 257 H (38-126) U/L Creatine Kinase 43 L (55-170) U/L Urine Protein (Negative) Urine Glucose (UA) (Negative) Urine Blood (Negative) Ur Leukocyte Esterase (Negative) Urine RBC (0-5) /hpf Urine WBC (0-5) /hpf Urine Mucus (None) /hpf 10/12/22 Range/Units 07:23 RBC (4.30-5.90) m/uL Hgb (13.0-17.5) gm/dL Hct (39.0-53.0) % Lymphocytes # (1.0-4.8) k/uL Sodium (137-145) mmol/L BUN (9-20) mg/dL Glucose (74-99) mg/dL Alkaline Phosphatase (38-126) U/L Creatine Kinase (55-170) U/L Urine Protein 1+ H (Negative) Urine Glucose (UA) Trace H (Negative) Urine Blood Large H (Negative) Ur Leukocyte Esterase Small H (Negative) Urine RBC >182 H (0-5) /hpf Urine WBC 8 H (0-5) /hpf Urine Mucus Occasional H (None) /hpf Thrombosis Risk Factor Assmnt - Choose All That Apply Any of the Below Risk Factors Present?: Yes Each Risk Factor Represents 3 Points: Age 75 years or older Other congenital or acquired thrombophilia - If yes, enter type in comment: No Thrombosis Risk Factor Assessment Total Risk Factor Score: 3 Thrombosis Risk Factor Assessment Level: Moderate Risk
[2022-10-12] MEDS: CYCLOBENZAPRINE 5 MG TAB PO PRN (17:19)
[2022-10-12] MEDS: oxyCODONE-APAP 7.5-325MG 1 EACH TAB PO PRN (17:19)
[2022-10-12] MEDS: MELATONIN 5 MG TABLET PO SCH (20:14)
[2022-10-12] MEDS: lisinopriL 20 MG TAB PO SCH (20:14)
[2022-10-12] MEDS: METOPROLOL TARTRATE 12.5 MG TAB PO SCH (20:14)
[2022-10-12] MEDS: QUEtiapine 25 MG TAB PO SCH (20:15)
[2022-10-13] MEDS: HYDROmorphone 0.5 MG/0.5 ML SYRINGE IVP PRN ×3 (02:56→21:40)
[2022-10-13] MEDS: SODIUM CHLORIDE 0.9% 1,000 ML IV SCH (03:03)
[2022-10-13] MEDS: oxyCODONE-APAP 7.5-325MG 1 EACH TAB PO PRN ×2 (05:05→16:47)
[2022-10-13] MEDS: LEVOTHYROXINE 125 MCG TAB PO SCH (06:16)
[2022-10-13] MEDS: FAMOTIDINE 20 MG TAB PO SCH ×2 (08:11→20:52)
[2022-10-13] MEDS: ISOSORBIDE MONONITRATE ER 60 MG TAB.ER.24H PO SCH (08:11)
[2022-10-13] MEDS: amLODIPine 10 MG TAB PO SCH (08:11)
[2022-10-13] MEDS: lisinopriL 20 MG TAB PO SCH ×3 (08:11→22:16)
[2022-10-13] MEDS: CLOPIDOGREL 75 MG TAB PO SCH (08:11)
[2022-10-13] MEDS: PANTOPRAZOLE 40 MG TABLET PO SCH (08:11)
[2022-10-13] MEDS: CITALOPRAM HYDROBROMIDE 10 MG TAB PO SCH (08:11)
[2022-10-13] MEDS: ATORVASTATIN 40 MG TAB PO SCH (08:11)
[2022-10-13] MEDS: ASPIRIN 81 MG PO SCH (08:11)
[2022-10-13] MEDS: METOPROLOL TARTRATE 12.5 MG TAB PO SCH ×3 (08:11→22:16)
--- NOTE | 2022-10-13 14:36 | P.PN ---
Subjective Progress Note Date: 10/13/22 81 year old M with PMH of advanced dementia, CAD, CVA with R sided residual weakness, diabetes mellitus, hypertension, dyslipidemia, hypothyroidism, anxiety and depression. reports patient complains of excruciating left sided back pain over the past week. He reports the pain to be spastic in nature. also reports epigastric pain that has been ongoing since his discharge on 09/29. He notes occasional bright red blood in his stool. In the ED, his vital signs appear to be stable. CBC showed hemoglobin of 12.8 with MCV of 94.6. CMP showed sodium 136, BUN of 27, glucose 187, alkaline phosphatase of 257. Amylase and lipase was within normal limits. Lactic acid within normal limits. Urinalysis showed large blood and small leukocyte esterase. CTAP was done which showed no acute process. EKG showed sinus rhythm with PVCs along with Q waves in V1 and V2. Patient is admitted for intractable pain. 10/13 Patient was seen and examined. at bedside. She reports that his back pain appears to be better. He was agitated this morning with nursing staff because she was not there. He is tolerating CLD well. Overall, she reports that he appears more comfortable. B12, Folic acid, CPK, TSH within normal limits. General: non toxic, moderate distress, appears at stated age, flat affect Derm: warm, dry Head: atraumatic, normocephalic, symmetric Eyes: EOMI, no lid lag, anicteric sclera Cardiovascular: Good distal perfusion all 4 extremities Lungs: Breathing comfortably , no accessory muscle use Ext: no gross muscle atrophy, no edema, no contractures Epigastric pain with BRBPR Acute lower back pain Normocytic anemia Prerenal azotemia Chronic conditions: Advanced dementia, CAD, CVA with R sided residual weakness, diabetes mellitus, hypertension, dyslipidemia, hypothyroidism, anxiety and depression Based on my assessment of this patient, this patient meets a moderate complexity level of care. Patient has a new diagnosis of acute lower back pain and epigastric pain with uncertain prognosis. He has advanced dementia which makes obtaining a history and physical exam difficult. Majority of the history is provided by his . CT AP is negative. Amylase and Lipase is negative. UA shows large blood and small blood with 8 WBCs. Hematuria is likely traumatic due to straight cath. Continue pain control with Percocet 7.5 mg PO Q4H and Dilaudid 0.5 mg IV Q3H PRN for severe pain. Add Flexeril 5 mg PO TID PRN for muscle spasms. reports that patient takes Depakote for sundowning and agitation at bedtime. We will try Seroquel instead. Fall precautions will be ordered. PT and OT consulted. Surgery consulted for epigastric pain. Stool for occult blood ordered. woul d like patient to get an EGD. Continue Protonix. SCDS for DVT prophylaxis. is the decision maker. NO CODE. I have reviewed the following library consultant notes: I have reviewed the results of the following tests: B12, Folic acid, CPK, TSH within normal limits. I have ordered the following tests: I have discussed the care of this patient with the following independent historian: Case discussed extensively with the at bedside. I have independently interpreted the following test below: I have discussed the management of this patient with the following physician: Objective - Vital Signs Vital signs: Vital Signs Temp 97.8 F 10/13/22 11:20 Pulse 63 10/13/22 11:20 Resp 16 10/13/22 11:20 BP 106/55 10/13/22 11:20 Pulse Ox 93 L 10/13/22 11:20 FiO2 Intake & Output 10/12/22 10/13/22 10/13/22 18:59 06:59 18:59 Weight 66.678 kg Other: Voiding Method Urinal Urinal Urinal # Voids 1 - Labs CBC & Chem 7: 10/11/22 20:37 10/11/22 20:37 Labs: Abnormal Lab Results - Last 24 Hours (Table) 10/11/22 10/13/22 Range/Units 20:37 07:09 Creatine Kinase 43 L (55-170) U/L Vitamin B12 950.0 H (200.0-944.0) pg/mL
--- NOTE | 2022-10-13 15:15 | P.PN ---
Subjective Progress Note Date: 10/13/22 CHIEF COMPLAINT: Abdominal pain HISTORY OF PRESENT ILLNESS: The patient is a 81-year-old male who admitted for abdominal pain. at bedside reports patient has dementia. Patient reports lower left quadrant abdominal pain. describes pain has been epigastric pain with writhing 9 out of 10. Patient clinically stable and resting comfortably. gives most history including GI bleed. Also reports recent GI bleed in the past week or more. He is tolerating clear liquid diet. ROS: No reports of nausea and vomiting. No bowel movements. No fevers or chills. No new chest pain. No productive sputum PHYSICAL EXAM: VITAL SIGNS: Reviewed CONSTITUTIONAL: Well developed and in no acute distress. EYES: Conjuctivae without sclera icterus. Extraocular movements grossly intact. HEAD, EARS, NOSE, THROAT: Moist buccal mucosa. Head is atraumatic, normocephalic. Hears conversational speech. No nasal drainage. RESPIRATORY: Non-labored respirations and equal bilateral excursions. CARDIOVASCULAR: Palpable 2+ radial pulses. ABDOMEN: Lower abdominal pain. MUSCULOSKELETAL: No gross deformity of the lower extremities noted. No clubbing. No cyanosis. SKIN: Good skin turgor. Well perfused. NEUROLOGIC: Cranial nerves II through XII grossly intact. No focal or lateralizing signs. PSYCH: Flat affect. Alert and oriented to person, place and time. CLINICAL LABS: Reviewed. WBC with elevated alkaling phos ASSESSMENT: 1. Epigastric abdominal pain 2. Lower abdominal pain 3. GI bleed 4. Dementia PLAN: 1. Recommend upper endoscopy for GI bleed including abdominal pain epigastric. 2. May benefit from colonoscopy during this hospitalization. 3. Care plan reviewed with patient and . 4. Recommend ultrasound of the abdomen for severe epigastric right upper quadrant abdominal pain. Objective - Vital Signs Vital signs: Vital Signs Temp 97.8 F 10/13/22 11:20 Pulse 63 10/13/22 11:20 Resp 16 10/13/22 11:20 BP 106/55 10/13/22 11:20 Pulse Ox 93 L 10/13/22 11:20 FiO2 Intake & Output 10/12/22 10/13/22 10/13/22 18:59 06:59 18:59 Weight 66.678 kg Other: Voiding Method Urinal Urinal Urinal # Voids 1 - Labs CBC & Chem 7: 10/11/22 20:37 10/11/22 20:37 Labs: Abnormal Lab Results - Last 24 Hours (Table) 10/11/22 10/13/22 Range/Units 20:37 07:09 Creatine Kinase 43 L (55-170) U/L Vitamin B12 950.0 H (200.0-944.0) pg/mL
[2022-10-13] MEDS: MELATONIN 5 MG TABLET PO SCH (20:52)
[2022-10-13] MEDS: QUEtiapine 25 MG TAB PO SCH (20:52)
[2022-10-14] MEDS: SODIUM CHLORIDE 0.9% 1,000 ML IV SCH (03:37)
[2022-10-14] MEDS: HYDROmorphone 0.5 MG/0.5 ML SYRINGE IVP PRN ×2 (04:05→21:46)
[2022-10-14] MEDS: LEVOTHYROXINE 125 MCG TAB PO SCH (07:00)
--- NOTE | 2022-10-14 07:47 | US ---
EXAMINATION TYPE: US gallbladder DATE OF EXAM: 10/14/2022 COMPARISON: CT dated 10/11/2022 & 09/28/2022. CLINICAL INDICATION: Male, 81 years old with history of Right upper quadrant epigastric pain; TECHNIQUE: Multiple sonographic images of the right upper quadrant are obtained. FINDINGS: EXAM MEASUREMENTS: Liver Length: 13.2 cm Gallbladder Wall: 0.3 cm CBD: 0.6 cm Right Kidney: 10.2 x 5.5 x 5.3 cm PLATINUM SMITH NOTES: Pancreas: Obscured by bowel gas Liver: only visualized intercostally, visualized portions wnl. Gallbladder: No stones seen Evidence for sonographic Nugent's sign: No CBD: wnl Right Kidney: No hydronephrosis or masses seen IMPRESSION: No discrete abnormality appreciated.
[2022-10-14] MEDS: ASPIRIN 81 MG PO SCH (08:21)
[2022-10-14] MEDS: ATORVASTATIN 40 MG TAB PO SCH (08:21)
[2022-10-14] MEDS: FAMOTIDINE 20 MG TAB PO SCH ×2 (08:21→20:56)
[2022-10-14] MEDS: CITALOPRAM HYDROBROMIDE 10 MG TAB PO SCH (08:21)
[2022-10-14] MEDS: lisinopriL 20 MG TAB PO SCH ×2 (08:21→20:59)
[2022-10-14] MEDS: CLOPIDOGREL 75 MG TAB PO SCH (08:21)
[2022-10-14] MEDS: ISOSORBIDE MONONITRATE ER 60 MG TAB.ER.24H PO SCH (08:21)
[2022-10-14] MEDS: amLODIPine 10 MG TAB PO SCH (08:22)
[2022-10-14] MEDS: PANTOPRAZOLE 40 MG TABLET PO SCH (08:22)
[2022-10-14] MEDS: METOPROLOL TARTRATE 12.5 MG TAB PO SCH ×2 (08:22→20:56)
[2022-10-14] MEDS: oxyCODONE-APAP 7.5-325MG 1 EACH TAB PO PRN ×3 (08:25→18:07)
[2022-10-14] MEDS: CYCLOBENZAPRINE 5 MG TAB PO PRN (08:25)
--- NOTE | 2022-10-14 14:16 | P.PN ---
Subjective Progress Note Date: 10/14/22 81 year old M with PMH of advanced dementia, CAD, CVA with R sided residual weakness, diabetes mellitus, hypertension, dyslipidemia, hypothyroidism, anxiety and depression. reports patient complains of excruciating left sided back pain over the past week. He reports the pain to be spastic in nature. also reports epigastric pain that has been ongoing since his discharge on 09/29. He notes occasional bright red blood in his stool. In the ED, his vital signs appear to be stable. CBC showed hemoglobin of 12.8 with MCV of 94.6. CMP showed sodium 136, BUN of 27, glucose 187, alkaline phosphatase of 257. Amylase and lipase was within normal limits. Lactic acid within normal limits. Urinalysis showed large blood and small leukocyte esterase. CTAP was done which showed no acute process. EKG showed sinus rhythm with PVCs along with Q waves in V1 and V2. Patient is admitted for intractable pain. 10/13 Patient was seen and examined. at bedside. She reports that his back pain appears to be better. He was agitated this morning with nursing staff because she was not there. He is tolerating CLD well. Overall, she reports that he appears more comfortable. B12, Folic acid, CPK, TSH within normal limits. 10/14 Patient was seen and examined. No acute events overnight. Patient yelling out for help. not at bedside. Gall bladder US done showing no acute changes. Plans for HIDA scan. General: non toxic, moderate distress, appears at stated age, flat affect Derm: warm, dry Head: atraumatic, normocephalic, symmetric Eyes: EOMI, no lid lag, anicteric sclera Cardiovascular: Good distal perfusion all 4 extremities, Normal S1 S2 Lungs: Breathing comfortably , no accessory muscle use, clear to auscultation bilaterally Ext: no gross muscle atrophy, no edema, no contractures Epigastric pain with BRBPR Acute lower back pain Normocytic anemia Prerenal azotemia Chronic conditions: Advanced dementia, CAD, CVA with R sided residual weakness, diabetes mellitus, hypertension, dyslipidemia, hypothyroidism, anxiety and depression Based on my assessment of this patient, this patient meets a moderate complexity level of care. Patient has a new diagnosis of acute lower back pain and epigastric pain with uncertain prognosis. He has advanced dementia which makes obtaining a history and physical exam difficult. Majority of the history is provided by his . CT AP is negative. Amylase and Lipase is negative. UA shows large blood and small blood with 8 WBCs. Hematuria is likely traumatic due to straight cath. Continue pain control with Percocet 7.5 mg PO Q4H and Dilaudid 0.5 mg IV Q3H PRN for severe pain. Add Flexeril 5 mg PO TID PRN for muscle spasms. reports that patient takes Depakote for sundowning and agitation at bedtime. We will try Seroquel instead. Fall precautions will be ordered. PT and OT consulted. Surgery consulted for epigastric pain. Stool for occult blood ordered. GB US negative. Plans for HIDA scan. Patient may benefit from EGD and C-scope. Continue Protonix. SCDS for DVT prophylaxis. is the decision maker. NO CODE. I have reviewed the following medical cost consultant notes: Surgery note reviewed as above. I have reviewed the results of the following tests: I have ordered the following tests: Agree with HIDA. I have discussed the care of this patient with the following independent historian: I have independently interpreted the following test below: I have discussed the management of this patient with the following physician: Objective - Vital Signs Vital signs: Vital Signs Temp 98.6 F 10/14/22 11:20 Pulse 59 L 10/14/22 11:20 Resp 18 10/14/22 11:20 BP 95/41 10/14/22 11:20 Pulse Ox 94 L 10/14/22 11:20 FiO2 Intake & Output 10/13/22 10/14/22 10/14/22 18:59 06:59 18:59 Other: Voiding Method Urinal Urinal Urinal # Voids 3 2 # Bowel Movements 0 - Labs CBC & Chem 7: 10/11/22 20:37 10/11/22 20:37
[2022-10-14] MEDS: MELATONIN 5 MG TABLET PO SCH (20:55)
[2022-10-14] MEDS: QUEtiapine 25 MG TAB PO SCH (20:56)
--- NOTE | 2022-10-14 22:09 | P.PN ---
Subjective Progress Note Date: 10/14/22 CHIEF COMPLAINT: Abdominal pain HISTORY OF PRESENT ILLNESS: The patient is a 81-year-old male who admitted for abdominal pain. He is on clear liquid diet. No active abdominal pain. ROS: No reports of nausea and vomiting. No fevers or chills. No new chest pain. No productive sputum PHYSICAL EXAM: VITAL SIGNS: Reviewed CONSTITUTIONAL: Well developed and in no acute distress. EYES: Conjuctivae without sclera icterus. Extraocular movements grossly intact. HEAD, EARS, NOSE, THROAT: Moist buccal mucosa. Head is atraumatic, normocephalic. Hears conversational speech. No nasal drainage. RESPIRATORY: Non-labored respirations and equal bilateral excursions. CARDIOVASCULAR: Palpable 2+ radial pulses. ABDOMEN: Nontender. MUSCULOSKELETAL: No gross deformity of the lower extremities noted. No clubbing. No cyanosis. SKIN: Good skin turgor. Well perfused. NEUROLOGIC: Cranial nerves II through XII grossly intact. No focal or lateralizing signs. PSYCH: Flat affect. Alert and oriented to person, place and time. CLINICAL LABS: Reviewed. STUDIES: Ultrasound demonstrates no gallstones. This is my independent interpretation. ASSESSMENT: 1. Epigastric abdominal pain 2. Lower abdominal pain 3. GI bleed 4. Dementia PLAN: 1. NPO after midnight 2. Recommend upper endoscopy. 3. Recommend HIDA scan for elevated liver enzyme and abdominal pain. Objective - Vital Signs Vital signs: Vital Signs Temp 97.8 F 10/14/22 18:57 Pulse 64 10/14/22 18:57 Resp 16 10/14/22 18:57 BP 114/60 10/14/22 18:57 Pulse Ox 94 L 10/14/22 18:57 FiO2 Intake & Output 10/14/22 10/14/22 10/15/22 06:59 18:59 06:59 Other: Voiding Method Urinal Urinal # Voids 2 3 # Bowel Movements 0 - Labs CBC & Chem 7: 10/11/22 20:37 10/11/22 20:37
[2022-10-15] MEDS: HYDROmorphone 0.5 MG/0.5 ML SYRINGE IVP PRN (02:14)
[2022-10-15] MEDS: SODIUM CHLORIDE 0.9% 1,000 ML IV SCH (03:41)
[2022-10-15 05:29] LABS: HCT 31.6 % (39.0-53.0); HGB 10.6 gm/dL (13.0-17.5); MCH 32.4 pg (25.0-35.0); MCHC 33.5 g/dL (31.0-37.0); MCV 96.9 fL (80.0-100.0); Mean Platelet Volume 9.1; Platelet Count 114 k/uL (150-450); RBC 3.26 m/uL (4.30-5.90); RDW 14.3 % (11.5-15.5); WBC 3.4 k/uL (3.8-10.6)
[2022-10-15 05:40] LABS: African American GFR (CKD) 78 (>60 ml/min/1.73 sqM); Anion Gap 7 mmol/L; Blood Urea Nitrogen 24 mg/dL (9-20); Carbon Dioxide 22 mmol/L (22-30); Chloride 107 mmol/L (98-107); Glucose 112 mg/dL (74-99); Non-African American GFR(CKD) 68 (>60 ml/min/1.73 sqM); Potassium 3.6 mmol/L (3.5-5.1); Sodium 136 mmol/L (137-145)
[2022-10-15] MEDS: LEVOTHYROXINE 125 MCG TAB PO SCH (06:29)
[2022-10-15 08:16] VITALS: BP 156/63; PULSE 79; RESP 20; TEMP 98.2
--- NOTE | 2022-10-15 08:26 | NM ---
EXAMINATION TYPE: NM hepatobiliary wo EF DATE OF EXAM: 10/15/2022 COMPARISON: Gallbladder ultrasound 10/14/2022, CT abdomen and pelvis 10/11/2022 CLINICAL INDICATION: Male, 81 years old with history of Right upper quadrant epigastric pain; TECHNIQUE: After the intravenous administration of 5.2 mCi Tc 99m Mebrofenin hepatobiliary scintigrap hy is performed. Immediate images post injection. Patient refused further testing. FINDINGS: Normal uptake of radiotracer was identified within the liver within 5 minutes with excretion into the hepatic and common biliary ducts within 46 minutes. There was normal progressive washout of the live r over the course of the study. Radiotracer uptake within the gallbladder at 30 minutes as well as sm all bowel activity was identified at 50 minutes. IMPRESSION: No evidence for cystic duct or common bile duct obstruction to suggest acute cholecystitis.
[2022-10-15] MEDS ORDERED: LIDOCAINE 2% INJ 20 MG/ML (2 ML VIAL) ONE (08:36)
[2022-10-15] MEDS ORDERED: PROPOFOL 10 MG/ML 20 ML VIAL IV ONE (08:36)
[2022-10-15] MEDS ORDERED: LACTATED RINGERS 1,000 ML IV ONE ×2 (08:39)
--- NOTE | 2022-10-15 08:56 | P.PCN ---
Date of Procedure: 10/15/22 Description of Procedure: PREOPERATIVE DIAGNOSIS: Gastrointestinal bleeding Positive stool occult blood Epigastric abdominal pain POSTOPERATIVE DIAGNOSIS: Gastritis Duodenitis Diaphragmatic hiatal hernia OPERATION: Esophagogastroduodenoscopy with biopsies of duodenum and antrum SURGEON: Soledad Edouard MD ANESTHESIA: MAC. INDICATIONS: The patient is a 81-year-old male who presents with gastrointestinal bleeding. Benefits and risks of the procedure were described. Informed consent was obtained. DESCRIPTION: The patient was brought into the endoscopy suite and laid in the left lateral decubitus position. An Olympus gastroscope was passed along the posterior oropharynx down to the distal esophagus where the squamocolumnar junction was encountered at 33 cm from the incisors. The stomach was entered and no bile reflux was found. Additional findings are listed below. The first through third portion of the duodenum was examined and unremarkable. Retroflexion of the scope confirmed Hill grade 4 lower esophageal valve. The squamocolumnar junction demonstrated LA grade B erosive esophagitis. The stomach was desufflated. The patient tolerated the procedure well. FINDINGS: Squamocolumnar junction 33 cm from the incisors. Diaphragmatic hiatus at 38 cm. Hiatal hernia, 5 cm Hill grade 4 lower esophageal valve. LA grade B erosive esophagitis. Active duodenitis without active bleeding. Gastritis without active bleeding RECOMMENDATIONS: 1. Diet as tolerated 2. Upper endoscopy as needed 3. Protonix 40 mg twice a day for 2 weeks
[2022-10-15] MEDS: CLOPIDOGREL 75 MG TAB PO SCH (11:16)
[2022-10-15] MEDS: ISOSORBIDE MONONITRATE ER 60 MG TAB.ER.24H PO SCH (11:16)
[2022-10-15] MEDS: ASPIRIN 81 MG PO SCH (11:16)
[2022-10-15] MEDS: METOPROLOL TARTRATE 12.5 MG TAB PO SCH (11:16)
[2022-10-15] MEDS: FAMOTIDINE 20 MG TAB PO SCH (11:16)
[2022-10-15] MEDS: amLODIPine 10 MG TAB PO SCH (11:16)
[2022-10-15] MEDS: CITALOPRAM HYDROBROMIDE 10 MG TAB PO SCH (11:16)
[2022-10-15] MEDS: lisinopriL 20 MG TAB PO SCH (11:16)
[2022-10-15] MEDS: ATORVASTATIN 40 MG TAB PO SCH (11:16)
[2022-10-15] MEDS: PANTOPRAZOLE 40 MG TABLET PO SCH (11:16)
--- NOTE | 2022-10-15 14:14 | P.DS ---
Providers Date of admission: 10/12/22 01:22 Expected date of discharge: 10/15/22 Attending physician: Honey Moncada MD Consults: 10/12/22 01:20 Consult Physician Routine Consulting Provider: Soledad Edouard Consult Reason/Comments: Intractable abdominal pain Do you want consulting provider notified?: Yes Primary care physician: [facility] Course: 81 year old M with PMH of advanced dementia, CAD, CVA with R sided residual weakness, diabetes mellitus, hypertension, dyslipidemia, hypothyroidism, anxiety and depression. reports patient complains of excruciating left sided back pain over the past week. He reports the pain to be spastic in nature. also reports epigastric pain that has been ongoing since his discharge on 09/29. He notes occasional bright red blood in his stool. In the ED, his vital signs appear to be stable. CBC showed hemoglobin of 12.8 with MCV of 94.6. CMP showed sodium 136, BUN of 27, glucose 187, alkaline phosphatase of 257. Amylase and lipase was within normal limits. Lactic acid within normal limits. Urinalysis showed large blood and small leukocyte esterase. CTAP was done which showed no acute process. EKG showed sinus rhythm with PVCs along with Q waves in V1 and V2. Patient is admitted for intractable pain. 10/13 Patient was seen and examined. at bedside. She reports that his back pain appears to be better. He was agitated this morning with nursing staff because she was not there. He is tolerating CLD well. Overall, she reports that he appears more comfortable. B12, Folic acid, CPK, TSH within normal limits. 10/14 Patient was seen and examined. No acute events overnight. Patient yelling out for help. not at bedside. Gall bladder US done showing no acute changes. Plans for HIDA scan. 10/15 Patient was seen and examined. He appears comfortable. at bedside. HIDA scan negative for acute cholecystitis. Underwent EGD today, hiatal hernia, erosive esophagitis, active duodenitis. CBC shows WBC count of 3.4 hemoglobin 10.6 with platelet count 114. BMP shows sodium 136, BUN of 24, glucose 112 and calcium of 8. Patient is recommended Protonix 40 mg by mouth twice a day for 2 weeks followed by daily. He'll be discharged home with Flexeril and Percocet as needed for back pain. Pertinent studies and procedures as above. Gneral: non toxic, moderate distress, appears at stated age, flat affect Derm: warm, dry Head: atraumatic, normocephalic, symmetric Eyes: EOMI, no lid lag, anicteric sclera Cardiovascular: Good distal perfusion all 4 extremities, Normal S1 S2 Lungs: Breathing comfortably , no accessory muscle use, clear to auscultation bilaterally Ext: no gross muscle atrophy, no edema, no contractures Discharge diagnosis: Epigastric pain with BRBPR Acute lower back pain Normocytic anemia Prerenal azotemia Chronic conditions: Advanced dementia, CAD, CVA with R sided residual weakness, diabetes mellitus, hypertension, dyslipidemia, hypothyroidism, anxiety and d epression This complex discharge took 35 minutes to complete. Patient Condition at Discharge: Good Plan - Discharge Summary Discharge Rx Participant: No New Discharge Prescriptions: New Cyclobenzaprine [Flexeril] 5 mg PO TID PRN #30 tab PRN Reason: Muscle Spasm oxyCODONE-APAP 7.5-325MG [Percocet 7.5-325 mg] 1 each PO Q4HR PRN #18 tab PRN Reason: Pain Pantoprazole [Protonix] 40 mg PO DIRECTED #42 tab Continue Enalapril [Vasotec] 20 mg PO BID Aspirin [Adult Low Dose Aspirin EC] 81 mg PO DAILY Levothyroxine Sodium [Synthroid] 125 mcg PO DAILY Atorvastatin [Lipitor] 40 mg PO DAILY Citalopram Hydrobromide [CeleXA] 10 mg PO DAILY Clopidogrel [Plavix] 75 mg PO DAILY Divalproex ER [Depakote ER] 250 mg PO HS Melatonin 5 mg PO HS Metoprolol Tartrate [Lopressor] 12.5 mg PO BID traZODone HCL [Desyrel] 25 mg PO HS Isosorbide Mononitrate ER [Imdur] 60 mg PO DAILY #30 tab Pantoprazole Sodium [Protonix] 40 mg PO DAILY #30 tab Asfpoe-X-Byyxwuqnu 500mg 1 tab PO DAILY amLODIPine [Norvasc] 10 mg PO DAILY #30 tab Acetaminophen Tab [Tylenol] 650 mg PO Q6HR PRN tab PRN Reason: Fever And/ Or Pain Discharge Medication List Aspirin [Adult Low Dose Aspirin EC] 81 mg PO DAILY 02/05/18 [History] Enalapril [Vasotec] 20 mg PO BID 10/17/18 [History] Levothyroxine Sodium [Synthroid] 125 mcg PO DAILY 10/17/21 [History] Uoucop-T-Ymkivtpbz 500mg 1 tab PO DAILY 09/27/22 [History] Atorvastatin [Lipitor] 40 mg PO DAILY 09/27/22 [History] Citalopram Hydrobromide [CeleXA] 10 mg PO DAILY 09/27/22 [History] Clopidogrel [Plavix] 75 mg PO DAILY 09/27/22 [History] Divalproex ER [Depakote ER] 250 mg PO HS 09/27/22 [History] Melatonin 5 mg PO HS 09/27/22 [History] Metoprolol Tartrate [Lopressor] 12.5 mg PO BID 09/27/22 [History] traZODone HCL [Desyrel] 25 mg PO HS 09/27/22 [History] Acetaminophen Tab [Tylenol] 650 mg PO Q6HR PRN tab 09/29/22 [Rx] Isosorbide Mononitrate ER [Imdur] 60 mg PO DAILY #30 tab 09/29/22 [Rx] amLODIPine [Norvasc] 10 mg PO DAILY #30 tab 09/29/22 [Rx] Cyclobenzaprine [Flexeril] 5 mg PO TID PRN #30 tab 10/15/22 [Rx] Pantoprazole Sodium [Protonix] 40 mg PO DAILY #30 tab 10/15/22 [Rx] Pantoprazole [Protonix] 40 mg PO DIRECTED #42 tab 10/15/22 [Rx] oxyCODONE-APAP 7.5-325MG [Percocet 7.5-325 mg] 1 each PO Q4HR PRN #18 tab 10/15/22 [Rx] Follow up Appointment(s)/Referral(s): Soledad Edouard MD [STAFF PHYSICIAN] - As Needed Terry Rojas MD [REFERRING] - 10/18/22 9:30 am (in the [place] location ) Patient Instructions/Handouts: Hiatal Hernia (DC), Gastritis (DC), Duodenitis (DC) Discharge Disposition: HOME SELF-CARE
== END 2022-10-15 12:17 | disposition home or self-care (01) ==
LOC: EC 18:22 → 5NMEDONC 10-12 01:22
PROVIDERS: ADMIT Family Medicine; ATTEND Family Medicine
DX: K29.51 Unspecified chronic gastritis with bleeding (principal); K31.89 Other diseases of stomach and duodenum; K44.9 Diaphragmatic hernia without obstruction or gangrene; K29.81 Duodenitis with bleeding; K22.10 Ulcer of esophagus without bleeding; I49.3 Ventricular premature depolarization; R10.13 Epigastric pain; F05 Delirium due to known physiological condition; I69.398 Other sequelae of cerebral infarction; M54.50 Low back pain, unspecified; D64.9 Anemia, unspecified; F03.90 Unspecified dementia, unspecified severity, without behavioral disturbance, psychotic disturbance, mood disturbance, and anxiety; I25.10 Atherosclerotic heart disease of native coronary artery without angina pectoris; I69.351 Hemiplegia and hemiparesis following cerebral infarction affecting right dominant side; R79.89 Other specified abnormal findings of blood chemistry; E11.9 Type 2 diabetes mellitus without complications; I10 Essential (primary) hypertension; E78.5 Hyperlipidemia, unspecified; E03.9 Hypothyroidism, unspecified; F41.9 Anxiety disorder, unspecified; F41.8 Other specified anxiety disorders; F32.A Depression, unspecified; K21.9 Gastro-esophageal reflux disease without esophagitis; H91.90 Unspecified hearing loss, unspecified ear; I25.2 Old myocardial infarction; M19.90 Unspecified osteoarthritis, unspecified site; G47.30 Sleep apnea, unspecified; Z91.81 History of falling; Z85.46 Personal history of malignant neoplasm of prostate; Z87.891 Personal history of nicotine dependence; Z92.3 Personal history of irradiation; Z95.1 Presence of aortocoronary bypass graft; Z95.5 Presence of coronary angioplasty implant and graft; Z98.890 Other specified postprocedural states; Z87.19 Personal history of other diseases of the digestive system; Z82.49 Family history of ischemic heart disease and other diseases of the circulatory system; Z80.42 Family history of malignant neoplasm of prostate; Z79.02 Long term (current) use of antithrombotics/antiplatelets; Z79.82 Long term (current) use of aspirin; Z79.890 Hormone replacement therapy; Z79.899 Other long term (current) drug therapy
CPT/HCPCS: 96376 ×5; 96361; 96374; 96375; 99285; 36415; 93005; 97162; 97166; 88305; 80053; 80048; 84443; 82607; 82150; 82550; 82746; 83605; 83690; 85025; 85027; 81001; 76705; 74176; 78226; 43239; G0378 ×4; A9537; J2270; J2704; J1170 ×5; J2001

== ENCOUNTER 2022-10-25 19:59 | Inpatient (IN) | payer OTHER, MEDICARE ==
--- NOTE | 2022-10-25 20:35 | ED ---
Back Pain HPI - General Chief Complaint: Back Pain/Injury Stated Complaint: Back Pain Source: family Limitations: no limitations - History of Present Illness Initial Comments: A 81-year-old male sent into the ED with chief complaint of back pain. Per was discharged from last week. Has been complaining of lower back pain. Per was recently discharged for this. Has been giving the patient Flexeril, Percocet, and using lidocaine patches and notes that she has had intermittent days where she has not had to give him these medications however notes today that he is having intractable pain. No new injuries. Also notes since discharge has had significant difficulty feeding the patient. Notes that the patient is only a minimal amount since discharge. No changes in bowel or bladder habits. No other complaints. - Related Data Home Medications Medication Instructions Recorded Confirmed Aspirin [Adult Low Dose Aspirin EC] 81 mg PO DAILY 02/05/18 10/11/22 Enalapril [Vasotec] 20 mg PO BID 02/05/18 10/11/22 Levothyroxine Sodium [Synthroid] 125 mcg PO DAILY 10/17/21 10/11/22 Ezbsmb-X-Nyctlxiql 500mg 1 tab PO DAILY 09/27/22 10/11/22 Atorvastatin [Lipitor] 40 mg PO DAILY 09/27/22 10/11/22 Citalopram Hydrobromide [CeleXA] 10 mg PO DAILY 09/27/22 10/11/22 Clopidogrel [Plavix] 75 mg PO DAILY 09/27/22 10/11/22 Divalproex ER [Depakote ER] 250 mg PO HS 09/27/22 10/11/22 Melatonin 5 mg PO HS 09/27/22 10/11/22 Metoprolol Tartrate [Lopressor] 12.5 mg PO BID 09/27/22 10/11/22 traZODone HCL [Desyrel] 25 mg PO HS 09/27/22 10/11/22 Previous Rx's Medication Instructions Recorded Acetaminophen Tab [Tylenol] 650 mg PO Q6HR PRN tab 09/29/22 Isosorbide Mononitrate ER [Imdur] 60 mg PO DAILY #30 tab 09/29/22 amLODIPine [Norvasc] 10 mg PO DAILY #30 tab 09/29/22 Cyclobenzaprine [Flexeril] 5 mg PO TID PRN #30 tab 10/15/22 Pantoprazole Sodium [Protonix] 40 mg PO DAILY #30 tab 10/15/22 Pantoprazole [Protonix] 40 mg PO DIRECTED #42 tab 10/15/22 oxyCODONE-APAP 7.5-325MG [Percocet 1 each PO Q4HR PRN #18 tab 10/15/22 7.5-325 mg] Allergies Allergy/AdvReac Type Severity Reaction Status Date / Time No Known Allergies Allergy Verified 10/25/22 20:07 Review of Systems ROS Statement: Those systems with pertinent positive or pertinent negative responses have been documented in the HPI. ROS Other: All systems not noted in ROS Statement are negative. 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 incontinence of stool and urin at times..,hx ITCHY RASH ON BACK ., HX GRAVES DISEASE., SLEEP APNEA-USES C-PAP MACHINE., DOUBLE VISION-WEARS GLASSES WITH PRISMS, LOWER ELWHA-GRAHAM HEARING AIDS. diet control for NIDDM at this time. Last Myocardial Infarction Date:: 1999 History of Any Multi-Drug Resistant Organisms: None Reported Past Surgical History: Adenoidectomy, Coronary Bypass/CABG, Heart C atheterization With Stent, Tonsillectomy Additional Past Surgical History / Comment(s): CABG (DR PAGAN), SEVERAL EYE SURGERIES. Past Anesthesia/Blood Transfusion Reactions: No Reported Reaction Additional Past Anesthesia/Blood Transfusion Reaction / Comment(s): no blood transfusions Date of Last Stent Placement:: 1999 Past Psychological History: Anxiety, Depression Smoking Status: Former smoker Past Alcohol Use History: None Reported Past Drug Use History: None Reported - Past Family History Mother Family Medical History: No Reported History Father Family Medical History: Coronary Artery Disease (CAD), Hypertension Additional Family Medical History / Comment(s): open heart Brother(s) Family Medical History: Cancer Additional Family Medical History / Comment(s): PROSTATE CANCER Sister(s) Family Medical History: No Reported History Additional Family Medical History / Comment(s): open heart surgery General Exam Limitations: language barrier General appearance: alert (Demented. Follows commands somewhat appropriately however does not answer questions appropriately), in distress Respiratory exam: Present: normal lung sounds bilaterally Cardiovascular Exam: Present: regular rate, normal rhythm Back exam: Present: other (No midline cervical, thoracic, lumbar spinal tenderness palpation. Left paraspinal lumbar tenderness to palpation) Skin exam: Present: warm, dry Course Vital Signs 10/25/22 10/25/22 20:04 23:18 Temperature 97.6 F Pulse Rate 87 82 Respiratory 16 20 Rate Blood Pressure 114/71 156/85 O2 Sat by Pulse 96 98 Oximetry - Reevaluation(s) Reevaluation #1: Spoke to Dr. Ortega who accepts admission 10/25/22 23:57 Medical Decision Making - Medical Decision Making Was pt. sent in by a medical professional or institution (, PA, SCRATCHER, urgent care, hospital, or fci...) When possible be specific @ -No Did you speak to anyone other than the patient for history (EMS, parent, family, police, friend...)? What history was obtained from this source @ -Spoke to the patient's who provided entirety of history Did you review nursing and triage notes (agree or disagree)? Why? @ -I reviewed and agree with nursing and triage notes Were old charts reviewed (outside hosp., previous admission, EMS record, old EKG, old radiological studies, urgent care reports/EKG's, fci records)? Report findings @ -Old charts reviewed showing discharge on 10/15/22. Complaints of left-sided lower back pain at that time with history of advanced dementia. Differential Diagnosis (chest pain, altered mental status, abdominal pain women, abdominal pain men, vaginal bleeding, weakness, fever, dyspnea, syncope, headache, dizziness, GI bleed, back pain, seizure, CVA, palpatations, mental health, musculoskeletal)? @ -Differential Back Pain: Strain, zoster, cauda equina syndrome, epidural abscess, vertebral osteomyelitis, discitis, fracture, subluxation, disc herniation, DJD, spinal stenosis, dissection, AAA, pancreatitis, peptic ulcer disease, pyelonephritis, kidney stone, this is not meant to be an all-inclusive list. EKG interpreted by me (3pts min.). @ -None X-rays interpreted by me (1pt min.). @ -X-ray of the lumbar spine showed no acute process. CT interpreted by me (1pt min.). @ -None done U/S interpreted by me (1pt. min.). @ -None done What testing was considered but not performed or refused? (CT, X-rays, U/S, labs)? Why? @ -None What meds were considered but not given or refused? Why? @ -None Did you discuss the management of the patient with other professionals (pearl valdez i.eSilverio Menendez, PA, SCRATCHER, lab, RT, psych nurse, social sciences chair, pomology teacher, teacher, chief sales officer, nurse outreach case manager)? Give summary @ -Spoke to Dr. Ortega who accepted admission. Was smoking cessation discussed for >3mins.? @ -No Was critical care preformed (if so, how long)? @ -No Were there social determinants of health that impacted care today? How? (Homelessness, low income, unemployed, alcoholism, drug addiction, transportation, low edu. Level, literacy, decrease access to med. care, custodial, rehab)? @ -No Was there de-escalation of care discussed even if they declined (Discuss DNR or withdrawal of care, Hospice)? DNR status @ -No What co-morbidities impacted this encounter? (DM, HTN, Smoking, COPD, CAD, Cance r, CVA, ARF, Chemo, Hep., AIDS, mental health diagnosis, sleep apnea, morbid obesity)? @ -Dementia Was patient admitted / discharged? Hospital course, mention meds given and route, prescriptions, significant lab abnormalities, going to OR and other pertinent info. @ -Admitted. Patient had improvement of his pain with Toradol and Dilaudid. However, patient's notes significant difficulty in caring for the patient since discharge. Notes patient is had reduced oral intake. States that the patient's pain has become uncontrollable. Patient will be admitted for pain control with consults to social sciences chair for possible placement into the facility. Discussed plan of care with patient's who is in agreement. Spoke with Dr. Ortega who accepted the admission. Undiagnosed new problem with uncertain prognosis? @ -No Drug Therapy requiring intensive monitoring for toxicity (Heparin, Nitro, Insulin, Cardizem)? @ -No Were any procedures done? @ -No Diagnosis/symptom? @ -Intractable low back pain, advanced dementia, failure to thrive Acute, or Chronic, or Acute on Chronic? @ -Acute on chronic Uncomplicated (without systemic symptoms) or Complicated (systemic symptoms)? @ -Uncomplicated Side effects of treatment? @ -No Exacerbation, Progression, or Severe Exacerbation? @ -No Poses a threat to life or bodily function? How? (Chest pain, USA, SD, pneumonia, PE, COPD, DKA, ARF, appy, cholecystitis, CVA, Diverticulitis, Homicidal, Suicidal, threat to staff... and all critical care pts) @ -No - Lab Data Result diagrams: 10/25/22 23:13 Lab Results 10/25/22 Range/Units 23:13 WBC 6.2 (3.8-10.6) k/uL RBC 3.73 L (4.30-5.90) m/uL Hgb 11.7 L (13.0-17.5) gm/dL Hct 34.5 L (39.0-53.0) % MCV 92.5 (80.0-100.0) fL MCH 31.4 (25.0-35.0) pg MCHC 33.9 (31.0-37.0) g/dL RDW 14.6 (11.5-15.5) % MPV 10.0 Disposition Clinical Impression: Back pain, Failure to thrive Disposition: ADMITTED IP TO THIS [facility] Referrals: [facility],Clinic [REFERRING] - 1-2 days
--- NOTE | 2022-10-25 21:23 | XR ---
EXAMINATION TYPE: XR lumbar spine 2 or 3V DATE OF EXAM: 10/25/2022 9:19 PM INDICATION: Patient age:Male; 81 years old; Reason for study: back pain; PHH. COMPARISON: CT abdomen pelvis 10/11/2022 TECHNIQUE: Frontal, lateral and coned in L5-S1 lateral views of the spine. FINDINGS: No evidence of any acute osseous pathology. No evidence of loss of vertebral body height i s seen. Multilevel intervertebral disc height loss, most pronounced at L5-S1. Degenerative changes of the L5-S1 vertebral level. There is normal alignment of the lumbar vertebral bodies. Vascular calcif ications of the aorta are noted. IMPRESSION: Osteoarthritis of the lumbar spine, most pronounced at L5-S1.
[2022-10-25] MEDS ORDERED: KETOROLAC 15 MG/ML 1 ML VIAL IVP STA (22:44)
[2022-10-25] MEDS ORDERED: HYDROmorphone 0.5 MG/0.5 ML SYRINGE IVP STA (23:09)
[2022-10-25 23:36] LABS: ALT 66 U/L (4-49); AST 51 U/L (17-59); African American GFR (CKD) 34 (>60 ml/min/1.73 sqM); Alkaline Phosphatase 349 U/L (38-126); Anion Gap 14 mmol/L; Blood Urea Nitrogen 63 mg/dL (9-20); Calcium 8.7 mg/dL (8.4-10.2); Carbon Dioxide 18 mmol/L (22-30); Chloride 104 mmol/L (98-107); Glucose 197 mg/dL (74-99); Non-African American GFR(CKD) 29 (>60 ml/min/1.73 sqM); Sodium 136 mmol/L (137-145); Total Bilirubin 1.1 mg/dL (0.2-1.3); Total Protein 7.4 g/dL (6.3-8.2)
[2022-10-26 00:03] LABS: HCT 34.5 % (39.0-53.0); HGB 11.7 gm/dL (13.0-17.5); MCH 31.4 pg (25.0-35.0); MCHC 33.9 g/dL (31.0-37.0); MCV 92.5 fL (80.0-100.0); RBC 3.73 m/uL (4.30-5.90); RDW 14.6 % (11.5-15.5); WBC 6.2 k/uL (3.8-10.6)
[2022-10-26] MEDS ORDERED: KETOROLAC 15 MG/ML 1 ML VIAL IVP PRN (00:10)
[2022-10-26] MEDS ORDERED: ACETAMINOPHEN TAB 325 MG TAB PO PRN (00:10)
[2022-10-26] MEDS ORDERED: HYDROmorphone 0.5 MG/0.5 ML SYRINGE IVP PRN (00:10)
[2022-10-26] MEDS ORDERED: NALOXONE 0.4 MG/ML 1 ML VIAL IV PRN (00:10)
[2022-10-26] MEDS ORDERED: HYDROmorphone 1 MG/ML 1 ML SYRINGE IVP PRN (00:10)
[2022-10-26 00:12] LABS: Potassium 5.2 mmol/L (3.5-5.1)
[2022-10-26] MEDS: SODIUM CHLORIDE 0.9% 1,000 ML IV SCH (00:36)
--- NOTE | 2022-10-26 01:23 | P.HPIM ---
History of Present Illness H&P Date: 10/26/22 Patient is a 81-year-old male with a PMH of advanced dementia, history of CVA with right-sided deficit, type II DM, hypertension, hyperlipidemia, and chronic lower back pain who was brought into the emergency room by his due to complaints of severe back pain. The states that the patient has been crying out in pain at home over the last one week. Of note, the patient was recently discharged from the hospital on 10/15 at when he was admitted for complaints of epigastric and back pain. The patient had a HIDA scan which was unremarkable and also had an EGD which revealed erosive esophagitis and active duodenitis. The reports that due to the patient's worsening back pain and his advanced dementia, that she is no longer able to care for him. He notes that the patient has worsening sundowning now. The patient at the time of interview was slow to respond but did endorse lower back pain. Denied any additional complaints. The also reports that the patient has had a poor appetite and severity diminished oral intake. She is also requesting for a hospice consult. A lumbar spine x-ray in the emergency room revealed arthritis most pronounced at the L5-S1. Laboratory evaluation was remarkable for sodium 136, potassium 5.2 (hemolyzed), BUN 63, creatinine 2.07 (previously 1.04 on 10/15), glucose 197, ALT 66, and alk phos 349. ED documentation reviewed and case discussed with ED provider. Review of systems: Unable to obtain due to mental status Physical examination: Vital signs reviewed General: non toxic, no distress, appears at stated age, normal weight Derm: no unusual rashes/lesions, warm Head: atraumatic, normocephalic, symmetric Eyes: EOMI, no lid lag, anicteric sclera, pupils equal round reactive to light ENT: Nose and ears atraumatic Neck: No cervical lymphadenopathy, trachea midline, supple Mouth: no lip lesion, mucus membranes dry Cardiovascular: S1S2 reg, no murmur, positive dorsalis pedis pulse bilateral, no edema Lungs: CTA bilateral, no rhonchi, no rales, no accessory muscle use Abdominal: soft, nontender to palpation, no guarding Ext: muscle strength 3 out of 5 in all 4 extremities grossly, no gross muscle atrophy, no contractures, midline lumbar tenderness noted Neuro: CN II-XI grossly intact, no gross focal neuro deficits Psych: Slow to respond, oriented to person and place, not oriented to time Assessment: # Failure to thrive # Lower back pain # LAILA, likely due to poor oral intake and dehydration #Chronic conditions: Type II DM, hypertension, hyperlipidemia, CVA Imaging: A lumbar spine x-ray in the emergency room revealed arthritis most pronounced at the L5-S1. Data Review: Laboratory evaluation was remarkable for sodium 136, potassium 5.2 (hemolyzed), BUN 63, creatinine 2.07 (previously 1.04 on 10/15), glucose 197, ALT 66, and alk phos 349. Plan: Physical therapy and hospice consults Dietitian consult Consult pain management Continue with IV fluids and monitor BMP Continue home medications Pain control DVT prophylaxis: Heparin subq The patient is admitted with an anticipated greater than 2 midnight stay for evaluation of failure to thrive CODE STATUS: Full Code Discussed with: Patient Anticipated discharge place: Home Past Medical History Past Medical History: Coronary Artery Disease (CAD), Cancer, CVA/TIA, Dementia, Diabetes Mellitus, GERD/Reflux, Hearing Disorder / Deafness, Hyperlipidemia, Hypertension, Myocardial Infarction ([place]), Osteoarthritis (OA), Sleep Apnea/CPAP/BIPAP, Thyroid Disorder Additional Past Medical History / Comment(s): CVA SEPTEMBER 2021 WITH RIGHT ARM AND LEG WEAKNESS, HX OF FALLS., SPEECH IMPROVED., completed PHYSICAL THERAPY AT HOME ., 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 incontinence of stool and urin at times..,hx ITCHY RASH ON BACK ., HX GRAVES DISEASE., SLEEP APNEA-USES C-PAP MACHINE., DOUBLE VISION-WEARS GLASSES WITH PRISMS, [place] HEARING AIDS. diet control for NIDDM at this time. Last Myocardial Infarction Date:: 1999 History of Any Multi-Drug Resistant Organisms: None Reported Past Surgical History: Adenoidectomy, Coronary Bypass/CABG, Heart Catheterization With Stent, Tonsillectomy Additional Past Surgical History / Comment(s): CABG (DR PAGAN), SEVERAL EYE SURGERIES. Past Anesthesia/Blood Transfusion Reactions: No Reported Reaction Additional Past Anesthesia/Blood Transfusion Reaction / Comment(s): no blood transfusions Date of Last Stent Placement:: 1999 Past Psychological History: Anxiety, Depression Smoking Status: Former smoker Past Alcohol Use History: None Reported Past Drug Use History: None Reported - Past Family History Mother Family Medical History: No Reported History Father Family Medical History: Coronary Artery Disease (CAD), Hypertension Additional Family Medical History / Comment(s): open heart Brother(s) Family Medical History: Cancer Additional Family Medical History / Comment(s): PROSTATE CANCER Sister(s) Family Medical History: No Reported History Additional Family Medical History / Comment(s): open heart surgery Medications and Allergies Home Medications Medication Instructions Recorded Confirmed Type Aspirin [Adult Low Dose Aspirin EC] 81 mg PO DAILY 02/05/18 10/11/22 History Enalapril [Vasotec] 20 mg PO BID 02/05/18 10/11/22 History Levothyroxine Sodium [Synthroid] 125 mcg PO DAILY 10/17/21 10/11/22 History Tmrpch-N-Llxprxlci 500mg 1 tab PO DAILY 09/27/22 10/11/22 History Atorvastatin [Lipitor] 40 mg PO DAILY 09/27/22 10/11/22 History Citalopram Hydrobromide [CeleXA] 10 mg PO DAILY 09/27/22 10/11/22 History Clopidogrel [Plavix] 75 mg PO DAILY 09/27/22 10/11/22 History Divalproex ER [Depakote ER] 250 mg PO HS 09/27/22 10/11/22 History Melatonin 5 mg PO HS 09/27/22 10/11/22 History Metoprolol Tartrate [Lopressor] 12.5 mg PO BID 09/27/22 10/11/22 History traZODone HCL [Desyrel] 25 mg PO HS 09/27/22 10/11/22 History Acetaminophen Tab [Tylenol] 650 mg PO Q6HR PRN tab 09/29/22 10/11/22 Rx Isosorbide Mononitrate ER [Imdur] 60 mg PO DAILY #30 tab 09/29/22 10/11/22 Rx amLODIPine [Norvasc] 10 mg PO DAILY #30 tab 09/29/22 10/11/22 Rx Cyclobenzaprine [Flexeril] 5 mg PO TID PRN #30 tab 10/15/22 Rx Pantoprazole Sodium [Protonix] 40 mg PO DAILY #30 tab 10/15/22 10/11/22 Rx Pantoprazole [Protonix] 40 mg PO DIRECTED #42 tab 10/15/22 Rx oxyCODONE-APAP 7.5-325MG [Percocet 1 each PO Q4HR PRN #18 tab 10/15/22 Rx 7.5-325 mg] Allergies Allergy/AdvReac Type Severity Reaction Status Date / Time No Known Allergies Allergy Verified 10/25/22 20:07 Physical Exam Vitals: Vital Signs Temp Pulse Resp BP Pulse Ox 10/25/22 23:18 82 20 156/85 98 10/25/22 20:04 97.6 F 87 16 114/71 96 Intake and Output 10/25/22 10/25/22 10/26/22 14:59 22:59 06:59 Other: Weight 63.503 kg Results CBC & Chem 7: 10/25/22 23:13 10/25/22 23:13 Labs: Abnormal Lab Results - Last 24 Hours (Table) 10/25/22 10/25/22 Range/Units 23:13 23:13 RBC 3.73 L (4.30-5.90) m/uL Hgb 11.7 L (13.0-17.5) gm/dL Hct 34.5 L (39.0-53.0) % Sodium 136 L (137-145) mmol/L Potassium 5.2 H (3.5-5.1) mmol/L Carbon Dioxide 18 L (22-30) mmol/L BUN 63 H (9-20) mg/dL Creatinine 2.07 H (0.66-1.25) mg/dL Glucose 197 H (74-99) mg/dL ALT 66 H (4-49) U/L Alkaline Phosphatase 349 H (38-126) U/L
[2022-10-26 06:29] LABS: Glucose,Whole Blood 184 mg/dL (70-110)
[2022-10-26] MEDS: MORPHINE SULFATE 4 MG/ML SYRINGE IVP PRN ×4 (07:01→21:06)
[2022-10-26 07:20] LABS: African American GFR (CKD) 41 (>60 ml/min/1.73 sqM); Anion Gap 11 mmol/L; Blood Urea Nitrogen 62 mg/dL (9-20); Calcium 8.3 mg/dL (8.4-10.2); Carbon Dioxide 22 mmol/L (22-30); Chloride 105 mmol/L (98-107); Glucose 167 mg/dL (74-99); Non-African American GFR(CKD) 35 (>60 ml/min/1.73 sqM); Potassium 3.8 mmol/L (3.5-5.1); Sodium 138 mmol/L (137-145)
[2022-10-26] MEDS: HEPARIN SODIUM,PORCINE/PF 5,000 UNIT/0.5 ML SYRINGE SQ SCH ×2 (07:50→16:12)
[2022-10-26] MEDS ORDERED: CYCLOBENZAPRINE 5 MG TAB PO PRN (09:05)
[2022-10-26] MEDS: ATORVASTATIN 40 MG TAB PO SCH (09:34)
[2022-10-26] MEDS: oxyCODONE-APAP 7.5-325MG 1 EACH TAB PO PRN ×2 (09:34→14:37)
[2022-10-26] MEDS: PANTOPRAZOLE 40 MG TABLET PO SCH (09:35)
[2022-10-26] MEDS: METOPROLOL TARTRATE 12.5 MG TAB PO SCH (09:35)
[2022-10-26] MEDS: CLOPIDOGREL 75 MG TAB PO SCH (09:35)
[2022-10-26] MEDS: ASPIRIN 81 MG PO SCH (09:35)
[2022-10-26] MEDS: amLODIPine 10 MG TAB PO SCH (09:35)
[2022-10-26] MEDS: ISOSORBIDE MONONITRATE ER 60 MG TAB.ER.24H PO SCH (09:35)
[2022-10-26] MEDS: CITALOPRAM HYDROBROMIDE 10 MG TAB PO SCH (09:39)
[2022-10-26] MEDS: LEVOTHYROXINE 125 MCG TAB PO SCH (09:42)
[2022-10-26 11:15] LABS: Glucose,Whole Blood 168 mg/dL (70-110)
--- NOTE | 2022-10-26 13:22 | CT ---
EXAMINATION TYPE: CT abdomen pelvis wo con DATE OF EXAM: 10/26/2022 COMPARISON: 10/11/2022 INDICATION: Constipation and abdominal pain Pt not able to hold still DLP: 670.4 mGycm, Automated exposure control for dose reduction was used. CONTRAST: 0 mL of Isovue 300. Study performed without Oral Contrast TECHNIQUE: Axial images were obtained from above the diaphragm to the pubic rami in the axial plane a t 5 mm thick sections. Reconstructed images are reviewed on the computer in the coronal plane. FINDINGS: Limited CT sections are obtained the lung bases. Minimal right pleural effusion is present.. There is some coronary artery calcification present. CT ABDOMEN: Liver: Normal Spleen: Normal Pancreas: Normal Adrenal glands: The adrenal glands are normal. Gallbladder: Normal Kidneys: There is a 1.2 cm hyperdense area within the anterior superior right renal cortex.. No hydro nephrosis is present. Small hypodensity may be on the posterior lateral left kidney. Aorta: Vascular calcification is within the aorta. Inferior vena cava: Normal. CT PELVIS: Diverticular changes are within the sigmoid colon. No rheumatoid changes are adjacent to suggest acut e diverticulitis. This study is without neural contrast limiting evaluation. Appendix: Normal as visualized. Urinary bladder: Normal Genitourinary structures: Mildly prominent Osseous structures: No suspicious lytic or sclerotic lesions. IMPRESSIONS: 1. Small 1.2 cm hyperdense area superior right kidney, stable from comparison. 2. Sigmoid diverticulosis without acute diverticulitis.
[2022-10-26 13:45] VITALS: BMI 23.3
[2022-10-26 14:58] LABS: Band Neutrophils % 3 %; Eosinophils # (M) 0.06 k/uL (0-0.7); Lymphocytes # (M) 1.98 k/uL (1.0-4.8); Metamyelocytes # (M) 0.12 k/uL (0); Metamyelocytes % 2 %; Monocytes # (M) 0.43 k/uL (0-1.0); Myelocytes # (M) 0.19 k/uL (0); Myelocytes % 3 %; Neutrophils % (M) 48 %
[2022-10-26 14:59] LABS: Blast Cells # (M) 0.25 k/uL (0); Nucleated Red Blood Cells 0 /100 WBC (0-0); Total Cells Counted 200
[2022-10-26 15:02] LABS: Platelet Count 90 k/uL (150-450)
[2022-10-26 16:40] LABS: Glucose,Whole Blood 159 mg/dL (70-110)
[2022-10-26] MEDS: QUEtiapine 25 MG TAB PO SCH (21:02)
[2022-10-26 21:07] LABS: Glucose,Whole Blood 200 mg/dL (70-110)
[2022-10-27] MEDS: HEPARIN SODIUM,PORCINE/PF 5,000 UNIT/0.5 ML SYRINGE SQ SCH ×3 (00:52→16:50)
[2022-10-27] MEDS: SODIUM CHLORIDE 0.9% 1,000 ML IV SCH ×3 (00:54→16:50)
[2022-10-27] MEDS: METOPROLOL TARTRATE 12.5 MG TAB PO SCH ×3 (00:55→21:01)
[2022-10-27] MEDS: MORPHINE SULFATE 4 MG/ML SYRINGE IVP PRN ×5 (00:58→21:03)
[2022-10-27 06:28] LABS: Glucose,Whole Blood 174 mg/dL (70-110)
[2022-10-27] MEDS: LEVOTHYROXINE 125 MCG TAB PO SCH (08:04)
[2022-10-27] MEDS: amLODIPine 10 MG TAB PO SCH (10:03)
[2022-10-27] MEDS: ATORVASTATIN 40 MG TAB PO SCH (10:03)
[2022-10-27] MEDS: ISOSORBIDE MONONITRATE ER 60 MG TAB.ER.24H PO SCH (10:03)
[2022-10-27] MEDS: CLOPIDOGREL 75 MG TAB PO SCH (10:03)
[2022-10-27] MEDS: ASPIRIN 81 MG PO SCH (10:03)
[2022-10-27] MEDS: CITALOPRAM HYDROBROMIDE 10 MG TAB PO SCH (10:03)
[2022-10-27] MEDS: PANTOPRAZOLE 40 MG TABLET PO SCH (10:04)
[2022-10-27 12:04] LABS: Glucose,Whole Blood 191 mg/dL (70-110)
--- NOTE | 2022-10-27 12:13 | P.PN ---
Subjective Progress Note Date: 10/27/22 81 year old M with PMH of advanced dementia, CAD, CVA with R sided residual weakness, diabetes mellitus, hypertension, dyslipidemia, hypothyroidism, anxiety and depression presents to the ED for worsening back pain and epigastric pain. reported poor oral intake as well. Patient was recently admitted from 10/12- 10/15 for similar complaints. Workup at that time included HIDA scan negative for acute cholecystitis and EGD showing hiatal hernia, erosive esophagitis, active duodenitis. Since his discharge, his owning has worsened and is unable to take care of the patient at home. A lumbar spine x-ray in the emergency room revealed arthritis most pronounced at the L5-S1. Laboratory evaluation was remarkable for sodium 136, potassium 5.2 (hemolyzed), BUN 63, creatinine 2.07 (previously 1.04 on 10/15), glucose 197, ALT 66, and alk phos 349. 10/27 Patient was seen and examined. He is in moderate distress. He is yelling out. CTAP was done which was negative for acute pathology. Review of vitals showing O2 saturation 91% on room air and heart rate in the 100s. Unable to give morning medication due to his clinical condition. BMP from yesterday showed BUN of 62, creatinine 1.78, calcium of 8.3. CBC done on 10/25 shows 4% blast cells. Pain management consultation pending. General: non toxic, moderate distress, appears at stated age, flat affect Derm: warm, dry Head: atraumatic, normocephalic, symmetric Eyes: EOMI, no lid lag, anicteric sclera Cardiovascular: Good distal perfusion all 4 extremities, Normal S1 S2 Lungs: Breathing comfortably , no accessory muscle use, clear to auscultation bilaterally Ext: no gross muscle atrophy, no edema, no contractures Failure to thrive Acute lower back pain Normocytic anemia Thrombocytopenia Blast cells on peripheral smear Acute kidney injury Resolved: HypoNa, HypoK, Metabolic acidosis. Chronic conditions: Advanced dementia, CAD, CVA with R sided residual weakness, diabetes mellitus, hypertension, dyslipidemia, hypothyroidism, anxiety and depression Based on my assessment of this patient, this patient meets a moderate complexity level of care. Patient has a new diagnosis of acute lower back pain with uncertain prognosis. He has advanced dementia which makes obtaining a history and physical exam difficult. Majority of the history is provided by his . CT AP is negative. Hematology consulted for blast cells seen on peripheral smear. Continue pain control with Percocet 7.5 mg PO Q4H PRN, Toradol 15 mg IV Q6H PRN, Morphine 4 mg IV Q4H PRN for severe pain. reports that patient takes Depakote for sundowning and agitation at bedtime. We will try Seroquel instead. Fall precautions will be ordered. PT and OT consulted. Hospice consulted. SCDS for DVT prophylaxis. is the decision maker. NO CODE. I have reviewed the following search consultant notes: I have reviewed the results of the following tests: CT AP, CBC, BMP. I have ordered the following tests: I have discussed the care of this patient with the following independent historian: I have independently interpreted the following test below: I have discussed the management of this patient with the following physician: Objective - Vital Signs Vital signs: Vital Signs Temp 98.3 F 10/27/22 07:29 Pulse 98 10/27/22 08:00 Resp 18 10/27/22 08:00 BP 138/72 10/27/22 07:29 Pulse Ox 91 L 10/27/22 07:29 FiO2 Intake & Output 10/26/22 10/27/22 10/27/22 18:59 06:59 18:59 Intake Total 900 Balance 900 Weight 63.503 kg Intake: Intake, IV Titration 900 Amount Sodium Chloride 0.9% 1, 900 000 ml @ 75 mls/hr IV . [id number] [facility] Rx#:[id number] Other: Voiding Method Diaper Diaper # Voids 3 2 - Labs CBC & Chem 7: 10/25/22 23:13 10/26/22 06:39 Labs: Abnormal Lab Results - Last 24 Hours (Table) 10/25/22 10/26/22 10/26/22 Range/Units 23:13 16:33 21:06 RBC 3.73 L (4.30-5.90) m/uL Hgb 11.7 L (13.0-17.5) gm/dL Hct 34.5 L (39.0-53.0) % Plt Count 90 L (150-450) k/uL Blast Cells % 4 H* % Metamyelocytes # (Man) 0.12 H (0) k/uL Myelocytes # (Manual) 0.19 H (0) k/uL Blast Cells # (Man) 0.25 H (0) k/uL Pathologist Review See comment A POC Glucose (mg/dL) 159 H 200 H (70-110) mg/dL 10/27/22 10/27/22 Range/Units 06:16 12:01 RBC (4.30-5.90) m/uL Hgb (13.0-17.5) gm/dL Hct (39.0-53.0) % Plt Count (150-450) k/uL Blast Cells % % Metamyelocytes # (Man) (0) k/uL Myelocytes # (Manual) (0) k/uL Blast Cells # (Man) (0) k/uL Pathologist Review POC Glucose (mg/dL) 174 H 191 H (70-110) mg/dL
--- NOTE | 2022-10-27 16:24 | P.CONS ---
History of Present Illness - Reason for Consult Consult date: 10/27/22 Blasts on CBC - Chief Complaint Back pain - History of Present Illness Mr. Valladares is an 81-year-old gentleman with a past medical history of significant for CVA in September 2021 with associated right-sided deficit along with dementia who was initially admitted for progressive back pain and discomfort. He was recently hospitalized at the end of September 2022 for complaints of epigastric and back pain. Work-up for cholecystitis was nonremarkable on HIDA scan and EGD noted erosive esophagitis with duodenitis with H. pylori stains being negative. History was provided by his at bedside, who notes that since his stroke, he has had progressive decline. He has gotten weaker along with decreased oral intake. In terms of his dementia, she notes he is usually alert and oriented, but has had increased disorientation recently within the past few months. She is a former nurse and is no longer able to take care of him at home. CT abdomen/pelvis on admission noted no acute process with lumbar spine x-ray noting osteoarthritis, most prominent at L5-S1. Most recent CBC noted for percent blasts with presence of myelocytes and metamyelocytes. Hemoglobin is 11.7 (MCV 92.5) with platelets of 90. WBC was normal at 6.2. Given the presence of blast, hematology was consulted for additional management recommendations. Since September 2021, his hemoglobin has decreased from 16-11.7 and platelets have decreased from normal range to 90. Terrance was not alert on today's exam and cannot provide any additional history. Review of Systems ROS unobtainable: due to mental status Past Medical History Past Medical History: Coronary Artery Disease (CAD), Cancer, CVA/TIA, Dementia, Diabetes Mellitus, GERD/Reflux, Hearing Disorder / Deafness, Hyperlipidemia, Hypertension, Myocardial Infarction ([place]), Osteoarthritis (OA), Sleep Apnea/CPAP/BIPAP, Thyroid Disorder Additional Past Medical History / Comment(s): CVA SEPTEMBER 2021 WITH RIGHT ARM AND LEG WEAKNESS, HX OF FALLS., SPEECH IMPROVED., completed PHYSICAL THERAPY AT HOME ., PROSTATE CANCER WITH RADIATION [place] (2016)., OCCASIONAL BLOOD IN STOOL- S TATES THEY THINK IT IS HEMORRHOIDS diverticulosis per colonoscopy., STATES DIARRHEA SINCE HE WAS IN REHAB-TAKING PEPTO-BISMOL PER DRS INSTRUCTIONS now off and taking immodium as needed. incontinence of stool and urin at times..,hx ITCHY RASH ON BACK ., HX GRAVES DISEASE., SLEEP APNEA-USES C-PAP MACHINE., DOUBLE VISION-WEARS GLASSES WITH PRISMS, [place] HEARING AIDS. diet control for NIDDM at this time. Last Myocardial Infarction Date:: 1999 History of Any Multi-Drug Resistant Organisms: None Reported Past Surgical History: Adenoidectomy, Coronary Bypass/CABG, Heart Catheterization With Stent, Tonsillectomy Additional Past Surgical History / Comment(s): CABG (DR PAGAN), SEVERAL EYE SURGERIES. Past Anesthesia/Blood Transfusion Reactions: No Reported Reaction Additional Past Anesthesia/Blood Transfusion Reaction / Comm: no blood transfusi ons Date of Last Stent Placement:: 1999 Past Psychological History: Anxiety, Depression Additional Psychological History / Comment(s): THINKS DEPRESSION SINCE CVA Smoking Status: Former smoker Past Alcohol Use History: None Reported Additional Past Alcohol Use History / Comment(s): hxSMOKES APPROX 4 CIGARETTES/DAY quit in 11/10 Past Drug Use History: None Reported - Past Family History Mother Family Medical History: No Reported History Father Family Medical History: Coronary Artery Disease (CAD), Hypertension Additional Family Medical History / Comment(s): open heart Brother(s) Family Medical History: Cancer Additional Family Medical History / Comment(s): PROSTATE CANCER Sister(s) Family Medical History: No Reported History Additional Family Medical History / Comment(s): open heart surgery Medications and Allergies Home Medications Medication Instructions Recorded Confirmed Type Aspirin [Adult Low Dose Aspirin EC] 81 mg PO DAILY 02/05/18 10/26/22 History Enalapril [Vasotec] 20 mg PO BID 02/05/18 10/26/22 History Levothyroxine Sodium [Synthroid] 125 mcg PO DAILY 10/17/21 10/26/22 History Mjoluj-H-Rwafexwkq 500mg 1 tab PO DAILY 09/27/22 10/26/22 History Atorvastatin [Lipitor] 40 mg PO DAILY 09/27/22 10/26/22 History Citalopram Hydrobromide [CeleXA] 10 mg PO DAILY 09/27/22 10/26/22 History Clopidogrel [Plavix] 75 mg PO DAILY 09/27/22 10/26/22 History Divalproex ER [Depakote ER] 250 mg PO HS 09/27/22 10/26/22 History Melatonin 5 mg PO HS 09/27/22 10/26/22 History Metoprolol Tartrate [Lopressor] 12.5 mg PO BID 09/27/22 10/26/22 History traZODone HCL [Desyrel] 25 mg PO HS 09/27/22 10/26/22 History Acetaminophen Tab [Tylenol] 650 mg PO Q6HR PRN tab 09/29/22 10/26/22 Rx Isosorbide Mononitrate ER [Imdur] 60 mg PO DAILY #30 tab 09/29/22 10/26/22 Rx amLODIPine [Norvasc] 10 mg PO DAILY #30 tab 09/29/22 10/26/22 Rx Cyclobenzaprine [Flexeril] 5 mg PO TID PRN #30 tab 10/15/22 10/26/22 Rx oxyCODONE-APAP 7.5-325MG [Percocet 1 each PO Q4HR PRN #18 tab 10/15/22 10/26/22 Rx 7.5-325 mg] Pantoprazole Sodium [Protonix] See Taper PO DIRECTED 10/26/22 10/26/22 History Allergies Allergy/AdvReac Type Severity Reaction Status Date / Time No Known Allergies Allergy Verified 10/26/22 09:21 Physical Exam Vitals: Vital Signs Temp Pulse Resp BP Pulse Ox 10/27/22 15:39 118 H 145/69 10/27/22 13:44 97.5 F L 127 H 23 163/82 90 L 10/27/22 08:00 98 18 10/27/22 07:29 98.3 F 109 H 23 138/72 91 L 10/27/22 02:00 99.3 F 98 18 106/69 94 L 10/26/22 20:00 98.1 F 83 18 97/58 93 L Intake and Output 10/27/22 10/27/22 10/27/22 06:59 14:59 22:59 Intake Total 900 Balance 900 Intake: Intake, IV Titration 900 Amount Sodium Chloride 0.9% 1, 900 000 ml @ 75 mls/hr IV . [id number] [facility] Rx#:[id number] Other: Voiding Method Diaper # Voids 2 - Constitutional Seated in chair groaning and uncomfortable - Respiratory Nonlabored breathing - Cardiovascular Warm and well-perfused Results CBC & Chem 7: 10/25/22 23:13 10/26/22 06:39 Labs: Abnormal Lab Results - Last 24 Hours (Table) 10/26/22 10/26/22 10/27/22 Range/Units 16:33 21:06 06:16 POC Glucose (mg/dL) 159 H 200 H 174 H (70-110) mg/dL 10/27/22 Range/Units 12:01 POC Glucose (mg/dL) 191 H (70-110) mg/dL Assessment and Plan (1) Normocytic normochromic anemia Current Visit: Yes Status: Acute Code(s): D64.9 - ANEMIA, UNSPECIFIED SNOMED Code(s): 70570881 (2) Thrombocytopenia Current Visit: Yes Status: Acute Code(s): D69.6 - THROMBOCYTOPENIA, UNSPECIFIED SNOMED Code(s): 254216604 Plan: #Normocytic normochromic anemia with thrombocytopenia in the presence of blasts -Noted progressive decline in hemoglobin and platelets over the past year -4% blasts noted on peripheral smear with myelocytes and metamyelocytes also present -I discussed my concern for myelodysplastic syndrome with his at bedside -Typically, a bone marrow biopsy would be recommended for additional work-up -Given his progressive decline over the past year along with his current per formance status, he would not be a candidate for any systemic treatment for MDS -With that in mind, I recommended against proceeding with bone marrow biopsy or any additional work-up -His is considering hospice given his other medical comorbidities and progressive decline, which I feel is appropriate -We will hold off on any additional work-up for anemia and thrombocytopenia at this time given the likely transition to hospice We remain available for any additional questions or concerns should they arise Sylvie Becerril MD
[2022-10-27 16:39] LABS: Glucose,Whole Blood 204 mg/dL (70-110)
[2022-10-27 20:25] LABS: Glucose,Whole Blood 239 mg/dL (70-110)
[2022-10-27] MEDS: QUEtiapine 25 MG TAB PO SCH (21:01)
[2022-10-28] MEDS: HEPARIN SODIUM,PORCINE/PF 5,000 UNIT/0.5 ML SYRINGE SQ SCH ×3 (00:32→16:42)
[2022-10-28 05:56] LABS: Glucose,Whole Blood 201 mg/dL (70-110)
[2022-10-28] MEDS: LEVOTHYROXINE 125 MCG TAB PO SCH (06:18)
[2022-10-28] MEDS: MORPHINE SULFATE 4 MG/ML SYRINGE IVP PRN ×3 (06:18→16:45)
[2022-10-28] MEDS: SODIUM CHLORIDE 0.9% 1,000 ML IV SCH ×2 (09:31→21:10)
[2022-10-28] MEDS: ASPIRIN 81 MG PO SCH (09:37)
[2022-10-28] MEDS: amLODIPine 10 MG TAB PO SCH (09:37)
[2022-10-28] MEDS: CLOPIDOGREL 75 MG TAB PO SCH (09:38)
[2022-10-28] MEDS: ISOSORBIDE MONONITRATE ER 60 MG TAB.ER.24H PO SCH (09:38)
[2022-10-28] MEDS: CITALOPRAM HYDROBROMIDE 10 MG TAB PO SCH (09:38)
[2022-10-28] MEDS: METOPROLOL TARTRATE 12.5 MG TAB PO SCH ×2 (09:38→21:12)
[2022-10-28] MEDS: ATORVASTATIN 40 MG TAB PO SCH (09:38)
[2022-10-28] MEDS: PANTOPRAZOLE 40 MG TABLET PO SCH (09:39)
[2022-10-28 11:28] LABS: Glucose,Whole Blood 155 mg/dL (70-110)
--- NOTE | 2022-10-28 12:01 | P.PN ---
Subjective Progress Note Date: 10/28/22 81 year old M with PMH of advanced dementia, CAD, CVA with R sided residual weakness, diabetes mellitus, hypertension, dyslipidemia, hypothyroidism, anxiety and depression presents to the ED for worsening back pain and epigastric pain. reported poor oral intake as well. Patient was recently admitted from 10/12- 10/15 for similar complaints. Workup at that time included HIDA scan negative for acute cholecystitis and EGD showing hiatal hernia, erosive esophagitis, active duodenitis. Since his discharge, his ing has worsened and is unable to take care of the patient at home. A lumbar spine x-ray in the emergency room revealed arthritis most pronounced at the L5-S1. Laboratory evaluation was remarkable for sodium 136, potassium 5.2 (hemolyzed), BUN 63, creatinine 2.07 (previously 1.04 on 10/15), glucose 197, ALT 66, and alk phos 349. 10/27 Patient was seen and examined. He is in moderate distress. He is yelling out. CTAP was done which was negative for acute pathology. Review of vitals showing O2 saturation 91% on room air and heart rate in the 100s. Unable to give morning medication due to his clinical condition. BMP from yesterday showed BUN of 62, creatinine 1.78, calcium of 8.3. CBC done on 10/25 shows 4% blast cells. Pain management consultation pending. 10/28 Patient was seen and examined. Patient is comfortable while sleeping but starts yelling out when he wakes up. Blast cells seen on peripheral smear and hematology consulted. Case was discussed extensively with the at bedside. There are concerns for myelodysplastic syndrome. agrees that patient is not a good candidate for treatment. He has been progressively declining since his previous admission. is ready for hospice at home. Anticipate discharge tomorrow. General: non toxic, moderate distress, appears at stated age, flat affect Derm: warm, dry Head: atraumatic, normocephalic, symmetric Eyes: EOMI, no lid lag, anicteric sclera Cardiovascular: Good distal perfusion all 4 extremities Lungs: Breathing comfortably , no accessory muscle use Ext: no gross muscle atrophy, no edema, no contractures Failure to thrive Acute lower back pain Normocytic anemia Thrombocytopenia Blast cells on peripheral smear Acute kidney injury Resolved: HypoNa, HypoK, Metabolic acidosis. Chronic conditions: Advanced dementia, CAD, CVA with R sided residual weakness, diabetes mellitus, hypertension, dyslipidemia, hypothyroidism, anxiety and depression Based on my assessment of this patient, this patient meets a moderate complexity level of care. Patient has a new diagnosis of acute lower back pain with uncertain prognosis. He has advanced dementia which makes obtaining a history and physical exam d ifficult. Majority of the history is provided by his . CT AP is negative. Hematology consulted for blast cells seen on peripheral smear. agreeable for no further workup. Continue pain control with Percocet 7.5 mg PO Q4H PRN, Toradol 15 mg IV Q6H PRN, Morphine 4 mg IV Q4H PRN for severe pain. reports that patient takes Depakote for sundowning and agitation at bedtime. We will try Seroquel instead. Fall precautions will be ordered. PT and OT consulted. Hospice consulted. Plans for discharge home with hospice tomorrow. SCDS for DVT prophylaxis. is the decision maker. NO CODE. I have reviewed the following client consultant notes: Hematology note reviewed. I have reviewed the results of the following tests: I have ordered the following tests: I have discussed the care of this patient with the following independent historian: Case discussed extensively with the at bedside. Case discussed with hospice nurse. Case discussed with RN. I have independently interpreted the following test below: I have discussed the management of this patient with the following physician: Objective - Vital Signs Vital signs: Vital Signs Temp 98.1 F 10/28/22 01:38 Pulse 77 10/28/22 09:31 Resp 21 10/28/22 09:31 BP 115/65 10/28/22 09:24 Pulse Ox 95 10/28/22 09:24 FiO2 Intake & Output 10/27/22 10/28/22 10/28/22 18:59 06:59 18:59 Other: Voiding Method Diaper Diaper # Voids 4 4 - Labs CBC & Chem 7: 10/25/22 23:13 10/26/22 06:39 Labs: Abnormal Lab Results - Last 24 Hours (Table) 10/27/22 10/27/22 10/27/22 Range/Units 12:01 16:38 20:24 POC Glucose (mg/dL) 191 H 204 H 239 H (70-110) mg/dL 10/28/22 10/28/22 Range/Units 05:54 11:26 POC Glucose (mg/dL) 201 H 155 H (70-110) mg/dL
[2022-10-28 16:36] LABS: Glucose,Whole Blood 142 mg/dL (70-110)
[2022-10-28] MEDS ORDERED: bisacodyL 10 MG SUPP RECTAL PRN (20:02)
[2022-10-28] MEDS ORDERED: NA PHOS,M-B/NA PHOS,DI-BA 133 ML ENEMA RECTAL PRN (20:02)
[2022-10-28] MEDS ORDERED: NA PHOS,M-B/NA PHOS,DI-BA 133 ML ENEMA RECTAL ONE (20:05)
[2022-10-28 21:11] LABS: Glucose,Whole Blood 149 mg/dL (70-110)
[2022-10-28] MEDS: QUEtiapine 25 MG TAB PO SCH (21:12)
[2022-10-29] MEDS: HEPARIN SODIUM,PORCINE/PF 5,000 UNIT/0.5 ML SYRINGE SQ SCH ×3 (00:58→15:59)
[2022-10-29] MEDS: MORPHINE SULFATE 4 MG/ML SYRINGE IVP PRN (04:58)
[2022-10-29 06:10] LABS: Glucose,Whole Blood 161 mg/dL (70-110)
[2022-10-29] MEDS: LEVOTHYROXINE 125 MCG TAB PO SCH (06:32)
[2022-10-29] MEDS: SODIUM CHLORIDE 0.9% 1,000 ML IV SCH (07:50)
[2022-10-29] MEDS: ATORVASTATIN 40 MG TAB PO SCH (07:51)
[2022-10-29] MEDS: CLOPIDOGREL 75 MG TAB PO SCH (07:51)
[2022-10-29] MEDS: CITALOPRAM HYDROBROMIDE 10 MG TAB PO SCH (07:51)
[2022-10-29] MEDS: amLODIPine 10 MG TAB PO SCH (07:51)
[2022-10-29] MEDS: ASPIRIN 81 MG PO SCH (07:51)
[2022-10-29 07:52] VITALS: BP 140/80; PULSE 89; RESP 20; TEMP 97.9
[2022-10-29] MEDS: ISOSORBIDE MONONITRATE ER 60 MG TAB.ER.24H PO SCH (07:53)
[2022-10-29] MEDS: PANTOPRAZOLE 40 MG TABLET PO SCH (07:54)
[2022-10-29] MEDS: METOPROLOL TARTRATE 12.5 MG TAB PO SCH (09:19)
[2022-10-29] MEDS: MORPHINE CONC SOLN 10mg/0.5mL ORAL SYRG PO SCH ×3 (10:51→18:37)
[2022-10-29] MEDS ORDERED: LORazepam 2 MG/ML INJ IV PRN (11:12)
--- NOTE | 2022-10-29 11:17 | P.DS ---
Providers Date of admission: 10/25/22 23:59 Expected date of discharge: 10/29/22 Attending physician: Dane Ortega MD Consults: 10/26/22 01:20 Consult Physician Urgent Consulting Provider: Elisha Frederick Consult Reason/Comments: lower back pain Do you want consulting provider notified?: Yes 10/27/22 12:05 Consult Physician Stat Consulting Provider: Benjamin Bravo Consult Reason/Comments: Blast cells Do you want consulting provider notified?: Yes Primary care physician: Terry Mills [facility] Course: 81 year old M with PMH of advanced dementia, CAD, CVA with R sided residual weakness, diabetes mellitus, hypertension, dyslipidemia, hypothyroidism, anxiety and depression presents to the ED for worsening back pain and epigastric pain. reported poor oral intake as well. Patient was recently admitted from 10/12- 10/15 for similar complaints. Workup at that time included HIDA scan negative for acute cholecystitis and EGD showing hiatal hernia, erosive esophagitis, active duodenitis. Since his discharge, his ing has worsened and is unable to take care of the patient at home. A lumbar spine x-ray in the emergency room revealed arthritis most pronounced at the L5-S1. Laboratory evaluation was remarkable for sodium 136, potassium 5.2 (hemolyzed), BUN 63, creatinine 2.07 (previously 1.04 on 10/15), glucose 197, ALT 66, and alk phos 349. 10/27 Patient was seen and examined. He is in moderate distress. He is yelling out. CTAP was done which was negative for acute pathology. Review of vitals showing O2 saturation 91% on room air and heart rate in the 100s. Unable to give morning medication due to his clinical condition. BMP from yesterday showed BUN of 62, creatinine 1.78, calcium of 8.3. CBC done on 10/25 shows 4% blast cells. Pain management consultation pending. 10/28 Patient was seen and examined. Patient is comfortable while sleeping but starts yelling out when he wakes up. Blast cells seen on peripheral smear and hematology consulted. Case was discussed extensively with the at bedside. There are concerns for myelodysplastic syndrome. agrees that patient is not a good candidate for treatment. He has been progressively declining since his previous admission. is ready for hospice at home. Anticipate discharge tomorrow. 10/29 Patient was seen and examined. Started on Ativan PRN for anxiety. at bedside. Plans for discharge home to hospice today. Equipment being delivered currently. Pertinent studies as above. General: non toxic, moderate distress, appears at stated age, flat affect Derm: warm, dry Head: atraumatic, normocephalic, symmetric Eyes: EOMI, no lid lag, anicteric sclera Cardiovascular: Good distal perfusion all 4 extremities Lungs: Breathing comfortably , no accessory muscle use Ext: no gross muscle atrophy, no edema, no contractures He appears to be anxious when he wakes up. Discharge Diagnosis: Failure to thrive Acute lower back pain Normocytic anemia Thrombocytopenia Blast cells on peripheral smear Acute kidney injury Resolved: HypoNa, HypoK, Metabolic acidosis. Chronic conditions: Advanced dementia, CAD, CVA with R sided residual weakness, diabetes mellitus, hypertension, dyslipidemia, hypothyroidism, anxiety and depression This complex discharge took 35 minutes to complete. Patient Condition at Discharge: Poor Plan - Discharge Summary Discharge Rx Participant: No New Discharge Prescriptions: No Action Enalapril [Vasotec] 20 mg PO BID Aspirin [Adult Low Dose Aspirin EC] 81 mg PO DAILY Levothyroxine Sodium [Synthroid] 125 mcg PO DAILY Atorvastatin [Lipitor] 40 mg PO DAILY Citalopram Hydrobromide [CeleXA] 10 mg PO DAILY Clopidogrel [Plavix] 75 mg PO DAILY Divalproex ER [Depakote ER] 250 mg PO HS Melatonin 5 mg PO HS Metoprolol Tartrate [Lopressor] 12.5 mg PO BID traZODone HCL [Desyrel] 25 mg PO HS Isosorbide Mononitrate ER [Imdur] 60 mg PO DAILY #30 tab Pantoprazole Sodium [Protonix] See Taper PO DIRECTED [id number] 500mg 1 tab PO DAILY amLODIPine [Norvasc] 10 mg PO DAILY #30 tab Acetaminophen Tab [Tylenol] 650 mg PO Q6HR PRN tab PRN Reason: Fever And/ Or Pain Cyclobenzaprine [Flexeril] 5 mg PO TID PRN #30 tab PRN Reason: Muscle Spasm oxyCODONE-APAP 7.5-325MG [Percocet 7.5-325 mg] 1 each PO Q4HR PRN #18 tab PRN Reason: Pain Discharge Medication List Aspirin [Adult Low Dose Aspirin EC] 81 mg PO DAILY 02/05/18 [History] Enalapril [Vasotec] 20 mg PO BID 02/05/18 [History] Levothyroxine Sodium [Synthroid] 125 mcg PO DAILY 10/17/21 [History] [id number] 500mg 1 tab PO DAILY 09/27/22 [History] Atorvastatin [Lipitor] 40 mg PO DAILY 09/27/22 [History] Citalopram Hydrobromide [CeleXA] 10 mg PO DAILY 09/27/22 [History] Clopidogrel [Plavix] 75 mg PO DAILY 09/27/22 [History] Divalproex ER [Depakote ER] 250 mg PO HS 09/27/22 [History] Melatonin 5 mg PO HS 09/27/22 [History] Metoprolol Tartrate [Lopressor] 12.5 mg PO BID 09/27/22 [History] traZODone HCL [Desyrel] 25 mg PO HS 09/27/22 [History] Acetaminophen Tab [Tylenol] 650 mg PO Q6HR PRN tab 09/29/22 [Rx] Isosorbide Mononitrate ER [Imdur] 60 mg PO DAILY #30 tab 09/29/22 [Rx] amLODIPine [Norvasc] 10 mg PO DAILY #30 tab 09/29/22 [Rx] Cyclobenzaprine [Flexeril] 5 mg PO TID PRN #30 tab 10/15/22 [Rx] oxyCODONE-APAP 7.5-325MG [Percocet 7.5-325 mg] 1 each PO Q4HR PRN #18 tab 10/15/22 [Rx] Pantoprazole Sodium [Protonix] See Taper PO DIRECTED 10/26/22 [History] Follow up Appointment(s)/Referral(s): [facility],Clinic [REFERRING] - 1-2 days Discharge Disposition: HOME WITH HOSPICE
== END 2022-10-29 18:06 | disposition hospice, home (50) | DRG 812 ==
LOC: EC 19:59 → 4SSUR 23:59
PROVIDERS: ADMIT Internal Medicine; ATTEND Internal Medicine
DX: D46.9 Myelodysplastic syndrome, unspecified (principal); E87.1 Hypo-osmolality and hyponatremia; F03.94 Unspecified dementia, unspecified severity, with anxiety; F03.93 Unspecified dementia, unspecified severity, with mood disturbance; I69.351 Hemiplegia and hemiparesis following cerebral infarction affecting right dominant side; K22.10 Ulcer of esophagus without bleeding; N17.9 Acute kidney failure, unspecified; E87.20 Acidosis, unspecified; R62.7 Adult failure to thrive; Z68.23 Body mass index [BMI] 23.0-23.9, adult; Z51.5 Encounter for palliative care; Z66 Do not resuscitate; E03.9 Hypothyroidism, unspecified; E11.69 Type 2 diabetes mellitus with other specified complication; E78.5 Hyperlipidemia, unspecified; E86.0 Dehydration; H91.93 Unspecified hearing loss, bilateral; I10 Essential (primary) hypertension; I25.10 Atherosclerotic heart disease of native coronary artery without angina pectoris; E05.00 Thyrotoxicosis with diffuse goiter without thyrotoxic crisis or storm; I25.2 Old myocardial infarction; M47.817 Spondylosis without myelopathy or radiculopathy, lumbosacral region; K29.80 Duodenitis without bleeding; E87.5 Hyperkalemia; Z79.02 Long term (current) use of antithrombotics/antiplatelets; Z79.82 Long term (current) use of aspirin; Z79.890 Hormone replacement therapy; Z79.899 Other long term (current) drug therapy; R15.9 Full incontinence of feces; R32 Unspecified urinary incontinence; Z85.46 Personal history of malignant neoplasm of prostate; R21 Rash and other nonspecific skin eruption; Z91.81 History of falling; Z95.1 Presence of aortocoronary bypass graft; Z97.4 Presence of external hearing-aid; Z82.49 Family history of ischemic heart disease and other diseases of the circulatory system; F41.9 Anxiety disorder, unspecified; G89.29 Other chronic pain; G47.30 Sleep apnea, unspecified; K21.9 Gastro-esophageal reflux disease without esophagitis; Z71.3 Dietary counseling and surveillance
CPT/HCPCS: 36415; 72100; 74176; 80048; 80053; 85025; 94760; 96361; 96374; 96375; 99285